=== PATIENT | female | born 1945 | race Caucasian/White ===

== ENCOUNTER → 2017-09-11 12:23 | Outpatient (CLI) | payer MEDICARE, SELFPAY ==
[2017-09-11 14:49] LABS: Cholesterol 165 mg/dL (200); Hemoglobin A1c 5.7 % (4.2-6.3); High Density Lipoprotein 44 mg/dL; Triglycerides 120 mg/dL; Very Low Density Lipoprotein 24 mg/dL (5-40)
== END ==
PROVIDERS: Family Provider Internal Medicine; PCP Internal Medicine; Visit Provider Internal Medicine
DX: E03.9 Hypothyroidism, unspecified (principal); E11.9 Type 2 diabetes mellitus without complications
CPT/HCPCS: 36415; 80061; 83036

== ENCOUNTER → 2017-09-29 16:41 | Outpatient (CLI) | payer MEDICARE, SELFPAY ==
--- NOTE | 2017-09-29 16:48 | RAD_ITS ---
STUDY: X-RAY CHEST REASON FOR EXAM: Female, 72 years old. Cough TECHNIQUE: Frontal and lateral views of the chest were obtained. COMPARISON: March 11, 2015 FINDINGS: The lungs are hyperinflated. There are no focal airspace opacities. There is no demonstrated pleural abnormality. The cardiac silhouette is normal in size. The mediastinum and hilar regions are unremarkable. Normal visualized pulmonary arteries. There is atherosclerotic calcification of the thoracic aorta. There are diffuse degenerative changes of the visualized spine. There are degenerative changes in both shoulders. There is no demonstrated abnormality of the visualized upper abdomen. RAD/Chest PA and Lateral IMPRESSION: There is no evidence of focal consolidation or pleural effusion. Stable COPD. Electronically Signed: Charline Turcios MD at 7:52 EST Tel Direct: [phone], Service support ,
== END ==
PROVIDERS: Family Provider Internal Medicine; PCP Internal Medicine; Visit Provider Nurse Practitioner Family
DX: R05 Cough (principal)
CPT/HCPCS: 71046

== ENCOUNTER 2017-10-06 15:21 | Emergency (ER) | payer MEDICARE, SELFPAY ==
[2017-10-06 15:22] VITALS: BP 148/81; PULSE 65; RESP 28; TEMP 37.1; O2SAT 98; BMI 35.5
--- NOTE | 2017-10-06 16:15 | CT_ITS ---
STUDY: CT BRAIN WITHOUT CONTRAST REASON FOR EXAM: Female, 72 years old. Anxiety and speech difficulties. RADIATION DOSAGE (If Supplied By Facility): CTDIvol = ( 44.99 ) mGy, DLP = ( 762.36 ) mGycm TECHNIQUE: Transaxial CT imaging of the brain was performed without administration of intravenous contrast material. Individualized dose optimization techniques were used for this CT. COMPARISON: Prior head CT examination of August 13, 2017 FINDINGS: Normal soft tissue structures. Normal calvarium. Normal size ventricles and extra-axial spaces for the patient's age. There are areas of decreased attenuation within the white matter tracts of the supratentorial brain, consistent with microvascular disease changes. Normal basal ganglia and thalami. Normal brainstem. Normal cerebellum. There is no intracranial hemorrhage. There are no findings of an acute ischemic infarction. Minimal dependent mucus or mucosal thickening of the left maxillary sinus. Otherwise clear paranasal sinuses. CT/Brain/Head without Contrast IMPRESSION: No acute intracranial findings. Negative for hemorrhage, hematoma or mass density. Negative for demarcation of a new nonhemorrhagic infarct. Moderate chronic small vessel ischemic changes without substantial changes from prior examination. Minimal mucous accumulation or mucosal thickening of the left maxillary sinus. Electronically Signed: Maribel Paul MD at 17:40 EST , Service support ,
--- NOTE | 2017-10-06 16:15 | RAD_ITS ---
STUDY: X-RAY CHEST REASON FOR EXAM: Female, 72 years old. Shortness of breath. Generalized illness. TECHNIQUE: Single frontal view of the chest. COMPARISON: September 29, 2017 FINDINGS: There is stable mild hyperexpansion compatible with COPD. There is no demonstrated pleural abnormality. There is stable borderline cardiomegaly. Normal mediastinum and doron. Normal visualized pulmonary arteries. Normal visualized aortic arch and descending thoracic aorta. Normal visualized thoracic spine. Normal visualized ribs, clavicles, and shoulders. There is no demonstrated abnormality of the visualized soft tissue structures of the upper abdomen. RAD/Chest 1 View (Portable) IMPRESSION: Stable borderline cardiomegaly with hyperexpansion compatible with COPD. No new or acute pathology. Electronically Signed: Satish Sorensen MD at 16:46 EST , Service support ,
--- NOTE | 2017-10-06 16:18 | EKG12_ITS ---
Test Reason : GENERAL ILLNESS Blood Pressure : / mmHG Vent. Rate : 057 BPM Atrial Rate : 057 BPM P-R Int : 256 ms QRS Dur : 110 ms QT Int : 482 ms P-R-T Axes : 096 -43 108 degrees QTc Int : 469 ms Sinus bradycardia with 1st degree A-V block with Premature atrial complexes Left axis deviation Left bundle branch block Septal infarct , age undetermined Inferior infarct , age undetermined ST & T wave abnormality, consider lateral ischemia Abnormal ECG Confirmed by LYNSEY ARANA ([id number]), scientific publications editor JM POST ([id number]) on 10/10/2017 1:06:09 PM Referred By: MELLISSA Confirmed By:LYNSEY ARANA
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
[2017-10-06 17:07] LABS: Absolute Lymphocyte Count 0.79 X10^3/ul (0.83-4.51); Absolute Neutrophil Count 7.3 X10^3/uL (2.0-7.7); Eosinophil# 0.01 X10^3/uL; Eosinophils% 0.1 % (0-5); Hematocrit 41.1 % (37-47); Hemoglobin 13.5 g/dl (12.0-15.0); Lymphocyte # 0.79 X10^3/ul (4.0); Lymphocyte % 9.4 % (19-41); Mean Corp Hgb Conc 32.8 g/gl (32-36); Mean Corpuscular Hgb 30.6 pg (27.0-32.0); Mean Corpuscular Volume 93.2 fL (81-99); Mean Platelet Vol. 10.6 fl (6.2-12.0); Monocyte# 0.31 X10^3/uL; Monocyte% 3.7 % (0-10); Neutrophil # 7.25 X10^3/uL (2.7-7.7); Neutrophil % 86.4 % (47-70); Platelet Count 144 K/mm3 (150-450); RBC Distribution Width CV 14.3 % (11.6-14.6); RBC Distribution Width SD 47.7 fl (35.1-43.9); Red Blood Count 4.41 M/mm3 (4.2-5.4); White Blood Count 8.4 K/mm3 (4.4-11.0)
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
[2017-10-06 17:16] LABS: POSITIVE COUNT NO; POSITIVE DIFFERENTIAL NO; POSITIVE MORPHOLOGY NO
[2017-10-06 17:18] LABS: International Normalized Ratio 1.1; Prothrombin Time (Protime)PT. 13.7 SECONDS (11.7-14.9)
[2017-10-06 17:19] LABS: Partial Thromboplast Time 23.5 Seconds (24.1-36.2)
[2017-10-06] MEDS: 0.9% Normal Saline 1,000 ML 150 ML IV (17:27)
[2017-10-06 17:28] LABS: Anion Gap 8 (5-15); BUN 14 mg/dL (7-18); BUN/Creat Ratio 16.4 RATIO (10-20); Calcium,Total 8.1 mg/dL (8.5-10.1); Chloride 106 mmol/L (98-107); Creatinine, Serum 0.86 mg/dL (0.55-1.02); EST Glomerular Filtration Rate 69 mL/min (>60); Est Glom Filt Rate - Afr Amer 84 mL/min (>60); Estimated Creatinine Clearance 73.39 ml/min; Glucose 122 mg/dL (74-106); Potassium 3.8 mmol/L (3.5-5.1); Sodium Level 141 mmol/L (136-145)
[2017-10-06] MEDS: DiphenhydrAMINE 50 MG/ML Syringe 25 MG IV (17:28)
[2017-10-06] MEDS: Ketorolac 30 MG/ML Syringe IV (17:28)
[2017-10-06] MEDS: proCHLORPERazine 10 MG/2 ML Vial IV (17:28)
[2017-10-06 17:40] VITALS: PULSE 61; RESP 14; O2SAT 95
[2017-10-06 17:56] LABS: Color, Urine Yellow (Yellow); Glucose, Dipstick Normal (Normal); Ketone-Dipstick Negative (Negative); Leukocyte Esterase-Dipstick 25 /ul (Negative); Nitrite-Dipstick Negative (Negative); Occult Blood-Urine Negative /ul (Negative); Protein-Dipstick 15 mg/dl (Negative); Urine Bilirubin Dipstick Negative (Negative); Urine Clarity Clear (Clear); Urine Urobilinogen 1 mg/dl (Normal)
[2017-10-06 18:05] LABS: Bacteria 1+ /hpf (None Seen); Mucous, Urine 2+ /hpf (<or=2+); Red Blood Cells-Urine 0-5 SEEN /hpf (0-5); Squamous Epithelial Cells - UA 0-5 SEEN /hpf (5-10); White Blood Cells 0-5 SEEN /hpf (0-5)
[2017-10-06 19:08] VITALS: PULSE 60; RESP 17; O2SAT 95
--- NOTE | 2017-10-06 19:24 | DCINST.ED_ITS ---
ED Disposition - Plan for ED Patient: Disposition: Home or Assisted Living Chief Complaint: General Illness Instructions: ED Headache Migraine Referrals: Behavioral,Health [facility] [GROUP OF PHYSICIANS] - As soon as possible Romaine Turner MD [Primary Care Provider] - 1-2 Weeks
--- NOTE | 2017-10-07 10:00 | CASEMGMT ---
Social Work - Emergency Department Referral sent to Tio Richardson and Emily Lara of the [facility] BH Department. In referral indicated that patient may need assist with transportation. -ONESIMO Tariq, BUSINESS SCHOOL DEAN
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
== END 2017-10-06 19:32 | disposition home or self-care (01) ==
PROVIDERS: Emergency Provider Emergency Medicine; Family Provider Internal Medicine; PCP Internal Medicine
DX: G43.909 Migraine, unspecified, not intractable, without status migrainosus (principal); R44.1 Visual hallucinations; I25.10 Atherosclerotic heart disease of native coronary artery without angina pectoris; J45.909 Unspecified asthma, uncomplicated; J44.9 Chronic obstructive pulmonary disease, unspecified; E78.00 Pure hypercholesterolemia, unspecified; I10 Essential (primary) hypertension; R56.9 Unspecified convulsions; K21.9 Gastro-esophageal reflux disease without esophagitis; F41.9 Anxiety disorder, unspecified; I71.4 Abdominal aortic aneurysm, without rupture; Z87.891 Personal history of nicotine dependence; Z79.51 Long term (current) use of inhaled steroids; Z79.02 Long term (current) use of antithrombotics/antiplatelets; Z79.899 Other long term (current) drug therapy
CPT/HCPCS: 70450; 71045; 80048; 81001; 84484; 85025; 85610; 85730; 93005; 96361; 96374; 96375; 99285; J7030; A4216

== ENCOUNTER → 2017-10-18 16:20 | Outpatient (CLI) | payer MEDICARE, SELFPAY ==
[2017-10-18 18:32] LABS: ALB/GLOB Ratio 0.9 RATIO (0.9-2.4); AST(SGOT) 20 U/L (15-37); Alanine Aminotransfer ALT/SGPT 30 U/L (13-56); Albumin, Serum 3.2 g/dL (3.2-5.0); Alkaline Phosphatase 89 U/L (45-117); Anion Gap 9 (5-15); BUN 10 mg/dL (7-18); BUN/Creat Ratio 11.9 RATIO (10-20); Calcium,Total 8.6 mg/dL (8.5-10.1); Chloride 107 mmol/L (98-107); Creatinine, Serum 0.84 mg/dL (0.55-1.02); EST Glomerular Filtration Rate 71 mL/min (>60); Est Glom Filt Rate - Afr Amer 86 mL/min (>60); Globulin 3.7 g/dL (2.2-4.2); Glucose 82 mg/dL (74-106); Potassium 4.1 mmol/L (3.5-5.1); Protein, Total 6.9 g/dL (6.4-8.2); Sodium Level 142 mmol/L (136-145); T4 Free Direct 1.28 ng/dL (0.76-1.46); Thyroid Stim Hormone (TSH) 0.79 uIU/mL (0.358-3.74)
== END ==
PROVIDERS: Family Provider Internal Medicine; PCP Internal Medicine; Visit Provider Internal Medicine
DX: E03.9 Hypothyroidism, unspecified (principal)
CPT/HCPCS: 36415; 80053; 84439; 84443

== ENCOUNTER 2017-10-31 12:57 | Emergency (ER) | payer MEDICARE, SELFPAY ==
[2017-10-31 13:01] VITALS: BP 148/108; PULSE 62; RESP 16; TEMP 36.8; O2SAT 97
--- NOTE | 2017-10-31 13:52 | ED.VISSUMM ---
- ER Visit Summary Date of Service: 10/31/17 Chief Complaint: Headache History of Present Illness: The patient is a 72 F who presents with a headache that became worse today. Patient states she has a history of migraine headaches. Patient states her headache is over the left side of her head. Patient describes the headache as a pressure. Patient admits to some tingling. Patient also admits to some right upper quadrant abdominal pain. Patient denies any nausea or vomiting. Patient denies any visual changes. Patient states her pain is constant but waxes and wanes. Patient states the pain is similar to prior migraine headaches. Physical Examination: Vital signs are stable. Patient is afebrile. Patient is in no acute distress. Cranial nerves II through XII are intact. Strength is 5/5 bilaterally upper and lower extremities. There are no sensory deficits noted. Oral mucosa is pink and moist. Neck is supple. Heart was regular rate and rhythm. Lungs are clear and equal bilaterally. Abdomen is soft. There is right upper quadrant tenderness. There is no rebound or guarding noted. The remaining physical exam is within normal limits. Test Results: CBC and comprehensive metabolic profile were obtained and were within normal limits. Emergency Department Course and Treatment: Patient was given IV fluids, Compazine, and Benadryl. Patient states her headache improved somewhat after this. Patient was given an injection of morphine. Patient was instructed to rest in a dark quiet room. Patient was instructed to follow-up with her primary care physician in 7-10 days. Patient understood and was agreeable with the plan. All questions were answered. Disposition: Discharged home Impression: Migraine headache, abdominal pain This note was generated with DoApp dictation software. It may contain incorrect words, spelling, and punctuation that were not noted in review of the chart prior to signing ED Disposition - Plan for ED Patient: Disposition: Home or Assisted Living Chief Complaint: Headache Diagnosis: Migraine headache, Right upper quadrant abdominal pain of unknown etiology Instructions: ED Headache Migraine, ED Abdominal Pain Unkn Cause Referrals: Romaine Turner MD [Primary Care Provider] -
--- NOTE | 2017-10-31 13:55 | ED.DCSUM_ITS ---
- ER Visit Summary Date of Service: 10/31/17 Chief Complaint: Headache History of Present Illness: The patient is a 72 F who presents with a headache that became worse today. Patient states she has a history of migraine headaches. Patient states her headache is over the left side of her head. Patient describes the headache as a pressure. Patient admits to some tingling. Patient also admits to some right upper quadrant abdominal pain. Patient denies any nausea or vomiting. Patient denies any visual changes. Patient states her pain is constant but waxes and wanes. Patient states the pain is similar to prior migraine headaches. Physical Examination: Vital signs are stable. Patient is afebrile. Patient is in no acute distress. Cranial nerves II through XII are intact. Strength is 5/ 5 bilaterally upper and lower extremities. There are no sensory deficits noted. Oral mucosa is pink and moist. Neck is supple. Heart was regular rate and rhythm. Lungs are clear and equal bilaterally. Abdomen is soft. There is right upper quadrant tenderness. There is no rebound or guarding noted. The remaining physical exam is within normal limits. Test Results: CBC and comprehensive metabolic profile were obtained and were within normal limits. Emergency Department Course and Treatment: Patient was given IV fluids, Compazine, and Benadryl. Patient states her headache improved somewhat after this. Patient was given an injection of morphine. Patient was instructed to rest in a dark quiet room. Patient was instructed to follow-up with her primary care physician in 7-10 days. Patient understood and was agreeable with the plan. All questions were answered. Disposition: Discharged home Impression: Migraine headache, abdominal pain This note was generated with Brainpark dictation software. It may contain incorrect words, spelling, and punctuation that were not noted in review of the chart prior to signing ED Disposition - Plan for ED Patient: Disposition: Home or Assisted Living Chief Complaint: Headache Diagnosis: Migraine headache, Right upper quadrant abdominal pain of unknown etiology Instructions: ED Headache Migraine, ED Abdominal Pain Unkn Cause Referrals: Romaine Turner MD [Primary Care Provider] -
[2017-10-31] MEDS: DiphenhydrAMINE 50 MG/ML Syringe 25 MG IV (14:28)
[2017-10-31] MEDS: 0.9% Normal Saline 1,000 ML 1000 ML IV (14:28)
[2017-10-31 14:31] LABS: Absolute Lymphocyte Count 1.28 X10^3/ul (0.83-4.51); Absolute Neutrophil Count 3.6 X10^3/uL (2.0-7.7); Basophil# 0.01 X10^3/uL; Basophil% 0.2 % (0-1); Eosinophil# 0.06 X10^3/uL; Eosinophils% 1.1 % (0-5); Hematocrit 43.9 % (37-47); Hemoglobin 14.3 g/dl (12.0-15.0); Lymphocyte # 1.28 X10^3/ul (4.0); Lymphocyte % 24.1 % (19-41); Mean Corp Hgb Conc 32.6 g/gl (32-36); Mean Corpuscular Hgb 30.6 pg (27.0-32.0); Mean Corpuscular Volume 93.8 fL (81-99); Mean Platelet Vol. 11.2 fl (6.2-12.0); Monocyte# 0.37 X10^3/uL; Neutrophil # 3.59 X10^3/uL (2.7-7.7); Neutrophil % 67.4 % (47-70); Platelet Count 182 K/mm3 (150-450); RBC Distribution Width CV 14.3 % (11.6-14.6); RBC Distribution Width SD 48.3 fl (35.1-43.9); Red Blood Count 4.68 M/mm3 (4.2-5.4); White Blood Count 5.3 K/mm3 (4.4-11.0)
[2017-10-31 14:35] LABS: POSITIVE COUNT NO; POSITIVE DIFFERENTIAL NO; POSITIVE MORPHOLOGY NO
[2017-10-31 14:45] LABS: ALB/GLOB Ratio 0.9 RATIO (0.9-2.4); AST(SGOT) 22 U/L (15-37); Alanine Aminotransfer ALT/SGPT 26 U/L (13-56); Albumin, Serum 3.6 g/dL (3.2-5.0); Alkaline Phosphatase 103 U/L (45-117); Anion Gap 8 (5-15); BUN 12 mg/dL (7-18); BUN/Creat Ratio 16.3 RATIO (10-20); Calcium,Total 8.8 mg/dL (8.5-10.1); Chloride 105 mmol/L (98-107); Creatinine, Serum 0.74 mg/dL (0.55-1.02); EST Glomerular Filtration Rate 82 mL/min (>60); Est Glom Filt Rate - Afr Amer 100 mL/min (>60); Estimated Creatinine Clearance 60.99 ml/min; Globulin 3.9 g/dL (2.2-4.2); Glucose 110 mg/dL (74-106); Lipase 168 U/L (73-393); Potassium 3.7 mmol/L (3.5-5.1); Protein, Total 7.5 g/dL (6.4-8.2); Sodium Level 140 mmol/L (136-145)
[2017-10-31] MEDS: proCHLORPERazine 10 MG/2 ML Vial IV (14:52)
[2017-10-31 15:04] VITALS: BP 137/74; PULSE 63; RESP 15; O2SAT 97
--- NOTE | 2017-10-31 15:53 | ED.RN ---
PT BRINGS MEDICATION BOTTLES FROM HOME, STATES I TAKE THOSE PILLS IF I FEEL LIKE IT. SPOUSE'S MEDS FOUND IN CONTAINER WELL, PT STATES OH I TAKE SOME OF HIS TOO, IT'S OK. COUNSELED ON DANGERS OF TAKING PILLS NOT PRESCRIBED BY HER MD, PT STATES I KNOW, I KNOW, YOU DON'T HAVE TO TELL ME AGAIN.
--- NOTE | 2017-10-31 15:55 | ED.RN ---
PT STILL RATES HEADACHE AT 5/10, HOWEVER ALSO STATES I'M MUCH BETTER, I'M REALLY JUST HERE FOR YOU TO CUT MY HEAD OPEN AND FIX ME.
[2017-10-31] MEDS: Morphine 4 MG/ML Syringe IV (16:27)
[2017-10-31 16:29] VITALS: BP 128/71; PULSE 79; RESP 16; O2SAT 98
== END 2017-10-31 16:40 | disposition home or self-care (01) ==
PROVIDERS: Emergency Provider Emergency Medicine; Family Provider Internal Medicine; PCP Internal Medicine
DX: G43.909 Migraine, unspecified, not intractable, without status migrainosus (principal); R10.11 Right upper quadrant pain; J44.9 Chronic obstructive pulmonary disease, unspecified; Z87.891 Personal history of nicotine dependence; Z79.51 Long term (current) use of inhaled steroids; Z79.02 Long term (current) use of antithrombotics/antiplatelets; Z79.899 Other long term (current) drug therapy
CPT/HCPCS: 80053; 83690; 85025; 96361; 96374; 96375; 99283; J7030

== ENCOUNTER → 2018-01-04 12:44 | Outpatient (CLI) | payer MEDICARE, SELFPAY ==
--- NOTE | 2018-01-05 11:32 | PFT ---
INTRODUCTION: The patient is a 72-year-old female currently under the care of Nabor Biggs NP that presents for pulmonary function testing secondary to a diagnosis of COPD. Respiratory therapy reports good patient effort. Bronchodilators were used during testing. INTERPRETATION: Forced expiration spirometry demonstrates the presence of a moderately severe large airways obstructive ventilatory defect. There was a significant bronchodilator response noted in both FEV1 and FVC. Spirograms are of good quality and do not plateau indicating slow emptying of the lungs. The respiratory flow volume loop reveals decreased expiratory flow rates at all lung volumes consistent with airways obstruction. Body plethysmography was performed and reveals an elevated RV to 171% of predicted, indicative of underlying air trapping. Diffusing capacity by single breath CO is moderately reduced at 53% of predicted. IMPRESSION: These pulmonary function studies demonstrate the presence of a partially reversible moderately severe large airways obstructive ventilatory defect with associated air trapping and reduction in diffusing capacity. There are no previous pulmonary function studies available for comparison.
== END ==
PROVIDERS: Family Provider Internal Medicine; PCP Internal Medicine; Visit Provider Nurse Practitioner Family
DX: J44.9 Chronic obstructive pulmonary disease, unspecified (principal); R06.00 Dyspnea, unspecified
CPT/HCPCS: 94060; 94726; 94729

== ENCOUNTER → 2018-02-12 10:52 | Outpatient (CLI) | payer MEDICARE, SELFPAY ==
[2018-02-12 11:00] VITALS: PULSE 103; PULSE 80; PULSE 83; PULSE 84; PULSE 88; PULSE 94; PULSE 95; O2SAT 90; O2SAT 91; O2SAT 94; O2SAT 95; O2SAT 96
--- NOTE | 2018-02-12 12:28 | WT_ITS ---
PSN 6 Minute Walk Test - 6 Minute Walk Test 6 Minute Walk Test: 6 Minute Walk Test PSN:6-Minute Walk Test Start: 02/12/18 11: 28 Freq: Status: Active Protocol: RESP.6MINW Document 02/12/18 11:00 MARIAH (Rec: 02/12/18 11:34 JLA [id number]) 6 Minute Walk Test Date Performed 02/12/18 Time Performed 11:00 Height 4 ft 11 in Weight: 162 lb Weight in Pounds 162.[address]: Pato Ansari Assistive device used: None Pre-test Oxygen Delivery Method Room Air Pulse Ox (%) 94 Pulse Rate (60-100 beats/min) 80 Dyspnea Landon Scale (0-10) 5 Exertion Landon Scale (6-20) 6 1st minute Oxygen Delivery Method Room Air Pulse Ox (%) 95 Pulse Rate (60-100 beats/min) 84 2nd minute Oxygen Delivery Method Room Air Pulse Ox (%) 91 Pulse Rate (60-100 beats/min) 94 3rd minute Oxygen Delivery Method Room Air Pulse Ox (%) 90 Pulse Rate (60-100 beats/min) 103 H 4th minute Oxygen Delivery Method Room Air Pulse Ox (%) 94 Pulse Rate (60-100 beats/min) 95 5th minute Oxygen Delivery Method Room Air Pulse Ox (%) 95 Pulse Rate (60-100 beats/min) 88 Number of Rests Taken 1 6th minute Oxygen Delivery Method Room Air Pulse Ox (%) 95 Pulse Rate (60-100 beats/min) 88 Dyspnea Landon Scale (0-10) 8 Exertion Landon Scale (6-20) 14 Post-test Oxygen Delivery Method Room Air Pulse Ox (%) 96 Pulse Rate (60-100 beats/min) 83 Full Laps Walked 9 Partial Lap, Number of Tiles Walked 0 Total Distance Walked (ft) 531 - Interpretation Interpretation: The patient ambulated 531 feet over the course of 6 minutes beginning on room air without assistive devices. Pretesting oxygen saturation was noted be 94% on room air. With ambulation, the susy oxygen saturation was 90%. This represents a significant exertional oxygen desaturation, along with impaired walk distance. - Recommendations Recommendations: There is no indication for the use of supplemental oxygen at this time. However , close interval follow-up is recommended given the degree of oxygen desaturation noted during this study.
== END ==
PROVIDERS: Family Provider Internal Medicine; PCP Internal Medicine; Visit Provider Internal Medicine Critical Care Medicine
DX: J44.9 Chronic obstructive pulmonary disease, unspecified (principal); F17.201 Nicotine dependence, unspecified, in remission
CPT/HCPCS: 94060; 94618; 94726; 94729

== ENCOUNTER → 2018-02-15 16:39 | Outpatient (CLI) | payer MEDICARE, SELFPAY ==
[2018-02-15 17:47] LABS: T4 Free Direct 1.34 ng/dL (0.76-1.46); Thyroid Stim Hormone (TSH) 0.09 uIU/mL (0.358-3.74)
== END ==
PROVIDERS: Family Provider Internal Medicine; PCP Internal Medicine; Visit Provider Nurse Practitioner Family
DX: E03.9 Hypothyroidism, unspecified (principal); R25.1 Tremor, unspecified
CPT/HCPCS: 36415; 84439; 84443

== ENCOUNTER → 2018-03-12 10:55 | Outpatient (CLI) | payer MEDICARE, SELFPAY ==
[2018-03-12 12:23] LABS: T4 Free Direct 1.14 ng/dL (0.76-1.46); Thyroid Stim Hormone (TSH) 0.94 uIU/mL (0.358-3.74)
== END ==
PROVIDERS: Family Provider Internal Medicine; PCP Internal Medicine; Visit Provider Nurse Practitioner Family
DX: E03.9 Hypothyroidism, unspecified (principal)
CPT/HCPCS: 36415; 84439; 84443

== ENCOUNTER → 2018-04-19 07:31 | Outpatient (CLI) | payer MEDICARE, SELFPAY | PROVIDERS: Family Provider Internal Medicine; PCP Internal Medicine; Visit Provider Internal Medicine Cardiovascular Disease | DX: I25.10 Atherosclerotic heart disease of native coronary artery without angina pectoris (principal) | CPT/HCPCS: 93306 ==

== ENCOUNTER → 2018-05-14 09:25 | Outpatient (CLI) | payer MEDICARE, SELFPAY ==
--- NOTE | 2018-05-14 09:37 | STEWCON_ITS ---
Reason For Study: CAD, SOB Stress Results Protocol: Dobutamine Stress Echo Maximum Predicted HR: 146 bpm Target HR: 124 bpm% Maximum Pre dicted HR: 106 % DurationHeart Rate Stage (mm:ss) (bpm) BPComm ent Baseline 69 135/85 Diluted Definity 0.4 ML Given; No Chest Pain DSE 10 MCG 3:12 66 146/87No Chest Pain DSE 20 MCG 3:00 78 122/79No Chest Pain DSE 30 MCG 3:00 10 7 161/73No Chest Pain DSE 40 MCG 1:58 15 5 171/100Atropine 0.25 MG IVP; No Chest Pain Recovery 93 134/65 No Chest Pain Stress Duration: 11:10 mm:ss Maximum Stress HR: 155 bpmME TS: 1 Baseline Echocardiogram Findings The estimated ejection fraction is 65 %. Stress Echo Wall motion Data Resting WMIntermediate WMStress WM Resting Wall Motion Wall Motion Stress No regional wall motion No regional wall motion abnormalities noted. abnormalities noted. EKG Data Normal intervals are noted. The patient was titrated from 10 mcg to a maximum of 40 mcg of dobutamine during the stress. The maximum heart rate attained was 157 beats per minute. This was 107% of maximum predicted heart rate. During dobutamine infusion, there were no ST or T wave changes noted to suggest ischemia. No clinical angina was noted. Interpretation Summary The study was technically difficult. Contrast injection was performed. The estimated ejection fraction is 65 %. Normal, adequate, dobutamine echocardiogram. Negative for ischemia by EKG and echocardiographic criteria. No anginal symptoms noted. Rare PVCs noted. Appropriate blood pressure response to dobutamine. Final LVEF of 75%. Test terminated due to the attainment of target heart rate. Decreased sensitivity due to poor echo windows requiring Definity enhancing agent. No complications. Ordering Physician: Orion Nayak Referring Physician: Orion Nayak Performed By: Kristal Rivero, RDCS, RVT
== END ==
PROVIDERS: Family Provider Internal Medicine; PCP Internal Medicine; Referring Provider Internal Medicine Cardiovascular Disease; Visit Provider Internal Medicine Cardiovascular Disease
DX: I25.10 Atherosclerotic heart disease of native coronary artery without angina pectoris (principal); E78.5 Hyperlipidemia, unspecified
CPT/HCPCS: 93017; 93350; J7030; Q9957; A4216; C8928

== ENCOUNTER → 2018-05-17 08:37 | Outpatient (CLI) | payer MEDICARE, SELFPAY ==
--- NOTE | 2018-05-17 08:39 | AAVD_ITS ---
Reason For Study: AAA Aorta Measurements Aorta Doppler Measurements Proximal aorta measures1.51 x 1.43cm. in cross- Peak systolic flow velocities within the proximal sectional axis. aorta measure 48.3 cm/sec. Proximal aorta measures1.52cm. in longitudinal Peak systolic flow velocities within the mid axis. aorta measure 73.9 cm/sec. Mid aorta measures1.41 x 1.46cm. in cross- Peak systolic flow velocities within the distal sectional axis. aorta measure 65.4 cm/sec. Mid aorta measures1.25cm. in longitudinal axis. Distal aorta measures1.41 x 1.37cm. in cross- sectional axis. Distal aorta measures1.413cm. in longitudinal axis. Left Iliac Artery Left iliac artery measures 0.59 x 0.61 cm. in the cross-sectional axis. Left iliac artery measures 0.61 cm. in the longitudinal axis. Peak systolic velocity in the left iliac artery measures 56.8 cm/sec. Right Iliac Artery Right iliac artery measures 0.83 x 0.83 cm. in the cross-sectional axis. Right iliac artery measures 0.72 cm. in the longitudinal axis. Peak systolic velocity in the right iliac artery measures 80.7 cm/sec. Procedure Aorta IVC Iliac vasculature or bypass grafts [id number]. Exam performed in department. Interpretation Summary Proximal aorta 1.51 x 1.43xm diameter maximum Normal velocity of flow, Diffuse plague noted. Right iliac 0.83 x 0.83 cm Left iliac 0.59 x 0.61 cm Ordering Physician: Orion Nayak Referring Physician: Romaine Turner Performed By: Seble Espinosa RVT and Student
[2018-05-17 09:50] LABS: AST(SGOT) 30 U/L (15-37); Alanine Aminotransfer ALT/SGPT 39 U/L (13-56); Albumin, Serum 3.6 g/dL (3.2-5.0); Alkaline Phosphatase 105 U/L (45-117); Bilirubin, Direct 0.15 mg/dL (0.00-0.30); Cholesterol 148 mg/dL (200); Globulin 4.1 g/dL (2.2-4.2); High Density Lipoprotein 51 mg/dL; Protein, Total 7.7 g/dL (6.4-8.2); T4 Total, Thyroxin 9.7 ug/dL (4.8-13.9); Thyroid Stim Hormone (TSH) 0.77 uIU/mL (0.358-3.74); Triglycerides 120 mg/dL; Very Low Density Lipoprotein 24 mg/dL (5-40)
== END ==
PROVIDERS: Family Provider Internal Medicine; PCP Internal Medicine; Referring Provider Internal Medicine Cardiovascular Disease; Visit Provider Internal Medicine Cardiovascular Disease
DX: I71.4 Abdominal aortic aneurysm, without rupture (principal); I25.10 Atherosclerotic heart disease of native coronary artery without angina pectoris; R25.1 Tremor, unspecified; Z86.79 Personal history of other diseases of the circulatory system; Z98.890 Other specified postprocedural states
CPT/HCPCS: 36415; 80061; 80076; 84436; 84443; 93978

== ENCOUNTER 2018-08-18 16:37 | Emergency (ER) | payer MEDICARE, SELFPAY ==
[2018-07-31 14:14] VITALS: BMI 34.7
[2018-08-18 16:38] VITALS: BP 92/64; PULSE 66; RESP 24; TEMP 36.7; O2SAT 93; BMI 34.3
--- NOTE | 2018-08-18 17:06 | CT_ITS ---
STUDY: CT BRAIN WITHOUT CONTRAST REASON FOR EXAM: Female, 73 years old. Dizziness for 30 minutes prior to arrival to the emergency room RADIATION DOSAGE (If Supplied By Facility): CTDIvol = ( 44.99 ) mGy, DLP = ( 762.36 ) mGycm TECHNIQUE: Transaxial CT imaging of the brain was performed without administration of intravenous contrast material. Individualized dose optimization techniques were used for this CT. COMPARISON: 10/06/2017 FINDINGS: Normal soft tissue structures. Normal calvarium. There is mild cerebral atrophy with widening of the extra-axial spaces and ventricular dilatation. There are areas of decreased attenuation within the white matter tracts of the supratentorial brain, consistent with microvascular disease changes. Normal basal ganglia and thalami. Normal brainstem. Normal cerebellum. There is no intracranial hemorrhage. There are no findings of an acute ischemic infarction. Bilateral corazon bullosae, normal variant. Visualized paranasal sinuses are unremarkable. CT/Brain/Head without Contrast IMPRESSION: 1. No acute intracranial hemorrhage or mass effect. 2. Central parenchymal volume loss. White matter changes that are nonspecific but most commonly associated with chronic small vessel ischemic disease. Electronically Signed: Leroy Cullen MD at 18:25 EST , Service support ,
--- NOTE | 2018-08-18 17:06 | CT_ITS ---
STUDY: CT ABDOMEN AND PELVIS WITHOUT CONTRAST REASON FOR EXAM: Female, 73 years old. Sharp stabbing pain in the bilateral flank that started prior to arrival to the emergency room Department RADIATION DOSAGE (If Supplied By Facility): CTDIvol = ( 12.04 ) mGy, DLP = ( 568.32 ) mGycm TECHNIQUE: Transaxial images were obtained from the dome of the diaphragm to the symphysis pubis without oral contrast, and without intravenous contrast. Sagittal and coronal images were reconstructed. Individualized dose optimization techniques were used for this CT. COMPARISON: None. FINDINGS: There are chronic interstitial fibrotic changes of the lung bases. There are mitral valve calcifications. Normal liver. There are surgical clips in the gallbladder fossa consistent with a prior cholecystectomy. Normal spleen. Normal pancreas. Normal bilateral adrenal glands. There are small punctate calcifications of both kidneys. No ureteral calcifications or hydronephrosis. 2.7 cm cystic lesion of the right kidney is indeterminate with mild degree of intermediate density along the posterior margin. There is a small hiatal hernia. Normal small intestine. Normal colon. There is non-visualization of the appendix. Aortic bypass graft noted with expected arterial and iliac calcifications. Normal inferior vena cava. Normal retroperitoneum. Normal urinary bladder. There are operative changes of the anterior abdominal wall. There are surgical clips of the left and right groins. Normal osseous structures. CT/Abdomen/Pelvis without Cont IMPRESSION: 1. Bilateral nephrolithiasis without evidence of hydronephrosis or ureteral obstruction. 2. Aortobifemoral bypass graft. 3. Cholecystectomy. Electronically Signed: Leroy Cullen MD at 18:47 EST , Service support ,
[2018-08-18] MEDS: Meclizine HCl 25 MG Tablet PO (17:20)
--- NOTE | 2018-08-18 17:32 | ED.DCSUM_ITS ---
- ER Visit Summary Date of Service: 08/18/18 Chief Complaint: Dizziness History of Present Illness: The patient is a 73 F who presents with dizziness that began today. Patient describes the dizziness as a spinning sensation. Patient states her dizziness is worse with movements of her head. Patient states it improves with rest. Patient admits to some blurred vision. Patient denies any ear pain or hearing changes. Patient admits to some mild chronic neck pain. Patient admits to a mild left-sided headache. Patient denies any nausea or vomiting. She denies any dysuria or hematuria. Patient admits to some intermittent sharp left flank pain however. Physical Examination: Vital signs are stable. Patient is afebrile. Patient is in no acute distress. Cranial nerves II through XII are intact. 5/5 bilaterally in the upper and lower extremities. There are no sensory deficits noted. Pupils are equal, round, and reactive to light bilaterally. Extraocular muscles are intact. There is no nystagmus noted. Neck is supple. Trachea is midline. There is no JVD noted. Heart was regular rate and rhythm. Lungs are clear and equal bilaterally. Abdomen is soft. Bowel sounds are normal. There is some mild left CVA tenderness. There is no guarding noted. The remaining physical exam is within normal limits. Test Results: CT scan of the brain was obtained and did not show any acute cardiopulmonary process. CBC was normal. Basic metabolic profile shows slightly elevated glucose of 154 and a slightly elevated creatinine 1.14. Urinalysis does not show any evidence of urinary tract infection. CT scan of the abdomen and pelvis was obtained. There is no ureteral calculus. There are bilateral renal calculi but there is no obstruction. There is no acute intra- abdominal process. Emergency Department Course and Treatment: Patient was given a dose of meclizine here. She had some relief with this initially but states the dizziness started to return. Patient was given a dose of morphine for her headache. Patient was given a dose of Benadryl. Patient felt better after this. Patient was also given Afrin nasal spray for her sinus congestion. Patient was given prescription for meclizine. Patient was instructed to follow-up with her primary care physician in 5-7 days. Patient was instructed to drink plenty of fluids. Patient understood and was agreeable with the plan. All questions were answered. Disposition: Discharged home Impression: Peripheral vertigo This note was generated with Dragon dictation software. It may contain incorrect words, spelling, and punctuation that were not noted in review of the chart prior to signing ED Disposition - Plan for ED Patient: Disposition: Home or Assisted Living Chief Complaint: Dizziness Diagnosis: Vertigo Instructions: ED Vertigo Unspecified Prescriptions: Meclizine HCl [Antivert] 25 mg PO TID PRN PRN #20 tab PRN Reason: Dizziness Referrals: Romaine Turner MD [Primary Care Provider] - Additional Instructions: Drink plenty of fluids. Follow-up with your primary care physician in 5-7 days.
[2018-08-18 17:34] LABS: Absolute Lymphocyte Count 1.36 X10^3/ul (0.83-4.51); Absolute Neutrophil Count 4.1 X10^3/uL (2.0-7.7); Basophil# 0.01 X10^3/uL; Basophil% 0.2 % (0-1); Eosinophil# 0.13 X10^3/uL; Eosinophils% 2.2 % (0-5); Hematocrit 42.7 % (37-47); Hemoglobin 13.9 g/dl (12.0-15.0); Lymphocyte # 1.36 X10^3/ul (4.0); Lymphocyte % 22.7 % (19-41); Mean Corp Hgb Conc 32.6 g/gl (32-36); Mean Corpuscular Hgb 29.4 pg (27.0-32.0); Mean Corpuscular Volume 90.5 fL (81-99); Mean Platelet Vol. 10.6 fl (6.2-12.0); Monocyte# 0.39 X10^3/uL; Monocyte% 6.5 % (0-10); Neutrophil # 4.09 X10^3/uL (2.7-7.7); Neutrophil % 68.4 % (47-70); Platelet Count 154 K/mm3 (150-450); RBC Distribution Width CV 13.1 % (11.6-14.6); RBC Distribution Width SD 43.3 fl (35.1-43.9); Red Blood Count 4.72 M/mm3 (4.2-5.4)
[2018-08-18 17:35] LABS: POSITIVE COUNT NO; POSITIVE DIFFERENTIAL NO; POSITIVE MORPHOLOGY NO
[2018-08-18 17:41] LABS: Anion Gap 12 (5-15); BUN 11 mg/dL (7-18); BUN/Creat Ratio 9.6 RATIO (10-20); Calcium,Total 8.9 mg/dL (8.5-10.1); Chloride 102 mmol/L (98-107); Creatinine, Serum 1.14 mg/dL (0.55-1.02); EST Glomerular Filtration Rate 50 mL/min (>60); Est Glom Filt Rate - Afr Amer 60 mL/min (>60); Glucose 154 mg/dL (74-106); Potassium 4.3 mmol/L (3.5-5.1); Sodium Level 138 mmol/L (136-145)
[2018-08-18 18:50] VITALS: BP 108/74; PULSE 76; RESP 20; O2SAT 95
[2018-08-18] MEDS: DiphenhydrAMINE 50 MG/ML Syringe 25 MG IV (19:46)
[2018-08-18] MEDS: Morphine 2 MG/ML Syringe IV (19:47)
[2018-08-18] MEDS: Oxymetazoline 0.05% 1 SPRAY SPRAY.BTL NASAL (19:47)
[2018-08-18 19:50] LABS: Bacteria 0 SEEN /hpf (None Seen); Mucous, Urine 0 SEEN /hpf (<or=2+)
[2018-08-18 19:55] LABS: Color, Urine Yellow (Yellow); Glucose, Dipstick Normal (Normal); Ketone-Dipstick Negative (Negative); Leukocyte Esterase-Dipstick 25 /ul (Negative); Nitrite-Dipstick Negative (Negative); Occult Blood-Urine 10 /ul (Negative); Protein-Dipstick Negative (Negative); Specific Gravity, Urine 1.015 (1.002-1.030); Urine Bilirubin Dipstick Negative (Negative); Urine Clarity Clear (Clear); Urine Urobilinogen Normal (Normal)
[2018-08-18 20:09] LABS: Hyaline Cast 10-25 SEEN /lpf (0-5); Squamous Epithelial Cells - UA 0-5 SEEN /hpf (5-10); Transitional Epithelial - Ur 0-5 SEEN /hpf (0-5); White Blood Cells 0-5 SEEN /hpf (0-5)
[2018-08-18 20:10] LABS: Red Blood Cells-Urine 0-5 SEEN /hpf (0-5)
[2018-08-18 20:31] VITALS: BP 101/67; PULSE 69; RESP 18; O2SAT 98
[2018-08-18 21:19] VITALS: BP 124/79; PULSE 80; RESP 16; O2SAT 98
== END 2018-08-18 21:20 | disposition home or self-care (01) ==
PROVIDERS: Emergency Provider Emergency Medicine; Family Provider Internal Medicine; PCP Internal Medicine
DX: H81.399 Other peripheral vertigo, unspecified ear (principal); I25.10 Atherosclerotic heart disease of native coronary artery without angina pectoris; J44.9 Chronic obstructive pulmonary disease, unspecified; K21.9 Gastro-esophageal reflux disease without esophagitis; E78.00 Pure hypercholesterolemia, unspecified; I73.9 Peripheral vascular disease, unspecified; F41.9 Anxiety disorder, unspecified; E21.3 Hyperparathyroidism, unspecified; F32.9 Major depressive disorder, single episode, unspecified; Z85.828 Personal history of other malignant neoplasm of skin; Z79.51 Long term (current) use of inhaled steroids; Z79.02 Long term (current) use of antithrombotics/antiplatelets; Z79.899 Other long term (current) drug therapy
CPT/HCPCS: 70450; 74176; 80048; 81001; 85025; 96374; 96375; 99285; A4216

== ENCOUNTER 2018-10-31 18:35 | Emergency (ER) | payer MEDICARE, SELFPAY ==
[2018-08-21 15:11] VITALS: BMI 34.3
[2018-10-31 18:36] VITALS: BP 94/64; PULSE 74; RESP 15; TEMP 36.8; O2SAT 98; BMI 41.2
--- NOTE | 2018-10-31 19:21 | EKG12_ITS ---
Test Reason : HEADACHE Blood Pressure : / mmHG Vent. Rate : 067 BPM Atrial Rate : 067 BPM P-R Int : 130 ms QRS Dur : 110 ms QT Int : 454 ms P-R-T Axes : 022 -18 094 degrees QTc Int : 479 ms Normal sinus rhythm Low voltage QRS Septal infarct (cited on or before 11-MAR-2015), age undetermined Abnormal ECG Confirmed by DONOVAN REYES MD ([id number]), film editor GINA LORD ([id number]) on 11/05/2018 11:28:04 AM Also confirmed by DONOVAN REYES MD ([id number]), film editor JM POST ([id number]) on 11/05/2018 11:38:45 AM Referred By: MELLISSA Confirmed By:DONOVAN REYES MD
[2018-10-31] MEDS: DiphenhydrAMINE 50 MG/ML Syringe 12.5 MG IV (19:31)
[2018-10-31] MEDS: Ketorolac 30 MG/ML Syringe IV (19:33)
[2018-10-31 19:58] LABS: Anion Gap 5 (5-15); BUN 14 mg/dL (7-18); BUN/Creat Ratio 12.4 RATIO (10-20); Calcium,Total 8.7 mg/dL (8.5-10.1); Chloride 106 mmol/L (98-107); Creatinine, Serum 1.13 mg/dL (0.55-1.02); EST Glomerular Filtration Rate 50 mL/min (>60); Est Glom Filt Rate - Afr Amer 60 mL/min (>60); Glucose 88 mg/dL (74-106); Potassium 4.2 mmol/L (3.5-5.1); Sodium Level 141 mmol/L (136-145)
--- NOTE | 2018-10-31 20:00 | CT_ITS ---
HISTORY: headache and vertigo EXAM/TECHNIQUE: CT Head or Brain W/O Contrast: Multiplanar reformats provided. COMPARISON: 10/06/17 and 08/18/18 CT brain. FINDINGS: # of images incl. paperwork: 242 No evidence of intracranial hemorrhage, hydrocephalus mass, or acute infarct. No acute osseous abnormality. Scattered chronic appearing hypodensities in the cerebral white matter. Calcific atherosclerosis of the intracranial arteries. CT/Brain/Head without Contrast IMPRESSION: No acute findings. Individualized dose optimization techniques were used for this CT. at 2023 Reported and signed by: Polo Rincon MD Electronically Signed: Polo Rincon, at 20:21 EDT Tel , Service support ,
[2018-10-31 20:09] LABS: Absolute Neutrophil Count 3.5 X10^3/uL (2.0-7.7); Basophil# 0.03 X10^3/uL; Basophil% 0.5 % (0-1); Eosinophil# 0.13 X10^3/uL; Eosinophils% 2.4 % (0-5); Hematocrit 41.7 % (37-47); Hemoglobin 13.3 g/dl (12.0-15.0); Lymphocyte % 23.6 % (19-41); Mean Corp Hgb Conc 31.9 g/gl (32-36); Mean Corpuscular Volume 93.9 fL (81-99); Monocyte# 0.54 X10^3/uL; Monocyte% 9.8 % (0-10); Neutrophil % 63.5 % (47-70); Platelet Count 176 K/mm3 (150-450); RBC Distribution Width CV 14.1 % (11.6-14.6); RBC Distribution Width SD 46.7 fl (35.1-43.9); Red Blood Count 4.44 M/mm3 (4.2-5.4); White Blood Count 5.5 K/mm3 (4.4-11.0)
[2018-10-31 20:11] LABS: POSITIVE COUNT NO; POSITIVE DIFFERENTIAL NO; POSITIVE MORPHOLOGY NO
[2018-10-31] MEDS: 0.9% Normal Saline 1,000 ML 150 ML IV (20:47)
[2018-10-31 21:18] VITALS: PULSE 80; RESP 15; O2SAT 98
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
--- NOTE | 2018-10-31 21:59 | ED.DEP ---
ED Disposition - Plan for ED Patient: Disposition: Home or Assisted Living Instructions: ED Cephalgia Unspecified Referrals: Romaine Turner MD [Primary Care Provider] - 1 Week
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
[2018-10-31 22:12] VITALS: PULSE 105; RESP 14; O2SAT 99
[2018-10-31] MEDS: Metoclopramide 10 MG Tablet PO (23:03)
[2018-10-31] MEDS: DiphenhydrAMINE 25 MG Capsule PO (23:03)
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
--- NOTE | 2018-10-31 23:07 | ED.RN ---
PT RE-EVALUATED BY CASE MANAGEMENT AND ER WAS ABLE TO SPEAK HIS CONCERNS WITH CASE MANAGEMENT. ADDITIONAL MEDICATIONS ORDERED FOR HEADACHE. MEDS GIVEN PRIOR TO D/C. Precious HANKINS RN [id number]
--- NOTE | 2018-11-01 12:19 | CM.ED ---
SOCIAL WORK NOTE CALL TO ADULT PROTECTIVE SERVICES. REPORT MADE TO MARLON REGARDING PATIENT'S VISIT LAST EVENING AND CONCERNS VOICED FROM , PATIENT AND STAFF. MAYRA MITCHELL, BUILDING CONSTRUCTION PROFESSOR, PSYCHOLOGY DEPARTMENT CHAIR.
== END 2018-10-31 22:13 | disposition home or self-care (01) ==
PROVIDERS: Emergency Provider Emergency Medicine; Family Provider Internal Medicine; PCP Internal Medicine
DX: R51 Headache (principal); I25.10 Atherosclerotic heart disease of native coronary artery without angina pectoris; J44.9 Chronic obstructive pulmonary disease, unspecified; I10 Essential (primary) hypertension; I27.20 Pulmonary hypertension, unspecified; I71.4 Abdominal aortic aneurysm, without rupture; M19.90 Unspecified osteoarthritis, unspecified site; Z87.891 Personal history of nicotine dependence; Z79.51 Long term (current) use of inhaled steroids; Z79.899 Other long term (current) drug therapy
CPT/HCPCS: 70450; 80048; 85025; 93005; 96361; 96374; 96375; 99284; J7030; J7040; A4216

== ENCOUNTER → 2019-03-08 | Outpatient (CLI) | payer MEDICARE, SELFPAY ==
[2019-03-07 15:19] VITALS: BMI 35.9
[2019-03-08 15:08] LABS: Absolute Lymphocyte Count 1.83 X10^3/uL (0.83-4.51); Absolute Neutrophil Count 3.4 X10^3/uL (2.0-7.7); Basophil# 0.04 X10^3/uL; Basophil% 0.7 % (0-1); Eosinophil# 0.26 X10^3/uL; Eosinophils% 4.2 % (0-5); Hemoglobin 14.5 g/dL (12.0-15.0); Lymphocyte # 1.83 X10^3/ul (4.0); Lymphocyte % 29.9 % (19-41); Mean Corp Hgb Conc 33.7 g/dL (32-36); Mean Corpuscular Volume 91.9 fL (81-99); Mean Platelet Vol. 10.7 fl (6.2-12.0); Monocyte# 0.59 X10^3/uL; Monocyte% 9.6 % (0-10); NRBC Flagged by Analyzer 0 % (0-5); Neutrophil % 55.4 % (47-70); Platelet Count 170 K/mm3 (150-450); RBC Distribution Width CV 13.6 % (11.6-14.6); RBC Distribution Width SD 45.4 fl (35.1-43.9); Red Blood Count 4.68 M/mm3 (4.2-5.4); White Blood Count 6.1 K/mm3 (4.4-11.0)
[2019-03-08 15:48] LABS: AST(SGOT) 39 U/L (15-37); Alanine Aminotransfer ALT/SGPT 44 U/L (13-56); Albumin, Serum 3.8 g/dL (3.2-5.0); Alkaline Phosphatase 109 U/L (45-117); Anion Gap 3 (5-15); BUN 13 mg/dL (7-18); BUN/Creat Ratio 14.4 RATIO (10-20); Chloride 105 mmol/L (98-107); EST Glomerular Filtration Rate 65 mL/min (>60); Est Glom Filt Rate - Afr Amer 78 mL/min (>60); Globulin 3.9 g/dL (2.2-4.2); Glucose 108 mg/dL (74-106); Potassium 4.5 mmol/L (3.5-5.1); Protein, Total 7.7 g/dL (6.4-8.2); Sodium Level 135 mmol/L (136-145)
== END | disposition home or self-care (01) ==
LOC: LAB 14:43
PROVIDERS: Family Provider Internal Medicine; PCP Internal Medicine; Referring Provider Internal Medicine; Visit Provider Internal Medicine
DX: I10 Essential (primary) hypertension (principal); J32.9 Chronic sinusitis, unspecified
CPT/HCPCS: 36415; 80053; 85025

== ENCOUNTER → 2019-10-02 14:35 | Outpatient (CLI) | payer MEDICARE, SELFPAY ==
[2019-10-02 13:37] VITALS: BMI 35.9
--- NOTE | 2019-10-02 15:08 | RAD_ITS ---
STUDY: X-RAY RIGHT FOOT, BIG TOE REASON FOR EXAM: Female, 74 years old. Injury a few days ago, pain and bruising big toe TECHNIQUE: 3 view(s) of the toe were obtained. COMPARISON: None. FINDINGS: Normal visualized metatarsus. There is arthrosis and hallux valgus deformity of the metatarsophalangeal (M.T.P.) joint. Normal interphalangeal joints. Normal phalanges and interphalangeal joints. The soft tissue structures are unremarkable. RAD/Toe(s) Min 2 Views IMPRESSION: Hallux valgus deformity and degenerative changes. Electronically Signed: Jaime Vargas, at 15:24 EST , Service support ,
== END ==
LOC: LAB 14:37 → RAD 15:02
PROVIDERS: PCP Internal Medicine; Referring Provider Nurse Practitioner Family; Visit Provider Nurse Practitioner Family
DX: M79.674 Pain in right toe(s) (principal)
CPT/HCPCS: 73660

== ENCOUNTER → 2020-01-03 12:50 | Outpatient (CLI) | payer MEDICARE, SELFPAY ==
[2019-10-02 16:41] VITALS: BMI 34.7
--- NOTE | 2020-01-03 13:00 | ADU_ITS ---
Reason For Study: Atherosclerosis Right Velocities Left Velocities Ext. Iliac Artery, dist = 123.5 cm./sec. Ext Iliac Artery, dist = 112.5 cm./sec. Common Femoral Artery, mid = 156.3 cm./sec. Common Femoral Artery, mid = 201 cm./sec. Supf Femoral Artery, prox = 127.1 cm./sec. Supf. Femoral Artery, prox = 62.2 cm./sec. Supf Femoral Artery, mid = 118.1 cm./sec. Supf. Femoral Artery, mid = 76.9 cm./sec. Supf Femoral Artery, dist. = 81.5 cm./sec. Supf. Femoral Artery, dist = 59.6 cm./sec. Profunda Femoral Artery = 110.6 cm./sec. Profunda Femoral Artery = 111.1 cm./sec. Popliteal Artery, prox. = 61.1 cm./sec. Popliteal Artery, proximal, = 45 cm./sec. Popliteal Artery, mid = 49 cm./sec. Popliteal Artery, mid = 48.7 cm./sec. Popliteal Artery, dist = 46.8 cm./sec. Popliteal Artery, distal = 46.9 cm./sec. Post. Tibial Artery, prox = 89.6 cm./sec. Post. Tibial Artery, prox = 65.8 cm./sec. Post. Tibial Artery, mid = 58.9 cm./sec. Post Tibial Artery, mid = 69.5 cm./sec. Post. Tibial Artery, dist = 73.2 cm./sec. Post Tibial Artery, dist. = 69.5 cm./sec. Peroneal Artery, mid = 31.9 cm./sec. Peroneal Artery, prox = 58.5 cm./sec. Unable to demonstrate flow noted in the peroneal Peroneal Artery, mid = 42.5 cm./sec. artery prox and distal. Peroneal Artery,dist. = 21.4 cm./sec. Ant. Tibial Artery, prox = 43.3 cm./sec. Ant.Tibial Artery, prox = 56.3 cm./sec. Ant. Tibial Artery, mid = 51.1 cm./sec. Ant Tibial Artery, mid = 53.5 cm./sec. Ant. Tibial Artery, dist = 52.8 cm./sec. Ant. Tibial Artery, distal = 65.7 cm./sec. Procedure Exam performed in department. Interpretation Summary Bilateral triphasic flow throughout and no stenosis. Ordering Physician: Michel Ramsey Referring Physician: Romaine Turner Performed By: Sally Davila RVT
--- NOTE | 2020-01-03 13:00 | CDU_ITS ---
Reason For Study: Caroted bruit Rt. Velocities/BP Lt. Velocities/BP Prox CCA 82.5/14.7 cm/sec. Prox CCA 82.8/14.6 cm/sec. Mid CCA 57.8/9.5 cm/sec. Mid CCA 57.5/13.5 cm/sec. Dist CCA 52/11.3 cm/sec. Dist CCA 56.4/11.3 cm/sec. Prox ICA 126.6/18.8 cm/sec. Prox ICA 90/20 cm/sec. Mid ICA 115.6/18.8 cm/sec. Mid ICA 92.5/18.8 cm/sec. Dist ICA 84.6/17 cm/sec. Dist ICA 107.2/28.6 cm/sec. Rt. ICA/CCA = 2.2. Lt. ICA/CCA = 1.9. Prox ECA 80.6/10.2 cm/sec. Prox ECA 87.2/15.7 cm/sec. Rt. Vert. 45.4/11.3 cm/sec. Right Extracranial There is heterogeneous, irregular atherosclerotic plaque noted in the right common carotid artery. There is heterogeneous, irregular atherosclerotic plaque noted in the right internal carotid artery. There is heterogeneous, irregular atherosclerotic plaque noted in the right external carotid artery. Antegrade flow is noted in the right vertebral artery. Left Extracranial There is heterogeneous, irregular atherosclerotic plaque noted in the left common carotid artery. There is heterogeneous, irregular atherosclerotic plaque noted in the left internal carotid artery. The atherosclerotic plaque causes acoustic shadowing. There is heterogeneous, irregular atherosclerotic plaque noted in the left external carotid artery. Flow could not be demonstrated in the left vertebral artery. Procedure Carotid Duplex [id number]. Exam performed in department. Interpretation Summary Moderate (50-69%) stenosis right extracranial internal carotid. Mild (<50%) stenosis left extracranial internal carotid. Flow within the right verterbral artery is antegrade. Flow could not be demonstrated in the left vertebral artery. Flow could not be demonstrated in the left vertebral artery. Ordering Physician: Michel Ramsey Referring Physician: Romaine Turner Performed By: Sally Davila RVT
--- NOTE | 2020-01-03 13:01 | ART_ITS ---
Reason For Study: Atherosclerosis Procedure A bilateral lower extremity continuous wave Doppler with analog waveform analysis and ankle brachial indexes. Left Segmental Pressures Left ulnar= 115mmHg. Left posterior tibial artery = 109mmHg. Left dorsalis pedis artery = 127mmHg. The left dorsalis pedis waveforms are triphasic. The left posterior tibial artery waveforms are triphasic. Right Segmental Pressures Right brachial= 100mmHg. Right posterior tibial artery = 116mmHg. Right dorsalis pedis artery = 125mmHg. The right dorsalis pedis waveforms are triphasic. The right posterior tibial artery waveforms are triphasic. Indices The right ankle brachial index by the dorsalis pedis is 1.09. The right ankle brachial index by the posterior tibial artery is 1.01. The left ankle brachial index by the dorsalis pedis is 1.10. The left ankle brachial index by the posterior tibial artery is 0.96. Interpretation Summary Bilateral triphasic flow and KERRY 1.09 and 1.1. Ordering Physician: Michel Ramsey Referring Physician: Romaine Turner Performed By: Sally Davila RVT
== END ==
PROVIDERS: PCP Internal Medicine; Referring Provider Surgery Vascular Surgery; Visit Provider Surgery Vascular Surgery
DX: I65.23 Occlusion and stenosis of bilateral carotid arteries (principal); I70.213 Atherosclerosis of native arteries of extremities with intermittent claudication, bilateral legs; Z95.828 Presence of other vascular implants and grafts
CPT/HCPCS: 93880; 93923; 93925

== ENCOUNTER 2020-03-29 21:10 | Emergency (ER) | payer MEDICARE, SELFPAY ==
[2020-02-25 16:13] VITALS: BMI 35.4
[2020-03-29 21:11] VITALS: BP 161/87; PULSE 68; RESP 18; TEMP 36.6; O2SAT 94; BMI 34.7
--- NOTE | 2020-03-29 22:08 | RAD_ITS ---
STUDY: X-RAY - CERVICAL SPINE REASON FOR EXAM: Female, 75 years old. NECK PAIN X 1 MONTH TECHNIQUE: 4 view(s) of the cervical spine were obtained. COMPARISON: Previous study of 04/06/2015 FINDINGS: There is generalized osteopenia. There are degenerative changes of the anterior atlantoaxial articulation. Normal odontoid process. There is straightening of the normal cervical lordosis. Normal vertebral bodies and endplates. There is multilevel disc space narrowing. The soft tissue structures are unremarkable. RAD/Cerv Spine 2 or 3 Views IMPRESSION: Degenerative changes and multilevel disc space narrowing as detailed above, appearing similar to the previous study. Generalized osteopenia. Electronically Signed: Polo Michele MD at 22:30 EDT , Service support ,
--- NOTE | 2020-03-29 23:05 | ED.DCSUM_ITS ---
- ER Visit Summary Date of Service: 03/29/20 Chief Complaint: Pain History of Present Illness: The patient is a 75 F with pain in her left neck. This has been going on for a month. Nothing seemed to bring it on, but moving makes it worse. Nothing seems to make it better. She has tried hsor-oqi-qwdrkde remedies. No history of this. No midline pain. No weakness or numbness. No chest pain, shortness of breath, or other associated symptoms. Physical Examination: Afebrile and vital signs unremarkable. Patient has reproducible localized tenderness over the left trapezius. There is no spinal tenderness. Skin is unremarkable. Good strength and sensation. Lungs clear. Heart regular. Exam otherwise unremarkable. Test Results: Cervical spine x-rays show degenerative changes only. Emergency Department Course and Treatment: Patient likely has myofascial pain. Given the duration of her symptoms and her age, x-rays were obtained. These were unremarkable. Nothing to suggest neurologic process, referred pain, vascular process. Patient will be treated for myofascial pain. Continue vzqf-tvj-mhppxbr remedies. She received a dose of Kenalog and morphine here. Follow-up with primary care. Treatment Plan: As above Disposition: Discharge Impression: Cervical strain This note was generated with [employer] dictation software. It may contain incorrect words, spelling, and punctuation that were not noted in review of the chart prior to signing ED Disposition - Plan for ED Patient: Referrals: Nabor Biggs, CALL BOX WIRER-C [Primary Care Provider] -
--- NOTE | 2020-03-29 23:07 | ED.DEP ---
ED Disposition - Plan for ED Patient: Instructions: ED Back Pain Acute or Chronic Referrals: Nabor Biggs NP-C [Primary Care Provider] -
[2020-03-29] MEDS: morphine 10 MG/ML Syringe 2 MG SC (23:26)
[2020-03-29] MEDS: Triamcinolone Acetonide 40 MG/ML Vial IM (23:29)
[2020-03-29 23:42] VITALS: RESP 18
== END 2020-03-29 23:46 | disposition home or self-care (01) ==
LOC: ED 21:46
PROVIDERS: Emergency Provider Emergency Medicine; PCP Nurse Practitioner Family
DX: S16.1XXA Strain of muscle, fascia and tendon at neck level, initial encounter (principal); I25.10 Atherosclerotic heart disease of native coronary artery without angina pectoris; J44.9 Chronic obstructive pulmonary disease, unspecified; K21.9 Gastro-esophageal reflux disease without esophagitis; E11.9 Type 2 diabetes mellitus without complications; I10 Essential (primary) hypertension; I27.20 Pulmonary hypertension, unspecified; Z87.891 Personal history of nicotine dependence; E03.9 Hypothyroidism, unspecified; Z79.51 Long term (current) use of inhaled steroids; Z79.899 Other long term (current) drug therapy; X58.XXXA Exposure to other specified factors, initial encounter; Y93.89 Activity, other specified; Y92.89 Other specified places as the place of occurrence of the external cause; Y99.8 Other external cause status
CPT/HCPCS: 72040; 96372; 99282

== ENCOUNTER → 2020-04-03 | Outpatient (CLI) | payer MEDICARE, SELFPAY ==
[2020-04-03 14:41] VITALS: BMI 34.7
--- NOTE | 2020-04-03 15:42 | RAD_ITS ---
STUDY: X-RAY - RIGHT HAND REASON FOR EXAM: Female, 75 years old. Injury. Pain across metacarpal region. TECHNIQUE: 3 view(s) of the hand. COMPARISON: None. FINDINGS: Normal radiocarpal articulation. Normal distal radioulnar joint. Normal visualized carpal bones. Normal carpal articulations Normal carpometacarpal articulation of the thumb. Normal second through fifth carpometacarpal joints. Normal metacarpi. There is degenerative arthrosis of the first metacarpophalangeal (MCP) joint. There is degenerative arthrosis of the interphalangeal joint of the thumb with articular joint space narrowing. Normal proximal and distal phalanges of the thumb. Normal metacarpophalangeal joints of the second through fifth fingers. There is diffuse articular joint space narrowing of the proximal and distal interphalangeal joints of the second through fifth fingers, but without erosive changes or periarticular soft tissue swelling. Normal phalanges of the second through fifth fingers. The soft tissue structures are unremarkable. RAD/Hand Min 3 Views IMPRESSION: Degenerative joint disease of the hand, as described above. Electronically Signed: Kurt Valencia DO at 21:56 EDT Tel [phone], Service support ,
[2020-04-03 16:59] LABS: Absolute Neutrophil Count 6.1 X10^3/uL (2.0-7.7); Basophil# 0.04 X10^3/uL; Basophil% 0.5 % (0-1); Eosinophil# 0.12 X10^3/uL; Eosinophils% 1.4 % (0-5); Hemoglobin 15.2 g/dL (12.0-15.0); Lymphocyte % 19.7 % (19-41); Mean Corp Hgb Conc 33.8 g/dL (32-36); Mean Corpuscular Hgb 31.3 pg (27.0-32.0); Mean Corpuscular Volume 92.6 fL (81-99); Mean Platelet Vol. 10.9 fl (6.2-12.0); Monocyte# 0.61 X10^3/uL; Monocyte% 7.1 % (0-10); NRBC Flagged by Analyzer 0 % (0-5); Neutrophil % 70.8 % (47-70); Platelet Count 236 K/mm3 (150-450); RBC Distribution Width CV 13.1 % (11.6-14.6); RBC Distribution Width SD 43.1 fl (35.1-43.9); Red Blood Count 4.86 M/mm3 (4.2-5.4); White Blood Count 8.6 K/mm3 (4.4-11.0)
[2020-04-03 17:31] LABS: ALB/GLOB Ratio 0.9 RATIO (0.9-2.4); AST(SGOT) 22 U/L (15-37); Alanine Aminotransfer ALT/SGPT 25 U/L (13-56); Albumin, Serum 3.9 g/dL (3.2-5.0); Alkaline Phosphatase 93 U/L (45-117); Anion Gap 7 (5-15); BUN 27 mg/dL (7-18); BUN/Creat Ratio 19.3 RATIO (10-20); Calcium,Total 8.9 mg/dL (8.5-10.1); Chloride 105 mmol/L (98-107); Cholesterol 268 mg/dL (200); EST Glomerular Filtration Rate 39 mL/min (>60); Est Glom Filt Rate - Afr Amer 47 mL/min (>60); Globulin 4.2 g/dL (2.2-4.2); Glucose 148 mg/dL (74-106); High Density Lipoprotein 49 mg/dL; Potassium 4.3 mmol/L (3.5-5.1); Protein, Total 8.1 g/dL (6.4-8.2); Sodium Level 137 mmol/L (136-145); Thyroid Stim Hormone (TSH) 0.39 uIU/mL (0.358-3.74); Triglycerides 164 mg/dL; Very Low Density Lipoprotein 33 mg/dL (5-40)
[2020-04-03 17:39] LABS: Vitamin D,25 Hydroxy 25.2 ng/mL
== END | disposition home or self-care (01) ==
PROVIDERS: PCP Internal Medicine; Referring Provider Nurse Practitioner Family; Visit Provider Nurse Practitioner Family
DX: E03.9 Hypothyroidism, unspecified (principal); E78.5 Hyperlipidemia, unspecified; F41.1 Generalized anxiety disorder; R06.00 Dyspnea, unspecified; R61 Generalized hyperhidrosis; I25.10 Atherosclerotic heart disease of native coronary artery without angina pectoris; E55.9 Vitamin D deficiency, unspecified; S69.91XA Unspecified injury of right wrist, hand and finger(s), initial encounter
CPT/HCPCS: 36415; 73130; 80053; 80061; 82306; 84443; 85025

== ENCOUNTER → 2020-05-15 | Outpatient (CLI) | payer MEDICARE, SELFPAY ==
[2020-05-15 14:27] VITALS: BMI 34.7
[2020-05-15 17:11] LABS: Anion Gap 5 (5-15); BUN 21 mg/dL (7-18); Calcium,Total 9.4 mg/dL (8.5-10.1); Chloride 100 mmol/L (98-107); Creatinine, Serum 1.31 mg/dL (0.55-1.02); EST Glomerular Filtration Rate 42 mL/min (>60); Est Glom Filt Rate - Afr Amer 51 mL/min (>60); Glucose 105 mg/dL (74-106); Potassium 4.9 mmol/L (3.5-5.1); Sodium Level 133 mmol/L (136-145)
== END | disposition home or self-care (01) ==
LOC: BIMLAB 15:23
PROVIDERS: PCP Internal Medicine; Referring Provider Nurse Practitioner Family; Visit Provider Nurse Practitioner Family
DX: N18.9 Chronic kidney disease, unspecified (principal)
CPT/HCPCS: 36415; 80048

== ENCOUNTER → 2020-09-18 | Outpatient (CLI) | payer MEDICARE, SELFPAY ==
[2020-05-15 14:27] VITALS: BMI 34.7
== END | disposition home or self-care (01) ==
LOC: LABSPEC 14:58
PROVIDERS: PCP Internal Medicine; Referring Provider Nurse Practitioner Family; Visit Provider Nurse Practitioner Family
DX: R06.00 Dyspnea, unspecified (principal)
CPT/HCPCS: 87635; U0005; U0003

== ENCOUNTER → 2020-10-30 13:45 | Outpatient (CLI) | payer MEDICARE, SELFPAY ==
[2020-10-13 15:49] VITALS: BMI 35.4
--- NOTE | 2020-10-30 13:47 | ART_ITS ---
Reason For Study: Claudication Procedure A bilateral lower extremity continuous wave Doppler with analog waveform analysis,segmental pressures,and ankle brachial indexes with exercise. Left Segmental Pressures Left brachial= 115mmHg. Left calf = 106mmHg. Left posterior tibial artery = 94mmHg. Left dorsalis pedis artery = 104mmHg. Left digit = 91 mmHg. The left dorsalis pedis waveforms are triphasic. The left posterior tibial artery waveforms are triphasic. Right Segmental Pressures Right brachial= 119mmHg. Right calf = 109mmHg. Right posterior tibial artery = 93mmHg. Right dorsalis pedis artery = 93mmHg. Right digit = 74 mmHg. The right dorsalis pedis waveforms are triphasic. The right posterior tibial artery waveforms are triphasic. Indices The right ankle brachial index by the dorsalis pedis is 0.78. The right ankle brachial index by the posterior tibial artery is 0.78. The right post exercise ankle brachial index is 0.65. The right digital-brachial index is 0.62. The left ankle brachial index by the dorsalis pedis is 0.87. The left ankle brachial index by the posterior tibial artery is 0.79. The left post exercise ankle brachial index is 0.69. The left digital-brachial index is 0.76. Interpretation Summary Right with mild occlussive disease with triphasic flow and minimal drop with exercise and KERRY 0.78. Left with minimal occlussive disease with also triphasic flow and minimal drop with execise and KERRY 0.87. Ordering Physician: Nabor Biggs Referring Physician: Romaine Turner Performed By: Sally Davila RVT
== END ==
PROVIDERS: PCP Internal Medicine; Referring Provider Nurse Practitioner Family; Visit Provider Nurse Practitioner Family
DX: I73.9 Peripheral vascular disease, unspecified (principal)
CPT/HCPCS: 93924

== ENCOUNTER → 2020-11-03 14:02 | Outpatient (CLI) | payer MEDICARE, SELFPAY ==
[2020-10-13 15:49] VITALS: BMI 35.4
--- NOTE | 2020-11-03 14:07 | BD_ITS ---
STUDY: DUAL ENERGY X-RAY ABSORPTIOMETRY / DXA REASON FOR EXAM: Female, 75 years old. Osteopenia TECHNIQUE: Bone Mineral Density (BMD) measurements of lumbar spine and bilateral hips were obtained. COMPARISON: None. FINDINGS: Lumbar Spine (L1-L4): g/cm2 (0.860) / T-score (-2.6) / Z-score (-0.8) Findings are suggestive of osteoporosis with a high fracture risk. Left Femur Total: g/cm2 (0.791) / T-score (-1.7) / Z-score (0.1) Left Femoral Neck: g/cm2 (0.714) / T-score (-2.3) / Z-score (-0.3) Right Femur Total: g/cm2 (0.764) / T-score (-1.9) / Z-score (-0.1) Right Femoral Neck: g/cm2 (0.692) / T-score (-2.5) / Z-score (-0.5) BD/Dexa Bone Density Study IMPRESSION: The patient is considered osteoporotic as outlined below according to World [employer] Organization (WHO) criteria with a high fracture risk. Reference Information: The T-score is the number of standard deviations above or below the standard which is normal for young adults at their peak bone mineral density. The World Health Organization (WHO) interprets the T-scores as follows: Above -1 Normal bone density Between -1 and -2.5 Osteopenia Equal to / or below -2.5 Osteoporosis As a practical clinical guideline, osteopenia may be graded as follows: Mild -1 through -1.5 Moderate -1.6 through -2.0 Severe -2.1 through -2.4 The Z-score is the number of standard deviations above or below age-matched controls. A Z-score of less than -1.5 would be considered abnormal. References: 1. NIH Osteoporosis and Related Bone Diseases www osteo.org 2. International Society for Clinical Densitometry www iscd.org 3. National Osteoporosis Foundation www nof.org Electronically Signed: Jaime Vargas MD at 14:52 EDT , Service support ,
== END ==
PROVIDERS: PCP Internal Medicine; Referring Provider Nurse Practitioner Family; Visit Provider Nurse Practitioner Family
DX: Z78.0 Asymptomatic menopausal state (principal)
CPT/HCPCS: 77080

== ENCOUNTER → 2020-11-17 15:52 | Outpatient (CLI) | payer MEDICARE, SELFPAY ==
[2020-11-17 15:25] VITALS: BMI 34.9
[2020-11-17 18:28] LABS: AST(SGOT) 37 U/L (15-37); Alanine Aminotransfer ALT/SGPT 43 U/L (13-56); Alkaline Phosphatase 95 U/L (45-117); Anion Gap 8 (5-15); BUN 18 mg/dL (7-18); Calcium,Total 9.2 mg/dL (8.5-10.1); Chloride 101 mmol/L (98-107); Creatinine, Serum 1.06 mg/dL (0.55-1.02); EST Glomerular Filtration Rate 54 mL/min (>60); Est Glom Filt Rate - Afr Amer 65 mL/min (>60); Globulin 4.2 g/dL (2.2-4.2); Glucose 103 mg/dL (74-106); Potassium 4.3 mmol/L (3.5-5.1); Protein, Total 8.2 g/dL (6.4-8.2); Sodium Level 136 mmol/L (136-145)
[2020-11-17 18:29] LABS: Vitamin D,25 Hydroxy 50.8 ng/mL
== END ==
PROVIDERS: PCP Internal Medicine; Referring Provider Internal Medicine; Visit Provider Internal Medicine
DX: M81.0 Age-related osteoporosis without current pathological fracture (principal)
CPT/HCPCS: 36415; 80053; 82306

== ENCOUNTER → 2021-01-19 14:38 | Outpatient (CLI) | payer MEDICARE, SELFPAY ==
[2021-01-19 14:01] VITALS: BMI 34.3
[2021-01-19 16:45] LABS: Absolute Lymphocyte Count 1.69 X10^3/uL (0.83-4.51); Absolute Neutrophil Count 4.3 X10^3/uL (2.0-7.7); Basophil# 0.04 X10^3/uL; Basophil% 0.6 % (0-1); Eosinophil# 0.23 X10^3/uL; Eosinophils% 3.4 % (0-5); Hematocrit 42.8 % (37-47); Hemoglobin 14.4 g/dL (12.0-15.0); Lymphocyte # 1.69 X10^3/ul (0.83-4.51); Lymphocyte % 25.1 % (19-41); Mean Corp Hgb Conc 33.6 g/dL (32-36); Mean Corpuscular Hgb 31.3 pg (27.0-32.0); Mean Platelet Vol. 11.3 fl (6.2-12.0); Monocyte# 0.47 X10^3/uL; NRBC Flagged by Analyzer 0 % (0-5); Neutrophil # 4.27 X10^3/uL (2.7-7.7); Neutrophil % 63.6 % (47-70); Platelet Count 195 K/mm3 (150-450); RBC Distribution Width CV 13.2 % (11.6-14.6); RBC Distribution Width SD 44.9 fl (35.1-43.9); White Blood Count 6.7 K/mm3 (4.4-11.0)
[2021-01-19 16:54] LABS: Vitamin B12 332 pg/mL (211-911)
[2021-01-19 16:57] LABS: ALB/GLOB Ratio 0.9 RATIO (0.9-2.4); AST(SGOT) 21 U/L (15-37); Alanine Aminotransfer ALT/SGPT 21 U/L (13-56); Albumin, Serum 3.6 g/dL (3.2-5.0); Alkaline Phosphatase 83 U/L (45-117); Anion Gap 7 (5-15); BUN 15 mg/dL (7-18); BUN/Creat Ratio 17.3 RATIO (10-20); Calcium,Total 9.2 mg/dL (8.5-10.1); Chloride 102 mmol/L (98-107); Cholesterol 247 mg/dL (200); Creatinine, Serum 0.87 mg/dL (0.55-1.02); EST Glomerular Filtration Rate 68 mL/min (>60); Est Glom Filt Rate - Afr Amer 82 mL/min (>60); Glucose 123 mg/dL (74-106); High Density Lipoprotein 50 mg/dL; Potassium 4.4 mmol/L (3.5-5.1); Protein, Total 7.6 g/dL (6.4-8.2); Sodium Level 135 mmol/L (136-145); T4 Free Direct 1.16 ng/dL (0.76-1.46); Thyroid Stim Hormone (TSH) 1.67 uIU/mL (0.358-3.74); Triglycerides 122 mg/dL; Very Low Density Lipoprotein 24 mg/dL (5-40)
== END ==
PROVIDERS: PCP Internal Medicine; Referring Provider Nurse Practitioner Family; Visit Provider Nurse Practitioner Family
DX: E03.9 Hypothyroidism, unspecified (principal); E56.9 Vitamin deficiency, unspecified; F41.1 Generalized anxiety disorder; I73.9 Peripheral vascular disease, unspecified; K21.9 Gastro-esophageal reflux disease without esophagitis; L98.9 Disorder of the skin and subcutaneous tissue, unspecified; I71.4 Abdominal aortic aneurysm, without rupture; I10 Essential (primary) hypertension; M79.10 Myalgia, unspecified site
CPT/HCPCS: 36415; 80053; 80061; 82607; 84439; 84443; 85025

== ENCOUNTER → 2021-02-03 | Outpatient (CLI) | payer MEDICARE, SELFPAY ==
[2021-02-03 09:07] VITALS: BMI 34.3
[2021-02-03 13:07] LABS: Mucous, Urine 0 SEEN /hpf (<or=2+); Squamous Epithelial Cells - UA 0 SEEN /hpf (5-10)
[2021-02-03 15:07] LABS: Color, Urine Yellow (Yellow); Glucose, Dipstick Normal (Normal); Ketone-Dipstick 5 mg/dl (Negative); Leukocyte Esterase-Dipstick 500 /ul (Negative); Nitrite-Dipstick Positive (Negative); Occult Blood-Urine 50 /ul (Negative); Protein-Dipstick 30 mg/dl (Negative); Specific Gravity, Urine 1.015 (1.002-1.030); Urine Clarity Sl. Cloudy (Clear); Urine Urobilinogen 4 mg/dl (Normal)
[2021-02-03 15:29] LABS: Urine Bilirubin Dipstick 3 mg/dL (Negative)
[2021-02-03 15:37] LABS: Bacteria 4+ /hpf (None Seen); Red Blood Cells-Urine 0-5 SEEN /hpf (0-5); White Blood Cells 50-100 SEEN /hpf (0-5)
== END | disposition home or self-care (01) ==
LOC: LABSPEC 13:06
PROVIDERS: PCP Internal Medicine; Referring Provider Physician Assistant; Visit Provider Physician Assistant
DX: R35.0 Frequency of micturition (principal)
CPT/HCPCS: 81001; 87077; 87086; 87088; 87186

== ENCOUNTER → 2021-02-25 14:09 | Outpatient (CLI) | payer MEDICARE, SELFPAY ==
[2021-02-23 13:59] VITALS: BMI 34.3
[2021-02-25 14:51] LABS: Absolute Lymphocyte Count 1.19 X10^3/uL (0.83-4.51); Absolute Neutrophil Count 3.5 X10^3/uL (2.0-7.7); Basophil# 0.04 X10^3/uL; Basophil% 0.7 % (0-1); Eosinophil# 0.24 X10^3/uL; Eosinophils% 4.3 % (0-5); Hematocrit 38.3 % (37-47); Hemoglobin 12.9 g/dL (12.0-15.0); Lymphocyte # 1.19 X10^3/ul (0.83-4.51); Lymphocyte % 21.5 % (19-41); Mean Corp Hgb Conc 33.7 g/dL (32-36); Mean Corpuscular Hgb 30.9 pg (27.0-32.0); Mean Corpuscular Volume 91.6 fL (81-99); Mean Platelet Vol. 10.6 fl (6.2-12.0); Monocyte# 0.52 X10^3/uL; Monocyte% 9.4 % (0-10); NRBC Flagged by Analyzer 0 % (0-5); Neutrophil # 3.54 X10^3/uL (2.7-7.7); Neutrophil % 63.9 % (47-70); Platelet Count 171 K/mm3 (150-450); RBC Distribution Width CV 13.1 % (11.6-14.6); RBC Distribution Width SD 43.1 fl (35.1-43.9); Red Blood Count 4.18 M/mm3 (4.2-5.4); White Blood Count 5.5 K/mm3 (4.4-11.0)
[2021-02-25 15:40] LABS: ALB/GLOB Ratio 0.8 RATIO (0.9-2.4); AST(SGOT) 17 U/L (15-37); Alanine Aminotransfer ALT/SGPT 17 U/L (13-56); Albumin, Serum 3.3 g/dL (3.2-5.0); Alkaline Phosphatase 84 U/L (45-117); Amylase 58 U/L (25-115); Anion Gap 7 (5-15); BUN 15 mg/dL (7-18); Calcium,Total 8.6 mg/dL (8.5-10.1); Chloride 105 mmol/L (98-107); Creatinine, Serum 0.94 mg/dL (0.55-1.02); EST Glomerular Filtration Rate 62 mL/min (>60); Est Glom Filt Rate - Afr Amer 75 mL/min (>60); Globulin 3.9 g/dL (2.2-4.2); Glucose 104 mg/dL (74-106); Lipase 109 U/L (73-393); Potassium 4.4 mmol/L (3.5-5.1); Protein, Total 7.2 g/dL (6.4-8.2); Sodium Level 140 mmol/L (136-145)
== END ==
PROVIDERS: PCP Nurse Practitioner Family; Visit Provider Surgery
DX: R10.9 Unspecified abdominal pain (principal)
CPT/HCPCS: 36415; 80053; 82150; 83690; 85025

== ENCOUNTER → 2021-03-02 16:45 | Outpatient (CLI) | payer MEDICARE, SELFPAY ==
[2021-02-23 13:59] VITALS: BMI 34.3
--- NOTE | 2021-03-02 16:51 | CT_ITS ---
STUDY: CT ABDOMEN AND PELVIS WITH CONTRAST REASON FOR EXAM: Female, 75 years old. Right upper quadrant and left upper quadrant pain for one year. RADIATION DOSAGE (If Supplied By Facility): CTDIvol = ( 14.06 ) mGy, DLP = ( 681.29 ) mGycm TECHNIQUE: Transaxial images were obtained from the dome of the diaphragm to the symphysis pubis with oral contrast. Oral and amp;amp; IV REDICAT and amp;amp; 100ML ISOVUE 370 was administered. Sagittal and coronal images were reconstructed. Individualized dose optimization techniques were used for this CT. COMPARISON: Comparison is made with prior study dated 08/18/2018. FINDINGS: Stable mild scarring at the lung bases. Coronary artery calcification. Calcification of the mitral valve annulus. Normal liver. There are surgical clips in the gallbladder fossa consistent with a prior cholecystectomy. Normal spleen. Normal pancreas. Normal bilateral adrenal glands. There is a 1.4 cm cyst in the lateral midportion of the right kidney. There is also evidence of a 3.2 cm x 3.7 cm cyst in the anterior lower pole of the right kidney. 2 mm nonobstructive calculus in the lower pole calyx of the left kidney. Normal visualized stomach. Normal small intestine. Normal colon. There is non-visualization of the appendix. There is diffuse atherosclerotic calcification of the abdominal aorta and its major visceral branches, without a demonstrated aneurysm. There is evidence of prior aorto by iliac graft. Normal inferior vena cava. Normal retroperitoneum. The urinary bladder is empty at the time of the examination. Evidence of prior umbilical hernia repair. Surgical clips are seen in both left and right groins most likely secondary to vascular surgery. There are mild degenerative changes of the visualized lumbar spine. CT/Abdomen/Pelvis WITH Contrast IMPRESSION: Status post aorto biiliac bypass graft. Status post cholecystectomy. Stable right renal cysts. Electronically Signed: Jaime Vargas MD at 20:42 EDT , Service support ,
== END ==
PROVIDERS: PCP Nurse Practitioner Family; Referring Provider Surgery; Visit Provider Surgery
DX: R10.9 Unspecified abdominal pain (principal)
CPT/HCPCS: 74177; Q9967

== ENCOUNTER 2021-03-12 08:11 | Day surgery (SDC) | payer MEDICARE, SELFPAY ==
[2021-02-23 13:59] VITALS: BMI 34.3
[2021-03-12] VITALS (8 sets, daily range): BP systolic 88–107; BP diastolic 51–57; PULSE 61–68; RESP 16–18; TEMP 35.8–36.6; O2SAT 95–98; BMI 34.4
--- NOTE | 2021-03-12 08:53 | HP.PCM_ITS ---
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 Is patient in pain?: No Allergies acetaminophen [From Cephadyn] Allergy (Verified 02/23/21 13:53) Unknown albuterol Allergy (Verified 02/23/21 13:53) Unknown albuterol sulfate [From Combivent] Allergy (Verified 02/23/21 13:53) Unknown amitriptyline Allergy (Verified 02/23/21 13:53) Other aspirin Allergy (Verified 02/23/21 13:53) Unknown azithromycin [From Zithromax] Allergy (Verified 02/23/21 13:53) Unknown butalbital [From Cephadyn] Allergy (Verified 02/23/21 13:53) Unknown cefdinir [From Omnicef] Allergy (Verified 02/23/21 13:53) Other cefprozil Allergy (Verified 02/23/21 13:53) Unknown cephalexin Allergy (Verified 02/23/21 13:53) Unknown cyclobenzaprine HCl [From Flexeril] Allergy (Verified 02/23/21 13:53) Unknown desloratadine [From Clarinex-D 12 HOUR] Allergy (Verified 02/23/21 13:53) Unknown dicyclomine Allergy (Verified 02/23/21 13:53) Unknown duloxetine HCl [From Cymbalta] Allergy (Verified 02/23/21 13:53) Unknown ezetimibe [From Vytorin] Allergy (Verified 02/23/21 13:53) Unknown ipratropium bromide [From Combivent] Allergy (Verified 02/23/21 13:53) Unknown loratadine Allergy (Verified 02/23/21 13:53) Unknown lovastatin [From Mevacor] Allergy (Verified 02/23/21 13:53) Unknown Penicillins Allergy (Verified 02/23/21 13:53) Rash pneumococcal vaccine Allergy (Verified 02/23/21 13:53) Unknown pseudoephedrine sulfate [From Clarinex-D 12 HOUR] Allergy (Verified 02/23/21 13:53) Unknown rofecoxib [From Vioxx] Allergy (Verified 02/23/21 13:53) Unknown simvastatin Allergy (Verified 02/23/21 13:53) Unknown sulfamethoxazole [From Bactrim] Allergy (Verified 02/23/21 13:53) Unknown tizanidine HCl [From Zanaflex] Allergy (Verified 02/23/21 13:53) Unknown topiramate Allergy (Verified 02/23/21 13:53) Unknown tramadol Allergy (Verified 02/23/21 13:53) Unknown trimethoprim [From Bactrim] Allergy (Verified 02/23/21 13:53) Unknown verapamil Allergy (Verified 02/23/21 13:53) Unknown IMAPRAMINE Allergy (Uncoded 02/03/21 09:06) Unknown Medications nitroglycerin 0.4 mg sublingual tablet 0.4 mg SUBLINGUAL Q5-15M PRN #20 tab 02/27/18 [Rx Confirmed 02/23/21] albuterol sulfate 90 mcg/actuation aerosol inhaler 2 puff INHALATION Q6H PRN #1 device 04/23/18 [Rx Confirmed 02/23/21] tiotropium 2.5 mcg-olodaterol 2.5 mcg/actuation mist for inhalation 2 puff INHALATION DAILY #4 g 02/04/20 [Rx Confirmed 02/23/21] clopidogrel 75 mg tablet 75 mg PO DAILY #90 tab 08/26/20 [Rx Confirmed 02/23/21] levothyroxine 88 mcg tablet 88 mcg PO QDAY #90 tab 09/14/20 [Rx Confirmed 02/23/21] ergocalciferol (vitamin D2) 1,250 mcg (50,000 unit) capsule 50,000 unit PO QWEEK #8 cap 11/16/20 [Rx Confirmed 02/23/21] alendronate 70 mg tablet 70 mg PO QWEEK #10 tablet 11/17/20 [Rx Confirmed 02/23/21] pantoprazole 40 mg tablet,delayed release 40 mg PO DAILY #90 tab 11/17/20 [Rx Confirmed 02/23/21] paroxetine HCl 40 mg tablet 40 mg PO QDAY #90 tab 11/19/20 [Rx Confirmed 02/23/21] buspirone 15 mg tablet 15 mg PO BID #180 tab 11/26/20 [Rx Confirmed 02/23/21] carvedilol 6.25 mg tablet 6.25 mg PO BID #180 tab 11/28/20 [Rx Confirmed 02/23/21] lisinopril 5 mg tablet 5 mg PO DAILY #90 tab 11/30/20 [Rx Confirmed 02/23/21] polyethylene glycol 3350 17 gram/dose oral powder 17 g PO DAILY PRN #850 g 01/19/21 [Rx Confirmed 02/23/21] rosuvastatin 5 mg tablet 5 mg PO DAILY #90 tab 01/19/21 [Rx Confirmed 02/23/21] quetiapine 50 mg tablet 50 mg PO BID #180 tab 02/05/21 [Rx Confirmed 02/23/21] Is last menstrual period known: No Post menopausal: Yes Patient : No PFSH Medical History Arthritis 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 COPD (chronic obstructive pulmonary disease) First degree AV block GERD (gastroesophageal reflux disease) History of abdominal aortic aneurysm History of basal cell carcinoma History of seizure disorder HLD (hyperlipidemia) Hypothyroidism Left bundle branch block Mitral valve disease Myalgia Nonrheumatic mitral (valve) insufficiency Nonrheumatic tricuspid (valve) insufficiency PVD (peripheral vascular disease) Secondary pulmonary hypertension Skin lesion of face Type II diabetes mellitus Surgical History History of 3 sections History of cholecystectomy History of colonoscopy (~2010) History of esophagogastroduodenoscopy (EGD) (~2016) S/P abdominal aortic aneurysm repair (08/10/07) Stented coronary artery (04/04/07) Family History Mother Heart disease Cancer Uterine cancer Myocardial infarction Father CAD (coronary artery disease) Alcoholism Brother CAD (coronary artery disease) Alcoholism Cancer Cancer of stomach Social History how long ago did patient quit smokin second hand exposure: No alcohol intake: never substance use type: does not use what type of physical activity do you participate in: none HPI HPI HPI: NAVID JOEL, is a 75 F who presents to the office today for surgical consultation regarding a variety concerns. 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 The patient has a variety concerns. When she drinks water slightly favored with 7-Up she gets severe epigastric pain. She is not on any routine gastric medications. She she had a previous upper endoscopy done November 28, 2016 demonstrating some gastritis. H. pylori was negative. Her most recent colonoscopy was performed on October 06, 2010. That was performed by screening by Dr. Cole Mullen. A tortuous colon was encountered but was otherwise normal. The patient does not have a family history of colon polyps or colon cancer but she does have a brother who of stomach cancer the patient also is very much concerned that she has had an acute change of bowel habit. She claims that she has become very constipated with small diameter stool. She has had a previous history of a cholecystectomy. She has had a previous history of an aortic aneurysm repaired through a long midline incision. She states that she has stents in her right lower extremity. She has cardiac disease and is on clopidogrel therapy. She denies bright red blood per rectum or melena. In addition she complains of upper right groin pain. She thinks that possibly bowel is caught within that area. She has not had any imaging as yet to identify that. ROS General General: Yes fatigue; No weight change, appetite, colon cancer, breast cancer or weakness HEENT HEENT: No difficulty swallowing, eye injury, eye surgery, swollen glands or hoarseness Endo Endocrine: Yes thyroid disease; No diabetes mellitus, thyroid cancer, Hair loss, heat intolerance or cold intolerance Cardio Cardiovascular: Yes heart disease and heart stent; No murmur, pacemaker, atrial fibrillation, high blood pressure, heart attack, palpitations, shortness of breat with exertion or chest pain Psych Psychiatric: Yes depression and anxiety; No hearing voices Resp Respiratory: Yes shortness of breath, Yes sleep apnea, Yes cough, Yes COPD, No asthma, No emphysema and No wheezing Gastro Gastrointestinal: Yes abdominal pain, No nausea or vomiting, No diarrhea, Yes constipation, No blood in stool, No acid reflux, Yes hemorrhoids, No ulcers, No gallbladder problem and No black,tarry stools [place] Hematologic: Yes blood thinners, No blood disorders, No bleeding, No anemia and No blood clots Neuro Neurologic: No weakness Exam Const General: cooperative, comfortable and no acute distress Nutritional Appearance: overweight Orientation: alert and awake [facility] Head: normal to inspection Eyes General: appearance normal, both eyes and all related structures Neck Other: Kyphosis of the neck and chest noted Chest Other: Notably increased anterior posterior diameter Resp Other: Poor respiratory excursion bilaterally, clear Cardio Rate: regular rate Rhythm: regular rhythm GI Palpation: soft and no hepatosplenomegaly Other: Well-healed long midline incision, no focal mass, nontender, normal bowel sounds, Other: With nursing present the patient was examined supine and upright. Although she was very superficially tender to palpation in the right groin I could not detect any distinct inguinal defect. The patient does have an overlying pannus making this examination somewhat difficult Skin General: no rashes or lesions noted Neuro Speech: speech normal Extrem General: no calf tenderness Psych Appearance: grossly normal Assessment and Plan Assessment and Plan (1) Abdominal pain: Status: Acute Qualifiers: Abdominal location: generalized Qualified Code(s): R10.84 - Generalized abdominal pain (2) Groin pain, chronic, right: Status: Chronic (3) Epigastric abdominal pain: Status: Acute (4) Constipation: Status: Acute Qualifiers: Constipation type: unspecified constipation type Qualified Code(s): K59.00 - Constipation, unspecified Plan Details Other Orders: Orders: Amylase Today R10.9 Comprehensive Metabolic Profil Today R10.9 Lipase Today R10.9 Abdomen/Pelvis WITH Contrast Today R10.9 CBC W/Diff, Automated Today R10.9 Additional Comments: 75-year-old female presents with a variety of issues. She does note that she has COPD. She states that Rosy Miramontes assists her with most of that. Apparently in the past she was seen by Dr. Pato Ansari but she has not been to see him in a period of time. Her presentation is complex. She is complaining of epigastric pain with drinking liquids. She is noting an acute severe change in bowel habits with severe constipation small caliber stools. In addition she is noting a focal discomfort in the right groin and questioning bowel involvement. On my clinical exam I am not able to detect a clear etiology to her presentation. I recommend that we obtain a CBC with differential, pleat complete metabolic profile, amylase lipase. I recommend that we obtain a CT scan of the abdomen pelvis fully contrasted looking for possible incisional hernia from her long midline incision or possible right groin incision for potential etiology to the severe change of bowel habits and epigastric pain. I recommend to her a esophagogastroduodenoscopy with possible biopsy and a colonoscopy capsule biopsy or polypectomy as indicated. She is aware of technique, benefit, risk, alternatives. She does have COPD. We will need to use monitored anesthesia care. She has had an opportunity to ask and have questions answered. At this point it is not clear to me that she has a surgical etiology to her pain. I am not detecting clinically a focal issue at this time. Copy: Nabor Biggs, VIDAL-C Germán Estrada M.D., F.A.C.S. Coding Level of Care Code 94638 Diagnoses Abdominal pain R10.84 Abdominal location: generalized Groin pain, chronic, right R10.31; G89.29 Epigastric abdominal pain R10.13 Constipation K59.00 Constipation type: unspecified constipation type I have re-examined the patient. There are no clinical changes since date of exam. Laboratory did not demonstrate acute problem. CT scan demonstrated evidence of acute previous aortobiiliac bypass. No acute problems. Germán Estrada M.D., F.A.C.S.
[2021-03-12] MEDS: Lactated Ringers 1,000 ML 100 ML IV (09:08)
--- NOTE | 2021-03-12 09:22 | SUR.PREOP ---
DR LOPEZ MADE AWARE OF PATIENT NOTING INCREASED MUCOUS FROM HER SINUSES THE LAST COUPLE DAYS. I ALSO THOUGHT I HEARD SOME COURSE CRACKLES IN THE POSTERIOR BASES ON THE LEFT. HE SAID TO ORDER A BREATHING TREATMENT ON HER. PATIENT HAS NUMEROUS ALLERGIES INCLUDING DUONEB AND ALBUTERAL ON HER ALLERGY LIST. I WENT IN TO TALK TO THE PATIENT AND SHE HAS A RESCUE INHALER AT THE BEDSIDE AND DENIES REACTION TO IT. THIS NURSE ORDERED THE ALBUTERAL TREATMENT X1 WAS ORDERED AUTHORIZED BY DR. LOPEZ. RESPIRATORY THERAPY CALLED FOR THE TREATMENT.
--- NOTE | 2021-03-12 09:30 | COLBX_PTH ---
PATIENT: NAVID JOEL LOC: EN U#:[id number] AGE/SX: 76/F ROOM: RE03/12/[address]: Dr. Germán Estrada MD : [id number] BED: DIS: 03/12/2021 SPEC #: [id number] RECD: 03/12/21 10:43 STATUS: RAGINI SWATI #: [id number] BILLY: 03/12/21 09:[address]: Germán Estrada DEPT: SURGICAL PATHOLOGY RECD BY: Betsey Steve ENTERED: 03/12/21 13:46 SP TYPE: COLON BX OTHR DR: Nabor Biggs, GOLF CLUB ASSEMBLER-C Tissues: A - Duodenum, NOS B - Gastric mucous membrane C - Esophagus, NOS D - Esophagus, NOS Procedures: Surgery Specimen Level IV HEADER OPERATION: [place] [place] DIAGNOSIS: Abdominal pain, groin pain, epigastric abdominal pain, constipation TISSUE SUBMITTED: A ? Duodenum biopsy, B ? Antrum biopsy for histo and H. pylori, C ? Distal esophagus biopsy, D ? Mid esophagus biopsy MICROSCOPIC DIAGNOSIS A. Duodenum, biopsy: A fragment of duodenal mucosa, no pathologic diagnosis. B. Antrum, biopsy: Mild gastritis. See microscopic description and comment. C. Distal esophagus, biopsy: Fragments of squamous epithelium with minimal chronic inflammation. D. Mid esophagus, biopsy: A fragment of squamous epithelium, no pathologic diagnosis. SJ:reynaldo 03/15/2021 COMMENT B. The results of immunohistochemistry for Helicobacter pylori will be reported separately ([id number]). MICROSCOPIC DESCRIPTION Slides are reviewed. B. The specimen shows fragments of gastric mucosa with chronic inflammatory cell infiltrates in the lamina propria consisting of lymphocytes and plasma cells, consistent with mild chronic gastritis. GROSS DESCRIPTION A - Received in fixative is one container labeled with the patient's name and designated duodenum biopsy. The specimen consists of one irregular fragment of light narvaez soft tissue that measures 0.3 x 0.2 x 0.1 cm. The specimen is totally submitted in one cassette. B - Received in fixative is one container labeled with the patient's name and designated antrum biopsy. The specimen consists of one irregular fragment of light narvaez soft tissue that measures 0.4 x 0.3 x 0.1 cm. The specimen is totally submitted in one cassette. C - Received in fixative is one container labeled with the patient's name and designated distal esophagus biopsy. The specimen consists of multiple irregular fragments of light narvaez soft tissue that in aggregate measure 0.4 x 0.3 x 0.1 cm. The specimen is totally submitted in one cassette. D - Received in fixative is one container labeled with the patient's name and designated mid esophagus biopsy. The specimen consists of one irregular fragment of light narvaez soft tissue that measures 0.5 x 0.2 x 0.1 cm. The specimen is totally submitted in one cassette. / SJ:rg 03/12/21 TC:3 CPT: 88131 x4
--- NOTE | 2021-03-12 09:30 | IMM_PTH ---
PATIENT: NAVID JOEL LOC: EN U#:[id number] AGE/SX: 76/F ROOM: RE03/12/[address]: Dr. Germán Estrada MD : 1945 BED: DIS: 03/12/2021 SPEC #: [id number] RECD: 03/12/21 13:00 STATUS: RAGINI SWATI #: [id number] BILLY: 03/12/21 09:[address]: Germán Estrada DEPT: IMMUNOHISTOCHEMISTRY RECD BY: Quyen Randall ENTERED: 03/12/21 13:00 SP TYPE: IMMUNO OTHR DR: Nabor Biggs, VIDAL-Audrey Tissues: B - Stomach, NOS Procedures: H Pylori (initial) PHYSICIAN & INSTITUTION [place] [id number] SPECIMEN INFORMATION: Tissue Source: B ? Antrum biopsy Clinical Info: Abdominal pain; groin pain; epigastric abdominal pain; constipation Specimen Number: [id number] CPT code: 09243 METHODOLOGY: Deparaffinized sections of prefer/formalin-fixed tissue or PAP/DQ stained slides are incubated with monoclonal/polyclonal antibodies/oligonucleotide probes. Localization is made via biotin free immunoperoxidase method. Appropriate controls are performed and reacted as expected. Results on target cell population are indicated in the following table: RESULTS: ANTIBODY / CLONE RESULT Block B H Pylori (polyclonal) negative These tests were developed and their performance characteristics determined by [facility]. They may not have been cleared or approved by the U.S. Food and Drug Administration. The FDA has determined that such clearance or approval is not necessary. INTERPRETATION: B. Antrum biopsy: Negative for Helicobacter pylori organisms. GOVIND:reynaldo 03/16/2021
[2021-03-12] MEDS: Albuterol 2.5 MG/3 ML VIAL.NEB. INHALATION (09:34)
--- NOTE | 2021-03-12 10:16 | OP.EGD_ITS ---
Patient Name: Cris Jin Procedure Date: 03/12/2021 9:39 AM Date of : 1945 Age: 76 Procedure: Upper GI endoscopy Indications: Epigastric abdominal pain Providers: Germán Estrada MD Referring MD: Nabor Biggs NP Medicines: See the Anesthesia note for documentation of the administered medications Complications: No immediate complications. Procedure: Pre-Anesthesia Assessment: - Prior to the procedure, a History and Physical was performed, and patient medications and allergies were reviewed. The patient's tolerance of previous anesthesia was also reviewed. The risks and benefits of the procedure and the sedation options and risks were discussed with the patient. All questions were answered, and informed consent was obtained. Prior Anticoagulants: The patient has taken Plavix (clopidogrel), last dose was day of procedure. ASA Grade Assessment: III - A patient with severe systemic disease. After reviewing the risks and benefits, the patient was deemed in satisfactory condition to undergo the procedure. After obtaining informed consent, the endoscope was passed under direct vision. Throughout the procedure, the patient's blood pressure, pulse, and oxygen saturations were monitored continuously. The gastroscope was introduced through the mouth, and advanced to the second part of duodenum. The upper GI endoscopy was accomplished without difficulty. The patient tolerated the procedure well. Scope In: 9:50:01 AM Scope Out: 9:54:49 AM Total Procedure Duration Time 0 hours 4 minutes 48 seconds Findings: The Z-line was regular and was found 35 cm from the incisors. Biopsies were taken with a cold forceps for histology. The mid esophagus was normal. Biopsies were taken with a cold forceps for histology. A small hiatal hernia was present. Diffuse mildly erythematous mucosa without bleeding was found in the gastric antrum. Biopsies were taken with a cold forceps for histology. The examined duodenum was normal. Biopsies were taken with a cold forceps for histology. Impression: - Z-line regular, 35 cm from the incisors. Biopsied. - Normal mid esophagus. Biopsied. - Small hiatal hernia. - Erythematous mucosa in the antrum. Biopsied. - Normal examined duodenum. Biopsied. Recommendation: - Discharge patient to home. - Resume previous diet. - Continue present medications. - Await pathology results. - Telephone my office for pathology results in 1 week. No findings that would correlate with significant epigastric or generalized abdominal pain. No surgical treatment will be required. Procedure Code(s): --- Professional --- 78702, Esophagogastroduodenoscopy, flexible, transoral; with biopsy, single or multiple Diagnosis Code(s): --- Professional --- K44.9, Diaphragmatic hernia without obstruction or gangrene K31.89, Other diseases of stomach and duodenum R10.13, Epigastric pain CPT copyright 2017 [employer]. All rights reserved. The codes documented in this report are preliminary and upon marine electronics repairer review may be revised to meet current compliance requirements. Germán Estrada MD 03/12/2021 10:16:25 AM This report has been signed electronically. Number of Addenda: 0 Note Initiated On: 03/12/2021 9:39 AM
--- NOTE | 2021-03-12 10:17 | OP.CCLET_ITS ---
03/12/2021 Nabor Biggs NP [address] [place] [address] [place] [address] Re : Upper GI endoscopy procedure for Cris Jin Dear Mr. Biggs This procedure was performed on Friday, March 12, 2021. My impressions and recommendations are as follows: Impressions : - Z-line regular, 35 cm from the incisors. Biopsied. - Normal mid esophagus. Biopsied. - Small hiatal hernia. - Erythematous mucosa in the antrum. Biopsied. - Normal examined duodenum. Biopsied. Recommendations : - Discharge patient to home. - Resume previous diet. - Continue present medications. - Await pathology results. - Telephone my office for pathology results in 1 week. No findings that would correlate with significant epigastric or generalized abdominal pain. No surgical treatment will be required. My findings are described in the full procedure note, which is enclosed. If I can be of further assistance, please feel free to contact me at Doctor phone number(s): Work: . Sincerely, Germán Estrada MD 03/12/2021 10:16:25 AM This report has been signed electronically.
--- NOTE | 2021-03-12 10:21 | OP.COLON_ITS ---
Patient Name: Cris Jin Procedure Date: 03/12/2021 9:55 AM Date of : 1945 Age: 76 Procedure: Colonoscopy Indications: Screening for colorectal malignant neoplasm Providers: Germán Estrada MD Referring MD: Nabor Biggs NP Medicines: See the Anesthesia note for documentation of the administered medications Patient Profile: Last Colonoscopy: September 2010. Complications: No immediate complications. Procedure: Pre-Anesthesia Assessment: - Prior to the procedure, a History and Physical was performed, and patient medications and allergies were reviewed. The patient's tolerance of previous anesthesia was also reviewed. The risks and benefits of the procedure and the sedation options and risks were discussed with the patient. All questions were answered, and informed consent was obtained. Prior Anticoagulants: The patient has taken Plavix (clopidogrel), last dose was day of procedure. ASA Grade Assessment: III - A patient with severe systemic disease. After reviewing the risks and benefits, the patient was deemed in satisfactory condition to undergo the procedure. After I obtained informed consent, the scope was passed under direct vision. Throughout the procedure, the patient's blood pressure, pulse, and oxygen saturations were monitored continuously. The pediatric colonoscope was introduced through the anus and advanced to the cecum, identified by appendiceal orifice and ileocecal valve. The colonoscopy was performed without difficulty. The patient tolerated the procedure well. The quality of the bowel preparation was good. The ileocecal valve and the appendiceal orifice were photographed. Scope In: 9:58:23 AM Scope Withdrawal Time 0 hours 6 minutes 56 seconds Scope Out: 10:10:41 AM Total Procedure Duration Time 0 hours 12 minutes 18 seconds Findings: lax tone A few diverticula were found in the sigmoid colon. Submucosal lipoma ascending colon The left colon was moderately tortuous. Advancing the scope required using manual pressure. The exam was otherwise without abnormality. Impression: - Diverticulosis in the sigmoid colon. Submucosal lipoma ascending colon - Tortuous colon. - The examination was otherwise normal. - No specimens collected. Recommendation: - Discharge patient to home. - Resume previous diet. - Continue present medications. - Repeat colonoscopy in 10 years for screening purposes. No findings that would correlate with abdominal pain. No surgical treatment indicated at this time. Procedure Code(s): --- Professional --- 89780, Colonoscopy, flexible; diagnostic, including collection of specimen(s) by brushing or washing, when performed (separate procedure) Diagnosis Code(s): --- Professional --- Z12.11, Encounter for screening for malignant neoplasm of colon K57.30, Diverticulosis of large intestine without perforation or abscess without bleeding Q43.8, Other specified congenital malformations of intestine CPT copyright 2017 [employer]. All rights reserved. The codes documented in this report are preliminary and upon safety spec review may be revised to meet current compliance requirements. Germán Estrada MD 03/12/2021 10:21:15 AM This report has been signed electronically. Number of Addenda: 0 Note Initiated On: 03/12/2021 9:55 AM
--- NOTE | 2021-03-12 10:22 | OP.CCLET_ITS ---
03/12/2021 Nabor Biggs NP [address] [place] [address] [place] [address] Re : Colonoscopy procedure for Cris Jin Dear Mr. Biggs This procedure was performed on Friday, March 12, 2021. My impressions and recommendations are as follows: Impressions : - Diverticulosis in the sigmoid colon. Submucosal lipoma ascending colon - Tortuous colon. - The examination was otherwise normal. - No specimens collected. Recommendations : - Discharge patient to home. - Resume previous diet. - Continue present medications. - Repeat colonoscopy in 10 years for screening purposes. No findings that would correlate with abdominal pain. No surgical treatment indicated at this time. My findings are described in the full procedure note, which is enclosed. If I can be of further assistance, please feel free to contact me at Doctor phone number(s): Work: . Sincerely, Germán Estrada MD 03/12/2021 10:21:15 AM This report has been signed electronically.
== END 2021-03-12 11:31 ==
LOC: EN 08:20 → AC 08:21
PROVIDERS: PCP Nurse Practitioner Family; Referring Provider Nurse Practitioner Family; Visit Provider Surgery
PROC: 0DJD8ZZ Inspection of Lower Intestinal Tract, Via Natural or Artificial Opening Endoscopic (ICD-10-PCS; CPT 45378; principal; 2021-03-12 09:25)
DX: Z12.11 Encounter for screening for malignant neoplasm of colon (principal); K57.30 Diverticulosis of large intestine without perforation or abscess without bleeding; D17.5 Benign lipomatous neoplasm of intra-abdominal organs; K44.9 Diaphragmatic hernia without obstruction or gangrene; K29.70 Gastritis, unspecified, without bleeding; K21.00 Gastro-esophageal reflux disease with esophagitis, without bleeding; M19.90 Unspecified osteoarthritis, unspecified site; I25.10 Atherosclerotic heart disease of native coronary artery without angina pectoris; J44.9 Chronic obstructive pulmonary disease, unspecified; E78.5 Hyperlipidemia, unspecified; E03.9 Hypothyroidism, unspecified; E11.51 Type 2 diabetes mellitus with diabetic peripheral angiopathy without gangrene; Z87.891 Personal history of nicotine dependence; Z79.02 Long term (current) use of antithrombotics/antiplatelets; Z79.51 Long term (current) use of inhaled steroids; Z79.899 Other long term (current) drug therapy
CPT/HCPCS: 43239; 45378; 87426; 88305; 88342; 94640; C9803; J7120; J2405

== ENCOUNTER → 2021-04-30 15:54 | Outpatient (CLI) | payer MEDICARE, SELFPAY | PROVIDERS: PCP Nurse Practitioner Family; Referring Provider Physician Assistant; Visit Provider Physician Assistant | DX: M79.10 Myalgia, unspecified site (principal); R09.81 Nasal congestion; R53.83 Other fatigue; Z11.52 Encounter for screening for COVID-19 | CPT/HCPCS: 87635; U0003 ==

== ENCOUNTER → 2021-07-06 13:21 | Outpatient (CLI) | payer MEDICARE, SELFPAY ==
[2021-07-06 13:55] VITALS: PULSE 74; PULSE 76; PULSE 84; PULSE 86; PULSE 89; PULSE 91; PULSE 92; O2SAT 89; O2SAT 90; O2SAT 91; O2SAT 92; O2SAT 94
--- NOTE | 2021-07-06 13:57 | CPS ---
During testing patient took brief breaks about every minute from 1.5 minutes on. Patient stated that she needed to take breaks due to severe hip pain, at times she was moderately short of breath when she took breaks as well.
--- NOTE | 2021-07-06 14:47 | PCM.PSN.6M ---
PSN 6 Minute Walk Test 6 Minute Walk Test 6 Minute Walk Test: 6 Minute Walk Test PSN:6-Minute Walk Test Start: 07/06/21 13:54 Freq: Status: Active Protocol: RESP.6MINW Document 07/06/21 13:55 LALITA (Rec: 07/06/21 14:00 LALITA [id number]) 6 Minute Walk Test Date Performed 07/06/21 Time Performed 13:35 Height 4 ft 11 in Weight: 77.111 kg Weight in Pounds 170.[address]: Pato Ansari Assistive device used: None Pre-test Oxygen Delivery Method Room Air Pulse Ox (%) 94 Pulse Rate (60-100 beats/min) 76 Dyspnea Landon Scale (0-10) 0.5 Exertion Landon Scale (6-20) 6 1st minute Oxygen Delivery Method Room Air Pulse Ox (%) 92 Pulse Rate (60-100 beats/min) 91 2nd minute Oxygen Delivery Method Room Air Pulse Ox (%) 89 Pulse Rate (60-100 beats/min) 92 Number of Rests Taken 1 3rd minute Oxygen Delivery Method Room Air Pulse Ox (%) 90 Pulse Rate (60-100 beats/min) 86 Number of Rests Taken 1 4th minute Oxygen Delivery Method Room Air Pulse Ox (%) 91 Pulse Rate (60-100 beats/min) 84 Number of Rests Taken 1 5th minute Oxygen Delivery Method Room Air Pulse Ox (%) 91 Pulse Rate (60-100 beats/min) 89 Number of Rests Taken 1 6th minute Oxygen Delivery Method Room Air Pulse Ox (%) 90 Pulse Rate (60-100 beats/min) 92 Dyspnea Landon Scale (0-10) 4 Exertion Landon Scale (6-20) 15 Post-test Oxygen Delivery Method Room Air Pulse Ox (%) 94 Pulse Rate (60-100 beats/min) 74 Full Laps Walked 7 Partial Lap, Number of Tiles Walked 20 Total Distance Walked (ft) 433 07/06/21 13:57 Cardiopulmonary Services by Sandra Vuong During testing patient took brief breaks about every minute from 1.5 minutes on. Patient stated that she needed to take breaks due to severe hip pain, at times she was moderately short of breath when she took breaks as well. Initialized on 07/06/21 13:57 - END OF NOTE Interpretation Interpretation: The patient was able to ambulate only 433 feet over the course of 6 minutes on room air with no assistive devices, but did require 5 breaks. Patient did have a significant desaturation from a baseline of 94% to as low as 89%. No significant tachycardia was noted. These findings are consistent with a respiratory limitation exercise tolerance. Recommendations Recommendations: No supplemental oxygen is indicated at this time. However, patient will need to be followed closely given level of desaturation
== END ==
PROVIDERS: PCP Nurse Practitioner Family; Referring Provider Internal Medicine Critical Care Medicine; Visit Provider Internal Medicine Critical Care Medicine
DX: F17.211 Nicotine dependence, cigarettes, in remission (principal)
CPT/HCPCS: 94618

== ENCOUNTER → 2021-07-16 13:03 | Outpatient (CLI) | payer MEDICARE, SELFPAY ==
[2021-03-30 06:22] VITALS: BMI 34.7
--- NOTE | 2021-07-16 13:10 | CT_ITS ---
HISTORY: History of tobacco dependency. TECHNIQUE: Helically acquired images were obtained of the chest without contrast. A radiation dose optimization technique was used for this scan. # of images incl. paperwork: [id number]. COMPARISON: XR 10/06/2017, CT 03/11/2015. FINDINGS: LARGE AIRWAYS: Minimal dependent material. LUNGS: Advanced emphysema with mild apical scarring. Very mild bibasilar atelectasis. 3 mm left upper lobe nodule or scar laterally. PLEURA: No pleural effusion. HEART AND PERICARDIUM: Heart within normal limits in size. No pericardial effusion. Mitral valvular and coronary artery disease. VESSELS: Thoracic aorta nondilated. MEDIASTINUM AND CLAYTON: Scattered small lymph nodes. BONES: Degenerative change. Chronic T10 compression fracture. CT/Low Dose CT Lung Screening IMPRESSION: Advanced emphysema with a 3 mm left upper lobe pulmonary nodule or scar. Lung-RADS category 2: Benign appearance. Continue annual screening with LDCT. Individualized dose optimization techniques were used for this CT. at 1608 Reported and signed by: Lupis Fernandes MD Electronically Signed: Lupis Fernandes MD at 16:07 EST Tel , Service support ,
== END ==
PROVIDERS: PCP Nurse Practitioner Family; Referring Provider Internal Medicine Critical Care Medicine; Visit Provider Internal Medicine Critical Care Medicine
DX: F17.211 Nicotine dependence, cigarettes, in remission (principal); Z12.2 Encounter for screening for malignant neoplasm of respiratory organs
CPT/HCPCS: 71271

== ENCOUNTER 2021-09-13 07:13 | Outpatient (CLI) | payer MEDICARE, SELFPAY ==
--- NOTE | 2021-09-13 10:31 | STRESSREP ---
Stress Test Report Pharmacologic myocardial perfusion stress test. 76-year-old lady with a history of chest pain. Stress protocol: Resting KG demonstrates normal sinus rhythm with a rate of 73 bpm and a left bundle branch block pattern noted.0.4 mg of regadenoson was infused per usual protocol followed by rapid intravenous saline flush injection. Continuous EKG monitoring was performed. The maximum heart rate attained was 104 bpm which was 72% of max impact at heart rate the maximum workload was 1 metabolic equivalent. At rest there were no ST or T wave changes noted to suggest abnormal flow reserve and at peak infusion nonspecific ST changes were noted. Patient maintained sinus rhythm throughout the recording. The peak blood pressure was 148/82 mmHg. Myocardial perfusion protocol. 11.5 mCi of technetium 99m sestamibi was injected at rest. 0.4 mg of regadenoson was infused per usual protocol. At peak infusion 34.9 mCi of technetium 99m sestamibi was injected stress images were obtained stress and rest images were reconstructed and compared in the short axis vertical long and horizontal long axis. Gated images were also obtained for Perfusion SPECT analysis: Review of the stress images demonstrate normal uptake of tracer noted in all areas of the myocardium. The resting images similarly demonstrate normal uptake of tracer noted in all areas of the myocardium. No areas of reversibility are noted to suggest ischemia. Gated SPECT analysis: The gated ejection fraction is 73%. Conclusion: Normal pharmacologic myocardial perfusion stress test. Preserved ejection fraction.
== END 2021-09-13 23:59 | disposition short-term general hospital (02) ==
LOC: CVS 07:14
PROVIDERS: PCP Nurse Practitioner Family; Referring Provider Nurse Practitioner Family; Visit Provider Nurse Practitioner Family
DX: R07.9 Chest pain, unspecified (principal)
CPT/HCPCS: 78452; 93017; A9500; A4216; J2785

== ENCOUNTER 2021-11-19 15:38 | Outpatient (CLI) | payer MEDICARE, SELFPAY ==
[2021-11-19 16:36] LABS: Basophil# 0.05 X10^3/uL; Basophil% 0.7 % (0-1); Eosinophil# 0.22 X10^3/uL; Eosinophils% 3.2 % (0-5); Hematocrit 41.9 % (37-47); Hemoglobin 13.8 g/dL (12.0-15.0); Lymphocyte % 27.4 % (19-41); Mean Corp Hgb Conc 32.9 g/dL (32-36); Mean Corpuscular Hgb 31.1 pg (27.0-32.0); Mean Corpuscular Volume 94.4 fL (81-99); Mean Platelet Vol. 10.8 fl (6.2-12.0); Monocyte# 0.71 X10^3/uL; Monocyte% 10.2 % (0-10); NRBC Flagged by Analyzer 0 % (0-5); Neutrophil # 4.02 X10^3/uL (2.7-7.7); Neutrophil % 58.1 % (47-70); Platelet Count 193 K/mm3 (150-450); RBC Distribution Width CV 13.3 % (11.6-14.6); RBC Distribution Width SD 45.4 fl (35.1-43.9); Red Blood Count 4.44 M/mm3 (4.2-5.4); White Blood Count 6.9 K/mm3 (4.4-11.0)
[2021-11-19 16:55] LABS: AST(SGOT) 22 U/L (15-37); Alanine Aminotransfer ALT/SGPT 26 U/L (13-56); Albumin, Serum 3.7 g/dL (3.2-5.0); Alkaline Phosphatase 74 U/L (45-117); Anion Gap 4 (5-15); BUN 9 mg/dL (7-18); BUN/Creat Ratio 9.4 RATIO (10-20); Calcium,Total 8.8 mg/dL (8.5-10.1); Chloride 106 mmol/L (98-107); Creatinine, Serum 0.96 mg/dL (0.55-1.02); EST Glomerular Filtration Rate 60 mL/min (>60); Est Glom Filt Rate - Afr Amer 72 mL/min (>60); Globulin 3.8 g/dL (2.2-4.2); Glucose 92 mg/dL (74-106); Potassium 4.4 mmol/L (3.5-5.1); Protein, Total 7.5 g/dL (6.4-8.2); Sodium Level 137 mmol/L (136-145); Thyroid Stim Hormone (TSH) 1.18 uIU/mL (0.358-3.74)
== END 2021-11-19 23:59 | disposition home or self-care (01) ==
LOC: BIMLAB 15:39
PROVIDERS: PCP Nurse Practitioner Family; Referring Provider Nurse Practitioner Family; Visit Provider Nurse Practitioner Family
DX: I71.4 Abdominal aortic aneurysm, without rupture (principal); I10 Essential (primary) hypertension; E03.9 Hypothyroidism, unspecified; F41.1 Generalized anxiety disorder
CPT/HCPCS: 36415; 80053; 84443; 85025

== ENCOUNTER 2022-04-01 09:42 | Emergency (ER) | payer MEDICARE, SELFPAY ==
[2022-04-01 09:46] VITALS: BP 94/77; PULSE 74; RESP 18; TEMP 36.7; O2SAT 96; BMI 33.2
[2022-04-01 09:57] VITALS: BP 86/62; PULSE 71; RESP 15; O2SAT 98
--- NOTE | 2022-04-01 10:00 | EX.ED.DYSGE1 ---
HPI History of Present Illness Chief Complaint: Hypotension Narrative Narrative: Patient presents with low blood pressure. She was having a vascular study performed this morning and prior to them releasing her, she states that she had a low blood pressure. She has past medical history of hypertension for which she takes lisinopril. She states she takes 9 pills and took them this morning but has not eaten since last evening because she was not allowed to have anything to eat because of her vascular study that was performed this morning. She denies any chest pain. No shortness of breath that is new for her. She does have history of COPD and is a former smoker. No other symptoms. No headache. She denies any recent nausea or vomiting. No diarrhea. No dysuria or hematuria. [facility] Medical History Anxiety Arthritis Atherosclerotic heart disease of [place] coronary artery without angina pectoris Back pain Cancer Cardiology follow-up encounter Chest pain Chronic cough COPD (chronic obstructive pulmonary disease) Depression First degree AV block Former smoker Gastric reflux GERD (gastroesophageal reflux disease) High cholesterol History of abdominal aortic aneurysm History of basal cell carcinoma History of IBS History of irregular heartbeat History of seizure disorder History of stress test HLD (hyperlipidemia) Hx of gastritis Hypothyroidism Left bundle branch block Loss of hearing Low iron Mitral valve disease Myalgia Nonrheumatic mitral (valve) insufficiency Nonrheumatic tricuspid (valve) insufficiency PAD (peripheral artery disease) PVD (peripheral vascular disease) Restless legs Secondary pulmonary hypertension Shortness of breath on exertion Skin lesion of face Syncope Thyroid disease TIA (transient ischemic attack) Type II diabetes mellitus Wears dentures Wears glasses Home Medications nitroglycerin 0.4 mg sublingual tablet 0.4 mg sublingual Q5-15M PRN chest pain #20 tabs 02/27/18 [Rx Last Taken Unknown] alendronate 70 mg tablet 70 mg PO QWEEK #10 tabs 11/17/20 [Rx Last Taken Unknown] albuterol sulfate 90 mcg/actuation aerosol inhaler (ProAir HFA) 2 puff inhalation Q4H PRN PRN Sob &/Or Wheezing 04/05/21 [History Last Taken Unknown] fluticasone propionate 50 mcg/actuation nasal spray,suspension 1 spray intranasal BID PRN allergies, congestion #16 grams 04/30/21 [Rx Last Taken Unknown] lidocaine 5 % topical patch 2 patch topical DAILY #30 ea 06/10/21 [Rx Last Taken Unknown] paroxetine HCl 40 mg tablet 40 mg PO QDAY #90 tabs 08/12/21 [Rx Last Taken Unknown] polyethylene glycol 3350 17 gram/dose oral powder (Miralax) 17 g PO DAILY #850 grams 08/24/21 [Rx Last Taken Unknown] Crestor 5 mg DAILY 10/29/21 [History Last Taken Unknown] buspirone 15 mg tablet 15 mg PO BID #180 tabs 11/23/21 [Rx Last Taken Unknown] budesonide 160 mcg-glycopyr 9 mcg-formot 4.8 mcg/actuation HFA inhaler (Breztri Aerosphere) 2 inh inhalation BID #10.7 grams 11/25/21 [Rx Last Taken Unknown] carvedilol 6.25 mg tablet 6.25 mg PO BID #180 tabs 12/01/21 [Rx Last Taken Unknown] ergocalciferol (vitamin D2) 1,250 mcg (50,000 unit) capsule 50,000 unit PO QWEEK #8 caps 12/01/21 [Rx Last Taken Unknown] lisinopril 5 mg tablet 5 mg PO DAILY #90 tabs 12/01/21 [Rx Last Taken Unknown] pantoprazole 40 mg tablet,delayed release 40 mg PO DAILY #90 tabs 12/01/21 [Rx Last Taken Unknown] quetiapine 50 mg tablet 50 mg PO BID #180 tabs 12/01/21 [Rx Last Taken Unknown] rosuvastatin 5 mg tablet (Crestor) 5 mg PO DAILY #90 tabs 01/21/22 [Rx Last Taken Unknown] aripiprazole 2 mg tablet (Abilify) 2 mg PO QHS #90 tabs 02/16/22 [Rx Last Taken Unknown] levothyroxine 88 mcg tablet 88 mcg PO QDAY #90 tabs 03/08/22 [Rx Last Taken Unknown] clopidogrel 75 mg tablet 75 mg PO DAILY #90 tabs 03/22/22 [Rx Last Taken Unknown] clopidogrel 75 mg tablet 75 mg PO DAILY #90 tabs 03/22/22 [Rx Last Taken Unknown] prednisone 10 mg tablet 10 mg PO QDAY 12 days #30 tabs 03/24/22 [Rx Last Taken Unknown] Allergy/AdvReac Type Severity Reaction Status Date / Time acetaminophen [From [facility]] Allergy Unknown Verified 04/01/22 10:06 albuterol Allergy Unknown Verified 04/01/22 10:06 albuterol sulfate Allergy Unknown Verified 04/01/22 10:06 [From Combivent] amitriptyline Allergy Other Verified 04/01/22 10:06 aspirin Allergy Unknown Verified 04/01/22 10:06 azithromycin [From Zithromax] Allergy Unknown Verified 04/01/22 10:06 butalbital [From Cephadyn] Allergy Unknown Verified 04/01/22 10:06 cefdinir [From Omnicef] Allergy Other Verified 04/01/22 10:06 cefprozil Allergy Unknown Verified 04/01/22 10:06 cephalexin Allergy Unknown Verified 04/01/22 10:06 cyclobenzaprine HCl Allergy Unknown Verified 04/01/22 10:06 [From Flexeril] desloratadine Allergy Unknown Verified 04/01/22 10:06 [From Clarinex-D 12 HOUR] dicyclomine Allergy Unknown Verified 04/01/22 10:06 duloxetine HCl Allergy Unknown Verified 04/01/22 10:06 [From Cymbalta] ezetimibe [From Vytorin] Allergy Unknown Verified 04/01/22 10:06 ipratropium bromide Allergy Unknown Verified 04/01/22 10:06 [From Combivent] loratadine Allergy Unknown Verified 04/01/22 10:06 lovastatin [From Mevacor] Allergy Unknown Verified 04/01/22 10:06 Penicillins Allergy Rash Verified 04/01/22 10:06 pneumococcal vaccine Allergy Unknown Verified 04/01/22 10:06 pseudoephedrine sulfate Allergy Unknown Verified 04/01/22 10:06 [From Clarinex-D 12 HOUR] rofecoxib [From Vioxx] Allergy Unknown Verified 04/01/22 10:06 simvastatin Allergy Unknown Verified 04/01/22 10:06 sulfamethoxazole Allergy Unknown Verified 04/01/22 10:06 [From Bactrim] tizanidine HCl Allergy Unknown Verified 04/01/22 10:06 [From Zanaflex] topiramate Allergy Unknown Verified 04/01/22 10:06 tramadol Allergy Unknown Verified 04/01/22 10:06 trimethoprim [From Bactrim] Allergy Unknown Verified 04/01/22 10:06 verapamil Allergy Unknown Verified 04/01/22 10:06 IMAPRAMINE Allergy Unknown Uncoded 04/01/22 09:45 Family History Mother Heart disease Cancer Uterine cancer Myocardial infarction Father CAD (coronary artery disease) Alcoholism Brother CAD (coronary artery disease) Alcoholism Cancer Cancer of stomach Surgical History History of 3 sections History of cardiac catheterization History of cholecystectomy History of colonoscopy (~2010) History of esophagogastroduodenoscopy (EGD) (~2016) S/P abdominal aortic aneurysm repair (08/10/07) Stented coronary artery (04/04/07) Social History Smoking Status: Former smoker quit date: 01/31/07 pack-years: 40 how long ago did patient quit smokin second hand exposure: No alcohol intake: never substance use type: does not use what type of physical activity do you participate in: none ROS ROS ED ROS Narrative Constitutional: No fever, no chills. Low blood pressure at vascular study. HEENT: No sore throat. No neck pain. No loss of vision. No rhinorrhea. Cardiovascular: No chest pain. No palpitations. No pedal edema. Respiratory: No cough, no shortness of breath over baseline with history of COPD. Abdominal: No abdominal pain. No nausea. No vomiting. Genitourinary: No dysuria. No hematuria. Musculoskeletal: No myalgias. No arthralgias. Neurologic: No headaches. No dizziness. No lightheadedness. Skin: No rash. No change in color. Psychiatric: No depression. No anxiety. EXAM Physical Exam Narrative Exam Narrative: Patient has systolic blood pressure of 86 on the monitor but she is mentating well and has a bounding radial pulse bilaterally. She will be bolused IV fluids. I will check a CBC and CMP along with lactic acid and urinalysis. Const Vital Signs: 04/01/22 09:46 04/01/22 09:57 04/01/22 10:07 Temperature 98.0 F Temperature Source Temporal Pulse Rate 74 71 Respiratory Rate 18 15 Respiratory Effort Normal Non-Labored Respiratory Pattern Normal Blood Pressure 94/77 86/62 L Blood Pressure Mean 82 70 Pulse Ox 96 98 Oxygen Delivery Method Room Air Room Air 04/01/22 11:09 04/01/22 11:51 Temperature Temperature Source Pulse Rate 74 Respiratory Rate 18 16 Respiratory Effort Respiratory Pattern Blood Pressure 100/77 Blood Pressure Mean 84 Pulse Ox 98 Oxygen Delivery Method Room Air MDM MDM MDM Narrative Medical decision making narrative: Patient was placed on a environmental monitoring technician. She is asymptomatic with her hypotension. She did take her antihypertensive medications this morning. Her CBC is grossly normal with a normal white count, hemoglobin normal at 14 with normal platelet count of 153. Electrolyte panel shows creatinine slightly elevated at 1.1 with a normal BUN of 18. Lactic acid is normal at 1.4. She was bolused normal saline 1 L intravenously and remains asymptomatic. Her systolic blood pressure is now 110. I feel she be discharged safely home with follow-up. Urinalysis is negative for ketones or infection. She was told to keep a log of her blood pressures for her primary care provider and to especially take her blood pressure prior to taking her antihypertensive medication. Return instructions to the emergency department were reviewed. Disposition is discharged home in stable condition. Lab Data Attestation: I reviewed the patient's lab results. Labs: Laboratory Results - last 24 hr 04/01/22 04/01/22 04/01/22 10:13 10:13 10:13 WBC 9.8 RBC 4.57 Hgb 14.0 Hct 42.8 MCV 93.7 MCH 30.6 MCHC 32.7 RDW Std Deviation 45.4 H RDW Coeff of Ada 13.4 Plt Count 153 MPV 10.4 Immature Gran % (Auto) 0.600 Neut % (Auto) 70.5 H Lymph % (Auto) 20.0 [place] % (Auto) 6.1 Eos % (Auto) 2.5 Baso % (Auto) 0.3 Absolute Neuts (auto) 6.9 Absolute Lymphs (auto) 1.95 Nucleated RBC % 0 Sodium 139 Potassium 4.1 Chloride 105 Carbon Dioxide 27.0 Anion Gap 7 BUN 18 Creatinine 1.10 H Estim Creat Clear Calc 30.28 Est GFR (MDRD) Af Amer 62 Est GFR (MDRD) Non-Af 51 L BUN/Creatinine Ratio 16.4 Glucose 123 H Lactic Acid 1.4 Calcium 9.0 Total Bilirubin 0.50 AST 21 ALT 35 Alkaline Phosphatase 58 Total Protein 6.3 L Albumin 3.1 L Globulin 3.2 Albumin/Globulin Ratio 1.0 Urine Color Urine Clarity Urine pH Ur Specific [place] Urine Protein Urine Glucose (UA) Urine Ketones Urine Occult Blood Urine Nitrite Urine Bilirubin Urine Urobilinogen Ur Leukocyte Esterase Urine RBC Urine WBC Ur Squamous Epith Cells Urine Bacteria Hyaline Casts Urine Mucus 04/01/22 10:52 WBC RBC Hgb Hct MCV MCH MCHC RDW Std Deviation RDW Coeff of [place] Plt Count MPV Immature Gran % (Auto) Neut % (Auto) Lymph % (Auto) [place] % (Auto) Eos % (Auto) Baso % (Auto) Absolute Neuts (auto) Absolute Lymphs (auto) Nucleated RBC % Sodium Potassium Chloride Carbon Dioxide Anion Gap BUN Creatinine Estim Creat Clear Calc Est GFR (MDRD) Af Amer Est GFR (MDRD) Non-Af BUN/Creatinine Ratio Glucose Lactic Acid Calcium Total Bilirubin AST ALT Alkaline Phosphatase Total Protein Albumin Globulin Albumin/Globulin Ratio Urine Color Yellow Urine Clarity Clear Urine pH 6.0 Ur Specific [place] 1.020 Urine Protein 15 H Urine Glucose (UA) Normal Urine Ketones Negative Urine Occult Blood Negative Urine Nitrite Negative Urine Bilirubin 1 H Urine Urobilinogen Normal Ur Leukocyte Esterase 25 H Urine RBC 0 SEEN Urine WBC 0-5 SEEN Ur Squamous Epith Cells 0-5 SEEN Urine Bacteria 1+ Hyaline Casts 5-10 SEEN Urine Mucus 0 SEEN Discharge Plan Triage Chief Complaint: Hypotension ED Provider: Arthur Adamson Dx/Rx/DC Orders Clinical Impression: Transient hypotension, History of hypertension Instructions: Taking Your Blood Pressure, ED Low Blood Pressure, All Causes Prescriptions: No Action alendronate 70 mg tablet 70 mg PO QWEEK Qty: 10 0RF fluticasone propionate 50 mcg/actuation spray,suspension 1 spray intranasal BID PRN (Reason: allergies, congestion) Qty: 16 3RF Rx Instructions: administer into each nostril lidocaine 5 % adhesive patch,medicated 2 patch topical DAILY Qty: 30 1RF Rx Instructions: leave on most painful area for up to 12 hrs polyethylene glycol 3350 [Miralax] 17 gram/dose powder 17 g PO DAILY Qty: 850 1RF clopidogrel 75 mg tablet 75 mg PO DAILY Qty: 90 2RF prednisone 10 mg tablet 10 mg PO QDAY 12 Days Qty: 30 0RF Rx Instructions: Take 4 tabs once daily days 1-3 3 tabs once daily days 4-6 2 tabs once daily days 7-9 and 1 tab once daily days 10-12. albuterol sulfate [ProAir HFA] 90 mcg/actuation HFA aerosol inhaler 2 puff INHALATION Q4H PRN PRN (Reason: Sob &/Or Wheezing) Crestor 5 mg 5 mg DAILY nitroglycerin 0.4 mg tablet, sublingual 0.4 mg SUBLINGUAL Q5-15M PRN (Reason: chest pain) Qty: 20 1RF Rx Instructions: until response; do not exceed 3 doses per episode paroxetine HCl 40 mg tablet 40 mg PO QDAY Qty: 90 3RF buspirone 15 mg tablet 15 mg PO BID Qty: 180 3RF Breztri Aerosphere 160-9-4.8 mcg/actuation HFA aerosol inhaler 2 inh inhalation BID Qty: 10.7 3RF carvedilol 6.25 mg tablet 6.25 mg PO BID Qty: 180 3RF ergocalciferol (vitamin D2) 1,250 mcg (50,000 unit) capsule 50,000 unit PO QWEEK Qty: 8 2RF lisinopril 5 mg tablet 5 mg PO DAILY Qty: 90 3RF pantoprazole 40 mg tablet,delayed release (DR/EC) 40 mg PO DAILY Qty: 90 1RF quetiapine 50 mg tablet 50 mg PO BID Qty: 180 1RF Rx Instructions: Take 75 mg (1.5 tab) at night and 50 mg (1 tab)in the morning. rosuvastatin [Crestor] 5 mg tablet 5 mg PO DAILY Qty: 90 3RF aripiprazole [Abilify] 2 mg tablet 2 mg PO QHS Qty: 90 0RF levothyroxine 88 mcg tablet 88 mcg PO QDAY Qty: 90 1RF clopidogrel 75 mg tablet 75 mg PO DAILY Qty: 90 3RF Primary Care Provider: Nabor Biggs NP Referrals: Nabor Biggs NP, MANAGER [employer] [Primary Care Provider] - 3-5 Days if not improving Disposition Disposition: Home, Self Care
[2022-04-01] MEDS: 0.9% Normal Saline 1,000 ML 999 ML IV (10:21)
[2022-04-01 10:22] LABS: Absolute Lymphocyte Count 1.95 X10^3/uL (0.83-4.51); Absolute Neutrophil Count 6.9 X10^3/uL (2.0-7.7); Basophil# 0.03 X10^3/uL; Basophil% 0.3 % (0-1); Eosinophil# 0.24 X10^3/uL; Eosinophils% 2.5 % (0-5); Hematocrit 42.8 % (37-47); Lymphocyte # 1.95 X10^3/ul (0.83-4.51); Mean Corp Hgb Conc 32.7 g/dL (32-36); Mean Corpuscular Hgb 30.6 pg (27.0-32.0); Mean Corpuscular Volume 93.7 fL (81-99); Mean Platelet Vol. 10.4 fl (6.2-12.0); Monocyte% 6.1 % (0-10); NRBC Flagged by Analyzer 0 % (0-5); Neutrophil # 6.88 X10^3/uL (2.7-7.7); Neutrophil % 70.5 % (47-70); Platelet Count 153 K/mm3 (150-450); RBC Distribution Width CV 13.4 % (11.6-14.6); RBC Distribution Width SD 45.4 fl (35.1-43.9); Red Blood Count 4.57 M/mm3 (4.2-5.4); White Blood Count 9.8 K/mm3 (4.4-11.0)
[2022-04-01 10:38] LABS: AST(SGOT) 21 U/L (15-37); Alanine Aminotransfer ALT/SGPT 35 U/L (13-56); Albumin, Serum 3.1 g/dL (3.2-5.0); Alkaline Phosphatase 58 U/L (45-117); Anion Gap 7 (5-15); BUN 18 mg/dL (7-18); BUN/Creat Ratio 16.4 RATIO (10-20); Chloride 105 mmol/L (98-107); EST Glomerular Filtration Rate 51 mL/min (>60); Est Glom Filt Rate - Afr Amer 62 mL/min (>60); Estimated Creatinine Clearance 30.28 ml/min; Globulin 3.2 g/dL (2.2-4.2); Glucose 123 mg/dL (74-106); Potassium 4.1 mmol/L (3.5-5.1); Protein, Total 6.3 g/dL (6.4-8.2); Sodium Level 139 mmol/L (136-145)
[2022-04-01 10:56] LABS: Lactic Acid 1.4 mmol/L (0.4-1.9)
[2022-04-01 11:00] LABS: Mucous, Urine 0 SEEN /hpf (<or=2+); Red Blood Cells-Urine 0 SEEN /hpf (0-5)
[2022-04-01 11:03] LABS: Color, Urine Yellow (Yellow); Glucose, Dipstick Normal (Normal); Ketone-Dipstick Negative (Negative); Leukocyte Esterase-Dipstick 25 /ul (Negative); Nitrite-Dipstick Negative (Negative); Occult Blood-Urine Negative /ul (Negative); Protein-Dipstick 15 mg/dl (Negative); Urine Clarity Clear (Clear); Urine Urobilinogen Normal (Normal)
[2022-04-01 11:06] LABS: Urine Bilirubin Dipstick 1 mg/dL (Negative)
[2022-04-01 11:09] VITALS: BP 100/77; PULSE 74; RESP 18; O2SAT 98
[2022-04-01 11:15] LABS: Bacteria 1+ /hpf (None Seen); Hyaline Cast 5-10 SEEN /lpf (0-5); Squamous Epithelial Cells - UA 0-5 SEEN /hpf (5-10); White Blood Cells 0-5 SEEN /hpf (0-5)
[2022-04-01 11:51] VITALS: RESP 16
== END 2022-04-01 11:59 | disposition home or self-care (01) ==
PROVIDERS: Emergency Provider Emergency Medicine; PCP Nurse Practitioner Family; Visit Provider Emergency Medicine
DX: I95.89 Other hypotension (principal); E11.51 Type 2 diabetes mellitus with diabetic peripheral angiopathy without gangrene; J44.9 Chronic obstructive pulmonary disease, unspecified; I70.213 Atherosclerosis of native arteries of extremities with intermittent claudication, bilateral legs; I10 Essential (primary) hypertension; I25.10 Atherosclerotic heart disease of native coronary artery without angina pectoris; E78.5 Hyperlipidemia, unspecified; I65.23 Occlusion and stenosis of bilateral carotid arteries; R09.89 Other specified symptoms and signs involving the circulatory and respiratory systems; M19.90 Unspecified osteoarthritis, unspecified site; F41.9 Anxiety disorder, unspecified; F32.A Depression, unspecified; Z95.828 Presence of other vascular implants and grafts; Z79.899 Other long term (current) drug therapy; Z87.891 Personal history of nicotine dependence; Z79.52 Long term (current) use of systemic steroids
CPT/HCPCS: 80053; 81001; 83605; 85025; 93880; 93922; 93925; 93978; 96360; 99283; J7030; A4216

== ENCOUNTER → 2022-05-03 | Outpatient (CLI) | payer MEDICARE, SELFPAY ==
--- NOTE | 2022-05-05 06:48 | PFT ---
INTRODUCTION: The patient is a 77-year-old female that presents for pulmonary function studies secondary to a diagnosis of COPD. Respiratory therapy reported good patient effort. Bronchodilators were used during testing. INTERPRETATION: Forced expiration spirometry demonstrates the presence of a moderate large airways obstructive ventilatory defect. There was a significant response to aerosolized bronchodilators. Spirograms are of good quality but do not plateau indicating slow emptying of the lungs. Body plethysmography was performed and demonstrated an elevated RV to 169% of predicted, indicative of underlying air trapping. Diffusing capacity by single breath CO is reduced at 47% of predicted. IMPRESSION: Partially reversible moderate large airways obstructive ventilatory defect with associated air trapping and symmetric reduction in diffusing capacity.
== END | disposition home or self-care (01) ==
LOC: PSN 11:05
PROVIDERS: PCP Nurse Practitioner Family; Referring Provider Nurse Practitioner Acute Care; Visit Provider Nurse Practitioner Acute Care
DX: J44.9 Chronic obstructive pulmonary disease, unspecified (principal)
CPT/HCPCS: 94060; 94726; 94729

== ENCOUNTER → 2022-05-05 | Outpatient (CLI) | payer MEDICARE, SELFPAY ==
[2022-05-05 14:20] VITALS: PULSE 100; PULSE 70; PULSE 73; PULSE 88; PULSE 92; PULSE 94; PULSE 95; PULSE 98; O2SAT 87; O2SAT 89; O2SAT 91; O2SAT 92; O2SAT 94; O2SAT 95; O2SAT 96
--- NOTE | 2022-05-05 14:23 | CPS ---
PATIENT DOES NOT CURRENTLY HAVE OXYGEN AT HOME. 3 REST BREAKS TAKEN FOR INCREASED WORK OF BREATHING AND LEG FATIGUE, WELL TO PLACE SUPPLEMENTAL OXYGEN ON PT AT 2LPM FOR SPO2 87% RA. PT FINISHED WALK TESTING ON 2LPM.
--- NOTE | 2022-05-06 07:27 | WT_ITS ---
PSN 6 Minute Walk Test 6 Minute Walk Test 6 Minute Walk Test: 6 Minute Walk Test PSN:6-Minute Walk Test Start: 05/05/22 14:20 Freq: Status: Active Protocol: RESP.6MINW Document 05/05/22 14:20 [facility] (Rec: 05/05/22 14:26 [facility] [id number]) 6 Minute Walk Test Date Performed 05/05/22 Time Performed 13:45 Height 4 ft 11 in Weight: 170 lb Weight in Pounds 170.[address]: Christine Franco [employer] MANAGER Assistive device used: None Pre-test Oxygen Delivery Method Room Air Pulse Ox (%) 95 Pulse Rate (60-100 beats/min) 70 Dyspnea [place] Scale (0-10) 3 Reported Symptoms Increased Work of Breathing 1st minute Oxygen Delivery Method Room Air Pulse Ox (%) 91 Pulse Rate (60-100 beats/min) 88 Dyspnea [place] Scale (0-10) 4 Number of Rests Taken 0 Reported Symptoms Increased Work of Breathing 2nd minute Oxygen Delivery Method Room Air Pulse Ox (%) 89 Pulse Rate (60-100 beats/min) 95 Dyspnea [place] Scale (0-10) 5 Number of Rests Taken 1 Reported Symptoms Increased Work of Breathing 3rd minute Oxygen Delivery Method Room Air Pulse Ox (%) 89 Pulse Rate (60-100 beats/min) 92 Dyspnea [place] Scale (0-10) 5 Number of Rests Taken 1 Reported Symptoms Increased Work of Breathing 4th minute Oxygen Delivery Method Room Air Pulse Ox (%) 87 Pulse Rate (60-100 beats/min) 100 Dyspnea [place] Scale (0-10) 5 Number of Rests Taken 1 Reported Symptoms Increased Work of Breathing 5th minute Oxygen Flow Rate (L/min) (L/min) 2 Oxygen Delivery Method Nasal Cannula Pulse Ox (%) 92 Pulse Rate (60-100 beats/min) 98 Dyspnea [place] Scale (0-10) 5 Number of Rests Taken 0 Reported Symptoms Increased Work of Breathing 6th minute Oxygen Flow Rate (L/min) (L/min) 2 Oxygen Delivery Method Nasal Cannula Pulse Ox (%) 96 Pulse Rate (60-100 beats/min) 94 Dyspnea [place] Scale (0-10) 5 Number of Rests Taken 0 Post-test Oxygen Delivery Method Room Air Pulse Ox (%) 94 Pulse Rate (60-100 beats/min) 73 Dyspnea [place] Scale (0-10) 3 Reported Symptoms Increased Work of Breathing Full Laps Walked 8 Partial Lap, Number of Tiles Walked 7 Total Distance Walked (ft) 479 05/05/22 14:23 Cardiopulmonary Services by Cristina Cervantes PATIENT DOES NOT CURRENTLY HAVE OXYGEN AT HOME. 3 REST BREAKS TAKEN FOR INCREASED WORK OF BREATHING AND LEG FATIGUE, WELL TO PLACE SUPPLEMENTAL OXYGEN ON PT AT 2LPM FOR SPO2 87% RA. PT FINISHED WALK TESTING ON 2LPM. Initialized on 05/05/22 14:23 - END OF NOTE Interpretation Interpretation: The patient ambulated 479 feet over the course of 6 minutes beginning on room air without assistive devices. Pretesting oxygen saturation was noted to be 95% on room air. With ambulation, the susy oxygen saturation was 87%. 2 L/min of supplemental oxygen was applied and the patient was able to complete the remainder of the test while maintaining appropriate saturations. Recommendations Recommendations: 2 L/min of supplemental oxygen should be utilized with exertion.
== END | disposition home or self-care (01) ==
LOC: PSN 13:42
PROVIDERS: PCP Nurse Practitioner Family; Referring Provider Nurse Practitioner Acute Care; Visit Provider Nurse Practitioner Acute Care
DX: J44.9 Chronic obstructive pulmonary disease, unspecified (principal)
CPT/HCPCS: 94618

== ENCOUNTER 2022-08-11 11:31 | Outpatient (CLI) | payer MEDICARE, SELFPAY ==
[2022-08-11 15:34] LABS: Absolute Neutrophil Count 4.5 X10^3/uL (2.0-7.7); Basophil# 0.04 X10^3/uL; Basophil% 0.6 % (0-1); Eosinophils% 5.7 % (0-5); Hematocrit 43.1 % (37-47); Hemoglobin 14.3 g/dL (12.0-15.0); Lymphocyte % 21.4 % (19-41); Mean Corp Hgb Conc 33.2 g/dL (32-36); Mean Corpuscular Hgb 30.2 pg (27.0-32.0); Mean Corpuscular Volume 91.1 fL (81-99); Monocyte# 0.57 X10^3/uL; Monocyte% 8.1 % (0-10); NRBC Flagged by Analyzer 0 % (0-5); Neutrophil # 4.49 X10^3/uL (2.7-7.7); Neutrophil % 63.9 % (47-70); Platelet Count 165 K/mm3 (150-450); RBC Distribution Width CV 13.5 % (11.6-14.6); RBC Distribution Width SD 44.6 fl (35.1-43.9); Red Blood Count 4.73 M/mm3 (4.2-5.4)
[2022-08-11 16:23] LABS: ALB/GLOB Ratio 1.2 RATIO (0.9-2.4); AST(SGOT) 25 U/L (15-37); Alanine Aminotransfer ALT/SGPT 25 U/L (13-56); Albumin, Serum 3.6 g/dL (3.2-5.0); Alkaline Phosphatase 64 U/L (45-117); Anion Gap 7 (5-15); BUN 13 mg/dL (7-18); BUN/Creat Ratio 12.7 RATIO (10-20); Chloride 104 mmol/L (98-107); Creatinine, Serum 1.02 mg/dL (0.55-1.02); EST Glomerular Filtration Rate 56 mL/min (>60); Est Glom Filt Rate - Afr Amer 67 mL/min (>60); Globulin 3.1 g/dL (2.2-4.2); Glucose 97 mg/dL (74-106); Potassium 4.3 mmol/L (3.5-5.1); Protein, Total 6.7 g/dL (6.4-8.2); Sodium Level 139 mmol/L (136-145)
[2022-08-15 00:06] LABS: Red Blood Cell Count Test/G6PD 4.88 x10E6/uL (3.77-5.28)
[2022-08-15 16:18] LABS: G6PD Quant Test 282 (127-427)
== END 2022-08-11 23:59 | disposition home or self-care (01) ==
LOC: MTLAB 11:32
PROVIDERS: PCP Nurse Practitioner Family; Referring Provider Physician Assistant Medical; Visit Provider Physician Assistant Medical
DX: L30.9 Dermatitis, unspecified (principal); L13.0 Dermatitis herpetiformis
CPT/HCPCS: 36415; 80053; 82955; 85025

== ENCOUNTER 2022-08-21 17:21 | Observation (INO) | payer MEDICARE, SELFPAY ==
[2022-08-21] VITALS (8 sets, daily range): BP systolic 95–162; BP diastolic 47–127; PULSE 15–80; RESP 16–19; TEMP 36–36.9; O2SAT 92–95; BMI 34.1; BMI 34.3
--- NOTE | 2022-08-21 18:02 | EKG12_ITS ---
Test Reason : NEURO Blood Pressure : / mmHG Vent. Rate : 065 BPM Atrial Rate : 065 BPM P-R Int : 132 ms QRS Dur : 118 ms QT Int : 472 ms P-R-T Axes : 062 -51 123 degrees QTc Int : 490 ms Normal sinus rhythm Left axis deviation Minimal voltage criteria for LVH, may be normal variant ( Richie product ) Septal infarct (cited on or before 11-MAR-2015) Inferior infarct , age undetermined ST & T wave abnormality, consider lateral ischemia Abnormal ECG When compared with ECG of 31-OCT-2018 19:36, QRS axis Shifted left Inferior infarct is now Present ST now depressed in Lateral leads Confirmed by AMY KHAN, DONOVAN ([id number]), newspaper or periodical editor GINA LORD ([id number]) on 08/23/2022 8:45:29 AM Referred By: Confirmed By:DONOVAN REYES MD
--- NOTE | 2022-08-21 18:02 | TELEMED_ITS ---
[facility] has confirmed receipt of a request for visit. This document confirms receipt of the order initiating the consult. To find the results of the consultation, please view the patient's reports for the scanned Telemed Consult.
--- NOTE | 2022-08-21 18:03 | CT_ITS ---
We are attempting to reach an attending provider to discuss findings. An addendum with communication details will be sent when the communication is complete. EXAM: CT ANGIOGRAPHY HEAD AND NECK WITH INTRAVENOUS CONTRAST CLINICAL INDICATION: Neuro deficit, acute, stroke suspected TECHNIQUE: [place] of Don/head and neck CT angiography protocol performed with intravenous contrast. This CT exam was performed using one or more of the following dose reduction techniques: automated exposure control, adjustment of the mA and/or kV according to patient size, and/or use of iterative reconstruction technique. This report was created using [employer] report generation technology. MIP reconstructed images were created and reviewed. CONTRAST: IV 100mL Isovue-370 RADIATION DOSE: CTDIvol = 29.99 mGy, DLP = 1500.08 mGy-cm COMPARISON: None. FINDINGS: HEAD: RIGHT ANTERIOR CEREBRAL ARTERY: Unremarkable. No significant stenosis at the visualized segments. Anterior communicating artery is present. No aneurysm. RIGHT MIDDLE CEREBRAL ARTERY: Unremarkable. No significant stenosis at the visualized segments. No aneurysm. RIGHT POSTERIOR CEREBRAL ARTERY: Unremarkable. No occlusion or significant stenosis. No aneurysm. RIGHT INTRACRANIAL INTERNAL CAROTID ARTERY: See below. RIGHT INTRACRANIAL VERTEBRAL ARTERY: Unremarkable. No significant stenosis. No dissection or occlusion. LEFT ANTERIOR CEREBRAL ARTERY: Unremarkable. No significant stenosis at the visualized segments. No aneurysm. LEFT MIDDLE CEREBRAL ARTERY: Unremarkable. No significant stenosis at the visualized segments. No aneurysm. LEFT POSTERIOR CEREBRAL ARTERY: Unremarkable. No occlusion or significant stenosis. No aneurysm. LEFT INTRACRANIAL INTERNAL CAROTID ARTERY: See below. LEFT INTRACRANIAL VERTEBRAL ARTERY: Unremarkable. No significant stenosis. No dissection or occlusion. BASILAR ARTERY: Unremarkable. No significant stenosis. No aneurysm. OTHER VASCULATURE: There is mild atherosclerotic plaque formation of the origin of the right internal carotid artery with less than 50% cross sectional diameter stenosis. ALL ABOVE CRITERIA BY NASCET. There is mild atherosclerotic plaque formation of the origin of the left internal carotid artery with less than 50% cross sectional diameter stenosis. ALL ABOVE CRITERIA BY NASCET. There is calcified plaque formation of the right cavernous carotid artery, with a mild stenosis (less than 50%). ALL ABOVE CRITERIA BY NASCET. NECK: RIGHT COMMON CAROTID ARTERY: Unremarkable. No significant stenosis. No dissection or occlusion. RIGHT EXTRACRANIAL INTERNAL CAROTID ARTERY: See above. RIGHT EXTERNAL CAROTID ARTERY: Unremarkable. No occlusion. RIGHT EXTRACRANIAL VERTEBRAL ARTERY: Unremarkable. No significant stenosis. No dissection or occlusion. LEFT COMMON CAROTID ARTERY: Unremarkable. No significant stenosis. No dissection or occlusion. LEFT EXTRACRANIAL INTERNAL CAROTID ARTERY: See above. LEFT EXTERNAL CAROTID ARTERY: Unremarkable. No occlusion. LEFT EXTRACRANIAL VERTEBRAL ARTERY: Unremarkable. No significant stenosis. No dissection or occlusion. GREAT VESSELS OF AORTIC ARCH: There is calcified plaque formation of the left cavernous carotid artery, with a mild stenosis (less than 50%). ALL ABOVE CRITERIA BY NASCET. LUNG APICES: Unremarkable as visualized. HEAD and NECK: BONES/JOINTS: There are degenerative findings of the cervical spine. No discrete lytic or blastic abnormalities. SOFT TISSUES: Unremarkable. CAROTID STENOSIS REFERENCE USING NASCET CRITERIA: % ICA stenosis = (1 - narrowest ICA diameter/diameter of distal cervical ICA) x 100. Mild - <50% stenosis. Moderate - 50-69% stenosis. Severe - 70-94% stenosis. Near occlusion - 95-99% stenosis. Occluded - 100% stenosis. CT/STROKE CTA Head AND Neck W/Con IMPRESSION: 1. There is mild atherosclerotic plaque formation of the origin of the right internal carotid artery with less than 50% cross sectional diameter stenosis. ALL ABOVE CRITERIA BY NASCET. 2. There is mild atherosclerotic plaque formation of the origin of the left internal carotid artery with less than 50% cross sectional diameter stenosis. ALL ABOVE CRITERIA BY NASCET. 3. There is calcified plaque formation of the right cavernous carotid artery, with a mild stenosis (less than 50%). ALL ABOVE CRITERIA BY NASCET. 4. There is calcified plaque formation of the left cavernous carotid artery, with a mild stenosis (less than 50%). ALL ABOVE CRITERIA BY NASCET. There are scattered blebs and bullae. This can be seen in pulmonary emphysema. Electronically Signed: Olvin Freitas MD at 19:14 EST ,
[2022-08-21 18:05] LABS: Bedside Glucose 106 mg/dL (74-106)
--- NOTE | 2022-08-21 18:09 | EX.ED.DYSGE1 ---
HPI History of Present Illness Chief Complaint: Neuro S/Sx Informant: patient and spouse/S.O. Narrative Narrative: Patient presents status post an episode of difficulty speaking last evening somewhere between 8 and 10:00. It lasted about 5 or 10 minutes. She states she had trouble finishing words. It sounds like this was more of an expressive aphasia rather than dysarthria. She also stated she had a little tingling on the right side of her face. The symptoms resolved. Somewhere around this time she developed a headache. She is not exactly sure when it started. It was not thunderclap. It is waxing and waning. Right now it is quite mild. When it is bad it is very bad. He does have history of migraines. She states they are kind of like that but migraines are more focal pain in the head and this is more generalized in the front of the head. She has had migraines that are worse than this. She is on Plavix but does not think she takes aspirin because it upsets her stomach. Patient did have an episode of dry heaves this morning. But she has been eating since without problems. She has no numbness tingling or weakness. She has no chest pain neck pain back pain. She has no syncope or presyncope. She has resolving contact dermatitis. She denies being ill such as fevers chills coughing congestion or myalgias. No diarrhea or abdominal pain. No urinary symptoms. No incontinence. Patient denies any prior work-up for stroke or stroke symptoms in the past. She states that 2 years ago she had an episode where she seemed to be confused and hallucinating for 2 weeks but she did not have numbness tingling weakness or speech problems as far she remembers. [facility] Medical History Anxiety Arthritis Atherosclerotic heart disease of [place] coronary artery without angina pectoris Back pain Cancer Cardiology follow-up encounter Chest pain Chronic cough COPD (chronic obstructive pulmonary disease) Depression First degree AV block Former smoker Gastric reflux GERD (gastroesophageal reflux disease) High cholesterol History of abdominal aortic aneurysm History of basal cell carcinoma History of IBS History of irregular heartbeat History of seizure disorder History of stress test HLD (hyperlipidemia) Hx of gastritis Hypothyroidism Left bundle branch block Loss of hearing Low iron Mitral valve disease Myalgia Nonrheumatic mitral (valve) insufficiency Nonrheumatic tricuspid (valve) insufficiency PAD (peripheral artery disease) PVD (peripheral vascular disease) Restless legs Secondary pulmonary hypertension Shortness of breath on exertion Skin lesion of face Syncope Thyroid disease TIA (transient ischemic attack) Type II diabetes mellitus Wears dentures Wears glasses Home Medications buspirone 15 mg tablet 15 mg PO BID #180 tabs 11/23/21 [Rx Last Taken 08/20/22] clopidogrel 75 mg tablet 75 mg PO DAILY #90 tabs 03/22/22 [Rx Last Taken Unknown] albuterol sulfate 90 mcg/actuation aerosol inhaler (ProAir HFA) 2 puff inhalation Q4H PRN PRN Sob &/Or Wheezing #8.5 grams 04/08/22 [Rx Last Taken Unknown] budesonide 160 mcg-glycopyr 9 mcg-formot 4.8 mcg/actuation HFA inhaler (Breztri Aerosphere) 2 inh inhalation BID #10.7 grams 04/08/22 [Rx Last Taken Unknown] aripiprazole 2 mg tablet (Abilify) 2 mg PO QHS #90 tabs 05/19/22 [Rx Last Taken 08/20/22] rosuvastatin 5 mg tablet 5 mg PO DAILY #90 tabs 05/19/22 [Rx Last Taken Unknown] paroxetine HCl 40 mg tablet 40 mg PO QDAY #90 tabs 05/20/22 [Rx Last Taken Unknown] quetiapine 25 mg tablet (Seroquel) 50 mg PO DAILY 05/30/22 [History Last Taken Unknown] levothyroxine 88 mcg tablet 88 mcg PO QDAY #90 tabs 08/16/22 [Rx Last Taken 08/21/22] quetiapine 50 mg tablet See Rx Instructions .Route .COMPLEX #225 TABLETS 08/16/22 [Rx Last Taken Unknown] alendronate 70 mg tablet 70 mg PO MO 08/21/22 [History Last Taken Unknown] carvedilol 3.125 mg tablet 6.25 mg PO BID 08/21/22 [History Last Taken Unknown] ergocalciferol (vitamin D2) 1,250 mcg (50,000 unit) capsule 50,000 mcg PO MO 08/21/22 [History Last Taken Unknown] fluticasone propionate 50 mcg/actuation nasal spray,suspension 2 spray intranasal BID 08/21/22 [History Last Taken Unknown] lisinopril 5 mg tablet 5 mg PO DAILY 08/21/22 [History Last Taken Unknown] polyethylene glycol 3350 17 gram/dose oral powder (Gavilax) 17 g PO DAILY 08/21/22 [History Last Taken Unknown] quetiapine 50 mg tablet 50 mg PO DAILY 08/21/22 [History Last Taken 08/21/22] quetiapine 50 mg tablet 75 mg PO QHS 08/21/22 [History Last Taken 08/20/22] Allergy/AdvReac Type Severity Reaction Status Date / Time acetaminophen [From Cephadyn] Allergy Unknown Verified 08/21/22 17:26 albuterol Allergy Unknown Verified 08/21/22 17:26 albuterol sulfate Allergy Unknown Verified 08/21/22 17:26 [From Combivent] amitriptyline Allergy Other Verified 08/21/22 17:26 aspirin Allergy Unknown Verified 08/21/22 17:26 azithromycin [From Zithromax] Allergy Unknown Verified 08/21/22 17:26 butalbital [From Cephadyn] Allergy Unknown Verified 08/21/22 17:26 cefdinir [From Omnicef] Allergy Other Verified 08/21/22 17:26 cefprozil Allergy Unknown Verified 08/21/22 17:26 cephalexin Allergy Unknown Verified 08/21/22 17:26 cyclobenzaprine HCl Allergy Unknown Verified 08/21/22 17:26 [From Flexeril] desloratadine Allergy Unknown Verified 08/21/22 17:26 [From Clarinex-D 12 HOUR] dicyclomine Allergy Unknown Verified 08/21/22 17:26 duloxetine HCl Allergy Unknown Verified 08/21/22 17:26 [From Cymbalta] ezetimibe [From Vytorin] Allergy Unknown Verified 08/21/22 17:26 imipramine Allergy NEEDS Verified 08/21/22 17:26 FOLLOW-UP ipratropium bromide Allergy Unknown Verified 08/21/22 17:26 [From Combivent] loratadine Allergy Unknown Verified 08/21/22 17:26 lovastatin [From Mevacor] Allergy Unknown Verified 08/21/22 17:26 Penicillins Allergy Rash Verified 08/21/22 17:26 pneumococcal vaccine Allergy Unknown Verified 08/21/22 17:26 pseudoephedrine sulfate Allergy Unknown Verified 08/21/22 17:26 [From Clarinex-D 12 HOUR] rofecoxib [From Vioxx] Allergy Unknown Verified 08/21/22 17:26 simvastatin Allergy Unknown Verified 08/21/22 17:26 sulfamethoxazole Allergy Unknown Verified 08/21/22 17:26 [From Bactrim] tizanidine HCl Allergy Unknown Verified 08/21/22 17:26 [From Zanaflex] topiramate Allergy Unknown Verified 08/21/22 17:26 tramadol Allergy Unknown Verified 08/21/22 17:26 trimethoprim [From Bactrim] Allergy Unknown Verified 08/21/22 17:26 verapamil Allergy Unknown Verified 08/21/22 17:26 Family History Mother Heart disease Cancer Uterine cancer Myocardial infarction Father CAD (coronary artery disease) Alcoholism Brother CAD (coronary artery disease) Alcoholism Cancer Cancer of stomach Surgical History History of 3 sections History of cardiac catheterization History of cholecystectomy History of colonoscopy (~2010) History of esophagogastroduodenoscopy (EGD) (~2016) S/P abdominal aortic aneurysm repair (08/10/07) Stented coronary artery (04/04/07) Social History Smoking Status: Former smoker quit date: 01/31/07 pack-years: 40 how long ago did patient quit smokin second hand exposure: No alcohol intake: never substance use type: does not use what type of physical activity do you participate in: none EXAM Physical Exam Narrative Exam Narrative: Patient is awake and alert. She is oriented x3. I see no facial trauma. Pupils are normal and reactive. Range of motion of eyes is normal. Her visual pires are normal by confrontation. Tongue is midline. I do not hear carotid bruit. Her heart is regular without murmur heard. Peripheral pulses are equal. Lungs are clear and there is no pain with a deep breath. Abdomen is obese but overall benign. No CVA tenderness. Patient's NIH at this time is 0. She is calm relaxed with normal thought process. Const Vital Signs: 08/21/22 17:22 08/21/22 17:40 08/21/22 18:09 Temperature 96.8 F L Temperature Source Temporal Pulse Rate 70 68 Respiratory Rate 16 16 Blood Pressure 112/95 H 140/127 H Blood Pressure Mean 100 131 Pulse Ox 95 95 Oxygen Delivery Method Room Air Room Air 08/21/22 18:05 Temperature Temperature Source Pulse Rate 15 L Respiratory Rate Blood Pressure 95/66 Blood Pressure Mean 75 Pulse Ox 92 Oxygen Delivery Method Room Air MDM MDM MDM Narrative Medical decision making narrative: And interpretation of her CT of the head shows no mass or bleed. There is some atrophy. No acute process by radiology and CTA is read as no large vessel cutoff. White count hemoglobin hematocrit are normal on the CBC. Coags are normal. Electrolytes are overall unremarkable. Glucose is minimally up at 114. [facility] neurology evaluated her. They feel that she did have symptoms consistent with expressive aphasia. They recommend admission for TIA work-up. Case discussed with hospitalist. This patient does have higher risk due to complex medical history that includes high blood pressure and heart disease. She is already on Plavix but not aspirin. She is already on a statin. Lab Data Attestation: I reviewed the patient's lab results. Labs: Laboratory Results - last 24 hr 08/21/22 08/21/22 08/21/22 17:40 17:40 17:40 WBC 6.9 RBC 4.70 Hgb 14.1 Hct 42.4 MCV 90.2 MCH 30.0 MCHC 33.3 RDW Std Deviation 45.1 H RDW Coeff of Ada 13.8 Plt Count 166 MPV 11.0 Immature Gran % (Auto) 0.300 Neut % (Auto) 63.5 Lymph % (Auto) 21.4 [place] % (Auto) 10.2 H Eos % (Auto) 4.2 Baso % (Auto) 0.4 Absolute Neuts (auto) 4.4 Absolute Lymphs (auto) 1.47 Nucleated RBC % 0 PT 13.7 INR 1.1 APTT 28.4 Sodium 138 Potassium 3.9 Chloride 104 Carbon Dioxide 27.0 Anion Gap 7 BUN 16 Creatinine 0.97 Estim Creat Clear Calc 57.84 Est GFR (MDRD) Af Amer 72 Est GFR (MDRD) Non-Af 59 L BUN/Creatinine Ratio 16.6 Glucose 114 H Calcium 9.1 Troponin I High Sens 29 POC Glucose 08/21/22 17:45 WBC RBC Hgb Hct MCV MCH MCHC RDW Std Deviation RDW Coeff of Ada Plt Count MPV Immature Gran % (Auto) Neut % (Auto) Lymph % (Auto) [place] % (Auto) Eos % (Auto) Baso % (Auto) Absolute Neuts (auto) Absolute Lymphs (auto) Nucleated RBC % PT INR APTT Sodium Potassium Chloride Carbon Dioxide Anion Gap BUN Creatinine Estim Creat Clear Calc Est GFR (MDRD) Af Amer Est GFR (MDRD) Non-Af BUN/Creatinine Ratio Glucose Calcium Troponin I High Sens POC Glucose 106 Radiography Diagnostic Testing: Clinical Impression(s) from Imaging Studies Head/Neck CTA 08/21/22 18:03 IMPRESSION: 1. There is mild atherosclerotic plaque formation of the origin of the right internal carotid artery with less than 50% cross sectional diameter stenosis. ALL ABOVE CRITERIA BY NASCET. 2. There is mild atherosclerotic plaque formation of the origin of the left internal carotid artery with less than 50% cross sectional diameter stenosis. ALL ABOVE CRITERIA BY NASCET. 3. There is calcified plaque formation of the right cavernous carotid artery, with a mild stenosis (less than 50%). ALL ABOVE CRITERIA BY NASCET. 4. There is calcified plaque formation of the left cavernous carotid artery, with a mild stenosis (less than 50%). ALL ABOVE CRITERIA BY NASCET. There are scattered blebs and bullae. This can be seen in pulmonary emphysema. Electronically Signed: Olvin Freitas MD at 19:14 EST Reading Location ID and State: [facility] / [place] , Service support , ADDENDUM: 08/21/221921 IMPRESSION: 1. There is mild atherosclerotic plaque formation of the origin of the right internal carotid artery with less than 50% cross sectional diameter stenosis. ALL ABOVE CRITERIA BY NASCET. 2. There is mild atherosclerotic plaque formation of the origin of the left internal carotid artery with less than 50% cross sectional diameter stenosis. ALL ABOVE CRITERIA BY NASCET. 3. There is calcified plaque formation of the right cavernous carotid artery, with a mild stenosis (less than 50%). ALL ABOVE CRITERIA BY NASCET. 4. There is calcified plaque formation of the left cavernous carotid artery, with a mild stenosis (less than 50%). ALL ABOVE CRITERIA BY NASCET. There are scattered blebs and bullae. This can be seen in pulmonary emphysema. N.B. : The above Results were Read Back by Olvin Freitas MD to Hernando Hunt MD, and understanding confirmed on 08/21/2022 19:15:16 (ET). Electronically Signed: Olvin Freitas MD at 19:14 EST , Chest X-Ray 08/21/22 18:50 IMPRESSION: There are no acute findings. Electronically Signed: Olvin Freitas MD at 19:17 EST , EKG Initial EKG: Comments: My independent interpretation of her EKG done as part of stroke work-up shows a normal sinus rhythm with overall rate of 65. She does have borderline LVH. I see no ectopy. No acute ST elevation or depression consistent with infarct or ischemia but she does have some diffuse nonspecific changes similar to prior. GA interval was normal. QRS duration and QTC are toward longer and. The EKG is similar to a prior of 31 October 2018. Discharge Plan Dx/Rx/DC Orders Clinical Impression: Brain TIA, Expressive aphasia Disposition Disposition: Acute Care Hospital [facility]
[2022-08-21 18:10] LABS: Absolute Lymphocyte Count 1.47 X10^3/uL (0.83-4.51); Absolute Neutrophil Count 4.4 X10^3/uL (2.0-7.7); Basophil# 0.03 X10^3/uL; Basophil% 0.4 % (0-1); Eosinophil# 0.29 X10^3/uL; Eosinophils% 4.2 % (0-5); Hematocrit 42.4 % (37-47); Hemoglobin 14.1 g/dL (12.0-15.0); Lymphocyte # 1.47 X10^3/ul (0.83-4.51); Lymphocyte % 21.4 % (19-41); Mean Corp Hgb Conc 33.3 g/dL (32-36); Mean Corpuscular Volume 90.2 fL (81-99); Monocyte% 10.2 % (0-10); NRBC Flagged by Analyzer 0 % (0-5); Neutrophil # 4.36 X10^3/uL (2.7-7.7); Neutrophil % 63.5 % (47-70); Platelet Count 166 K/mm3 (150-450); RBC Distribution Width CV 13.8 % (11.6-14.6); RBC Distribution Width SD 45.1 fl (35.1-43.9); White Blood Count 6.9 K/mm3 (4.4-11.0)
[2022-08-21 18:23] LABS: Anion Gap 7 (5-15); BUN 16 mg/dL (7-18); BUN/Creat Ratio 16.6 RATIO (10-20); Calcium,Total 9.1 mg/dL (8.5-10.1); Chloride 104 mmol/L (98-107); Creatinine, Serum 0.97 mg/dL (0.55-1.02); EST Glomerular Filtration Rate 59 mL/min (>60); Est Glom Filt Rate - Afr Amer 72 mL/min (>60); Estimated Creatinine Clearance 57.84 ml/min; Glucose 114 mg/dL (74-106); Potassium 3.9 mmol/L (3.5-5.1); Sodium Level 138 mmol/L (136-145); Troponin-I HS 29 pg/mL (3.0-54.0)
[2022-08-21 18:35] LABS: International Normalized Ratio 1.1; Prothrombin Time (Protime)PT. 13.7 SECONDS (11.7-14.9)
[2022-08-21 18:36] LABS: Partial Thromboplast Time 28.4 Seconds (24.1-36.2)
--- NOTE | 2022-08-21 18:50 | RAD_ITS ---
STUDY: X-RAY CHEST REASON FOR EXAM: Female, 77 years old. Neuro deficit, acute, stroke suspected TECHNIQUE: XR Chest 1 View COMPARISON: 10/06/2017 FINDINGS: There is atherosclerotic calcification of the aortic arch with tortuosity. There are diffuse degenerative changes of the visualized thoracic spine. There is degenerative osteoarthritis of the bilateral shoulders. There is no demonstrated pleural abnormality. Normal size heart. Normal mediastinum and doron. Normal visualized pulmonary arteries. There is no demonstrated abnormality of the visualized soft tissue structures of the upper abdomen. RAD/Chest 1 View IMPRESSION: There are no acute findings. Electronically Signed: Olvin Freitas MD at 19:17 EST ,
--- NOTE | 2022-08-21 20:02 | PCM.HP.STD ---
HPI - General General Date of Admission: 08/21/22 Date of Service: 08/21/22 Chief Complaint: Expressive aphasia HPI Narrative NAVID JOEL, is a 77 F with a significant history of previous questionable TIA; hypertension; hyperlipidemia and as needed home oxygen use who presents emergency department with expressive aphasia that started about 24 hours before presentation. Associated with symptoms is right-sided facial tingling. Reportedly the expressive aphasia lasted for more than 10 minutes. At the time of presentation all her symptoms had resolved. She reports a chronic headache. Emergency plan doctor discussed the case with telemetry neurologist who upon evaluating patient recommended the patient stays at the hospital for further work-up and made other recommendations. [facility] Medical History Anxiety Arthritis Atherosclerotic heart disease of [place] coronary artery without angina pectoris Back pain Cancer Cardiology follow-up encounter Chest pain Chronic cough COPD (chronic obstructive pulmonary disease) Depression First degree AV block Former smoker Gastric reflux GERD (gastroesophageal reflux disease) High cholesterol History of abdominal aortic aneurysm History of basal cell carcinoma History of IBS History of irregular heartbeat History of seizure disorder History of stress test HLD (hyperlipidemia) Hx of gastritis Hypothyroidism Left bundle branch block Loss of hearing Low iron Mitral valve disease Myalgia Nonrheumatic mitral (valve) insufficiency Nonrheumatic tricuspid (valve) insufficiency PAD (peripheral artery disease) PVD (peripheral vascular disease) Restless legs Secondary pulmonary hypertension Shortness of breath on exertion Skin lesion of face Syncope Thyroid disease TIA (transient ischemic attack) Type II diabetes mellitus Wears dentures Wears glasses Home Medications buspirone 15 mg tablet 15 mg PO BID #180 tabs 11/23/21 [Rx Last Taken Unknown] clopidogrel 75 mg tablet 75 mg PO DAILY #90 tabs 03/22/22 [Rx Last Taken Unknown] albuterol sulfate 90 mcg/actuation aerosol inhaler (ProAir HFA) 2 puff inhalation Q4H PRN PRN Sob &/Or Wheezing #8.5 grams 04/08/22 [Rx Last Taken Unknown] budesonide 160 mcg-glycopyr 9 mcg-formot 4.8 mcg/actuation HFA inhaler (Breztri Aerosphere) 2 inh inhalation BID #10.7 grams 04/08/22 [Rx Last Taken Unknown] aripiprazole 2 mg tablet (Abilify) 2 mg PO QHS #90 tabs 05/19/22 [Rx Last Taken Unknown] rosuvastatin 5 mg tablet 5 mg PO DAILY #90 tabs 05/19/22 [Rx Last Taken Unknown] alendronate 70 mg tablet 70 mg PO QWEEK #10 tabs 05/20/22 [Rx Last Taken Unknown] pantoprazole 40 mg tablet,delayed release 40 mg PO DAILY #90 tabs 05/20/22 [Rx Last Taken Unknown] paroxetine HCl 40 mg tablet 40 mg PO QDAY #90 tabs 05/20/22 [Rx Last Taken Unknown] quetiapine 25 mg tablet (Seroquel) 25 mg PO DAILY 05/30/22 [History Last Taken Unknown] ergocalciferol (vitamin D2) 1,250 mcg (50,000 unit) capsule See Rx Instructions .Route .COMPLEX #8 caps 08/16/22 [Rx Last Taken Unknown] fluticasone propionate 50 mcg/actuation nasal spray,suspension See Rx Instructions .Route .COMPLEX #16 grams 08/16/22 [Rx Last Taken Unknown] levothyroxine 88 mcg tablet 88 mcg PO QDAY #90 tabs 08/16/22 [Rx Last Taken Unknown] quetiapine 50 mg tablet See Rx Instructions .Route .COMPLEX #225 TABLETS 08/16/22 [Rx Last Taken Unknown] carvedilol 3.125 mg tablet 6.25 mg PO BID 08/21/22 [History Last Taken Unknown] lisinopril 5 mg tablet 5 mg PO DAILY 08/21/22 [History Last Taken Unknown] polyethylene glycol 3350 17 gram/dose oral powder (Gavilax) 17 g PO DAILY 08/21/22 [History Last Taken Unknown] Allergy/AdvReac Type Severity Reaction Status Date / Time acetaminophen [From Cephadyn] Allergy Unknown Verified 08/21/22 17:26 albuterol Allergy Unknown Verified 08/21/22 17:26 albuterol sulfate Allergy Unknown Verified 08/21/22 17:26 [From Combivent] amitriptyline Allergy Other Verified 08/21/22 17:26 aspirin Allergy Unknown Verified 08/21/22 17:26 azithromycin [From Zithromax] Allergy Unknown Verified 08/21/22 17:26 butalbital [From Cephadyn] Allergy Unknown Verified 08/21/22 17:26 cefdinir [From Omnicef] Allergy Other Verified 08/21/22 17:26 cefprozil Allergy Unknown Verified 08/21/22 17:26 cephalexin Allergy Unknown Verified 08/21/22 17:26 cyclobenzaprine HCl Allergy Unknown Verified 08/21/22 17:26 [From Flexeril] desloratadine Allergy Unknown Verified 08/21/22 17:26 [From Clarinex-D 12 HOUR] dicyclomine Allergy Unknown Verified 08/21/22 17:26 duloxetine HCl Allergy Unknown Verified 08/21/22 17:26 [From Cymbalta] ezetimibe [From Vytorin] Allergy Unknown Verified 08/21/22 17:26 imipramine Allergy NEEDS Verified 08/21/22 17:26 FOLLOW-UP ipratropium bromide Allergy Unknown Verified 08/21/22 17:26 [From Combivent] loratadine Allergy Unknown Verified 08/21/22 17:26 lovastatin [From Mevacor] Allergy Unknown Verified 08/21/22 17:26 Penicillins Allergy Rash Verified 08/21/22 17:26 pneumococcal vaccine Allergy Unknown Verified 08/21/22 17:26 pseudoephedrine sulfate Allergy Unknown Verified 08/21/22 17:26 [From Clarinex-D 12 HOUR] rofecoxib [From Vioxx] Allergy Unknown Verified 08/21/22 17:26 simvastatin Allergy Unknown Verified 08/21/22 17:26 sulfamethoxazole Allergy Unknown Verified 08/21/22 17:26 [From Bactrim] tizanidine HCl Allergy Unknown Verified 08/21/22 17:26 [From Zanaflex] topiramate Allergy Unknown Verified 08/21/22 17:26 tramadol Allergy Unknown Verified 08/21/22 17:26 trimethoprim [From Bactrim] Allergy Unknown Verified 08/21/22 17:26 verapamil Allergy Unknown Verified 08/21/22 17:26 Family History Mother Heart disease Cancer Uterine cancer Myocardial infarction Father CAD (coronary artery disease) Alcoholism Brother CAD (coronary artery disease) Alcoholism Cancer Cancer of stomach Surgical History History of 3 sections History of cardiac catheterization History of cholecystectomy History of colonoscopy (~2010) History of esophagogastroduodenoscopy (EGD) (~2017) S/P abdominal aortic aneurysm repair (08/10/07) Stented coronary artery (04/04/07) Social History Smoking Status: Former smoker quit date: 01/31/07 pack-years: 40 how long ago did patient quit smokin second hand exposure: No alcohol intake: never substance use type: does not use what type of physical activity do you participate in: none ROS ROS Narrative Pertinent positives and pertinent negatives as noted in HPI. All other systems were reviewed and are negative Vital Signs Vital Signs Vital Signs: 08/21/22 17:22 08/21/22 17:40 08/21/22 18:09 Temperature 96.8 F L Temperature Source Temporal Pulse Rate 70 68 Respiratory Rate 16 16 Blood Pressure 112/95 H 140/127 H Blood Pressure Mean 100 131 Pulse Ox 95 95 Oxygen Delivery Method Room Air Room Air 08/21/22 18:05 Temperature Temperature Source Pulse Rate 15 L Respiratory Rate Blood Pressure 95/66 Blood Pressure Mean 75 Pulse Ox 92 Oxygen Delivery Method Room Air Weight Weight: 76.657 kg Body Mass Index (BMI) 34.1 Physical Exam Narrative Physical exam: General: Well-nourished, well-developed. Head: Normocephalic, atraumatic, no tenderness Eyes: Vision is grossly intact. EOMI ENT, no trauma, moist mucous membranes, no rhinorrhea Neck: Nontender, No thyromegaly. CVS: Regular rate and rhythm. S1-S2 present. No murmur, gallop or rub. Respiratory : clear to auscultation bilaterally, chest wall nontender, no wheezing Abdomen: Soft, nontender, nondistended, normal bowel sounds, no masses : Deferred Back: Nontender, no CVA tenderness. Extremities: Nontender full range of motion, no trauma Skin: Normal color, no trauma, abrasions Neuro: Alert, oriented, cranial nerves II through XII grossly intact. Strength 5 out of 5 throughout. Deep tendon reflexes not hyperreflexia at knee or elbow. Psychiatry: Normal mood. Normal affect. Not depressed. Not anxious. Results Lab / Micro Data Result Diagrams: 08/21/22 17:40 08/21/22 17:40 Labs: Laboratory Results - last 24 hr 08/21/22 17:40: WBC 6.9, RBC 4.70, Hgb 14.1, Hct 42.4, MCV 90.2, MCH 30.0, MCHC 33.3, RDW Std Deviation 45.1 H, RDW Coeff of Ada 13.8, Plt Count 166, MPV 11.0, Immature Gran % (Auto) 0.300, Neut % (Auto) 63.5, Lymph % (Auto) 21.4, [place] % (Auto) 10.2 H, Eos % (Auto) 4.2, Baso % (Auto) 0.4, Absolute Neuts (auto) 4.4, Absolute Lymphs (auto) 1.47, Nucleated RBC % 0 08/21/22 17:40: PT 13.7, INR 1.1, APTT 28.4 08/21/22 17:40: Sodium 138, Potassium 3.9, Chloride 104, Carbon Dioxide 27.0, Anion Gap 7, BUN 16, Creatinine 0.97, Estim Creat Clear Calc 57.84, Est GFR (MDRD) Af Amer 72, Est GFR (MDRD) Non-Af 59 L, BUN/Creatinine Ratio 16.6, Glucose 114 H, Calcium 9.1, Troponin I High Sens 29 08/21/22 17:45: POC Glucose 106 Radiology Impression Head/Neck CTA 08/21/22 18:03 IMPRESSION: 1. There is mild atherosclerotic plaque formation of the origin of the right internal carotid artery with less than 50% cross sectional diameter stenosis. ALL ABOVE CRITERIA BY NASCET. 2. There is mild atherosclerotic plaque formation of the origin of the left internal carotid artery with less than 50% cross sectional diameter stenosis. ALL ABOVE CRITERIA BY NASCET. 3. There is calcified plaque formation of the right cavernous carotid artery, with a mild stenosis (less than 50%). ALL ABOVE CRITERIA BY NASCET. 4. There is calcified plaque formation of the left cavernous carotid artery, with a mild stenosis (less than 50%). ALL ABOVE CRITERIA BY NASCET. There are scattered blebs and bullae. This can be seen in pulmonary emphysema. Electronically Signed: Olvin Freitas MD at 19:14 EST , ADDENDUM: 08/21/22 1922 IMPRESSION: 1. There is mild atherosclerotic plaque formation of the origin of the right internal carotid artery with less than 50% cross sectional diameter stenosis. ALL ABOVE CRITERIA BY NASCET. 2. There is mild atherosclerotic plaque formation of the origin of the left internal carotid artery with less than 50% cross sectional diameter stenosis. ALL ABOVE CRITERIA BY NASCET. 3. There is calcified plaque formation of the right cavernous carotid artery, with a mild stenosis (less than 50%). ALL ABOVE CRITERIA BY NASCET. 4. There is calcified plaque formation of the left cavernous carotid artery, with a mild stenosis (less than 50%). ALL ABOVE CRITERIA BY NASCET. There are scattered blebs and bullae. This can be seen in pulmonary emphysema. N.B. : The above Results were Read Back by Olvin Freitas MD to Hernando Hunt MD, and understanding confirmed on 08/21/2022 19:15:16 (ET). Electronically Signed: Olvin Freitas MD at 19:14 EST , Chest X-Ray 08/21/22 18:50 IMPRESSION: There are no acute findings. Electronically Signed: Olvin Freitas MD at 19:17 EST , Assessment & Plan Assessment/Plan (1) TIA (transient ischemic attack): (2) HTN (hypertension): PLAN: Plan TIA Serial NINDS NIH Scale ordered CT/CTA head and neck with no bleed all hemodynamic significant stenosis. Head and neck CT/CTA was visualized and independently interpreted and I agree radiologist interpretation. Lipid profile and A1c ordered. Physical therapy, occupational therapy and speech therapy to work with patient. N.p.o. until bedside swallow eval. Reportedly she has abdominal upset to aspirin. Aspirin not ordered. Home Plavix continued. On home Crestor 5 mg daily. Allergic to other statins. Escalate to pravastatin 80 mg daily. Permissive hypertension. Control blood pressure with labetalol for systolic blood pressure of more than 220 or diastolic blood pressure of more than 120. MRI Echocardiogram ordered. CBC unremarkable. Hypertension Stable Home blood pressure medication held secondary to permissive hypertension Trend BMP. CKD stage IIIa Stable DVT prophylaxis: SCD ordered. Charges/Coding Visit Charges Inpatient E&M: 35664 Init Hosp L2
--- NOTE | 2022-08-21 21:37 | ECHOD_ITS ---
Version 2 Reason For Study: TIA/CVA Procedure This was a 2D Doppler, Color Flow transthoracic echocardiogram. The study was technically difficult. Exam performed portable in patient room. Left Ventricle Normal LV size. Left ventricular systolic function is normal. The estimated ejection fraction is 60 %. No regional wall motion abnormalities noted. Right Ventricle Normal RV size. Normal systolic function. Atria Normal left atrium. Normal right atrium. Bubble contrast study is negative for PFO/ASD. Mitral Valve There is moderate mitral annular calcification. Mild-Moderate (1-2+) eccentric mitral valve insufficiency. Tricuspid Valve Normal tricuspid valve. Mild tricuspid valve insufficiency. Pulmonary artery systolic pressure is 34 mmHg. Aortic Valve Trisinus/trileaflet aortic valve. Pulmonic Valve Normal pulmonic valve. Great Vessels Normal aortic root. The pulmonary artery is normal size. Normal inferior vena cava. Pericardium/Pleural No pericardial effusion. Medication Performed a rapid injection of agitated mix of 9 cc saline and 1cc air to assess for atrial septal defect. MMode/2D Measurements & Calculations LVIDd: 4.5 cm IVSd: 1.3 cm Ao root diam: 3.3 cm LVIDs: 3.4 cm LVPWd: 1.1 cm LA dimension: 3.9 cm RVDd: 3.3 cm FS: 24.2 % LAV(MOD-bp): 50.3 ml LA A4 area: 17.3 cm2 RA A4 area: 12.2 cm2 LAV(MOD-bp) Indexed: 29.2 ml/m2 LAV(MOD-sp2): 52.5 ml LAV(MOD-sp4): 48.4 ml Time Measurements MV dec time: 0.28 sec Doppler Measurements & Calculations MV E max carlos: 63.5 cm/sec Lat Peak E' Carlos: 6.4 cm/sec Med Peak E' Carlos: 4.3 cm/sec MV A max carlos: 88.0 cm/sec E/E' lat: 9.9 E/E' med: 14.9 MV E/A: 0.72 MV V2 max: 93.4 cm/sec MV P1/2t max carlos: 69.4 cm/sec Ao V2 max: 124.0 cm/sec MV max P.5 mmHg MV P1/2t: 88.1 msec Ao max P.1 mmHg MV V2 mean: 46.6 cm/sec MV dec slope: 230.7 cm/sec2 MV mean P.0 mmHg MV V2 VTI: 28.0 cm MVA(P1/2t): 2.5 cm2 AI max carlos: 359.6 cm/sec LV V1 max: 87.9 cm/sec MR max carlos: 546.3 cm/sec AI max P.7 mmHg LV V1 max P.1 mmHg MR max P.4 mmHg AI dec slope: 120.9 cm/sec2 MR mean carlos: 402.0 cm/sec AI P1/2t: 871.2 msec MR mean P.8 mmHg MR VTI: 174.2 cm PA V2 max: 85.1 cm/sec TR max carlos: 279.2 cm/sec TR max P.2 mmHg ECHO/Echo Complete Interpretation Summary Normal LV size. Left ventricular systolic function is normal. The estimated ejection fraction is 60 %. There is moderate mitral annular calcification. Mild-Moderate (1-2+) eccentric mitral valve insufficiency. Bubble contrast study is negative for PFO/ASD. Ordering Physician: Bebeto Hernandez Referring Physician: Nabor Biggs Performed By: Saad Montejo RCS
[2022-08-21] MEDS: busPIRone 15 MG TABLET PO (22:45)
[2022-08-21] MEDS: ARIPiprazole 2 MG Tablet PO (22:46)
[2022-08-21] MEDS: Pravastatin 80 MG Tablet PO (22:46)
[2022-08-21] MEDS: QUEtiapine 25 MG Tablet 75 MG PO (22:46)
[2022-08-21] MEDS: Albuterol 2.5 MG/3 ML VIAL.NEB. INHALATION (23:25)
[2022-08-22 00:06] VITALS: BMI 34.3
[2022-08-22 01:15] VITALS: BP 119/63; PULSE 74; RESP 16; TEMP 36.5; O2SAT 96
[2022-08-22] MEDS: Levothyroxine 88 MCG Tablet PO (04:59)
[2022-08-22 05:15] VITALS: BP 130/69; PULSE 69; RESP 18; TEMP 36.7; O2SAT 92
[2022-08-22 06:05] LABS: Absolute Lymphocyte Count 1.36 X10^3/uL (0.83-4.51); Absolute Neutrophil Count 3.1 X10^3/uL (2.0-7.7); Basophil# 0.03 X10^3/uL; Basophil% 0.5 % (0-1); Eosinophil# 0.32 X10^3/uL; Eosinophils% 5.9 % (0-5); Hematocrit 40.7 % (37-47); Hemoglobin 13.5 g/dL (12.0-15.0); Lymphocyte # 1.36 X10^3/ul (0.83-4.51); Lymphocyte % 24.9 % (19-41); Mean Corp Hgb Conc 33.2 g/dL (32-36); Mean Corpuscular Hgb 29.5 pg (27.0-32.0); Mean Corpuscular Volume 88.9 fL (81-99); Mean Platelet Vol. 11.3 fl (6.2-12.0); Monocyte# 0.61 X10^3/uL; Monocyte% 11.2 % (0-10); NRBC Flagged by Analyzer 0 % (0-5); Neutrophil # 3.14 X10^3/uL (2.7-7.7); Neutrophil % 57.3 % (47-70); Platelet Count 130 K/mm3 (150-450); RBC Distribution Width CV 14.1 % (11.6-14.6); RBC Distribution Width SD 45.5 fl (35.1-43.9); Red Blood Count 4.58 M/mm3 (4.2-5.4); White Blood Count 5.5 K/mm3 (4.4-11.0)
[2022-08-22 06:47] LABS: Anion Gap 9 (5-15); BUN 12 mg/dL (7-18); BUN/Creat Ratio 16.7 RATIO (10-20); Calcium,Total 8.7 mg/dL (8.5-10.1); Chloride 104 mmol/L (98-107); Cholesterol 117 mg/dL (200); Creatinine, Serum 0.72 mg/dL (0.55-1.02); EST Glomerular Filtration Rate 83 mL/min (>60); Est Glom Filt Rate - Afr Amer 101 mL/min (>60); Estimated Creatinine Clearance 56.44 ml/min; Glucose 112 mg/dL (74-106); High Density Lipoprotein 45 mg/dL; Potassium 3.4 mmol/L (3.5-5.1); Sodium Level 139 mmol/L (136-145); Triglycerides 99 mg/dL; Very Low Density Lipoprotein 20 mg/dL (5-40)
[2022-08-22 07:00] VITALS: PULSE 71
[2022-08-22 07:15] VITALS: PULSE 73; RESP 16; O2SAT 92
[2022-08-22] MEDS: Ipratropium/Albuterol Sulfate 3 ML AMPUL.NEB INHALATION (07:15)
[2022-08-22] MEDS: Budesonide Respules 0.5 MG/2 ML AMPUL.NEB. INHALATION (07:15)
--- NOTE | 2022-08-22 07:32 | PCM.PN.HOSP ---
Objective Data Objective Data Vital Signs: Vital Signs Temp Pulse Resp BP Pulse Ox O2 Del Method O2 Flow Rate 98.1 F 69 18 130/69 H 92 Room Air 2 08/22/22 05:15 08/22/22 05:15 08/22/22 05:15 08/22/22 05:15 08/22/22 05:15 08/22/22 05:15 08/22/22 01:15 Oxygen Flow Rate (L/min) 2 Oxygen Delivery Method Room Air Weight: 77.111 kg Body Mass Index (BMI) 34.3 Intake & Output: Intake and Output for Last 24 Hours 08/20/22 08/21/22 08/22/22 23:59 23:59 23:59 Intake Total 360 / 360 Balance 360 / 360 Lab / Micro Data Result Diagrams: 08/22/22 05:26 08/22/22 05:26 Labs: Laboratory Results - last 24 hr 08/21/22 17:40: WBC 6.9, RBC 4.70, Hgb 14.1, Hct 42.4, MCV 90.2, MCH 30.0, MCHC 33.3, RDW Std Deviation 45.1 H, RDW Coeff of Ada 13.8, Plt Count 166, MPV 11.0, Immature Gran % (Auto) 0.300, Neut % (Auto) 63.5, Lymph % (Auto) 21.4, [place] % (Auto) 10.2 H, Eos % (Auto) 4.2, Baso % (Auto) 0.4, Absolute Neuts (auto) 4.4, Absolute Lymphs (auto) 1.47, Nucleated RBC % 0 08/21/22 17:40: PT 13.7, INR 1.1, APTT 28.4 08/21/22 17:40: Sodium 138, Potassium 3.9, Chloride 104, Carbon Dioxide 27.0, Anion Gap 7, BUN 16, Creatinine 0.97, Estim Creat Clear Calc 57.84, Est GFR (MDRD) Af Amer 72, Est GFR (MDRD) Non-Af 59 L, BUN/Creatinine Ratio 16.6, Glucose 114 H, Calcium 9.1, Troponin I High Sens 29 08/21/22 17:45: POC Glucose 106 08/22/22 05:26: WBC 5.5, RBC 4.58, Hgb 13.5, Hct 40.7, MCV 88.9, MCH 29.5, MCHC 33.2, RDW Std Deviation 45.5 H, RDW Coeff of Ada 14.1, Plt Count 130 L, MPV 11.3, Immature Gran % (Auto) 0.200, Neut % (Auto) 57.3, Lymph % (Auto) 24.9, [place] % (Auto) 11.2 H, Eos % (Auto) 5.9 H, Baso % (Auto) 0.5, Absolute Neuts (auto) 3.1, Absolute Lymphs (auto) 1.36, Nucleated RBC % 0 08/22/22 05:26: Sodium 139, Potassium 3.4 L, Chloride 104, Carbon Dioxide 26.0, Anion Gap 9, BUN 12, Creatinine 0.72, Estim Creat Clear Calc 56.44, Est GFR (MDRD) Af Amer 101, Est GFR (MDRD) Non-Af 83, BUN/Creatinine Ratio 16.7, Glucose 112 H, Calcium 8.7, Triglycerides 99, Cholesterol 117, LDL Cholesterol 52, VLDL Cholesterol 20, HDL Cholesterol 45 Radiography Diagnostic Testing: Radiology Impression Head/Neck CTA 08/21/22 18:03 IMPRESSION: 1. There is mild atherosclerotic plaque formation of the origin of the right internal carotid artery with less than 50% cross sectional diameter stenosis. ALL ABOVE CRITERIA BY NASCET. 2. There is mild atherosclerotic plaque formation of the origin of the left internal carotid artery with less than 50% cross sectional diameter stenosis. ALL ABOVE CRITERIA BY NASCET. 3. There is calcified plaque formation of the right cavernous carotid artery, with a mild stenosis (less than 50%). ALL ABOVE CRITERIA BY NASCET. 4. There is calcified plaque formation of the left cavernous carotid artery, with a mild stenosis (less than 50%). ALL ABOVE CRITERIA BY NASCET. There are scattered blebs and bullae. This can be seen in pulmonary emphysema. Electronically Signed: Olvin Freitas MD at 19:14 EST , ADDENDUM: 08/21/221921 IMPRESSION: 1. There is mild atherosclerotic plaque formation of the origin of the right internal carotid artery with less than 50% cross sectional diameter stenosis. ALL ABOVE CRITERIA BY NASCET. 2. There is mild atherosclerotic plaque formation of the origin of the left internal carotid artery with less than 50% cross sectional diameter stenosis. ALL ABOVE CRITERIA BY NASCET. 3. There is calcified plaque formation of the right cavernous carotid artery, with a mild stenosis (less than 50%). ALL ABOVE CRITERIA BY NASCET. 4. There is calcified plaque formation of the left cavernous carotid artery, with a mild stenosis (less than 50%). ALL ABOVE CRITERIA BY NASCET. There are scattered blebs and bullae. This can be seen in pulmonary emphysema. N.B. : The above Results were Read Back by Olvin Freitas MD to Hernando Hunt MD, and understanding confirmed on 08/21/2022 19:15:16 (ET). Electronically Signed: Olvin Freitas MD at 19:14 EST , Chest X-Ray 08/21/22 18:50 IMPRESSION: There are no acute findings. Electronically Signed: Olvin Freitas MD at 19:17 EST , Physical Exam Narrative Physical exam: General: Well-nourished, well-developed. Head: Normocephalic, atraumatic, no tenderness Eyes: Vision is grossly intact. EOMI ENT, no trauma, moist mucous membranes, no rhinorrhea Neck: Nontender, No thyromegaly. CVS: Regular rate and rhythm. S1-S2 present. No murmur, gallop or rub. Respiratory : clear to auscultation bilaterally, chest wall nontender, no wheezing Abdomen: Soft, nontender, nondistended, normal bowel sounds, no masses : Deferred Back: Nontender, no CVA tenderness. Extremities: Nontender full range of motion, no trauma Skin: Normal color, no trauma, abrasions Neuro: Alert, oriented, cranial nerves II through XII grossly intact. Strength 5 out of 5 throughout. Deep tendon reflexes not hyperreflexia at knee or elbow. Psychiatry: Normal mood. Normal affect. Not depressed. Not anxious. Assessment & Plan Assessment/Plan (1) TIA (transient ischemic attack): (2) HTN (hypertension): PLAN: Plan TIA Serial NINDS NIH Scale ordered CT/CTA head and neck with no bleed all hemodynamic significant stenosis. Head and neck CT/CTA was visualized and independently interpreted and I agree radiologist interpretation. Lipid profile and A1c ordered. Physical therapy, occupational therapy and speech therapy to work with patient. N.p.o. until bedside swallow eval. Reportedly she has abdominal upset to aspirin. Aspirin not ordered. Home Plavix continued. On home Crestor 5 mg daily. Allergic to other statins. Escalate to pravastatin 80 mg daily. Permissive hypertension. Control blood pressure with labetalol for systolic blood pressure of more than 220 or diastolic blood pressure of more than 120. MRI Echocardiogram ordered. CBC unremarkable. Hypertension Stable Home blood pressure medication held secondary to permissive hypertension Trend BMP. CKD stage IIIa Stable DVT prophylaxis: SCD ordered.
[2022-08-22 08:20] LABS: Hemoglobin A1c 5.7 % (3.8-5.6)
[2022-08-22 09:15] VITALS: BP 123/69; PULSE 75; RESP 16; TEMP 36.1; TEMP 36.5; O2SAT 93
[2022-08-22] MEDS: Pantoprazole Sodium 40 MG Tablet PO (10:01)
[2022-08-22] MEDS: Clopidogrel Bisulfate 75 MG Tablet PO (10:01)
[2022-08-22] MEDS: busPIRone 15 MG TABLET PO (10:02)
[2022-08-22] MEDS: Polyethylene Glycol 3350 17 GM PACKET PO (10:02)
[2022-08-22] MEDS: Paroxetine 20 MG Tablet 40 MG PO (10:02)
[2022-08-22] MEDS: Ergocalciferol 1.25 MG (50, 000 UNIT) Capsule PO (10:09)
--- NOTE | 2022-08-22 10:55 | MRI_ITS ---
EXAM: MR HEAD WITHOUT INTRAVENOUS CONTRAST CLINICAL INDICATION: Stroke. TECHNIQUE: Multiplanar and multisequence MR images of the brain were obtained without intravenous contrast. This report was created using [employer] report generation technology. COMPARISON: CT head and CTA head with contrast 08/21/2022. FINDINGS: BRAIN AND EXTRA-AXIAL SPACES: No diffusion restriction to suspect acute or subacute ischemic infarct. Multiple T2 FLAIR hyperintensity foci in the white matter of both cerebral hemispheres are chronic white matter ischemic changes. No midline shift and no mass effects. No intra- or extra-axial hemorrhage. Posterior fossa structures are unremarkable. Ventricles are appropriate for age. No hydrocephalus. Basal cisterns are patent. SELLA: Unremarkable. Normal sella turcica, pituitary gland, infundibular stalk, optic chiasm and hypothalamus. AUDITORY SYSTEM: Unremarkable. The internal auditory canals are patent. BONES/JOINTS: Unremarkable. No discrete lytic or blastic abnormalities. SINUSES: Unremarkable as visualized. Clear. MASTOID AIR CELLS: Unremarkable as visualized. Clear. ORBITS: Unremarkable as visualized. Both globes, extraocular muscles, optic nerves and retrobulbar fat appear unremarkable. VASCULATURE: Unremarkable as visualized. Normal flow voids in the major intracranial circulation. MRI/Brain without Contrast IMPRESSION: 1. No MRI evidence of acute or subacute ischemic infarct or acute intracranial abnormality. 2. Multiple chronic white matter ischemic changes in both cerebral hemispheres. Electronically Signed: Arthur Gray MD at 11:45 EST ,
--- NOTE | 2022-08-22 13:36 | PCM.DC.SUM ---
Providers Date of Admission: 08/21/22 Date of Discharge: 08/22/22 Primary Care Physician: ELVI Miramontes Reason For Visit: TIA Diagnosis Discharge Diagnosis (1) TIA (transient ischemic attack): Status: Acute Code(s): G45.9 - Transient cerebral ischemic attack, unspecified (2) HTN (hypertension): Status: Chronic Code(s): I10 - Essential (primary) hypertension Plan Patient is a 77-year-old lady admitted with expressive aphasia. Patient was placed on a monitored bed for further evaluation Transient ischemic attack ? Presented with expressive aphasia placed on a monitored bed symptoms resolved underwent subsequent evaluation with an MRI of the brain which was negative for acute CVA. CTA of the head and neck was also nonacute patient discharged on antiplatelet therapy and instructed to follow-up with primary care physician for subsequent care Hypertension - Blood pressure controlled, home medications continued with dose adjustment as needed Chronic kidney disease stage III - stable DVT prophylaxis -SCD ordered. Medications at Discharge Home Medications buspirone 15 mg tablet 15 mg PO BID #180 tabs 11/23/21 clopidogrel 75 mg tablet 75 mg PO DAILY #90 tabs 03/22/22 albuterol sulfate 90 mcg/actuation aerosol inhaler (ProAir HFA) 2 puff inhalation Q4H PRN PRN Sob &/Or Wheezing #8.5 grams 04/08/22 budesonide 160 mcg-glycopyr 9 mcg-formot 4.8 mcg/actuation HFA inhaler (Breztri Aerosphere) 2 inh inhalation BID #10.7 grams 04/08/22 aripiprazole 2 mg tablet (Abilify) 2 mg PO QHS #90 tabs 05/19/22 rosuvastatin 5 mg tablet 5 mg PO DAILY #90 tabs 05/19/22 paroxetine HCl 40 mg tablet 40 mg PO QDAY #90 tabs 05/20/22 quetiapine 25 mg tablet (Seroquel) 50 mg PO DAILY 05/30/22 levothyroxine 88 mcg tablet 88 mcg PO QDAY #90 tabs 08/16/22 quetiapine 50 mg tablet See Rx Instructions .Route .COMPLEX #225 TABLETS 08/16/22 alendronate 70 mg tablet 70 mg PO MO 08/21/22 carvedilol 3.125 mg tablet 6.25 mg PO BID 08/21/22 ergocalciferol (vitamin D2) 1,250 mcg (50,000 unit) capsule 50,000 mcg PO MO 08/21/22 fluticasone propionate 50 mcg/actuation nasal spray,suspension 2 spray intranasal BID 08/21/22 lisinopril 5 mg tablet 5 mg PO DAILY 08/21/22 polyethylene glycol 3350 17 gram/dose oral powder (Gavilax) 17 g PO DAILY 08/21/22 quetiapine 50 mg tablet 50 mg PO DAILY 08/21/22 quetiapine 50 mg tablet 75 mg PO QHS 08/21/22 Hospital Course Summary of Care Provided Minutes Spent on Discharge: 32 Physical Exam Narrative GENERAL: cooperative HEENT: Atraumatic; normocephalic EYES; Anicteric, Normal Conjunctiva NECK; supple, normal thyroid, RESPIRATORY: Diminished to auscultation CARDIOVASCULAR: Regular S1 S2, GI: soft, normoactive bowel sounds, : No Renal angle tenderness; EXTREMITIES: No edema, no clubbing, MUSCULOSKELETAL: no muscle wasting NEURO: Awake; no lateralizing signs. SKIN: No Rash PSYCH; Flat affect Weight / BMI Weight Weight: 77.111 kg Body Mass Index (BMI) 34.3 ABG / Lab / Microbiology Data Result Diagrams: 08/22/22 05:26 08/22/22 05:26 Laboratory: Laboratory Results - last 24 hr 08/21/22 17:40: WBC 6.9, RBC 4.70, Hgb 14.1, Hct 42.4, MCV 90.2, MCH 30.0, MCHC 33.3, RDW Std Deviation 45.1 H, RDW Coeff of Ada 13.8, Plt Count 166, MPV 11.0, Immature Gran % (Auto) 0.300, Neut % (Auto) 63.5, Lymph % (Auto) 21.4, [place] % (Auto) 10.2 H, Eos % (Auto) 4.2, Baso % (Auto) 0.4, Absolute Neuts (auto) 4.4, Absolute Lymphs (auto) 1.47, Nucleated RBC % 0 08/21/22 17:40: PT 13.7, INR 1.1, APTT 28.4 08/21/22 17:40: Sodium 138, Potassium 3.9, Chloride 104, Carbon Dioxide 27.0, Anion Gap 7, BUN 16, Creatinine 0.97, Estim Creat Clear Calc 57.84, Est GFR (MDRD) Af Amer 72, Est GFR (MDRD) Non-Af 59 L, BUN/Creatinine Ratio 16.6, Glucose 114 H, Calcium 9.1, Troponin I High Sens 29 08/21/22 17:45: POC Glucose 106 08/22/22 05:26: WBC 5.5, RBC 4.58, Hgb 13.5, Hct 40.7, MCV 88.9, MCH 29.5, MCHC 33.2, RDW Std Deviation 45.5 H, RDW Coeff of Ada 14.1, Plt Count 130 L, MPV 11.3, Immature Gran % (Auto) 0.200, Neut % (Auto) 57.3, Lymph % (Auto) 24.9, [place] % (Auto) 11.2 H, Eos % (Auto) 5.9 H, Baso % (Auto) 0.5, Absolute Neuts (auto) 3.1, Absolute Lymphs (auto) 1.36, Nucleated RBC % 0 08/22/22 05:26: Sodium 139, Potassium 3.4 L, Chloride 104, Carbon Dioxide 26.0, Anion Gap 9, BUN 12, Creatinine 0.72, Estim Creat Clear Calc 56.44, Est GFR (MDRD) Af Amer 101, Est GFR (MDRD) Non-Af 83, BUN/Creatinine Ratio 16.7, Glucose 112 H, Calcium 8.7, Triglycerides 99, Cholesterol 117, LDL Cholesterol 52, VLDL Cholesterol 20, HDL Cholesterol 45 08/22/22 05:26: Hemoglobin A1c 5.7 H Radiography Diagnostic Testing: Radiology Impression Head/Neck CTA 08/21/22 18:03 IMPRESSION: 1. There is mild atherosclerotic plaque formation of the origin of the right internal carotid artery with less than 50% cross sectional diameter stenosis. ALL ABOVE CRITERIA BY NASCET. 2. There is mild atherosclerotic plaque formation of the origin of the left internal carotid artery with less than 50% cross sectional diameter stenosis. ALL ABOVE CRITERIA BY NASCET. 3. There is calcified plaque formation of the right cavernous carotid artery, with a mild stenosis (less than 50%). ALL ABOVE CRITERIA BY NASCET. 4. There is calcified plaque formation of the left cavernous carotid artery, with a mild stenosis (less than 50%). ALL ABOVE CRITERIA BY NASCET. There are scattered blebs and bullae. This can be seen in pulmonary emphysema. Electronically Signed: Olvin Freitas MD at 19:14 EST , ADDENDUM: 08/21/22 192 IMPRESSION: 1. There is mild atherosclerotic plaque formation of the origin of the right internal carotid artery with less than 50% cross sectional diameter stenosis. ALL ABOVE CRITERIA BY NASCET. 2. There is mild atherosclerotic plaque formation of the origin of the left internal carotid artery with less than 50% cross sectional diameter stenosis. ALL ABOVE CRITERIA BY NASCET. 3. There is calcified plaque formation of the right cavernous carotid artery, with a mild stenosis (less than 50%). ALL ABOVE CRITERIA BY NASCET. 4. There is calcified plaque formation of the left cavernous carotid artery, with a mild stenosis (less than 50%). ALL ABOVE CRITERIA BY NASCET. There are scattered blebs and bullae. This can be seen in pulmonary emphysema. N.B. : The above Results were Read Back by Olvin Freitas MD to Hernando Hunt MD, and understanding confirmed on 08/21/2022 19:15:16 (ET). Electronically Signed: Olvin Freitas MD at 19:14 EST , Chest X-Ray 08/21/22 18:50 IMPRESSION: There are no acute findings. Electronically Signed: Olvin Freitas MD at 19:17 EST , Brain MRI 08/22/22 10:55 IMPRESSION: 1. No MRI evidence of acute or subacute ischemic infarct or acute intracranial abnormality. 2. Multiple chronic white matter ischemic changes in both cerebral hemispheres. Electronically Signed: Arthur Gray MD at 11:45 EST , D/C Instructions Discharge Diet: No restrictions Discharge Activity: Return to Normal Activity Call your doctor if you observe: Fever of 101 or Higher, Shortness of breath, Fainting spells and Chest pain Meaningful Use Info Meaningful Use Diagnoses (Choose all that apply): None applicable Discharge Plan Admission Admit Date/Time: 08/21/22 19:50 Attending Provider: Joseph Mari Primary Care Provider: Nabor Biggs NP Consulting Providers: Bebeto Hernandez Discharge Orders/Prescriptions Prescriptions: Continued clopidogrel 75 mg tablet 75 mg PO DAILY Qty: 90 2RF quetiapine [Seroquel] 25 mg tablet 50 mg PO DAILY lisinopril 5 mg tablet 5 mg PO DAILY Label Comments: TAKE 1 TABLET EVERY DAY polyethylene glycol 3350 [Gavilax] 17 gram/dose powder 17 g PO DAILY Label Comments: use 1 (ONE) capful (17 GIVE) BY MOUTH DAILY DIRECTED carvedilol 3.125 mg tablet 6.25 mg PO BID Rx Instructions: must administer with a meal/food quetiapine 50 mg tablet 75 mg PO QHS Label Comments: take 1 (ONE) tablet by mouth every morning and 1 (ONE) and ONE-HALF (1 and 1/2) tablets by mouth at night quetiapine 50 mg tablet 50 mg PO DAILY Label Comments: take 1 (ONE) tablet by mouth every morning and 1 (ONE) and ONE-HALF (1 and 1/2) tablets by mouth at night alendronate 70 mg tablet 70 mg PO MO Rx Instructions: take on monday ergocalciferol (vitamin D2) 1,250 mcg (50,000 unit) capsule 50,000 mcg PO MO Rx Instructions: TAKE 1 CAPSULE BY MOUTH EVERY WEEK monday fluticasone propionate 50 mcg/actuation spray,suspension 2 spray intranasal BID Rx Instructions: INHALE 2 PUFFS into each nostril once daily buspirone 15 mg tablet 15 mg PO BID Qty: 180 3RF Breztri Aerosphere 160-9-4.8 mcg/actuation HFA aerosol inhaler 2 inh inhalation BID Qty: 10.7 6RF albuterol sulfate [ProAir HFA] 90 mcg/actuation HFA aerosol inhaler 2 puff INHALATION Q4H PRN PRN (Reason: Sob &/Or Wheezing) Qty: 8.5 6RF aripiprazole [Abilify] 2 mg tablet 2 mg PO QHS Qty: 90 0RF rosuvastatin 5 mg tablet 5 mg PO DAILY Qty: 90 0RF paroxetine HCl 40 mg tablet 40 mg PO QDAY Qty: 90 3RF levothyroxine 88 mcg tablet 88 mcg PO QDAY Qty: 90 1RF quetiapine 50 mg tablet See Rx Instructions .ROUTE .COMPLEX Qty: 225 1RF Dose Instruction: take 1 (ONE) tablet by mouth every morning and 1 (ONE) and ONE-HALF (1 and 1/2) tablets by mouth at night Rx Instructions: take 1 (ONE) tablet by mouth every morning and 1 (ONE) and ONE-HALF (1 and 1/2) tablets by mouth at night Referrals / Follow Up: Nabor Biggs C[employer] LASER OPERATOR, C[employer] LASER OPERATOR-C [Primary Care Provider] - Disposition Discharge Orders: Discharge Patient (Routine); Ordered 08/22/22 Ordered By: Dr. Joseph Mari Charges/Coding Visit Charges Inpatient E&M: 51719 Disch Hosp >30min
[2022-08-22 16:12] VITALS: BP 123/69; PULSE 75; RESP 16; TEMP 36.5; O2SAT 93
== END 2022-08-22 16:12 | disposition home or self-care (01) ==
LOC: ED 20:25 → MS2 20:40
PROVIDERS: Admitting Provider Hospitalist; Emergency Provider Emergency Medicine; PCP Nurse Practitioner Family; Visit Provider Internal Medicine
DX: G45.9 Transient cerebral ischemic attack, unspecified (principal); J43.9 Emphysema, unspecified; E11.22 Type 2 diabetes mellitus with diabetic chronic kidney disease; N18.31 Chronic kidney disease, stage 3a; R47.89 Other speech disturbances; I12.9 Hypertensive chronic kidney disease with stage 1 through stage 4 chronic kidney disease, or unspecified chronic kidney disease; Z87.891 Personal history of nicotine dependence; R41.0 Disorientation, unspecified; R47.01 Aphasia; E78.00 Pure hypercholesterolemia, unspecified; L25.9 Unspecified contact dermatitis, unspecified cause; I25.10 Atherosclerotic heart disease of native coronary artery without angina pectoris; Z79.899 Other long term (current) drug therapy; Z79.02 Long term (current) use of antithrombotics/antiplatelets; Z79.890 Hormone replacement therapy; E03.9 Hypothyroidism, unspecified; K21.9 Gastro-esophageal reflux disease without esophagitis
CPT/HCPCS: 36415; 70496; 70498; 70551; 71045; 80048; 80061; 82962; 83036; 84484; 85025; 85610; 85730; 93005; 93306; 94640; 97161; 97166; 99221; 99282; Q9957; Q9967; A4216; G0378

== ENCOUNTER 2022-10-31 00:25 | Inpatient (IN) | payer MEDICARE, SELFPAY ==
[2022-10-31] VITALS (19 sets, daily range): BP systolic 92–140; BP diastolic 54–81; PULSE 75–102; RESP 15–25; TEMP 36.4–37; O2SAT 88–97; BMI 36.6; BMI 35.8
[2022-10-31] MEDS: Ipratropium/Albuterol Sulfate 3 ML AMPUL.NEB INHALATION ×5 (00:45→20:00)
--- NOTE | 2022-10-31 00:49 | RAD_ITS ---
INDICATION: SHORTNESS OF BREATH EXAMINATION/TECHNIQUE: X-RAY - AP view of chest COMPARISON: Chest x-ray from 08/21/2022 FINDINGS: LINES/DEVICES: None. LUNGS: Hyperexpanded lungs and scattered scarring again noted. Mild hazy pulmonary interstitial prominence now demonstrated. No sizable pleural effusion. No detectable pneumothorax. MEDIASTINUM AND CARDIOVASCULAR STRUCTURES: Heart size within normal limits for imaging technique. Atherosclerotic calcifications along aorta. BONES AND SOFT TISSUES: Skeletal degenerative changes. RAD/Chest 1 View (Portable) IMPRESSION: COPD and atherosclerotic disease with mild pulmonary interstitial prominence suggesting superimposed mild edema. Electronically Signed: Nabor Alonzo MD at 1:18 EDT ,
--- NOTE | 2022-10-31 00:51 | EKG12_ITS ---
Test Reason : DYSRHYTHMIA Blood Pressure : / mmHG Vent. Rate : 095 BPM Atrial Rate : 095 BPM P-R Int : 144 ms QRS Dur : 120 ms QT Int : 398 ms P-R-T Axes : 076 -27 136 degrees QTc Int : 500 ms Normal sinus rhythm Low voltage QRS Septal infarct , age undetermined ST & T wave abnormality, consider lateral ischemia Abnormal ECG Confirmed by AMY KHAN, DONOVAN ([id number]), online editor GINA LORD ([id number]) on 10/31/2022 12:44:26 PM Referred By: JAGJIT Confirmed By:DONOVAN REYES MD
[2022-10-31 00:58] LABS: Absolute Lymphocyte Count 7.31 X10^3/uL (0.83-4.51); Basophil# 0.08 X10^3/uL; Basophil% 0.6 % (0-1); Eosinophil# 0.43 X10^3/uL; Eosinophils% 3.1 % (0-5); Hematocrit 48.3 % (37-47); Hemoglobin 14.8 g/dL (12.0-15.0); Lymphocyte # 7.31 X10^3/ul (0.83-4.51); Lymphocyte % 52.4 % (19-41); Mean Corp Hgb Conc 30.6 g/dL (32-36); Mean Platelet Vol. 11.1 fl (6.2-12.0); Monocyte% 7.9 % (0-10); NRBC Flagged by Analyzer 0 % (0-5); Neutrophil # 4.95 X10^3/uL (2.7-7.7); Neutrophil % 35.4 % (47-70); POSITIVE DIFFERENTIAL YES; POSITIVE MORPHOLOGY YES; Platelet Count 199 K/mm3 (150-450); RBC Distribution Width SD 51.8 fl (35.1-43.9); Red Blood Count 4.78 M/mm3 (4.2-5.4)
[2022-10-31 01:18] LABS: Anion Gap 14 (5-15); BUN 13 mg/dL (7-18); BUN/Creat Ratio 9.6 RATIO (10-20); Calcium,Total 9.3 mg/dL (8.5-10.1); Chloride 103 mmol/L (98-107); Creatinine, Serum 1.35 mg/dL (0.55-1.02); EST Glomerular Filtration Rate 40 mL/min (>60); Est Glom Filt Rate - Afr Amer 49 mL/min (>60); Estimated Creatinine Clearance 44.62 ml/min; Glucose 203 mg/dL (74-106); Potassium 5.1 mmol/L (3.5-5.1); Sodium Level 140 mmol/L (136-145); Troponin-I HS 45 pg/mL (3.0-54.0)
[2022-10-31 01:33] LABS: Atypical Lymphocyte 2+ %; Differential Indicated SCAN CRITERIA MET
--- NOTE | 2022-10-31 01:52 | CT_ITS ---
INDICATION: upper abd pain ?? hernia vs other EXAMINATION: CT Abdomen And Pelvis W/ Contrast Injection TECHNIQUE: Helically acquired images were obtained of the abdomen and pelvis following IV contrast. 2-D reconstructions reviewed. A radiation dose optimization technique was used for this scan. IV Contrast dosage and agent: 100 cc [id number] Oral contrast: None. COMPARISON: Contrast-enhanced CT abdomen and pelvis from 03/02/2021 FINDINGS: LOWER CHEST: Bilateral pulmonary interstitial septal thickening compatible with mild edema. Mild bibasilar atelectatic changes also noted. Heart size within normal limits, with coronary arterial and mitral annular calcifications. LIVER: Homogeneous. No concerning lesion. GALLBLADDER AND BILIARY TREE: Previous cholecystectomy. No significant biliary ductal dilation. PANCREAS: No discrete mass or peripancreatic edema. SPLEEN: Normal size with small benign superficial calcification. No concerning lesion. ADRENAL GLANDS: Unremarkable. KIDNEYS AND URETERS: Normal renal size and position. No hydronephrosis or concerning renal lesion. Renal vascular calcifications and/or small nonobstructing stones again noted. There are few simple appearing right renal cysts requiring no additional follow-up at this time, largest arising from right lower pole measuring 4.2 cm diameter. PERITONEUM: No peritoneal free air detected. No significant free fluid. RETROPERITONEUM: No retroperitoneal mass or pathologic fluid collection. BOWEL: Moderately distended gastric lumen with suggestion of mild prepyloric distal gastric wall thickening. No bowel obstruction or significant bowel thickening. Appendix not visualized but no evidence of appendicitis. LYMPH NODES: No enlarged mesenteric or retroperitoneal lymph nodes. 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 URINARY BLADDER: Unremarkable as visualized. REPRODUCTIVE ORGANS: No pelvic masses. ABDOMINAL WALL: Stable ventral abdominal wall scarring. BONES: Intact with no suspicious osseous lesion. CT/Abdomen/Pelvis W IV Cont ONLY IMPRESSION: 1. Suggestion of prepyloric gastric wall thickening. Considering upper abdominal symptoms, recommend further evaluation with upper GI series or EGD for possible gastritis and/or ulcer disease. 2. No evidence of gastric or bowel perforation. 3. Mild pulmonary interstitial edema. 4. Other nonurgent findings within body of report. Electronically Signed: Nabor Alonzo MD at 2:45 EDT ,
--- NOTE | 2022-10-31 01:53 | EDS_ITS ---
HPI History of Present Illness Chief Complaint: Shortness of Breath Informant: patient and spouse/S.O. Onset/Context/Timing Onset: Days Context: gradual Timing: Continuous Quality: Positive for Dyspnea on exertion and Wheezing Current Severity: Moderate Maximum Severity: Moderate Worsened by: Exertion, Lying flat and Coughing Relieved by: Rest and Oxygen Associated Symptoms cough, chills and yellow sputum; Negative for fever or sore throat Chest Pain: Positive for None Narrative Narrative: 77-year-old female history of COPD on 2 L of oxygen at home. CAD with stents. Prior AAA repair. States has been more short of breath the last several days with chills. Denies any nausea vomiting or diarrhea. No melena. Said after coughing a lot she has developed epigastric abdominal pain. States her cough is productive of yellow sputum normally her sputum is white or clear. She denies any hemoptysis. No chest pain. No leg pain or swelling. Patient typically is on 2 L of oxygen at home. On her 2 L her pulse ox is in the mid 80s. PE Risk Factors: Negative for Cancer, OCP + Smoking + > 35, Prior DVT or PE, Recent immobilization, Recent surgery or Recent travel Prior similar symptoms: Yes Recent Illness/Hospitalization: No PFSH PFSH Medical History Anxiety Arthritis Atherosclerotic heart disease of [place] coronary artery without angina pectoris Back pain Cancer Cardiology follow-up encounter Chest pain Chronic cough COPD (chronic obstructive pulmonary disease) Depression First degree AV block Former smoker Gastric reflux GERD (gastroesophageal reflux disease) High cholesterol History of abdominal aortic aneurysm History of basal cell carcinoma History of IBS History of irregular heartbeat History of seizure disorder History of stress test HLD (hyperlipidemia) Hx of gastritis Hypothyroidism Left bundle branch block Loss of hearing Low iron Mitral valve disease Myalgia Nonrheumatic mitral (valve) insufficiency Nonrheumatic tricuspid (valve) insufficiency PAD (peripheral artery disease) PVD (peripheral vascular disease) Restless legs Secondary pulmonary hypertension Shortness of breath on exertion Skin lesion of face Syncope Thyroid disease TIA (transient ischemic attack) Type II diabetes mellitus Wears dentures Wears glasses Home Medications buspirone 15 mg tablet 15 mg PO BID #180 tabs 11/23/21 [Rx Last Taken 08/20/22] clopidogrel 75 mg tablet 75 mg PO DAILY #90 tabs 03/22/22 [Rx Last Taken Unknown] albuterol sulfate 90 mcg/actuation aerosol inhaler (ProAir HFA) 2 puff inhalation Q4H PRN PRN Sob &/Or Wheezing #8.5 grams 04/08/22 [Rx Last Taken Unknown] budesonide 160 mcg-glycopyr 9 mcg-formot 4.8 mcg/actuation HFA inhaler (Breztri Aerosphere) 2 inh inhalation BID #10.7 grams 04/08/22 [Rx Last Taken Unknown] aripiprazole 2 mg tablet (Abilify) 2 mg PO QHS #90 tabs 05/19/22 [Rx Last Taken 08/20/22] levothyroxine 88 mcg tablet 88 mcg PO QDAY #90 tabs 08/16/22 [Rx Last Taken 08/21/22] ergocalciferol (vitamin D2) 1,250 mcg (50,000 unit) capsule 50,000 mcg PO MO 08/21/22 [History Last Taken Unknown] fluticasone propionate 50 mcg/actuation nasal spray,suspension 2 spray intranasal BID 08/21/22 [History Last Taken Unknown] polyethylene glycol 3350 17 gram/dose oral powder (Gavilax) 17 g PO DAILY 08/21/22 [History Last Taken Unknown] quetiapine 50 mg tablet 50 mg PO DAILY 08/21/22 [History Last Taken 08/21/22] quetiapine 50 mg tablet 75 mg PO QHS 08/21/22 [History Last Taken 08/20/22] pantoprazole 40 mg tablet,delayed release 40 mg PO DAILY 08/25/22 [History Last Taken Unknown] carvedilol 3.125 mg tablet 3.125 mg PO BID #180 tabs 08/26/22 [Rx Last Taken Unknown] cephalexin 500 mg capsule 500 mg PO BID #28 caps 08/26/22 [Rx Last Taken Unknown] lisinopril 5 mg tablet 5 mg PO DAILY #90 tabs 08/26/22 [Rx Last Taken Unknown] rosuvastatin 5 mg tablet 5 mg PO DAILY #90 tabs 09/07/22 [Rx Last Taken Unknown] alendronate 70 mg tablet 70 mg PO MO #12 tabs 09/20/22 [Rx Last Taken Unknown] paroxetine HCl 40 mg tablet 40 mg PO BID 09/30/22 [History Last Taken Unknown] Allergy/AdvReac Type Severity Reaction Status Date / Time acetaminophen [From Cephadyn] Allergy Unknown Verified 10/31/22 00:31 albuterol Allergy Unknown Verified 10/31/22 00:31 albuterol sulfate Allergy Unknown Verified 10/31/22 00:31 [From Combivent] amitriptyline Allergy Other Verified 10/31/22 00:31 aspirin Allergy Unknown Verified 10/31/22 00:31 azithromycin [From Zithromax] Allergy Unknown Verified 10/31/22 00:31 butalbital [From Cephadyn] Allergy Unknown Verified 10/31/22 00:31 cefdinir [From Omnicef] Allergy Other Verified 10/31/22 00:31 cefprozil Allergy Unknown Verified 10/31/22 00:31 cephalexin Allergy Unknown Verified 10/31/22 00:31 cyclobenzaprine HCl Allergy Unknown Verified 10/31/22 00:31 [From Flexeril] desloratadine Allergy Unknown Verified 10/31/22 00:31 [From Clarinex-D 12 HOUR] dicyclomine Allergy Unknown Verified 10/31/22 00:31 duloxetine HCl Allergy Unknown Verified 10/31/22 00:31 [From Cymbalta] ezetimibe [From Vytorin] Allergy Unknown Verified 10/31/22 00:31 imipramine Allergy NEEDS Verified 10/31/22 00:31 FOLLOW-UP ipratropium bromide Allergy Unknown Verified 10/31/22 00:31 [From Combivent] loratadine Allergy Unknown Verified 10/31/22 00:31 lovastatin [From Mevacor] Allergy Unknown Verified 10/31/22 00:31 Penicillins Allergy Rash Verified 10/31/22 00:31 pneumococcal vaccine Allergy Unknown Verified 10/31/22 00:31 pseudoephedrine sulfate Allergy Unknown Verified 10/31/22 00:31 [From Clarinex-D 12 HOUR] rofecoxib [From Vioxx] Allergy Unknown Verified 10/31/22 00:31 simvastatin Allergy Unknown Verified 10/31/22 00:31 sulfamethoxazole Allergy Unknown Verified 10/31/22 00:31 [From Bactrim] tizanidine HCl Allergy Unknown Verified 10/31/22 00:31 [From Zanaflex] topiramate Allergy Unknown Verified 10/31/22 00:31 tramadol Allergy Unknown Verified 10/31/22 00:31 trimethoprim [From Bactrim] Allergy Unknown Verified 10/31/22 00:31 verapamil Allergy Unknown Verified 10/31/22 00:31 Family History Mother Heart disease Cancer Uterine cancer Myocardial infarction Father CAD (coronary artery disease) Alcoholism Brother CAD (coronary artery disease) Alcoholism Cancer Cancer of stomach Surgical History History of 3 sections History of cardiac catheterization History of cholecystectomy History of colonoscopy (~2010) History of esophagogastroduodenoscopy (EGD) (~2016) S/P abdominal aortic aneurysm repair (08/10/07) Stented coronary artery (04/04/07) Social History Smoking Status: Former smoker quit date: 01/31/07 pack-years: 40 how long ago did patient quit smokin second hand exposure: No alcohol intake: never substance use type: does not use what type of physical activity do you participate in: none ROS ROS ED ROS Narrative Cough, chills, shortness of breath and upper abdominal pain. Review of Systems ROS Unobtainable: Denies due to encephalopathy Constitutional Constitutional ED: Reports chills; Denies fever(s) Eyes Eyes: Denies blurry vision ENT ENT ED: Denies ear pain Cardiovascular Cardiovascular: Denies chest pain Respiratory/Chest Respiratory/Chest: Reports cough, dyspnea, dyspnea on exertion and sputum Gastrointestinal Gastrointestinal: Reports abdominal pain; Denies constipation, diarrhea, melena, nausea or vomiting Genitourinary Genitourinary ED: Denies dysuria or hematuria Musculoskeletal Musculoskeletal: Denies arthralgias Integumentary Denies abscess Neurologic Neurologic: Denies headache(s) Psychiatric Psychiatric: Denies anxiety Endocrine Endocrinology: Denies cold intolerance Hematologic/Lymphatic Hematologic/Lymphatic: Denies easy bleeding Allergic/Immunologic Allergic/Immunologic ED: Denies mouth swelling or tongue swelling EXAM Physical Exam Narrative Exam Narrative: 77-year-old female vital signs are stable. Her pulse ox on 4 L is only 84 to 88% and she is obviously hypoxic. Normally she is only on 2 L. She does not look septic or toxic. She also has low blood pressure 95/54. HEENT exam unremarkable. Neck nontender. No JVD. Lungs initially patient was wheezing on presentation. After the DuoNeb aerosol wheezing improved. She is diminished in both bases. Heart regular rhythm rate about 100 no murmur. Chest wall nontender. Abdomen soft. She has a well-healed prior midline incision. She has tenderness in the epigastric region which may be secondary to her hernia. No peritoneal signs. Right upper right lower quadrant unremarkable. Moving all 4 extremities. Calves are nontender without edema. Back nontender. Neurol ogically she is awake and alert with no focal motor deficits. Const Vital Signs: 10/31/22 00:27 10/31/22 00:30 10/31/22 00:30 Temperature 97.8 F 98.1 F Temperature Source Oral Oral Pulse Rate 102 H 96 Respiratory Rate 25 H 23 H Respiratory Effort Respiratory Depth Respiratory Pattern Blood Pressure 137/81 H 137/81 H Blood Pressure Mean 99 99 Pulse Ox 88 88 88 Oxygen Delivery Method Nasal Cannula Nasal Cannula Nasal Cannula Oxygen Flow Rate (L/min) 4 4 4 10/31/22 00:32 10/31/22 00:53 10/31/22 00:53 Temperature Temperature Source Pulse Rate Respiratory Rate 21 H Respiratory Effort Short of Breath Respiratory Depth Shallow Respiratory Pattern Tachypnea Blood Pressure Blood Pressure Mean Pulse Ox 93 93 Oxygen Delivery Method Nasal Cannula Nasal Cannula Nasal Cannula Oxygen Flow Rate (L/min) 4 4 4 10/31/22 01:48 10/31/22 00:45 10/31/22 00:45 Temperature Temperature Source Pulse Rate 75 100 Respiratory Rate 18 20 H 24 H Respiratory Effort Normal Non-Labored Short of Breath Respiratory Depth Shallow Respiratory Pattern Normal Normal Blood Pressure 95/54 L Blood Pressure Mean 67 Pulse Ox 90 Oxygen Delivery Method Nasal Cannula Oxygen Flow Rate (L/min) 4 10/31/22 02:20 10/31/22 03:08 Temperature Temperature Source Pulse Rate 93 79 Respiratory Rate 21 H 21 H Respiratory Effort Respiratory Depth Respiratory Pattern Blood Pressure 92/56 L 95/61 Blood Pressure Mean 68 72 Pulse Ox 93 93 Oxygen Delivery Method Room Air Nasal Cannula Oxygen Flow Rate (L/min) 2 Positive well nourished, well developed and obese; Negative for cachectic, contractures or unkempt General Appearance ED: well developed; Negative for unkempt, cachectic, contract ures, NAD or pallor Nutritional Appearance: obese; Negative for cachectic HEENT Reports moist mucous membranes; Denies dry mucous membranes atraumatic; Negative for trauma or tenderness Mouth ED: No dry mucous membranes Mouth: No dry mucous membranes Eyes PERRL and EOMs intact bilaterally General Eye ED: Negative for pale conjunctiva or scleral icterus Neck no lymphadenopathy, supple, no meningeal signs and no JVD General: Negative for tenderness Lymph Lymphatic: Negative for other Chest Wall Chest: Negative for other Resp normal respiratory effort and clear to auscultation bilaterally Effort and Inspection: Negative for pain with movement Auscultation: Negative for rales, rhonchi or wheezes Cardio regular rate, regular rhythm, S1 normal heart sound, S2 normal heart sound and no murmurs Rate: Negative for bradycardia or tachycardic Rhythm: Negative for abnormal rhythm GI non-distended and no masses; Negative for non-tender GI Narrative: Epigastric tenderness may have an incisional hernia. Inspection: Negative for other Auscultation: normoactive bowel sounds Palpation: soft and tender Back/Spine no CVA tenderness and normal to inspection General Back: Negative for CVA tenderness Extremity normal to inspection General Extremety ED: Negative for edema or tenderness General Extremity: Negative for edema Neuro oriented x3 and CN's II-XII intact bilaterally Sensorium / Orientation: alert, oriented to person, oriented to place and oriented to time; Negative for orientation impaired, confused, lethargic or stuporous Speech: speech normal Motor Exam: strength 5/5 throughout Psych mental status grossly normal Appearance: Negative for unkempt Attitude: No agitated Mood & Affect: Negative for depressed or anxious Thought Process: normal thought process Skin no wounds General Skin Exam: Negative for jaundice or pallor Lesions: no lesions Rashes: no rashes Trauma: Negative for abrasion or laceration MDM MDM MDM Narrative Medical decision making narrative: 69-year-old female history of COPD seems to have a COPD flare with hypoxia. She will be treated with DuoNeb and albuterol aerosols. IV Solu-Medrol. Exam patient is improved after aerosols. She was also given Solu-Medrol. She will be started on Levaquin for the pneumonia. I will speak to the hospitalist about admission. She still remains significantly hypoxic she is normally on 2 L of oxygen on 4 she remains between 84 and 88%. On 6 L she is above 90%. History & Record Review Discussion w/independent historian: Patient and Family Lab Data Attestation: I reviewed the patient's lab results. Lab results narrative: CBC shows an elevated white count of 14. H&H 14.8 and 48. Platelets 199. Electrolytes unremarkable gap of 14. BUN of 13 creatinine 1.35. Glucose 203. Troponin is normal at 45. Chest x-ray there looks like a right lower lobe consolidation consider a right lower lobe pneumonia. Liver enzymes are unremarkable. Lipase is normal at 281. CT abdomen pelvis shows gastric thickening. No hernia noted. Labs: Laboratory Results - last 24 hr 10/31/22 10/31/22 10/31/22 00:10 00:10 00:10 WBC 14.0 H RBC 4.78 Hgb 14.8 Hct 48.3 H MCV 101.0 H MCH 31.0 MCHC 30.6 L RDW Std Deviation 51.8 H RDW Coeff of Ada 14.0 Plt Count 199 MPV 11.1 Immature Gran % (Auto) 0.600 Neut % (Auto) 35.4 L Lymph % (Auto) 52.4 H [place] % (Auto) 7.9 Eos % (Auto) 3.1 Baso % (Auto) 0.6 Absolute Neuts (auto) 5.0 Absolute Lymphs (auto) 7.31 H Nucleated RBC % 0 Differential Comment COMMENT Atypical Lymphocytes 2+ Sodium 140 Potassium 5.1 Chloride 103 Carbon Dioxide 23.0 Anion Gap 14 BUN 13 Creatinine 1.35 H Estim Creat Clear Calc 44.62 Est GFR (MDRD) Af Amer 49 L Est GFR (MDRD) Non-Af 40 L BUN/Creatinine Ratio 9.6 L Glucose 203 H Calcium 9.3 Total Bilirubin 0.20 Direct Bilirubin 0.11 AST 42 H ALT 32 Alkaline Phosphatase 80 Troponin I High Sens 45 Total Protein 7.2 Albumin 3.5 Globulin 3.7 Lipase 10/31/22 00:10 WBC RBC Hgb Hct MCV MCH MCHC RDW Std Deviation RDW Coeff of Ada Plt Count MPV Immature Gran % (Auto) Neut % (Auto) Lymph % (Auto) [place] % (Auto) Eos % (Auto) Baso % (Auto) Absolute Neuts (auto) Absolute Lymphs (auto) Nucleated RBC % Differential Comment Atypical Lymphocytes Sodium Potassium Chloride Carbon Dioxide Anion Gap BUN Creatinine Estim Creat Clear Calc Est GFR (MDRD) Af Amer Est GFR (MDRD) Non-Af BUN/Creatinine Ratio Glucose Calcium Total Bilirubin Direct Bilirubin AST ALT Alkaline Phosphatase Troponin I High Sens Total Protein Albumin Globulin Lipase 281 Radiography Chest X-Ray - ED: 1 View, Read by ED Physician, Read by Radiologist, Heart, Mediastinum, Bony Structures, Chronic Changes, Right Infiltrate and - (Right lower lobe density consistent with pneumonia.) Diagnostic Testing: Clinical Impression(s) from Imaging Studies Chest X-Ray 10/31/22 00:49 IMPRESSION: COPD and atherosclerotic disease with mild pulmonary interstitial prominence suggesting superimposed mild edema. Electronically Signed: Nabor Alonzo MD at 1:18 EDT , Abdomen/Pelvis CT 10/31/22 01:52 IMPRESSION: 1. Suggestion of prepyloric gastric wall thickening. Considering upper abdominal symptoms, recommend further evaluation with upper GI series or EGD for possible gastritis and/or ulcer disease. 2. No evidence of gastric or bowel perforation. 3. Mild pulmonary interstitial edema. 4. Other nonurgent findings within body of report. Electronically Signed: Nabor Alonzo MD at 2:45 EDT , Rhythm Strip Rhythm Strip: Sinus Rhythm Rate: 95 Ectopy: None EKG Initial EKG: Attestation: I personally reviewed and interpreted this EKG as follows: Interpretation: Sinus Rhythm and No Acute Injury Pattern Comments: Sinus rhythm rate of 95. No acute signs of NH or ischemia. Old septal infarct. Management Discussion w/another healthcare provider: Hospitalist Discharge Plan Dx/Rx/DC Orders Clinical Impression: Acute exacerbation of chronic obstructive pulmonary disease, Abdominal pain, Hypoxia, Right lower lobe pneumonia, History of CAD (coronary artery disease) Disposition Disposition: Acute Care [facility]
[2022-10-31] MEDS: 0.9% Normal Saline 1,000 ML 999 ML IV (02:04)
[2022-10-31] MEDS: levoFLOXacin IV 750 MG/150 ML BAG 100 MG IV (02:04)
[2022-10-31 02:36] LABS: Lipase 281 U/L (73-393)
[2022-10-31 02:37] LABS: AST(SGOT) 42 U/L (15-37); Alanine Aminotransfer ALT/SGPT 32 U/L (13-56); Albumin, Serum 3.5 g/dL (3.2-5.0); Alkaline Phosphatase 80 U/L (45-117); Bilirubin, Direct 0.11 mg/dL (0.00-0.30); Globulin 3.7 g/dL (2.2-4.2); Protein, Total 7.2 g/dL (6.4-8.2)
--- NOTE | 2022-10-31 03:18 | PCM.HP.STD ---
HPI - General General Date of Admission: 10/31/22 Date of Service: 10/31/22 Chief Complaint: Shortness of breath HPI Narrative NAVID JOEL, is a 77 F with a significant history of CAD s/p stent; COPD on as needed 2 L nasal cannula oxygen; AAA repair who presents to the emergency department with progressive worsening shortness of breath that started few hours before presentation. Associated with her symptom is chills and thick productive cough of yellow sputum. Further, patient reports that 2 days before presentation she had a fever. Patient's who was at bedside reported that for some time now he and patient has had a change in taste. Patient does have some mild wheezes. She complains of abdominal pain. She complains of constipation with straining. Last time her bowels moved was a day before presentation. Although patient typically requires 2 L of nasal cannula oxygen as needed she required 4 L of oxygen on presentation. [facility] Medical History Anxiety Arthritis Atherosclerotic heart disease of [place] coronary artery without angina pectoris Back pain Cancer Cardiology follow-up encounter Chest pain Chronic cough COPD (chronic obstructive pulmonary disease) Depression First degree AV block Former smoker Gastric reflux GERD (gastroesophageal reflux disease) High cholesterol History of abdominal aortic aneurysm History of basal cell carcinoma History of IBS History of irregular heartbeat History of seizure disorder History of stress test HLD (hyperlipidemia) Hx of gastritis Hypothyroidism Left bundle branch block Loss of hearing Low iron Mitral valve disease Myalgia Nonrheumatic mitral (valve) insufficiency Nonrheumatic tricuspid (valve) insufficiency PAD (peripheral artery disease) PVD (peripheral vascular disease) Restless legs Secondary pulmonary hypertension Shortness of breath on exertion Skin lesion of face Syncope Thyroid disease TIA (transient ischemic attack) Type II diabetes mellitus Wears dentures Wears glasses Home Medications albuterol sulfate 90 mcg/actuation aerosol inhaler (ProAir HFA) 2 puff inhalation Q4H PRN PRN Sob &/Or Wheezing #8.5 grams 04/08/22 [Rx Last Taken Unknown] ergocalciferol (vitamin D2) 1,250 mcg (50,000 unit) capsule 50,000 mcg PO MO 08/21/22 [History Last Taken Unknown] fluticasone propionate 50 mcg/actuation nasal spray,suspension 2 spray intranasal BID 08/21/22 [History Last Taken Unknown] polyethylene glycol 3350 17 gram/dose oral powder (Gavilax) 17 g PO DAILY 08/21/22 [History Last Taken Unknown] pantoprazole 40 mg tablet,delayed release 40 mg PO DAILY 08/25/22 [History Last Taken Unknown] paroxetine HCl 40 mg tablet 40 mg PO BID 09/30/22 [History Last Taken Unknown] alendronate 70 mg tablet 70 mg PO MO Check with primary doctor 10/31/22 [History Last Taken Unknown] aripiprazole 2 mg tablet (Abilify) 2 mg PO QHS Check with primary doctor 10/31/22 [History Last Taken Unknown] budesonide 160 mcg-glycopyr 9 mcg-formot 4.8 mcg/actuation HFA inhaler (Breztri Aerosphere) 2 inh inhalation BID Check with primary doctor 10/31/22 [History Last Taken Unknown] buspirone 15 mg tablet 15 mg PO BID Check with primary doctor 10/31/22 [History Last Taken Unknown] carvedilol 6.25 mg tablet 6.25 mg PO DAILY Check with primary doctor 10/31/22 [History Last Taken Unknown] clopidogrel 75 mg tablet 75 mg PO DAILY Check with primary doctor 10/31/22 [History Last Taken Unknown] levothyroxine 88 mcg tablet 88 mcg PO QDAY Check with primary doctor 10/31/22 [History Last Taken Unknown] lisinopril 5 mg tablet 5 mg PO DAILY Check with primary doctor 10/31/22 [History Last Taken Unknown] rosuvastatin 5 mg tablet 5 mg PO DAILY Check with primary doctor 10/31/22 [History Last Taken Unknown] Allergy/AdvReac Type Severity Reaction Status Date / Time acetaminophen [From Cephadyn] Allergy Unknown Verified 10/31/22 00:31 albuterol Allergy Unknown Verified 10/31/22 00:31 albuterol sulfate Allergy Unknown Verified 10/31/22 00:31 [From Combivent] amitriptyline Allergy Other Verified 10/31/22 00:31 aspirin Allergy Unknown Verified 10/31/22 00:31 azithromycin [From Zithromax] Allergy Unknown Verified 10/31/22 00:31 butalbital [From Cephadyn] Allergy Unknown Verified 10/31/22 00:31 cefdinir [From Omnicef] Allergy Other Verified 10/31/22 00:31 cefprozil Allergy Unknown Verified 10/31/22 00:31 cephalexin Allergy Unknown Verified 10/31/22 00:31 cyclobenzaprine HCl Allergy Unknown Verified 10/31/22 00:31 [From Flexeril] desloratadine Allergy Unknown Verified 10/31/22 00:31 [From Clarinex-D 12 HOUR] dicyclomine Allergy Unknown Verified 10/31/22 00:31 duloxetine HCl Allergy Unknown Verified 10/31/22 00:31 [From Cymbalta] ezetimibe [From Vytorin] Allergy Unknown Verified 10/31/22 00:31 imipramine Allergy NEEDS Verified 10/31/22 00:31 FOLLOW-UP ipratropium bromide Allergy Unknown Verified 10/31/22 00:31 [From Combivent] loratadine Allergy Unknown Verified 10/31/22 00:31 lovastatin [From Mevacor] Allergy Unknown Verified 10/31/22 00:31 Penicillins Allergy Rash Verified 10/31/22 00:31 pneumococcal vaccine Allergy Unknown Verified 10/31/22 00:31 pseudoephedrine sulfate Allergy Unknown Verified 10/31/22 00:31 [From Clarinex-D 12 HOUR] rofecoxib [From Vioxx] Allergy Unknown Verified 10/31/22 00:31 simvastatin Allergy Unknown Verified 10/31/22 00:31 sulfamethoxazole Allergy Unknown Verified 10/31/22 00:31 [From Bactrim] tizanidine HCl Allergy Unknown Verified 10/31/22 00:31 [From Zanaflex] topiramate Allergy Unknown Verified 10/31/22 00:31 tramadol Allergy Unknown Verified 10/31/22 00:31 trimethoprim [From Bactrim] Allergy Unknown Verified 10/31/22 00:31 verapamil Allergy Unknown Verified 10/31/22 00:31 Family History Mother Heart disease Cancer Uterine cancer Myocardial infarction Father CAD (coronary artery disease) Alcoholism Brother CAD (coronary artery disease) Alcoholism Cancer Cancer of stomach Surgical History History of 3 sections History of cardiac catheterization History of cholecystectomy History of colonoscopy (~2010) History of esophagogastroduodenoscopy (EGD) (~2016) S/P abdominal aortic aneurysm repair (08/10/07) Stented coronary artery (04/04/07) Social History Smoking Status: Former smoker quit date: 01/31/07 pack-years: 40 how long ago did patient quit smokin second hand exposure: No alcohol intake: never substance use type: does not use what type of physical activity do you participate in: none ROS ROS Narrative Pertinent positives and pertinent negatives as noted in HPI. All other systems were reviewed and are negative Vital Signs Vital Signs Vital Signs: 10/31/22 00:27 10/31/22 00:30 10/31/22 00:30 Temperature 97.8 F 98.1 F Temperature Source Oral Oral Pulse Rate 102 H 96 Respiratory Rate 25 H 23 H Respiratory Effort Respiratory Depth Respiratory Pattern Blood Pressure 137/81 H 137/81 H Blood Pressure Mean 99 99 Pulse Ox 88 88 88 Oxygen Delivery Method Nasal Cannula Nasal Cannula Nasal Cannula Oxygen Flow Rate (L/min) 4 4 4 10/31/22 00:32 10/31/22 00:53 10/31/22 00:53 Temperature Temperature Source Pulse Rate Respiratory Rate 21 H Respiratory Effort Short of Breath Respiratory Depth Shallow Respiratory Pattern Tachypnea Blood Pressure Blood Pressure Mean Pulse Ox 93 93 Oxygen Delivery Method Nasal Cannula Nasal Cannula Nasal Cannula Oxygen Flow Rate (L/min) 4 4 4 10/31/22 01:48 10/31/22 00:45 10/31/22 00:45 Temperature Temperature Source Pulse Rate 75 100 Respiratory Rate 18 20 H 24 H Respiratory Effort Normal Non-Labored Short of Breath Respiratory Depth Shallow Respiratory Pattern Normal Normal Blood Pressure 95/54 L Blood Pressure Mean 67 Pulse Ox 90 Oxygen Delivery Method Nasal Cannula Oxygen Flow Rate (L/min) 4 10/31/22 02:20 10/31/22 03:08 Temperature Temperature Source Pulse Rate 93 79 Respiratory Rate 21 H 21 H Respiratory Effort Respiratory Depth Respiratory Pattern Blood Pressure 92/56 L 95/61 Blood Pressure Mean 68 72 Pulse Ox 93 93 Oxygen Delivery Method Room Air Nasal Cannula Oxygen Flow Rate (L/min) 2 Weight Weight: 82.3 kg Body Mass Index (BMI) 36.6 Physical Exam Narrative Physical exam: General: Well-nourished, well-developed. Head: Normocephalic, atraumatic, no tenderness Eyes: Vision is grossly intact. EOMI ENT, no trauma, moist mucous membranes, no rhinorrhea Neck: Nontender, No thyromegaly. CVS: Regular rate and rhythm. S1-S2 present. No murmur, gallop or rub. Respiratory : clear to auscultation bilaterally, chest wall nontender, diminished Abdomen: Soft, nontender, nondistended, normal bowel sounds, no masses : Deferred Back: Nontender, no CVA tenderness, no midline spinal tenderness, deformities, step-offs Extremities: Nontender full range of motion, no trauma Skin: Normal color, no trauma, abrasions Neuro: Alert, oriented, cranial nerves II through XII grossly intact. Psychiatry: Normal mood. Normal affect. Not depressed. Not anxious. Results Lab / Micro Data Result Diagrams: 10/31/22 00:10 10/31/22 00:10 Labs: Laboratory Results - last 24 hr 10/31/22 00:10: WBC 14.0 H, RBC 4.78, Hgb 14.8, Hct 48.3 H, MCV 101.0 H, MCH 31.0, MCHC 30.6 L, RDW Std Deviation 51.8 H, RDW Coeff of Ada 14.0, Plt Count 199, MPV 11.1, Immature Gran % (Auto) 0.600, Neut % (Auto) 35.4 L, Lymph % (Auto) 52.4 H, Taylor % (Auto) 7.9, Eos % (Auto) 3.1, Baso % (Auto) 0.6, Absolute Neuts (auto) 5.0, Absolute Lymphs (auto) 7.31 H, Nucleated RBC % 0, Differential Comment COMMENT, Atypical Lymphocytes 2+ 10/31/22 00:10: Sodium 140, Potassium 5.1, Chloride 103, Carbon Dioxide 23.0, Anion Gap 14, BUN 13, Creatinine 1.35 H, Estim Creat Clear Calc 44.62, Est GFR (MDRD) Af Amer 49 L, Est GFR (MDRD) Non-Af 40 L, BUN/Creatinine Ratio 9.6 L, Glucose 203 H, Calcium 9.3, Troponin I High Sens 45 10/31/22 00:10: Total Bilirubin 0.20, Direct Bilirubin 0.11, AST 42 H, ALT 32, Alkaline Phosphatase 80, Total Protein 7.2, Albumin 3.5, Globulin 3.7 10/31/22 00:10: Lipase 281 Radiology Impression Chest X-Ray 10/31/22 00:49 IMPRESSION: COPD and atherosclerotic disease with mild pulmonary interstitial prominence suggesting superimposed mild edema. Electronically Signed: Nabor Alonzo MD at 1:18 EDT , Abdomen/Pelvis CT 10/31/22 01:52 IMPRESSION: 1. Suggestion of prepyloric gastric wall thickening. Considering upper abdominal symptoms, recommend further evaluation with upper GI series or EGD for possible gastritis and/or ulcer disease. 2. No evidence of gastric or bowel perforation. 3. Mild pulmonary interstitial edema. 4. Other nonurgent findings within body of report. Electronically Signed: Nabor Alonzo MD at 2:45 EDT , Assessment & Plan Assessment/Plan (1) Hypoxia: (2) Acute exacerbation of chronic obstructive pulmonary disease: (3) Right lower lobe pneumonia: PLAN: Plan Right lower lobe pneumonia/acute exacerbation of COPD/worsening hypoxia Patient meets SIRS criteria with white count of 14,000; and tachypnea with respiratory rate of more than 20. However there is no organ dysfunction. Lactic acid is 1.6. Patient does not meet criteria of sepsis. Blood culture ?2 is pending Impression of chest x-ray by radiologist:COPD and atherosclerotic disease with mild pulmonary interstitial prominence suggesting superimposed mild edema. Chest x-ray was visualized and independently interpreted and I agree with direct interpretation. Pneumonia Gram-positive or gram-negative. Patient is allergic to cephalosporins so patient was started on Levaquin the emergency department. Aztreonam and Levaquin ordered Solu-Medrol [id number] ordered DuoNeb scheduled. Albuterol as needed Legionella antigen screen and Strep antigen ordered ELIDA on chronic kidney disease stage III Baseline creatinine of around 1. Creatinine on admission was 1.35. Gentle IV hydration. Hold home lisinopril. Avoid nephrotoxic's. Trend BMP Possible gastritis/ulcer CT abdomen pelvis concerning for possible gastritis and ulcer disease. Escalate home Protonix. Constipation MiraLAX continued. Patient requested Metamucil. Metamucil ordered. DVT prophylaxis Subcutaneous Lovenox ordered. Charges/Coding Visit Charges Inpatient E&M: 43423 Init Hosp L3
[2022-10-31 04:30] LABS: Lactic Acid 1.6 mmol/L (0.4-1.9)
[2022-10-31 05:57] LABS: Absolute Lymphocyte Count 0.52 X10^3/uL (0.83-4.51); Absolute Neutrophil Count 5.4 X10^3/uL (2.0-7.7); Basophil# 0.01 X10^3/uL; Basophil% 0.2 % (0-1); Eosinophil# 0.01 X10^3/uL; Eosinophils% 0.2 % (0-5); Hematocrit 41.2 % (37-47); Hemoglobin 12.8 g/dL (12.0-15.0); Lymphocyte # 0.52 X10^3/ul (0.83-4.51); Lymphocyte % 8.5 % (19-41); Mean Corp Hgb Conc 31.1 g/dL (32-36); Mean Corpuscular Hgb 29.7 pg (27.0-32.0); Mean Corpuscular Volume 95.6 fL (81-99); Mean Platelet Vol. 10.7 fl (6.2-12.0); Monocyte# 0.15 X10^3/uL; Monocyte% 2.4 % (0-10); NRBC Flagged by Analyzer 0 % (0-5); Neutrophil # 5.42 X10^3/uL (2.7-7.7); Neutrophil % 88.2 % (47-70); POSITIVE DIFFERENTIAL YES; Platelet Count 130 K/mm3 (150-450); RBC Distribution Width CV 13.9 % (11.6-14.6); RBC Distribution Width SD 49.3 fl (35.1-43.9); Red Blood Count 4.31 M/mm3 (4.2-5.4); White Blood Count 6.1 K/mm3 (4.4-11.0)
[2022-10-31] MEDS: 0.9% Normal Saline 1,000 ML 75 ML IV (06:00)
[2022-10-31 06:04] LABS: Differential Indicated SCAN CRITERIA MET
[2022-10-31] MEDS: Levothyroxine 88 MCG Tablet PO (06:15)
[2022-10-31] MEDS: BENZOCAINE/MENTHOL 1 LOZENGE MUCOUS MEM (06:15)
[2022-10-31 06:33] LABS: Anion Gap 6 (5-15); BUN 17 mg/dL (7-18); BUN/Creat Ratio 15.9 RATIO (10-20); Calcium,Total 8.8 mg/dL (8.5-10.1); Chloride 103 mmol/L (98-107); Creatinine, Serum 1.07 mg/dL (0.55-1.02); EST Glomerular Filtration Rate 53 mL/min (>60); Est Glom Filt Rate - Afr Amer 64 mL/min (>60); Estimated Creatinine Clearance 55.04 ml/min; Glucose 164 mg/dL (74-106); Potassium 4.8 mmol/L (3.5-5.1); Sodium Level 139 mmol/L (136-145)
--- NOTE | 2022-10-31 06:55 | PN.HOSP_ITS ---
Reason for Visit Reason for Visit: Shortness of breath Subjective Subjective Mrs. Jin is a 77-year-old female with a history of COPD chronically on 2 L of supplemental oxygen who presented to the emergency department at [facility] on the morning of 10/31/2022 complaining of shortness of breath and chills that had been ongoing for several days. She had had no associated nausea, vomiting, or diarrhea. She had a consider amount of coughing reports a change in her sputum production which is typically white or clear is now yellow. Her pulse ox in the emergency department was found to be in the mid 80s on her baseline 2 L supplemental nasal cannula. She had no fever or sore throat. She denied any chest pain. Vital signs on presentation were temperature 98.4, heart rate 74, blood pressure 102/54, respiratory rate has been anywhere from 18-25 and oxygen saturation was in the mid 80s on her baseline 2 L. She was increased to 4 L and oxygen saturations improved to 88% and eventually into the mid 90s after some treatment was delivered. She had a leukocytosis with a lymphocytic predominance on presentation. She had an ELIDA with a serum creatinine of 1.35 (baseline 0.7-1.0), and a blood glucose of 203. She had a recent hemoglobin A1c done in August 2022 which was 5.7. Her lactic acid was normal at 1.6. Chest x-ray showed COPD and atherosclerotic disease with mild pulmonary interstitial prominence. A CT of the abdomen pelvis was performed with her upper abdominal complaints with cough that were suggestive of prepyloric gastric wall thickening and mild pulmonary interstitial edema but was otherwise unremarkable for any significant acute findings. Respiratory viral panel was pending.'s COVID and flu rapid was positive for influenza B. Patient indicated that she was feeling better since admission and is asking if she can go home. I did discuss with her that she is still requiring 4 L oxygen and has influenza B which is likely the etiology for her respiratory illness however we are still ruling out bacterial pneumonia as well. We discussed the difference between viral and bacterial pneumonia and treatment course. She voiced understanding and was agreeable to stay till tomorrow. I told her tomorrow we will reevaluate things and see if we can get her home if she was feeling significantly better. She will need a home ambulatory pulse ox prior to discharge. Objective Data Objective Data Vital Signs: Vital Signs Temp Pulse Resp BP Pulse Ox O2 Del Method O2 Flow Rate 97.9 F 77 20 H 95/62 95 Nasal Cannula 4 10/31/22 05:33 10/31/22 05:33 10/31/22 05:33 10/31/22 05:33 10/31/22 05:33 10/31/22 06:32 10/31/22 06:32 Oxygen Flow Rate (L/min) 4 Oxygen Delivery Method Nasal Cannula Weight: 80.467 kg Body Mass Index (BMI) 35.8 Intake & Output: Intake and Output for Last 24 Hours 10/29/22 10/30/22 10/31/22 23:59 23:59 23:59 Intake Total 1171.25 / 1171.25 Output Total 600 / 600 Balance 571.25 / 571.25 Lab / Micro Data Result Diagrams: 10/31/22 05:48 10/31/22 05:48 Labs: Laboratory Results - last 24 hr 10/31/22 00:10: WBC 14.0 H, RBC 4.78, Hgb 14.8, Hct 48.3 H, MCV 101.0 H, MCH 31.0, MCHC 30.6 L, RDW Std Deviation 51.8 H, RDW Coeff of Ada 14.0, Plt Count 199, MPV 11.1, Immature Gran % (Auto) 0.600, Neut % (Auto) 35.4 L, Lymph % (Auto) 52.4 H, Stanton % (Auto) 7.9, Eos % (Auto) 3.1, Baso % (Auto) 0.6, Absolute Neuts (auto) 5.0, Absolute Lymphs (auto) 7.31 H, Nucleated RBC % 0, Differential Comment COMMENT, Atypical Lymphocytes 2+ 10/31/22 00:10: Sodium 140, Potassium 5.1, Chloride 103, Carbon Dioxide 23.0, Anion Gap 14, BUN 13, Creatinine 1.35 H, Estim Creat Clear Calc 44.62, Est GFR (MDRD) Af Amer 49 L, Est GFR (MDRD) Non-Af 40 L, BUN/Creatinine Ratio 9.6 L, Glucose 203 H, Calcium 9.3, Troponin I High Sens 45 10/31/22 00:10: Total Bilirubin 0.20, Direct Bilirubin 0.11, AST 42 H, ALT 32, Alkaline Phosphatase 80, Total Protein 7.2, Albumin 3.5, Globulin 3.7 10/31/22 00:10: Lipase 281 10/31/22 03:45: Lactic Acid 1.6 10/31/22 05:48: WBC 6.1, RBC 4.31, Hgb 12.8, Hct 41.2, MCV 95.6 D, MCH 29.7, MCHC 31.1 L, RDW Std Deviation 49.3 H, RDW Coeff of Ada 13.9, Plt Count 130 L, MPV 10.7, Immature Gran % (Auto) 0.500, Neut % (Auto) 88.2 H, Lymph % (Auto) 8.5 L, Stanton % (Auto) 2.4, Eos % (Auto) 0.2, Baso % (Auto) 0.2, Absolute Neuts (auto) 5.4, Absolute Lymphs (auto) 0.52 L, Nucleated RBC % 0, Differential Comment COMMENT 10/31/22 05:48: Sodium 139, Potassium 4.8, Chloride 103, Carbon Dioxide 30.0, Anion Gap 6, BUN 17, Creatinine 1.07 H, Estim Creat Clear Calc 55.04, Est GFR (MDRD) Af Amer 64, Est GFR (MDRD) Non-Af 53 L, BUN/Creatinine Ratio 15.9, Glucose 164 H, Calcium 8.8 Micro: Microbiology 10/31/22 05:15 Nasal Secretion SARS-CoV-2 & FLU Antigen (Rapid) - Final Influenzae B Radiography Diagnostic Testing: Radiology Impression Chest X-Ray 10/31/22 00:49 IMPRESSION: COPD and atherosclerotic disease with mild pulmonary interstitial prominence suggesting superimposed mild edema. Electronically Signed: Nabor Alonzo MD at 1:18 EDT , Abdomen/Pelvis CT 10/31/22 01:52 IMPRESSION: 1. Suggestion of prepyloric gastric wall thickening. Considering upper abdominal symptoms, recommend further evaluation with upper GI series or EGD for possible gastritis and/or ulcer disease. 2. No evidence of gastric or bowel perforation. 3. Mild pulmonary interstitial edema. 4. Other nonurgent findings within body of report. Electronically Signed: Nabor Alonzo MD at 2:45 EDT , Rhythm Strip Rhythm Strip: Sinus Rhythm Rate: 95 Ectopy: None Physical Exam Const alert, oriented x3, no apparent distress and well nourished Constitutional Narrative: Obese, elderly white female, sitting up in bed, watching television, appears comfortable and nontoxic HEENT head/scalp atraumatic and moist oral mucous membranes HEENT Narrative: Mallampati 3, dentures in place, no thrush, moderate hearing loss Head and Scalp: normocephalic Resp normal respiratory effort, no retractions, no use of accessory muscles and clear to auscultation bilaterally Resp Narrative: Diffusely diminished but no wheeze noted on exam at this time, no signs of respiratory extremis or increased effort Auscultation: Negative for rales, rhonchi or wheezes Cardio regular rate, regular rhythm, S1 normal heart sound, S2 normal heart sound, no murmurs, no rub, no gallops and no clicks GI normal to inspection, nondistended, normoactive bowel sounds and soft to palpation GI Narrative: Tenderness noted in the epigastrium-patient indicates this is chronic Extremity no clubbing, cyanosis or edema Extremity Narrative: Pedal pulses are 2+ Neuro oriented x3, moves all extremities and no focal motor deficits Speech: speech normal Psych affect normal Psych Narrative: Pleasant and appropriately interactive Assessment & Plan Assessment/Plan (1) Acute exacerbation of chronic obstructive pulmonary disease: (2) Influenza B: (3) Abnormal computed tomography of abdomen and pelvis: (4) Abdominal pain: (5) Hypoxia: (6) ELIDA (acute kidney injury): (7) Leukocytosis: PLAN: Plan Acute hypoxia chronic hypoxic respiratory failure secondary to influenza B infection -Patient chronically on 2 L supplemental oxygen -Currently requiring 4 however did not qualify for acute hypoxic respiratory failure she had no signs of extremis just mild shortness of breath and new hypoxia -Wean oxygen back to 2 L baseline as able -Start Tamiflu day 1 of 5 -COVID-negative but influenza B positive -Respiratory viral panel is pending -Strep pneumo and Legionella antigens are pending -Scheduled DuoNebs with as needed albuterol treatments -Continue Levaquin for now -Sputum culture if able to produce -I-S and Acapella as ordered -Continue Solu-Medrol 40 mg every 8 -As needed antitussives -We will need ambulatory pulse ox prior to discharge Leukocytosis -Lymphocytic predominance -Suspect all viral pneumonia however will rule out bacterial infection and maintain on IV antibiotics for now -Cultures pending ELIDA -Baseline serum creatinine is between 0.7 and 1.0 -Serum creatinine on admission was 1.3 greater than baseline at 1.35 -IV fluids ordered at normal saline 75 cc/h -We will continue for 1 L I would like to avoid volume overload with her influenza infection -Avoid nephrotoxins as able Epigastric pain with abnormal CT of the abdomen pelvis -Patient with prepyloric gastric wall thickening -Continue PPI for GERD daily -Recommend GI follow-up after discharge we will make referral -Patient's last EGD was documented to be done on 03/12/[address] Germán Estrada--> no significant abnormalities found at that time -Would recommend reevaluation with an EGD as an outpatient will refer to Dr. Cullen versus Dr. Estrada CAD/HTN/HPL/PVD -PCI 04/04/2007 -Hold home carvedilol and lisinopril for now as blood pressures on the low side of normal -We will utilize as needed hydralazine until blood pressures trend upwards and we can reinitiate her home medications -Continue home rosuvastatin -Continue home Plavix -Is not on aspirin as she has an allergy -Patient follows up as an outpatient with cardiology and vascular surgery History of AAA status post repair -2006 at [facility] in [place], [place]-->Utilizing aortobifemoral bypass,per Dr. Duncan and Dr. Brown -No current issues History of valvular heart disease -Continued outpatient follow-up with cardiology History of TIA -Continue Plavix -Continue to management secondary risk factors Hypothyroidism -Continue home levothyroxine -Check TSH GERD -Continue pantoprazole at increased dose of twice daily COPD -Treatment as above for exacerbation -Hold home inhalers Vitamin D deficiency -Continue ergocalciferol 50,000 units every Monday IBS -Continue home MiraLAX and DM-2 -Last A1c done in August of this year demonstrated good control-5.7 at that time -Monitor need for SSI with steroid use -Carb controlled diet Osteoporosis -Continue home alendronate Depression/anxiety -New home BuSpar -Continue home Abilify -Continue home paroxetine History of tobacco abuse -Recommend ongoing cessation Obesity -BMI 35.8 -Recommend weight loss -Complicates treatment, prognosis, outcomes DVT prophylaxis -Continue enoxaparin 40 mg daily CODE STATUS -Full code Charges/Coding Visit Charges Inpatient E&M: 59316 Subs Hosp L2
[2022-10-31] MEDS: Ergocalciferol 1.25 MG (50, 000 UNIT) Capsule PO (09:18)
[2022-10-31] MEDS: Clopidogrel Bisulfate 75 MG Tablet PO (09:18)
[2022-10-31] MEDS: Pantoprazole Sodium 40 MG Tablet PO ×2 (09:18→21:33)
[2022-10-31] MEDS: busPIRone 15 MG TABLET PO ×2 (09:18→21:32)
[2022-10-31] MEDS: Enoxaparin 40 MG/0.4 ML Syringe SC (09:18)
[2022-10-31] MEDS: Oseltamivir Phosphate 75 MG Capsule PO ×2 (09:18→21:33)
[2022-10-31] MEDS: Fluticasone 0.05% 1 SPRAY NASAL.SRY 2 SPRAY NASAL (09:18)
[2022-10-31] MEDS: Paroxetine 20 MG Tablet 40 MG PO (09:19)
[2022-10-31] MEDS: Alendronate Sodium 70 MG Tablet PO (09:19)
[2022-10-31] MEDS: Psyllium 1 PACKET PO (09:21)
[2022-10-31] MEDS: Polyethylene Glycol 3350 17 GM PACKET PO (09:21)
[2022-10-31] MEDS: 0.9% Saline Lock 10 ML Syringe IV (13:05)
--- NOTE | 2022-10-31 15:17 | CHAPLAIN ---
Type of Pastoral Visit _x__ Initial Visit ___ Follow-up Visit ___ On-call Visit ___ General Patient Visit ___ Spiritual Assessment ___ Family Conference ___ Bereavement ___ Rapid Response ___ Code Blue ___ Other (describe below) Pastoral Care Referral From _x__ Patient ___ Family ___ Nurse ___ Physician ___ Inventory Control Coordinator ___ Transportation Engineer ___ Other (describe below) Sacrament/Intervention _x__ Active listening ___ Anointing ___ Pentecostalism ___ Bereavement ___ Communion _x__ Chel[place] exploration ___ _x__ Life review _x__ Prayer ___ Reconciliation ___ Sacrament of Sick _x__ Supportive presence ___ Wedding ___ Other (describe below) Pastoral Comments patient begins by saying that doctors in ED and hospital had different opinions of why she is sick; pt speaks of needs of her and her son; pt asks several questions about mormonism chelo and the Bible; pt expresses that this clip riveter has been such a blessing; pt did have some moments when she lost her train of thought in conversation; pt welcomes presence and prayer
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
[2022-10-31] MEDS: Magnesium Hydroxide 30 ML UDC PO (17:14)
[2022-10-31] MEDS: ARIPiprazole 2 MG Tablet PO (21:32)
[2022-10-31] MEDS: Atorvastatin Calcium 10 MG Tablet PO (21:33)
[2022-11-01] MEDS: Magnesium Hydroxide 30 ML UDC PO (00:17)
[2022-11-01 03:26] VITALS: BP 159/86; PULSE 86; RESP 16; TEMP 36.7; O2SAT 99
[2022-11-01] MEDS: Levothyroxine 88 MCG Tablet PO (05:22)
[2022-11-01] MEDS: 0.9% Saline Lock 10 ML Syringe IV (05:22)
[2022-11-01 05:29] VITALS: O2SAT 98
[2022-11-01 06:39] VITALS: PULSE 90; RESP 16; O2SAT 94
[2022-11-01] MEDS: Ipratropium/Albuterol Sulfate 3 ML AMPUL.NEB INHALATION (06:39)
[2022-11-01 06:57] LABS: Absolute Lymphocyte Count 0.84 X10^3/uL (0.83-4.51); Absolute Neutrophil Count 9.8 X10^3/uL (2.0-7.7); Basophil# 0.01 X10^3/uL; Basophil% 0.1 % (0-1); Hematocrit 38.5 % (37-47); Hemoglobin 12.7 g/dL (12.0-15.0); Lymphocyte # 0.84 X10^3/ul (0.83-4.51); Lymphocyte % 7.4 % (19-41); Mean Corpuscular Hgb 30.7 pg (27.0-32.0); Mean Platelet Vol. 10.9 fl (6.2-12.0); Monocyte# 0.59 X10^3/uL; Monocyte% 5.2 % (0-10); NRBC Flagged by Analyzer 0 % (0-5); Neutrophil # 9.84 X10^3/uL (2.7-7.7); Neutrophil % 86.6 % (47-70); Platelet Count 132 K/mm3 (150-450); RBC Distribution Width CV 13.9 % (11.6-14.6); RBC Distribution Width SD 47.5 fl (35.1-43.9); Red Blood Count 4.14 M/mm3 (4.2-5.4); White Blood Count 11.4 K/mm3 (4.4-11.0)
[2022-11-01 07:37] LABS: Anion Gap 5 (5-15); BUN 16 mg/dL (7-18); BUN/Creat Ratio 18.1 RATIO (10-20); Calcium,Total 9.2 mg/dL (8.5-10.1); Chloride 106 mmol/L (98-107); Creatinine, Serum 0.88 mg/dL (0.55-1.02); EST Glomerular Filtration Rate 66 mL/min (>60); Est Glom Filt Rate - Afr Amer 79 mL/min (>60); Estimated Creatinine Clearance 66.93 ml/min; Glucose 151 mg/dL (74-106); Magnesium 2.3 mg/dL (1.6-2.6); Phosphorus 3.1 mg/dL (2.5-4.9); Potassium 4.8 mmol/L (3.5-5.1); Sodium Level 139 mmol/L (136-145)
[2022-11-01 08:09] VITALS: BP 132/73; PULSE 73; RESP 18; TEMP 36.6; O2SAT 94
[2022-11-01] MEDS: Clopidogrel Bisulfate 75 MG Tablet PO (08:27)
[2022-11-01] MEDS: Oseltamivir Phosphate 75 MG Capsule PO (08:27)
[2022-11-01] MEDS: Fluticasone 0.05% 1 SPRAY NASAL.SRY 2 SPRAY NASAL (08:27)
[2022-11-01] MEDS: Pantoprazole Sodium 40 MG Tablet PO (08:27)
[2022-11-01] MEDS: busPIRone 15 MG TABLET PO (08:27)
[2022-11-01] MEDS: Enoxaparin 40 MG/0.4 ML Syringe SC (08:27)
[2022-11-01] MEDS: Polyethylene Glycol 3350 17 GM PACKET PO (08:28)
[2022-11-01] MEDS: Paroxetine 20 MG Tablet 40 MG PO (08:28)
[2022-11-01] MEDS: Psyllium 1 PACKET PO (08:28)
[2022-11-01 08:38] VITALS: O2SAT 91; O2SAT 96
--- NOTE | 2022-11-01 09:46 | PCM.DC.SUM ---
Providers Date of Admission: 10/31/22 Date of Discharge: 11/01/22 Primary Care Physician: ELVI Miramontes Reason For Visit: COPD EXCERBATION, PNEUMONIA Diagnosis Discharge Diagnosis (1) Acute exacerbation of chronic obstructive pulmonary disease: Status: Chronic Code(s): J44.1 - Chronic obstructive pulmonary disease with (acute) exacerbation (2) Influenza B: Status: Acute Code(s): J10.1 - Influenza due to other identified influenza virus with other respiratory manifestations (3) Abnormal computed tomography of abdomen and pelvis: Status: Acute Code(s): R93.5 - Abnormal findings on diagnostic imaging of other abdominal regions, including retroperitoneum (4) Abdominal pain: Status: Acute Code(s): R10.9 - Unspecified abdominal pain (5) Hypoxia: Status: Acute Code(s): R09.02 - Hypoxemia (6) ELIDA (acute kidney injury): Status: Acute Code(s): N17.9 - Acute kidney failure, unspecified (7) Leukocytosis: Status: Acute Code(s): D72.829 - Elevated white blood cell count, unspecified Medications at Discharge Home Medications albuterol sulfate 90 mcg/actuation aerosol inhaler (ProAir HFA) 2 puff inhalation Q4H PRN PRN Sob &/Or Wheezing #8.5 grams 04/08/22 ergocalciferol (vitamin D2) 1,250 mcg (50,000 unit) capsule 50,000 mcg PO MO supplement 08/21/22 fluticasone propionate 50 mcg/actuation nasal spray,suspension 2 spray intranasal BID COPD 08/21/22 polyethylene glycol 3350 17 gram/dose oral powder (Gavilax) 17 g PO DAILY stool softener 08/21/22 pantoprazole 40 mg tablet,delayed release 40 mg PO DAILY GERD 08/25/22 paroxetine HCl 40 mg tablet 40 mg PO BID Check with primary doctor 09/30/22 alendronate 70 mg tablet 70 mg PO MO bone health 10/31/22 aripiprazole 2 mg tablet (Abilify) 2 mg PO QHS Check with primary doctor 10/31/22 budesonide 160 mcg-glycopyr 9 mcg-formot 4.8 mcg/actuation HFA inhaler (Breztri Aerosphere) 2 inh inhalation BID COPD 10/31/22 buspirone 15 mg tablet 15 mg PO BID Check with primary doctor 10/31/22 carvedilol 6.25 mg tablet 6.25 mg PO DAILY HTN 10/31/22 clopidogrel 75 mg tablet 75 mg PO DAILY blood thinner 10/31/22 levothyroxine 88 mcg tablet 88 mcg PO QDAY thyroid 10/31/22 lisinopril 5 mg tablet 5 mg PO DAILY HTN 10/31/22 rosuvastatin 5 mg tablet 5 mg PO DAILY cholesterol 10/31/22 oseltamivir 75 mg capsule 75 mg PO BID #7 caps 11/01/22 prednisone 10 mg tablet 10 mg PO DAILY #30 tabs 11/01/22 Hospital Course Operations None Procedures EKG and - (Chest x-ray/CT abdomen/pelvis) Summary of Care Provided Minutes Spent on Discharge: 37 Hospital Course: Mrs. Jin is a 77-year-old female with a history of COPD chronically on 2 L of supplemental oxygen who presented to the emergency department at [facility] on the morning of 10/31/2022 complaining of shortness of breath and chills that had been ongoing for several days.? She had had no associated nausea, vomiting, or diarrhea.? She had a consider amount of coughing reports a change in her sputum production which is typically white or clear is now yellow.? Her pulse ox in the emergency department was found to be in the mid 80s on her baseline 2 L supplemental nasal cannula.? She had no fever or sore throat.? She denied any chest pain.? Vital signs on presentation were temperature 98.4, heart rate 74, blood pressure 102/54, respiratory rate has been anywhere from 18-25 and oxygen saturation was in the mid 80s on her baseline 2 L.? She was increased to 4 L and oxygen saturations improved to 88% and eventually into the mid 90s after some treatment was delivered.? She had a leukocytosis with a lymphocytic predominance on presentation.? She had an ELIDA with a serum creatinine of 1.35 (baseline 0.7-1.0), and a blood glucose of 203.? She had a recent hemoglobin A1c done in August 2022 which was 5.7.? Her lactic acid was normal at 1.6.? Chest x-ray showed COPD and atherosclerotic disease with mild pulmonary interstitial prominence.? A CT of the abdomen pelvis was performed with her upper abdominal complaints with cough that were suggestive of prepyloric gastric wall thickening and mild pulmonary interstitial edema but was otherwise unremarkable for any significant acute findings.? Patient's COVID was negative but rapid flu was found to be positive for influenza B. Respiratory viral panel was negative. Sputum culture showed only normal oral mckenna. The patient was placed on Tamiflu and Levaquin at the time of admission as there was some concern of superimposed bacterial pneumonia however with a sputum culture being negative the Levaquin was discontinued. Her ELIDA resolved within 12 to 18 hours of admission. P.o. intake improved. I did discuss with the patient the abnormal findings have the CT of her abdomen. She thought she had a EGD done about a year ago however upon review it appears that Dr. Germán Estrada did an EGD last on 03/12/2021 and found no significant abnormalities at that time. I did make a referral for her to follow-up with Dr. Cullen-gastroenterology to have a repeat evaluation with an EGD given the abnormal findings on her current CAT scan. She was maintained on her Protonix and encouraged to do so as outpatient. She had no profound anemia or any other urgent need for consultation while she was hospitalized but outpatient follow-up was felt to be prudent and this was expressed to the patient. By the a.m. of 11/01/2022 she was found to be back on her baseline oxygen of 2 L. An ambulatory pulse ox was performed and she was 96% at rest on her baseline 2 L and 91% with exertion. She was instructed to be maintained on her baseline of 2 L oxygen at discharge. She was continued with 3-1/2 days of Tamiflu for 7 total doses and prescription was sent to the pharmacy. We also instructed her to continue with a prednisone taper and a prescription for this was sent to the pharmacy as well. She does follow with pulmonary medicine and actually had an appointment today. She is going to call and reschedule that to be seen as soon as she can. I recommended outpatient follow-up with her primary care physician within the next 2 weeks. Again, I have asked her to follow-up with gastroenterology for an EGD given the abnormal CT findings as soon as an appointment is available to do so. She was discharged home in stable condition on 11/01/2022. Discharge diagnoses: Acute hypoxia-resolved Chronic hypoxic respiratory failure Influenza A B viral pneumonia Leukocytosis-resolving ELIDA-resolved Abnormal CT of the abdomen pelvis with prepyloric gastric wall thickening CAD Hypertension Hyperlipidemia PVD History of AAA repair History of valvular heart disease History of TIA Hypothyroidism GERD COPD Vitamin D deficiency IBS DM-2 Osteoporosis Depression and anxiety Physical Exam Narrative Patient states she is feeling much better. Is back on her baseline oxygen of 2 L. Did well with ambulatory pulse ox. Patient anxious to go home. Const alert, oriented x3, no apparent distress and well nourished Constitutional Narrative: Obese, elderly white female, sitting up on edge of bed, nursing at bedside, appears comfortable and nontoxic General Appearance: cooperative, comfortable, well kempt and well developed HEENT normocephalic, head/scalp atraumatic and moist oral mucous membranes; Negative for hearing grossly normal bilaterally HEENT Narrative: Dentures in place, Mallampati is 3, no thrush, moderate hearing loss Eyes PERRL, EOMs intact bilaterally and conjunctivae normal Eyes Narrative: No scleral icterus Neck no lymphadenopathy, supple and no JVD Neck Narrative: Trachea midline, no thyroid enlargement Resp normal respiratory effort, no retractions, no use of accessory muscles and clear to auscultation bilaterally Resp Narrative: Diffusely diminished but clear Auscultation: Negative for rales, rhonchi or wheezes Cardio regular rate, regular rhythm, S1 normal heart sound, S2 normal heart sound, no murmurs, no rub, no gallops and no clicks GI normal to inspection, nondistended, normoactive bowel sounds and soft to palpation GI Narrative: Remains with tenderness noted in the epigastrium-patient indicates this is chronic Extremity no clubbing, cyanosis or edema Extremity Narrative: Pedal pulses are 2+ Skin no rashes or lesions noted, no wounds, skin turgor normal and no jaundice Neuro oriented x3, CN's II-XII intact bilaterally, moves all extremities and no focal motor deficits Speech: speech normal Psych affect normal Psych Narrative: Pleasant and appropriately interactive Weight / BMI Weight Weight: 80.467 kg Body Mass Index (BMI) 35.8 ABG / Lab / Microbiology Data Result Diagrams: 11/01/22 06:43 11/01/22 06:43 Laboratory: Laboratory Results - last 24 hr 11/01/22 06:43: WBC 11.4 H, RBC 4.14 L, Hgb 12.7, Hct 38.5, MCV 93.0, MCH 30.7, MCHC 33.0 D, RDW Std Deviation 47.5 H, RDW Coeff of Ada 13.9, Plt Count 132 L, MPV 10.9, Immature Gran % (Auto) 0.700, Neut % (Auto) 86.6 H, Lymph % (Auto) 7.4 L, [place] % (Auto) 5.2, Eos % (Auto) 0.0, Baso % (Auto) 0.1, Absolute Neuts (auto) 9.8 H, Absolute Lymphs (auto) 0.84, Nucleated RBC % 0 11/01/22 06:43: Sodium 139, Potassium 4.8, Chloride 106, Carbon Dioxide 28.0, Anion Gap 5, BUN 16, Creatinine 0.88, Estim Creat Clear Calc 66.93, Est GFR (MDRD) Af Amer 79, Est GFR (MDRD) Non-Af 66, BUN/Creatinine Ratio 18.1, Glucose 151 H, Calcium 9.2, Phosphorus 3.1, Magnesium 2.3, TSH 14.10 H Microbiology: Microbiology 10/31/22 11:03 Sputum, Expectorated/Coughed Gram Stain - Final 10/31/22 11:03 Sputum, Expectorated/Coughed Respiratory Culture - Preliminary Appears to be normal respiratory mckenna. Further studies to follow. 10/31/22 10:30 Mucosa - Nose Respiratory Panel (PCR) - Final 10/31/22 06:36 Urine, Clean Catch Legionella Antigen - Final 10/31/22 06:36 Urine, Clean Catch Streptococcus pneumoniae Antigen (M - Final 10/31/22 05:15 Nasal Secretion SARS-CoV-2 & FLU Antigen (Rapid) - Final Influenzae B D/C Instructions Discharge Diet: Low fat / Low cholesterol Discharge Activity: Return to Normal Activity Meaningful Use Info Meaningful Use Diagnoses (Choose all that apply): None applicable Discharge Plan Admission Admit Date/Time: 10/31/22 03:26 Primary Reason for Your Visit: Shortness of breath Attending Provider: Alis Lopez Primary Care Provider: Nabor Biggs NP Consulting Providers: Bebeto Hernandez Instructions Additional Instructions / Restrictions: 1. There was thickening noted on the CAT scan done of your abdomen and pelvis when you are hospitalized for influenza. Please follow-up as directed below with the stomach doctor (supervisor money room)-Dr. Cullen. Call and make an appointment to be seen within the next 2 weeks if they are able to get you in in that timeframe. 2. Call your pulmonary doctor and follow-up as soon as an appointment can be made Discharge Orders/Prescriptions Prescriptions: New oseltamivir 75 mg Capsule 75 mg PO BID Qty: 7 0RF prednisone 10 mg tablet 10 mg PO DAILY Qty: 30 0RF Rx Instructions: 4 tablets x 3 days, 3 tablets x 3 days, 2 tablets x 3 days, 1 tablet x 3 days and stop Continued pantoprazole 40 mg Tablet,Delayed Release (Dr/Ec) 40 mg PO DAILY paroxetine HCl 40 mg tablet 40 mg PO BID polyethylene glycol 3350 [Gavilax] 17 gram/dose powder 17 g PO DAILY Label Comments: use 1 (ONE) capful (17 GIVE) BY MOUTH DAILY DIRECTED ergocalciferol (vitamin D2) 1,250 mcg (50,000 unit) capsule 50,000 mcg PO MO Rx Instructions: TAKE 1 CAPSULE BY MOUTH EVERY WEEK monday fluticasone propionate 50 mcg/actuation spray,suspension 2 spray intranasal BID Rx Instructions: INHALE 2 PUFFS into each nostril once daily carvedilol 6.25 mg tablet 6.25 mg PO DAILY Label Comments: TAKE 1 TABLET TWICE DAILY alendronate 70 mg tablet 70 mg PO MO Rx Instructions: take on monday clopidogrel 75 mg tablet 75 mg PO DAILY levothyroxine 88 mcg tablet 88 mcg PO QDAY lisinopril 5 mg tablet 5 mg PO DAILY buspirone 15 mg tablet 15 mg PO BID rosuvastatin 5 mg tablet 5 mg PO DAILY aripiprazole [Abilify] 2 mg tablet 2 mg PO QHS Breztri Aerosphere 160-9-4.8 mcg/actuation HFA aerosol inhaler 2 inh inhalation BID albuterol sulfate [ProAir HFA] 90 mcg/actuation HFA aerosol inhaler 2 puff INHALATION Q4H PRN PRN (Reason: Sob &/Or Wheezing) Qty: 8.5 6RF Referrals / Follow Up: FriendTim DO [Med Staff - Active Staff] - Within 2 Weeks (For an EGD to investigate the wall thickening in your esophagus noted on the CAT scan done during her hospital admission) Nabor Biggs SMALL PARTS SHAPER OPERATOR, SMALL PARTS SHAPER OPERATOR-C [Primary Care Provider] - Within 2 Weeks Disposition Disposition (needs filled in before D/C Order can be placed): Home, Self Care Charges/Coding Visit Charges Inpatient E&M: 28285 Disch Hosp >30min
--- NOTE | 2022-11-01 10:00 | CASEMGMT ---
Pt did not require an increase in oxygen rx. Notified [facility] that pt will be dc'd today.
--- NOTE | 2022-11-01 11:22 | PHA.DC.MR ---
Pharmacy Service has performed discharge medication reconciliation for this patient. The patient's discharge medication list was reviewed for discrepancies and discrepancies were resolved. Medication education papers prepared, patient discharged before I was able to credit counselor. Home Medications albuterol sulfate 90 mcg/actuation aerosol inhaler (ProAir HFA) 2 puff inhalation Q4H PRN PRN Sob &/Or Wheezing #8.5 grams 04/08/22 ergocalciferol (vitamin D2) 1,250 mcg (50,000 unit) capsule 50,000 mcg PO MO supplement 08/21/22 fluticasone propionate 50 mcg/actuation nasal spray,suspension 2 spray intranasal BID COPD 08/21/22 polyethylene glycol 3350 17 gram/dose oral powder (Gavilax) 17 g PO DAILY stool softener 08/21/22 pantoprazole 40 mg tablet,delayed release 40 mg PO DAILY GERD 08/25/22 paroxetine HCl 40 mg tablet 40 mg PO BID Check with primary doctor 09/30/22 alendronate 70 mg tablet 70 mg PO MO bone health 10/31/22 aripiprazole 2 mg tablet (Abilify) 2 mg PO QHS Check with primary doctor 10/31/22 budesonide 160 mcg-glycopyr 9 mcg-formot 4.8 mcg/actuation HFA inhaler (Breztri Aerosphere) 2 inh inhalation BID COPD 10/31/22 buspirone 15 mg tablet 15 mg PO BID Check with primary doctor 10/31/22 carvedilol 6.25 mg tablet 6.25 mg PO DAILY HTN 10/31/22 clopidogrel 75 mg tablet 75 mg PO DAILY blood thinner 10/31/22 levothyroxine 88 mcg tablet 88 mcg PO QDAY thyroid 10/31/22 lisinopril 5 mg tablet 5 mg PO DAILY HTN 10/31/22 rosuvastatin 5 mg tablet 5 mg PO DAILY cholesterol 10/31/22 oseltamivir 75 mg capsule 75 mg PO BID #7 caps 11/01/22 prednisone 10 mg tablet 10 mg PO DAILY #30 tabs 11/01/22
== END 2022-11-01 10:45 | disposition home or self-care (01) | DRG 194 ==
LOC: ED 03:21 → MS3 04:06
PROVIDERS: Admitting Provider Hospitalist; Emergency Provider Emergency Medicine; PCP Nurse Practitioner Family; Visit Provider Internal Medicine
DX: J10.00 Influenza due to other identified influenza virus with unspecified type of pneumonia (principal); N17.9 Acute kidney failure, unspecified; J44.0 Chronic obstructive pulmonary disease with (acute) lower respiratory infection; J96.11 Chronic respiratory failure with hypoxia; J44.1 Chronic obstructive pulmonary disease with (acute) exacerbation; E11.22 Type 2 diabetes mellitus with diabetic chronic kidney disease; E11.51 Type 2 diabetes mellitus with diabetic peripheral angiopathy without gangrene; I95.9 Hypotension, unspecified; N18.30 Chronic kidney disease, stage 3 unspecified; J12.9 Viral pneumonia, unspecified; I25.10 Atherosclerotic heart disease of native coronary artery without angina pectoris; E78.00 Pure hypercholesterolemia, unspecified; K21.9 Gastro-esophageal reflux disease without esophagitis; K58.9 Irritable bowel syndrome, unspecified; E03.9 Hypothyroidism, unspecified; E55.9 Vitamin D deficiency, unspecified; F41.9 Anxiety disorder, unspecified; I12.9 Hypertensive chronic kidney disease with stage 1 through stage 4 chronic kidney disease, or unspecified chronic kidney disease; Z20.822 Contact with and (suspected) exposure to COVID-19; R93.5 Abnormal findings on diagnostic imaging of other abdominal regions, including retroperitoneum; F32.A Depression, unspecified; M81.0 Age-related osteoporosis without current pathological fracture; E66.9 Obesity, unspecified; Z68.35 Body mass index [BMI] 35.0-35.9, adult; Z99.81 Dependence on supplemental oxygen; Z79.02 Long term (current) use of antithrombotics/antiplatelets; Z79.890 Hormone replacement therapy; Z79.899 Other long term (current) drug therapy; Z87.891 Personal history of nicotine dependence; Z95.5 Presence of coronary angioplasty implant and graft
CPT/HCPCS: 36415; 71045; 74177; 80048; 80076; 83605; 83690; 83735; 84100; 84443; 84484; 85025; 87040; 87070; 87077; 87186; 87205; 87428; 87449; 87633; 93005; 94640; 94668; 94760; 99252; 99285; J7030; J7050; Q9967; A4216; G0463

== ENCOUNTER 2023-01-12 06:54 | Day surgery (SDC) | payer MEDICARE, SELFPAY ==
--- NOTE | 2023-01-12 | EGD_PTH ---
PATIENT: NAVID JOEL LOC: EN U#:[id number] AGE/SX: 77/F ROOM: RE01/12/[address]: Dr. Tim Cullen DO : 1945 BED: DIS: 01/12/2023 SPEC #: [id number] RECD: 01/12/23 14:55 STATUS: RAGINI SWATI #: [id number] BILLY: 01/12/23 00:[address]: Tim Cullen DEPT: SURGICAL PATHOLOGY RECD BY: Fabio Hollins ENTERED: 01/13/23 08:55 SP TYPE: EGD BIOPSY OT DR: Nabor Biggs, LOZENGE MAKER HELPER-C Tissues: Pyloric antrum Procedures: Surgery Specimen Level IV HEADER OPERATION: EGD ([facility]), biopsy PRE-OP DIAGNOSIS: Abnormal CT scan TISSUE SUBMITTED: Prepyloric region biopsy MICROSCOPIC DIAGNOSIS Prepyloric region, biopsy: Chronic gastritis. See comment. AM:reynaldo 01/16/2023 COMMENT The results of immunohistochemistry for Helicobacter pylori will be reported separately ([id number]). MICROSCOPIC DESCRIPTION Slides are reviewed. GROSS DESCRIPTION Received in fixative is one container labeled with the patient's name and designated prepyloric biopsy. The specimen consists of two irregular fragments of light narvaez soft tissue that in aggregate measure 0.6 x 0.5 x 0.1 cm. The specimen is totally submitted in one cassette. / SJ:rg 01/13/2023 TC:3 CPT: 97340
[2023-01-12] MEDS: Lactated Ringers 1,000 ML 15 ML IV (07:29)
[2023-01-12 07:30] VITALS: BP 97/46; PULSE 75; RESP 18; TEMP 36.1; O2SAT 96
--- NOTE | 2023-01-12 08:28 | PCM.HP.BLA ---
History and Physical Date of Admission: 01/12/23 [facility] hospitalization 10.31.22-11.01.22 for acute exacerbation of COPD; influenza B; ELIDA. During hospitalization imaging performed noted GI abnormalities and discharged with instruction to follow up outpatient. CT abd/pel 10.31.22?moderately distended gastric lumen with suggestion of mild prepyloric distal gastric wall thickening; severe atherosclerosis with previous aortobifemoral bypass grafting; stable ventral abd wall scarring; pulmonary interstitial edema; renal cysts. *BGI established 11.04.[address] scan. She does have symptoms of bloating and typically constipated. With use of Metamucil she has 3 BM/day, feels complete evacuation but also when she walks will prompt a BM. Reports decreased PO intake throughout the day as she does not get hungry. ROS Const Constitutional: No body ache, chills, excessive sweating, fatigue, fever(s), frequent falls, headache(s), snoring, weakness, sleep problems or change in appetite Eyes Eyes: No blurry vision, change in vision or Light sensitivity ENT ENT: No abnormal hearing, ear or mastoid pain, tinnitus, nasal congestion, nasal discharge, headache(s), neck pain or sore throat Resp Respiratory: No cough, shortness of breath, snoring or wheezing Cardio Cardiology: No chest pain at rest, chest pain with exertion, excessive sweating, shortness of breath, dyspnea on exertion, lightheadedness, orthopnea or palpitations Gastro GI: No abdominal pain, change in bowel habits, constipation, cramping, diarrhea or nausea/dyspepsia Genitourinary-Female: No burning urination, painful urination, urinary incontinence or urinary frequency Musc Musculoskeletal: No abnormal gait, joint pain, back pain, limited range of motion, muscle weakness, neck pain or numbness Skin Skin: No dry skin, redness, lesions, itchy eyes, rash or wounds Neuro Neurology: No abnormal gait, abnormal hearing, weakness, frequent falls, headache(s), memory loss or numbness Psych Psychiatric: No anxiety, No change in appetite, No depression, No memory loss, No panic attacks and No Thoughts of harming yourself/Others Endo Endocrine: No cold intolerance, excessive sweating, fatigue, flushing, heat intolerance, increased thirst/drinking or increased hunger Aller/Imm Allergy/Immunologic: No itchy eyes, seasonal allergy symptoms, hives or wheezing Exam Const General: cooperative, comfortable and no acute distress Nutritional Appearance: average body habitus and well nourished Orientation: alert and oriented x3 Limitations: mental status not altered [facility] Head: normal to inspection Ears: hearing grossly normal bilaterally Eyes General: appearance normal, both eyes and all related structures Neck Neck: normal visual inspection Resp Effort & Inspection: normal respiratory effort, able to speak in complete sentences, symmetric chest movement, normal respiratory pattern, no audible wheezes and no cough Auscultation: Bilateral: Clear to Auscultation Cardio Palpation: normal PMI Rate: regular rate Heart Sounds: S1 normal, S2 normal, normal S1 and S2, no click, no gallops, no murmurs and no rubs GI Auscultation: normal bowel sounds, no hyperactive bowel sounds and no hypoactive bowel sounds Palpation: soft, no hepatosplenomegaly and nontender General: No CVA tenderness Musc Musculoskeletal: No joint tenderness Skin Other: Diffuse papular rash present to bilateral lower extremities and bilateral arms, no signs of secondary skin infection at this time Neuro General: patient alert, patient awake, patient oriented x3 and CN's II-XI intact bilaterally Speech: speech normal Gait: normal gait Motor: muscle tone normal throughout Extrem General: normal to inspection and no clubbing, cyanosis or edema Psych Appearance: grossly normal Mental Status: mental status grossly normal Mood: anxious mood and expansive Judgment: fair Quality Reporting Tobacco Screening ([facility] 138) Smoking Status: Former smoker Assessment and Plan Assessment and Plan (1) Abnormal CT scan: ?Status:?Acute ?Plan: The differential diagnosis for the thickening that is seen in the prepyloric region could be H. pylori associated infection, bile gastritis, peptic ulcer disease, medication induced ulcer.? She should undergo an upper endoscopy to evaluate upper GI tract.? She should also be on proton pump inhibitor with 40 mg of Protonix twice a day until she undergoes upper endoscopy.? Since she does have some increased pressure and pain around the sinus regions of her nose I will give her a short course of moxifloxacin 400 mg a day x 5 days. ? ? ? Medications: New moxifloxacin 400 mg PO DAILY 5 tabs 0RF 5 days ? ? I have examined the patient and the H&P has been reviewed. There are no clinical changes since date of exam.
--- NOTE | 2023-01-12 08:30 | IMM_PTH ---
PATIENT: NAVID JOEL LOC: EN U#:[id number] AGE/SX: 77/F ROOM: RE01/12/[address]: Dr. Tim Cullen DO : 1945 BED: DIS: 01/12/2023 SPEC #: [id number] RECD: 01/13/23 12:58 STATUS: RAGINI REQ #: [id number] BILLY: 01/12/23 08:[address]: Tim Cullen DEPT: IMMUNOHISTOCHEMISTRY RECD BY: Quyen Randall ENTERED: 01/13/23 12:59 SP TYPE: IMMUNO OTHR DR: Nabor Biggs, SANDER MACHINE-C Tissues: Stomach, NOS Procedures: H Pylori (initial) PHYSICIAN & INSTITUTION [place] [id number] SPECIMEN INFORMATION: Tissue Source: Prepyloric region Clinical Info: Abnormal CT scan Specimen Number: [id number] CPT code: 46829 METHODOLOGY: Deparaffinized sections of prefer/formalin-fixed tissue or PAP/DQ stained slides are incubated with monoclonal/polyclonal antibodies/oligonucleotide probes. Localization is made via biotin free immunoperoxidase method. Appropriate controls are performed and reacted as expected. Results on target cell population are indicated in the following table: RESULTS: ANTIBODY / CLONE RESULT H Pylori (polyclonal) negative These tests were developed and their performance characteristics determined by [facility]. They may not have been cleared or approved by the U.S. Food and Drug Administration. The FDA has determined that such clearance or approval is not necessary. The above immunohistochemical/dualISH markers are ordered and reviewed by the Pathologist. INTERPRETATION: Prepyloric region, biopsy: Negative for Helicobacter pylori organisms. AM:reynaldo 01/16/2023
[2023-01-12 08:41] VITALS: BP 107/57; BP 97/46; PULSE 74; RESP 16; TEMP 36.4; O2SAT 95
[2023-01-12 08:45] VITALS: BP 91/43; BP 97/46; PULSE 75; RESP 16; O2SAT 94
--- NOTE | 2023-01-12 08:45 | OP.EGD_ITS ---
Patient Name: Cris Jin Procedure Date: 01/12/2023 8:26 AM Date of : 1945 Age: 77 Procedure: Upper GI endoscopy Indications: Epigastric abdominal pain, Abnormal CT of the GI tract Providers: Tim Cullen DO Referring MD: Tim Cullen DO Medicines: Monitored Anesthesia Care Patient Profile: This is a 77 year old female. Refer to note in patient chart for documentation of history and physical. Patient has symptoms of acute epigastric abdominal pain. Complications: No immediate complications. Procedure: Pre-Anesthesia Assessment: - Prior to the procedure, a History and Physical was performed, and patient medications and allergies were reviewed. The patient is competent. The risks and benefits of the procedure and the sedation options and risks were discussed with the patient. All questions were answered and informed consent was obtained. Patient identification and proposed procedure were verified by the physician. Mental Status Examination: normal. Prophylactic Antibiotics: The patient does not require prophylactic antibiotics. Prior Anticoagulants: The patient has taken no previous anticoagulant or antiplatelet agents. After reviewing the risks and benefits, the patient was deemed in satisfactory condition to undergo the procedure. The anesthesia plan was to use monitored anesthesia care (MAC). Immediately prior to administration of medications, the patient was re-assessed for adequacy to receive sedatives. The heart rate, respiratory rate, oxygen saturations, blood pressure, adequacy of pulmonary ventilation, and response to care were monitored throughout the procedure. The physical status of the patient was re-assessed after the procedure. After obtaining informed consent, the endoscope was passed under direct vision. Throughout the procedure, the patient's blood pressure, pulse, and oxygen saturations were monitored continuously. The gastroscope was introduced through the mouth, and advanced to the second part of duodenum. The upper GI endoscopy was accomplished without difficulty. The patient tolerated the procedure well. Scope In: 8:34:26 AM Scope Out: 8:37:00 AM Total Procedure Duration Time 0 hours 2 minutes 34 seconds Findings: The lower third of the esophagus was moderately tortuous. A moderate Schatzki ring was found in the lower third of the esophagus. A guidewire was placed and the scope was withdrawn. Dilation was performed with a Savary dilator with no resistance at 45 Fr. The dilation site was examined and showed complete resolution of luminal narrowing. Patchy mildly congested mucosa was found in the prepyloric region of the stomach. Biopsies were taken with a cold forceps for histology. Verification of patient identification for the specimen was done. Estimated blood loss was minimal. The first portion of the duodenum was normal. A small hiatal hernia was present. Impression: - Tortuous esophagus. - Moderate Schatzki ring. Dilated. - Congestive gastropathy. Biopsied. - Normal first portion of the duodenum. Recommendation: - Discharge patient to home. - Resume previous diet. - Continue present medications. - Await pathology results. Procedure Code(s): --- Professional --- 15489, Esophagogastroduodenoscopy, flexible, transoral; with insertion of guide wire followed by passage of dilator(s) through esophagus over guide wire 92363, 59, Esophagogastroduodenoscopy, flexible, transoral; with biopsy, single or multiple CPT copyright 2017 [employer]. All rights reserved. The codes documented in this report are preliminary and upon electrical controls engineer review may be revised to meet current compliance requirements. Tim Cullen DO 01/12/2023 8:44:56 AM This report has been signed electronically. Number of Addenda: 0 Note Initiated On: 01/12/2023 8:26 AM
--- NOTE | 2023-01-12 08:46 | OP.CCLET_ITS ---
01/12/2023 Nabor Biggs NP [address] [place] [address] [place] [address] Re : Upper GI endoscopy procedure for Cris Jin Dear Mr. Biggs This procedure was performed on January. My impressions and recommendations are as follows: Impressions : - Tortuous esophagus. - Moderate Schatzki ring. Dilated. - Congestive gastropathy. Biopsied. - Normal first portion of the duodenum. Recommendations : - Discharge patient to home. - Resume previous diet. - Continue present medications. - Await pathology results. My findings are described in the full procedure note, which is enclosed. If I can be of further assistance, please feel free to contact me at . Sincerely, Tim Cullen, 01/12/2023 8:44:56 AM This report has been signed electronically.
[2023-01-12 08:50] VITALS: BP 84/46; BP 97/46; PULSE 63; RESP 16; O2SAT 92
[2023-01-12 08:55] VITALS: BP 91/43; BP 97/46; PULSE 70; RESP 16; TEMP 36.6; O2SAT 94
[2023-01-12 09:25] VITALS: BP 97/46
== END 2023-01-12 09:35 | disposition home or self-care (01) ==
LOC: EN 06:57 → AC 06:57
PROVIDERS: PCP Nurse Practitioner Family; Referring Provider Internal Medicine Gastroenterology; Visit Provider Internal Medicine Gastroenterology
PROC: 0DJ08ZZ Inspection of Upper Intestinal Tract, Via Natural or Artificial Opening Endoscopic (ICD-10-PCS; CPT 43235; principal; 2023-01-12 08:25)
DX: K22.2 Esophageal obstruction (principal); J44.9 Chronic obstructive pulmonary disease, unspecified; Z87.891 Personal history of nicotine dependence; K44.9 Diaphragmatic hernia without obstruction or gangrene; Q43.8 Other specified congenital malformations of intestine; K29.50 Unspecified chronic gastritis without bleeding; E03.9 Hypothyroidism, unspecified; K21.9 Gastro-esophageal reflux disease without esophagitis; I10 Essential (primary) hypertension; E78.5 Hyperlipidemia, unspecified; Z79.890 Hormone replacement therapy; Z79.899 Other long term (current) drug therapy
CPT/HCPCS: 43239; 43248; 88305; 88342; J7120; J2405

== ENCOUNTER → 2023-02-07 | Outpatient (CLI) | payer MEDICARE, SELFPAY ==
--- NOTE | 2023-02-07 13:47 | CT_ITS ---
STUDY: LOW DOSE CT LUNG CANCER SCREENING REASON FOR EXAM: Female, 77 years old. Former smoker. 66 Dear history. Quit 40 years ago. COPD RADIATION DOSAGE (If Supplied By Facility): CTDIvol = ( 2.01 ) mGy, DLP = ( 68.46 ) mGycm TECHNIQUE: No contrast was administered. Low dose technique was utilized (average mAS-38 and kVp 120). 1.25 mm axial source images with a slice interval of 1.25-mm were reconstructed in lung windows. 2.5 mm axial source images with a slice interval of 2.5-mm were reconstructed in lung windows. 5.0 mm axial source images with a slice interval of 5.0-mm were reconstructed in soft tissue windows. COMPARISON: July 16, 2021. NODULES: There is a 1.3 x 0.9 cm groundglass nodule in the right middle lobe which is adjacent to the pleural surface. This is best seen on image 159 of series 2. This is not visualized on the previous study. Total lung nodules (excluding granulomas): 1 Emphysema: Diffuse emphysematous changes. Endobronchial lesion: No Aorta: Stable atherosclerotic changes. CORONARY ARTERIES: Coronary artery calcification are present Heart: Normal Pulmonary artery: Normal Mediastinal nodes: None Other chest and abdominal findings: CT/Low Dose CT Lung Screening IMPRESSION: Lung-RADS category 2 - Continue annual screening with LDCT in 12 months. IMPORTANT NOTES FOR USE: ACR Lung-RADS Version 1.1 Assessment Categories Release Date: 2018 Category: Coded 0-4 bases on nodule(s) with highest degree of suspicion. Negative screen is defined as categories 1 and 2; a positive screen is defined as categories 3 and 4. Category 3 and 4A nodules that are unchanged on interval CT should be coded as category 2, and individuals returned to screening in 12 months. Category 4X: Category 3 or 4 nodules with additional imaging findings that increase the suspicion of lung cancer, such as spiculation, GGN that doubles in size in 1 year, enlarged lymph notes, etc. Category Modifiers: S (significant finding unrelated to lung cancer) Electronically Signed: Kurt Valencia DO at 21:24 EDT Reading Location ID and State: [facility] / [place] Tel [phone], Service support ,
== END | disposition home or self-care (01) ==
PROVIDERS: PCP Nurse Practitioner Family; Referring Provider Internal Medicine Critical Care Medicine; Visit Provider Internal Medicine Critical Care Medicine
DX: F17.211 Nicotine dependence, cigarettes, in remission (principal)
CPT/HCPCS: 71271

== ENCOUNTER 2023-02-24 15:43 | Emergency (ER) | payer MEDICARE, SELFPAY ==
[2023-02-24 15:44] VITALS: BP 97/56; PULSE 69; RESP 16; TEMP 36.6; O2SAT 98; BMI 29.7
--- NOTE | 2023-02-24 16:05 | EX.ED.DYSGE1 ---
HPI <FELIX Pope - Last Filed: 02/24/23 17:36> History of Present Illness Chief Complaint: Hypotension Narrative Narrative: 77-year-old female with PMH of HTN, CAD, COPD was at a preop cataract appointment and at the end started to feel lightheaded like she might pass out. They checked her blood pressure and it was 90s over 50s so they sent her to the ED. She states she did not drink much this morning. She had a half a cup of diet Sprite and did not eat anything because she typically only eats 1 meal in the evening. She denies chest pain, shortness of breath, nausea or vomiting, or diaphoresis. No headache or focal neurological symptoms. PFSH <FELIX Pope - Last Filed: 02/24/23 17:36> [facility] Medical History (Updated 02/24/23 @ 17:28 by FELIX Pope) Anxiety Arthritis Atherosclerotic heart disease of [place] coronary artery without angina pectoris Back pain Cancer Cardiology follow-up encounter Chest pain Chronic cough COPD (chronic obstructive pulmonary disease) Depression First degree AV block Former smoker Gastric reflux GERD (gastroesophageal reflux disease) High cholesterol History of abdominal aortic aneurysm History of basal cell carcinoma History of CAD (coronary artery disease) History of echocardiogram History of edema History of IBS History of irregular heartbeat History of seizure disorder History of stress test HLD (hyperlipidemia) Hx of gastritis Hypersomnia Hypothyroidism Left bundle branch block Leg cramps Loss of hearing Low iron Mitral valve disease Myalgia Nonrheumatic mitral (valve) insufficiency Nonrheumatic tricuspid (valve) insufficiency On home oxygen therapy PAD (peripheral artery disease) PVD (peripheral vascular disease) Restless legs Secondary pulmonary hypertension Shortness of breath on exertion Skin lesion of face Sleep apnea Syncope Thyroid disease TIA (transient ischemic attack) Wears dentures Wears glasses Home Medications albuterol sulfate 90 mcg/actuation aerosol inhaler (ProAir HFA) 2 puff inhalation Q4H PRN PRN Sob &/Or Wheezing #8.5 grams 04/08/22 [Rx Last Taken Unknown] fluticasone propionate 50 mcg/actuation nasal spray,suspension 2 spray intranasal BID COPD 08/21/22 [History Last Taken Unknown] polyethylene glycol 3350 17 gram/dose oral powder (Gavilax) 17 g PO DAILY stool softener 08/21/22 [History Last Taken Unknown] budesonide 160 mcg-glycopyr 9 mcg-formot 4.8 mcg/actuation HFA inhaler (Breztri Aerosphere) 2 inh inhalation BID COPD 10/31/22 [History Last Taken Unknown] levothyroxine 88 mcg tablet 88 mcg PO QDAY thyroid 10/31/22 [History Last Taken 10/30/22] lisinopril 5 mg tablet 5 mg PO DAILY HTN 10/31/22 [History Last Taken 10/30/22] pantoprazole 40 mg tablet,delayed release 40 mg PO DAILY GERD #30 tabs 11/07/22 [Rx Last Taken Unknown] buspirone 15 mg tablet 15 mg PO BID Check with primary doctor #60 tabs 11/22/22 [Rx Last Taken Unknown] carvedilol 6.25 mg tablet 3.25 mg (0.52 x 6.25 mg) PO BID #60 tabs 11/22/22 [Rx Last Taken Unknown] paroxetine HCl 40 mg tablet 40 mg PO BID Check with primary doctor #60 tabs 11/22/22 [Rx Last Taken Unknown] rosuvastatin 5 mg tablet 5 mg PO DAILY cholesterol #90 tabs 11/23/22 [Rx Last Taken Unknown] acetaminophen 160 mg tablet 325 mg PO Q6H PRN Headache 01/06/23 [History Last Taken Unknown] clopidogrel 75 mg tablet See Rx Instructions .Route .COMPLEX #90 TABLETS 02/15/23 [Rx Last Taken Unknown] ergocalciferol (vitamin D2) 1,250 mcg (50,000 unit) capsule See Rx Instructions .Route .COMPLEX #8 CAPSULES 02/15/23 [Rx Last Taken Unknown] quetiapine 50 mg tablet See Rx Instructions .Route .COMPLEX #225 TABLETS 02/15/23 [Rx Last Taken Unknown] Allergy/AdvReac Type Severity Reaction Status Date / Time Penicillins Allergy Rash Verified 02/24/23 15:44 Family History Mother Heart disease Cancer Uterine cancer Myocardial infarction Father CAD (coronary artery disease) Alcoholism Brother CAD (coronary artery disease) Alcoholism Cancer Cancer of stomach Surgical History History of 3 sections History of cardiac catheterization History of cholecystectomy History of colonoscopy (~2010) History of esophagogastroduodenoscopy (EGD) (~2017) S/P abdominal aortic aneurysm repair (08/10/07) Stented coronary artery (04/04/07) Social History Smoking Status: Former smoker quit date: 01/31/07 pack-years: 40 how long ago did patient quit smokin second hand exposure: No alcohol intake: never substance use type: does not use what type of physical activity do you participate in: none ROS <FELIX Pope - Last Filed: 02/24/23 17:36> ROS ED ROS Narrative Constitutional: Negative for fever, chills, malaise. Eyes: Negative for visual change. CVS: Negative for palpitations, chest pain, syncope. Respiratory: Negative for shortness of breath, cough. GI: Negative for abdominal pain, nausea, vomiting, diarrhea, melena, hematochezia. : Negative for dysuria. Neuro: Negative for headache, motor/sensory dysfunction. EXAM <FELIX Pope - Last Filed: 02/24/23 17:36> Physical Exam Narrative Exam Narrative: CONST: Patient sitting in no acute distress. EYES: Normal inspection. ENT: Normal inspection, slightly dry mucous membranes. NECK: Normal inspection. RESP: No respiratory distress, CTAB. CVS: Regular rate and rhythm, no murmur, no gallop. ABD: Soft and nontender, no guarding or rebound, nondistended. SKIN: Color normal, no rash, warm, dry, intact. EXTREMITIES: Normal appearance, no pedal edema. NEURO: Oriented x4. PSYCH: Normal affect. Const Vital Signs: 02/24/23 15:44 02/24/23 16:38 02/24/23 16:38 Temperature 97.8 F Temperature Source Temporal Pulse Rate 69 64 Respiratory Rate 16 16 Respiratory Pattern Normal Blood Pressure 97/56 L 120/65 Blood Pressure Mean 69 83 Pulse Ox 98 94 Oxygen Delivery Method Room Air Room Air <Dr. Hernando Hunt MD - Last Filed: 02/24/23 16:30> Physical Exam Const Vital Signs: 02/24/23 15:44 02/24/23 16:38 02/24/23 16:38 Temperature 97.8 F Temperature Source Temporal Pulse Rate 69 64 Respiratory Rate 16 16 Respiratory Pattern Normal Blood Pressure 97/56 L 120/65 Blood Pressure Mean 69 83 Pulse Ox 98 94 Oxygen Delivery Method Room Air Room Air [facility] <FELIX Pope - Last Filed: 02/24/23 17:36> [facility] Narrative Medical decision making narrative: Patient presents with lightheadedness. She appears well and nontoxic. BP is 97/56, otherwise normal vital signs. She has slightly dry mucous membranes with an otherwise benign exam. Neurologically intact. I ordered IV fluids and will check basic labs. EKG is normal sinus rhythm with chronic LBBB and no acute ischemic changes. CBC and BMP are unremarkable. After IV fluids her pressure has improved to 120/65 and her dizziness resolved. She is able to ambulate and I feel she is safe to be discharged home. Differential: Dehydration, ELIDA, electrolyte abnormality, arrhythmia Lab Data Labs: Laboratory Results - last 24 hr 02/24/23 16:25 WBC 5.1 RBC 4.31 Hgb 13.5 Hct 40.8 MCV 94.7 MCH 31.3 MCHC 33.1 RDW Std Deviation 44.7 H RDW Coeff of Ada 13.1 Plt Count 138 L MPV 11.5 Immature Gran % (Auto) 0.400 Neut % (Auto) 65.6 Lymph % (Auto) 22.3 [place] % (Auto) 7.4 Eos % (Auto) 3.5 Baso % (Auto) 0.8 Absolute Neuts (auto) 3.4 Absolute Lymphs (auto) 1.14 Nucleated RBC % 0 Differential Comment SCANNED Sodium 135 L Potassium 4.2 Chloride 102 Carbon Dioxide 28.0 Anion Gap 5 BUN 13 Creatinine 1.05 H Estim Creat Clear Calc 31.72 Est GFR (MDRD) Af Amer 65 Est GFR (MDRD) Non-Af 54 L BUN/Creatinine Ratio 12.4 Glucose 138 H Calcium 9.4 EKG Initial EKG: Attestation: I personally reviewed and interpreted this EKG as follows: Interpretation: Sinus Rhythm and No Acute Injury Pattern Comments: Normal sinus rhythm at 65 bpm Left axis deviation, left bundle branch block, no STEMI Similar to previous on 10/31/2022 Prior EKG tracings: available for review Prior: Unchanged <Dr. Hernando Hunt MD - Last Filed: 02/24/23 16:30> [facility] Lab Data Labs: Laboratory Results - last 24 hr 02/24/23 16:25 WBC 5.1 RBC 4.31 Hgb 13.5 Hct 40.8 MCV 94.7 MCH 31.3 MCHC 33.1 RDW Std Deviation 44.7 H RDW Coeff of Ada 13.1 Plt Count 138 L MPV 11.5 Immature Gran % (Auto) 0.400 Neut % (Auto) 65.6 Lymph % (Auto) 22.3 [place] % (Auto) 7.4 Eos % (Auto) 3.5 Baso % (Auto) 0.8 Absolute Neuts (auto) 3.4 Absolute Lymphs (auto) 1.14 Nucleated RBC % 0 Differential Comment SCANNED Sodium 135 L Potassium 4.2 Chloride 102 Carbon Dioxide 28.0 Anion Gap 5 BUN 13 Creatinine 1.05 H Estim Creat Clear Calc 31.72 Est GFR (MDRD) Af Amer 65 Est GFR (MDRD) Non-Af 54 L BUN/Creatinine Ratio 12.4 Glucose 138 H Calcium 9.4 Treatment and Re-Evaluation :: I have personally performed a face to face assessment of the patient and have reviewed the KEIRY Note. I performed a substantive portion of the visit including all aspects of the following. My pineda findings include: History: Patient was at a preoperative appointment for and felt lightheaded. Got her blood pressure low in the 90s over 55. She was referred in here. She states no chest pain or shortness of breath. She feels fine now but did feel just a little bit weak at the time. No focal weakness. She thinks she is on blood pressure medicines. The med list shows carvedilol as well as lisinopril. She denies any black or bloody stools. No fevers chills. She admits that she has not ate or drink much of anything today. She was going to eat this evening. She has had some Sprite today. She states she does not drink much fluids at all. Exam: Patient awake alert no acute distress. Mucous membranes are mildly dry. Lungs are clear. Heart is regular. Peripheral pulses are intact. Her abdomen is benign. She does not look pale. Medical Decision Making: Patient will be given IV fluids and some basic labs will be checked. We will recheck her blood pressures and her symptoms. Discharge Plan Triage Chief Complaint: Hypotension ED Midlevel Provider: Cathy Pack ED Provider: Hernando Hunt Dx/Rx/DC Orders Clinical Impression: Acute hypotension, Light-headedness Prescriptions: No Action polyethylene glycol 3350 [Gavilax] 17 gram/dose powder 17 g PO DAILY Patient Comments: use 1 (ONE) capful (17 GIVE) BY MOUTH DAILY DIRECTED fluticasone propionate 50 mcg/actuation spray,suspension 2 spray intranasal BID Rx Instructions: INHALE 2 PUFFS into each nostril once daily levothyroxine 88 mcg tablet 88 mcg PO QDAY lisinopril 5 mg tablet 5 mg PO DAILY Breztri Aerosphere 160-9-4.8 mcg/actuation HFA aerosol inhaler 2 inh inhalation BID acetaminophen 160 mg Tablet 325 mg PO Q6H PRN (Reason: Headache) albuterol sulfate [ProAir HFA] 90 mcg/actuation HFA aerosol inhaler 2 puff INHALATION Q4H PRN PRN (Reason: Sob &/Or Wheezing) Qty: 8.5 6RF pantoprazole 40 mg tablet,delayed release (DR/EC) 40 mg PO DAILY Qty: 30 3RF buspirone 15 mg tablet 15 mg PO BID Qty: 60 1RF carvedilol 6.25 mg tablet 3.25 mg PO BID Qty: 60 1RF Rx Instructions: /2TAKE 1/2 TABLET TWICE DAILY paroxetine HCl 40 mg tablet 40 mg PO BID Qty: 60 1RF rosuvastatin 5 mg tablet 5 mg PO DAILY Qty: 90 1RF quetiapine 50 mg tablet See Rx Instructions .ROUTE .COMPLEX Qty: 225 1RF Dose Instruction: Take 1 tablet by mouth every morning, and 1 & 1/2 tablets every night. Rx Instructions: Take 1 tablet by mouth every morning, and 1 & 1/2 tablets every night. clopidogrel 75 mg tablet See Rx Instructions .ROUTE .COMPLEX Qty: 90 2RF Dose Instruction: TAKE 1 TABLET BY MOUTH DAILY Rx Instructions: TAKE 1 TABLET BY MOUTH DAILY ergocalciferol (vitamin D2) 1,250 mcg (50,000 unit) capsule See Rx Instructions .ROUTE .COMPLEX Qty: 8 2RF Dose Instruction: TAKE 1 CAPSULE BY MOUTH EVERY WEEK Rx Instructions: TAKE 1 CAPSULE BY MOUTH EVERY WEEK Primary Care Provider: Nabor Biggs NP Referrals: Nabor Biggs NP, ANATOMIC PATHOLOGY MANAGER-C [Primary Care Provider] - Activity Restrictions/Additional Instructions: Increase hydration. Return if symptoms worsen. Disposition Disposition: Home, Self Care
[2023-02-24 16:38] VITALS: BP 120/65; PULSE 64; RESP 16; O2SAT 94
[2023-02-24] MEDS: 0.9% Normal Saline 1,000 ML 999 ML IV (16:41)
[2023-02-24 16:45] LABS: Absolute Lymphocyte Count 1.14 X10^3/uL (0.83-4.51); Absolute Neutrophil Count 3.4 X10^3/uL (2.0-7.7); Basophil# 0.04 X10^3/uL; Basophil% 0.8 % (0-1); Eosinophil# 0.18 X10^3/uL; Eosinophils% 3.5 % (0-5); Hematocrit 40.8 % (37-47); Hemoglobin 13.5 g/dL (12.0-15.0); Lymphocyte # 1.14 X10^3/ul (0.83-4.51); Lymphocyte % 22.3 % (19-41); Mean Corp Hgb Conc 33.1 g/dL (32-36); Mean Corpuscular Hgb 31.3 pg (27.0-32.0); Mean Corpuscular Volume 94.7 fL (81-99); Mean Platelet Vol. 11.5 fl (6.2-12.0); Monocyte# 0.38 X10^3/uL; Monocyte% 7.4 % (0-10); NRBC Flagged by Analyzer 0 % (0-5); Neutrophil # 3.35 X10^3/uL (2.7-7.7); Neutrophil % 65.6 % (47-70); POSITIVE COUNT YES; Platelet Count 138 K/mm3 (150-450); RBC Distribution Width CV 13.1 % (11.6-14.6); RBC Distribution Width SD 44.7 fl (35.1-43.9); Red Blood Count 4.31 M/mm3 (4.2-5.4); White Blood Count 5.1 K/mm3 (4.4-11.0)
[2023-02-24 16:53] LABS: Anion Gap 5 (5-15); BUN 13 mg/dL (7-18); BUN/Creat Ratio 12.4 RATIO (10-20); Calcium,Total 9.4 mg/dL (8.5-10.1); Chloride 102 mmol/L (98-107); Creatinine, Serum 1.05 mg/dL (0.55-1.02); EST Glomerular Filtration Rate 54 mL/min (>60); Est Glom Filt Rate - Afr Amer 65 mL/min (>60); Estimated Creatinine Clearance 31.72 ml/min; Glucose 138 mg/dL (74-106); Potassium 4.2 mmol/L (3.5-5.1); Sodium Level 135 mmol/L (136-145)
[2023-02-24 17:11] LABS: Differential Comment SCANNED; Differential Indicated SCAN CRITERIA MET
== END 2023-02-24 18:12 | disposition home or self-care (01) ==
PROVIDERS: Physician Assistant; Emergency Provider Emergency Medicine; PCP Nurse Practitioner Family; Visit Provider Emergency Medicine
DX: I95.9 Hypotension, unspecified (principal); J44.9 Chronic obstructive pulmonary disease, unspecified; I25.10 Atherosclerotic heart disease of native coronary artery without angina pectoris; E78.00 Pure hypercholesterolemia, unspecified; I44.7 Left bundle-branch block, unspecified; I10 Essential (primary) hypertension; Z87.891 Personal history of nicotine dependence; Z79.899 Other long term (current) drug therapy; R42 Dizziness and giddiness
CPT/HCPCS: 80048; 85025; 93005; 96360; 99283; J7030

== ENCOUNTER → 2023-08-25 | Outpatient (CLI) | payer MEDICARE, SELFPAY ==
--- NOTE | 2023-08-25 14:08 | CT_ITS ---
STUDY: CT CHEST WITHOUT CONTRAST REASON FOR EXAM: Female, 78 years old. Ground glass lung nodule RADIATION DOSAGE (If Supplied By Facility): CTDIvol = ( 11.98 ) mGy, DLP = ( 417.19 ) mGycm TECHNIQUE: Transaxial imaging was performed without the administration of intravenous contrast material. Individualized dose optimization techniques were used for this CT. COMPARISON: Comparison is made with prior study dated February 07, 2023. FINDINGS: CHEST Hyperinflation. Emphysematous changes. Since prior study, the previously seen nodular density in the peripheral aspect of the right middle lobe has become more prominent as compared to prior study. Correlation with a PET scan is recommended. There is no demonstrated pleural abnormality. There are calcifications of the coronary arteries. Calcification of the mitral valve annulus. Normal mediastinum. Normal hilar regions. Normal unenhanced pulmonary arteries. There is atherosclerotic calcification of the aortic arch with tortuosity and elongation of the aortic arch and descending thoracic aorta. There are multi-level degenerative changes of the thoracic spine. Nonobstructive bilateral intrarenal calculi. Small right renal cyst. CT/Chest without Contrast IMPRESSION: Progressive enlargement of the previously seen nodular density in the peripheral lateral aspect of the right middle lobe as described. Correlation with a PET scan is recommended. Electronically Signed: Jaime Vargas MD at 15:09 EST ,
--- OUTSIDE RECORDS SUMMARY | 2023-08-25 15:22 | XMS RPT_ITS | CCD ---
Author Name Unknown Address [address] [place] [address] Organization [facility] Clinical Note 11-10-2020 Note Date & Type Note Facility 11-10-2020 Note Patient Outreach (FA MPBD) JOELNAVID Driscoll ([id number]) 1945 F Date Time Provider Department 11/10/20 ANU BARR During your visit today, we recorded the following information about you: Anu Barr Population Health Navigator 11/10/2020 1:54 PM Signed POPULATION HEALTH NAVIGATION OUTREACH Action/FYI physical Contact made with patient or family member? NO Pt identified by name and : NO Outreach Outcome/Action Unable to reach patient: Left message Reason for Outreach HCC or suspected condition Payer: Payor: [employer] MEDICARE / Plan: HU[employer] MEDICARE PPO PCP / Product Type: PPO / Care Gap Reviewed:: Annual Wellness visit Reminder: Reminder note to check Health Maintenance for items below Health Maintenance items due: HEPATITIS C SCREENING Completed SHINGRIX VACCINE(1 of 2) Completed ADVANCE DIRECTIVE DISCUSSION Completed LDL CHOLESTEROL due on 03/15/2017 DEPRESSION SCREENING due on 05/25/2017 ANNUAL PCP TEAM CHRONIC DISEASE VISIT due on 05/29/2018 DIABETES SCREEN due on 04/03/2020 INFLUENZA(1) due on 04/14/2020 COLORECTAL CANCER SCREENING due on 10/06/2020 Advanced Directives Completed: Have you ever planned for future healthcare decisions with a power of paralegal, living will, or advance directives? Referrals: N/A Message Sent to Practice: NO Navigation Signature: Anu Barr, Population Health Navigator November 10, 2020 9:21 AM Allergies As of Date: 11/10/2020 Noted Allergy Reaction VIOXX (ROFECOXIB) 04/20/2007 5 - Intolerance CEFPROZIL 01/22/2014 2 - Rash 9 - Itching ALENDRONATE 03/07/2012 8 - GI Upset Comments: Dyspepsia- currently taking, restarted per VALVE LAPPER AMITRIPTYLINE 11/23/2004 BACTRIM DS (SULFAMETHOXAZOLE-TRIM*09/21/2005 5 - Intolerance Comments: Dizzy CAPACET (BUTALBITAL-ACETAMINOPHEN*08/03/2016 14 - Other: See Comments Comments: Suicidal ideation cephadine [Other] 11/23/2004 CEPHALEXIN 12/22/2006 8 - GI Upset CLARINEX-D 12 HOUR (DESLORATADINE*02/12/2013 12 - Shortness of Breath Comments: Shakiness, nervousness, fluttering sensation in chest. [place] hyper with anxiety. Added per pt request COMBIVENT (IPRATROPIUM-ALBUTEROL) 11/23/2004 CYMBALTA (DULOXETINE) 03/28/2005 14 - Other: See Comments Comments: Makes her very aggressive and nervous inside. Updated. DICYCLOMINE 10/24/2012 14 - Other: See Comments Comments: Changes in vision FLEXERIL (CYCLOBENZAPRINE HCL) 11/23/2004 imapramine [Other] 11/23/2004 IMITREX (SUMATRIPTAN) 08/03/2016 14 - Other: See Comments Comments: Suicidal ideation LEVAQUIN (LEVOFLOXACIN) 08/03/2015 14 - Other: See Comments Comments: LORENZO, shaking. LORATADINE-PSEUDOEPHEDRINE 02/21/2013 14 - Other: See Comments Comments: shaking MEVACOR (LOVASTATIN) 07/31/2006 8 - GI Upset Comments: midepigastric pain PENICILLIN G 11/23/2004 2 - Rash PNEUMOVAX 23 (PNEUMOCOCCAL 23-YUE*11/23/2004 TOPIRAMATE 01/08/2013 14 - Other: See Comments Comments: itchy eyelids TRAMADOL 03/15/2005 14 - Other: See Comments Comments: vertigo VERAPAMIL 11/23/2004 VYTORIN (EZETIMIBE-SIMVASTA*04/17/2007 Comments: Headache, myalgia z-pack [Other] 11/23/2004 ZANAFLEX (TIZANIDINE HCL) 11/19/2014 5 - Intolerance Comments: Slurring words, staggering, incontinence ZITHROMAX (AZITHROMYCIN) 11/23/2004 Date Reviewed: 08/18/2018 Reviewed by: Janna Donovan - Fully Assessed Reason for Visit: PHMA/Care Gap Outreach [3605] Cmt: Medicaid low Prescriptions as of 11/10/2020 Sig: LEVOTHYROXINE 88 MCG TABLET Take 88 mcg by mouth daily be* CARVEDILOL 6.25 MG TABLET Take 6.25 mg by mouth twice d* LISINOPRIL 5 MG TABLET Take 5 mg by mouth once daily. LEVOTHYROXINE 100 MCG TABLET TAKE 1 TABLET EVERY DAY Patient not taking: Reported on 08/18/2018 PRAVASTATIN 80 MG TABLET TAKE 1 TABLET DAILY AT BEDTIM* CLOPIDOGREL 75 MG TABLET TAKE 1 TABLET ONCE DAILY (BLO* CLONAZEPAM 1 MG TABLET Take 0.5 tablets by mouth thr* Patient not taking: Reported on 08/18/2018 PANTOPRAZOLE 40 MG TABLET,DEL* TAKE 1 TABLET EVERY DAY SERTRALINE 100 MG TABLET Take 1 tablet by mouth twice * Patient not taking: Reported on 08/18/2018 SPIRONOLACTONE 25 MG TABLET Take 0.5 tablets by mouth onc* ACEBUTOLOL 200 MG CAPSULE Take 1 capsule by mouth twice* NITROGLYCERIN 0.4 MG SUBLINGU* Dissolve 1 tablet under the t* POLYETHYLENE GLYCOL 3350 17 G* Take 17 g by mouth once daily* FLUTICASONE PROPIONATE 50 MCG* Use 2 Sprays in each nostril * Patient not taking: Reported on 08/18/2018 ALBUTEROL SULFATE HFA 90 MCG/* Inhale 2 Puffs as instructed * BECLOMETHASONE DIPROPIONATE 4* Inhale 1 Puff as instructed t* Patient not taking: Reported on 05/29/2017 CHOLECALCIFEROL (VITAMIN D3) * Take 1 tablet by mouth twice * Patient not taking: Reported on 08/18/2018 Problem List As Of Date 11/10/2020 Noted Resolved Hyperlipidemia [E78.2] 11/23/2004 06/20/2014 Aneurysm-Abdominal Aorta [I71.4] (more content not included)... [facility] Progress note 11-10-2020 Note Date & Type Note Facility 11-10-2020 Note HNO ID: [id number] Author: Anu Barr Service: ? Author Type: Asphalt Worker Type: Progress Notes Filed: 11/10/2020 1:54 PM Note Text: POPULATION HEALTH NAVIGATION OUTREACH Action/FYI physical Contact made with patient or family member? NO Pt identified by name and : NO Outreach Outcome/Action Unable to reach patient: Left message Reason for Outreach HCC or suspected condition Payer: Payor: HU[employer]NA MEDICARE / Plan: Sp[employer] MEDICARE PPO PCP / Product Type: PPO / Care Gap Reviewed:: Annual Wellness visit Reminder: Reminder note to check Health Maintenance for items below Health Maintenance items due: HEPATITIS C SCREENING Completed SHINGRIX VACCINE(1 of 2) Completed ADVANCE DIRECTIVE DISCUSSION Completed LDL CHOLESTEROL due on 03/15/2017 DEPRESSION SCREENING due on 05/25/2017 ANNUAL PCP TEAM CHRONIC DISEASE VISIT due on 05/29/2018 DIABETES SCREEN due on 04/03/2020 INFLUENZA(1) due on 04/14/2020 COLORECTAL CANCER SCREENING due on 10/06/2020 Advanced Directives Completed: Have you ever planned for future healthcare decisions with a power of paralegal, living will, or advance directives? Referrals: N/A Message Sent to Practice: NO Navigation Signature: Anu Barr Population Health Navigator November 10, 2020 9:21 AM [facility] Clinical Note 10-01-2020 Note Date & Type Note Facility 10-01-2020 Note Patient Outreach ([place] VAMN) NAVID JOEL ([id number]) 1945 F Date Time Provider Department 10/01/20 ARTURO TATE During your visit today, we recorded the following information about you: Allergies As of Date: 10/01/2020 Noted Allergy Reaction VIOXX (ROFECOXIB) 04/20/2007 5 - Intolerance CEFPROZIL 01/22/2014 2 - Rash 9 - Itching ALENDRONATE 03/07/2012 8 - GI Upset Comments: Dyspepsia- currently taking, restarted per VALVE LAPPER AMITRIPTYLINE 11/23/2004 BACTRIM DS (SULFAMETHOXAZOLE-TRIM*09/21/2005 5 - Intolerance Comments: Dizzy CAPACET (BUTALBITAL-ACETAMINOPHEN*08/03/2016 14 - Other: See Comments Comments: Suicidal ideation cephadine [Other] 11/23/2004 CEPHALEXIN 12/22/2006 8 - GI Upset CLARINEX-D 12 HOUR (DESLORATADINE*02/12/2013 12 - Shortness of Breath Comments: Shakiness, nervousness, fluttering sensation in chest. [place] hyper with anxiety. Added per pt request COMBIVENT (IPRATROPIUM-ALBUTEROL) 11/23/2004 CYMBALTA (DULOXETINE) 03/28/2005 14 - Other: See Comments Comments: Makes her very aggressive and nervous inside. Updated. DICYCLOMINE 10/24/2012 14 - Other: See Comments Comments: Changes in vision FLEXERIL (CYCLOBENZAPRINE HCL) 11/23/2004 imapramine [Other] 11/23/2004 IMITREX (SUMATRIPTAN) 08/03/2016 14 - Other: See Comments Comments: Suicidal ideation LEVAQUIN (LEVOFLOXACIN) 08/03/2015 14 - Other: See Comments Comments: LORENZO, shaking. LORATADINE-PSEUDOEPHEDRINE 02/21/2013 14 - Other: See Comments Comments: shaking MEVACOR (LOVASTATIN) 07/31/2006 8 - GI Upset Comments: midepigastric pain PENICILLIN G 11/23/2004 2 - Rash PNEUMOVAX 23 (PNEUMOCOCCAL 23-YUE*11/23/2004 TOPIRAMATE 01/08/2013 14 - Other: See Comments Comments: itchy eyelids TRAMADOL 03/15/2005 14 - Other: See Comments Comments: vertigo VERAPAMIL 11/23/2004 VYTORIN (EZETIMIBE-SIMVASTA*04/17/2007 Comments: Headache, myalgia z-pack [Other] 11/23/2004 ZANAFLEX (TIZANIDINE HCL) 11/19/2014 5 - Intolerance Comments: Slurring words, staggering, incontinence ZITHROMAX (AZITHROMYCIN) 11/23/2004 Date Reviewed: 08/18/2018 Reviewed by: Janna Donovan - Fully Assessed Order(s):SARS-COVID VACCINE 1ST DOSE APPT [[id number]] Order #: [id number] FUTURE Prescriptions as of 10/01/2020 Sig: LEVOTHYROXINE 88 MCG TABLET Take 88 mcg by mouth daily be* CARVEDILOL 6.25 MG TABLET Take 6.25 mg by mouth twice d* LISINOPRIL 5 MG TABLET Take 5 mg by mouth once daily. LEVOTHYROXINE 100 MCG TABLET TAKE 1 TABLET EVERY DAY Patient not taking: Reported on 08/18/2018 PRAVASTATIN 80 MG TABLET TAKE 1 TABLET DAILY AT BEDTIM* CLOPIDOGREL 75 MG TABLET TAKE 1 TABLET ONCE DAILY (BLO* CLONAZEPAM 1 MG TABLET Take 0.5 tablets by mouth thr* Patient not taking: Reported on 08/18/2018 PANTOPRAZOLE 40 MG TABLET,DEL* TAKE 1 TABLET EVERY DAY SERTRALINE 100 MG TABLET Take 1 tablet by mouth twice * Patient not taking: Reported on 08/18/2018 SPIRONOLACTONE 25 MG TABLET Take 0.5 tablets by mouth onc* ACEBUTOLOL 200 MG CAPSULE Take 1 capsule by mouth twice* NITROGLYCERIN 0.4 MG SUBLINGU* Dissolve 1 tablet under the t* POLYETHYLENE GLYCOL 3350 17 G* Take 17 g by mouth once daily* FLUTICASONE PROPIONATE 50 MCG* Use 2 Sprays in each nostril * Patient not taking: Reported on 08/18/2018 ALBUTEROL SULFATE HFA 90 MCG/* Inhale 2 Puffs as instructed * BECLOMETHASONE DIPROPIONATE 4* Inhale 1 Puff as instructed t* Patient not taking: Reported on 05/29/2017 CHOLECALCIFEROL (VITAMIN D3) * Take 1 tablet by mouth twice * Patient not taking: Reported on 08/18/2018 Problem List As Of Date 10/01/2020 Noted Resolved Hyperlipidemia [E78.2] 11/23/2004 06/20/2014 Aneurysm-Abdominal Aorta [I71.4] 11/23/2004 08/18/2020 COPD [J44.1] 11/23/2004 08/18/2020 Emphysema [J43.8] 11/23/2004 GENERAL OSTEOARTHROSIS [M15.9] 11/23/2004 Other bursitis disorders [M71.50] 11/23/2004 08/18/2020 Other chronic sinusitis [J32.8] 11/23/2004 06/20/2014 Osteoporosis, unspecified [M81.0] 06/20/2014 TOBACCO USE DISORDER [F17.200] COMMON MIGRAINE W/O MENTN INTRACT [G43.009] 03/08/2006 Peripheral vascular disease, unspecified (HCC) *04/10/2006 08/18/2020 URGE INCONTINENCE [N39.41] 08/21/2006 Unspecified cardiovascular disease [I25.10] 03/14/2007 08/18/2020 Other specified disorder of bladder [596.8] 06/26/2007 08/18/2020 MYALGIA AND MYOSITIS NOS [VDK9192] 11/22/2007 Hypothyroidism [E03.9] 07/08/2008 10/06/2015 Lumbago [M54.5] 11/06/2008 08/18/2020 Cervicalgia [M54.2] 11/06/2008 08/18/2020 GERD (Gastroesophageal Reflux Disease) [K21.9] 07/01/2009 Anxiety [F41.9] 08/04/2010 08/18/2020 ASHD (arteriosclerotic heart disease) [I25.10] 08/04/2010 Hyperlipidemia [E78.5] 08/04/2010 Special screening for malignant neoplasms, colo*10/06/2010 08/18/2020 Hemorrhage of gastrointestinal tract, unspecifi*10/06/2010 08/18/2020 Internal hemorrhoids without mention of complic*10/06/2010 Acut (more content not included)... [facility] Summary Purpose Family History No Family History Records Found Advance Directives No Advanced Directives Records Found Additional Source Comments INFORMATION SOURCE (unrecogn ized section and content) FOR RECORDS PERTAINING TO PATIENTS WHO ARE OR HAVE BEEN ENROLLED IN A CHEMICAL DEPENDENCY/SUBSTANCEABUSE PROGRAM, SOME INFORMATION MAY BE OMITTED. This clinical summary was aggregated from multiple sources. Caution should be exercised in using it in the provision of clinical care. This summary normalizes information from multiple sources, and as a consequence, information in this document may materially change the coding, format and clinical context of patient data. In addition, data may be omitted in some cases. CLINICAL DECISIONS SHOULD BE BASED ON THE PRIMARY CLINICAL RECORDS. [employer] [facility]. provides no warranty or guarantee of the accuracy or completeness of information in this document.
== END | disposition home or self-care (01) ==
LOC: CT 14:06
PROVIDERS: PCP Nurse Practitioner Family; Referring Provider Internal Medicine Critical Care Medicine; Visit Provider Internal Medicine Critical Care Medicine
DX: R91.1 Solitary pulmonary nodule (principal)
CPT/HCPCS: 71250

== ENCOUNTER → 2023-09-19 | Outpatient (CLI) | payer MEDICARE, SELFPAY ==
--- NOTE | 2023-09-19 11:30 | PET_ITS ---
EXAMINATION: FDG PET/CT ? INDICATIONS: 78-year-old female with a history of pulmonary nodularity. ? COMPARISON EXAMINATION: CT of the chest dated 08/25/2023. ? TECHNIQUE: Following the intravenous administration of 13.15 mCi of F-18 deoxyglucose via the right hand, multiplanar image acquisitions of the head, neck, chest, abdomen and pelvis to the level of the midthigh, obtained at one-hour post radiopharmaceutical administration contemporaneously interpreted with the current CT of the chest, abdomen and pelvis dated 09/19/[address] of the chest study report dated 08/25/2023 via coregistration reveal:?? ? SERUM GLUCOSE LEVEL:? 137 mg/dL? HEIGHT:?? 60 inches WEIGHT:?? 152 pounds ? FINDINGS: ? HEAD/NECK:? There is no evidence of abnormal increased glucose metabolism in the pharyngeal mucosal space, parapharyngeal space, oropharynx, bilateral-lateral and anterior neck, hypopharynx and distribution of the larynx. Prominent tracer concentration is defined in the anterior aspect of the oral cavity without definitive anatomic correlate. Facilitated uptake is noted in the anterior neck, laryngeal structures, associated with the true-false vocal chord bilaterally without evidence of soft tissue thickening. ? The visualized portion of the cerebral cortical-subcortical structures demonstrate symmetric and preserved glucose metabolism. ? CHEST:? There is no quantitative scintigraphic evidence of abnormal increased glucose metabolism within the context of the bilateral hemithorax pulmonary parenchyma, right and left hemithorax at the pleural interface, mediastinal structures, and left-right thoracic perihilum. Facilitated FDG concentration is noted in the descending thoracic aorta, commensurate with activated leukocytes associated with atherosclerotic plaque formation. There is visualized radiopharmaceutical concentration noted in the left ventricular myocardium, consistent with the [place]. Prominent tracer uptake is noted in the proximal-mid esophagus, most consistent with physiologic tracer distribution. If epigastric discomfort is present, correlation with direct visualization is recommended. ? CT of the chest demonstrates the following anatomic characteristics: Calcification is apparent in the region of the mitral valve. Emphysematous changes are defined in the bilateral upper-mid lung zones. Right and left axillary soft tissue densities are ametabolic. There are no parenchymal densities-nodules defined in the right and left hemithorax with quantitatively significant increased FDG uptake. Atherosclerotic calcification is defined in the thoracic aorta without evidence of dilatation, aneurysm formation. Coronary arterial calcification is observed. ? ABDOMEN/PELVIS:? Normal physiologic distribution of the radiopharmaceutical is identified in the hepatic and splenic parenchyma, both renal units, urinary bladder, and visualized intestinal tract. Diffuse intestinal tract is identified in all four quadrants of the abdomen and pelvis. ? CT of the abdomen and pelvis is remarkable for the following: Post-procedural changes are defined in the lower midline abdominal retroperitoneum posteriorly. Calcification is manifest in the bilateral lower hemipelvis associated with the uterus. Calcification is manifest in both kidneys. Cyst formation is demonstrated in the right renal unit. Post-procedural change is apparent in the left inguinal region. Bilateral inguinal soft tissue densities are ametabolic. ? SKELETAL:? Degenerative changes defined in the thoracic and lumbar spine demonstrate no evidence of increased glucose metabolism. There are no sclerotic, mixed sclerotic-lytic, or primarily lytic changes defined in the axial skeletal structures with evidence of increased FDG uptake. ? PET/PET/CT Tumor Base -Thigh Init IMPRESSION: 1. NEGATIVE EXAMINATION. There is no definitive quantitatively significant scintigraphic evidence of viable neoplasm. 2. Meticulous attention paid to the right hemithorax pulmonary parenchyma, right middle lobe, reveals no evidence of quantitatively significant increased radiopharmaceutical concentration to correlate with findings on CT of the chest dated 08/25/2023. 3. Anatomic stability may be ensured with repeat CT of the bilateral hemithorax in 6-9 months if clinically indicated to ensure stability, involution. (Dania, Seminars in Thoracic and Cardiovascular surgery, 14:292, 2002). Electronic Signature Kelton Casarez D.O. Accurate Quantification of SUVs for this report are calculated using the exclusive [employer]. (U.S. Patent No. [id number] [id number] [phone] B2 [phone] [place] patent [id number] [id number] [id number]). Standardization and correction of the FDG SUV metric via [employer] technology allow for vendor non-specific objective quantitative examination comparison and optimization of the sensitivity and specificity of the FDG PET-CT examination. . [email or web address] Electronically Signed: Kelton Casarez DO at 6:54 EST ,
== END | disposition home or self-care (01) ==
LOC: ONC 10:55
PROVIDERS: PCP Nurse Practitioner Family; Referring Provider Nurse Practitioner Acute Care; Visit Provider Nurse Practitioner Acute Care
DX: R91.8 Other nonspecific abnormal finding of lung field (principal); R91.1 Solitary pulmonary nodule
CPT/HCPCS: 78815; A9552

== ENCOUNTER → 2024-01-15 | Outpatient (CLI) | payer MEDICARE, SELFPAY ==
--- NOTE | 2024-01-15 18:05 | CT_ITS ---
INDICATION: lung mass EXAMINATION: CT CHEST WITHOUT CONTRAST - CT Chest W/O Contrast Injection TECHNIQUE: Helically acquired images were obtained of the chest. The protocol utilizes one or more of the following dose reduction techniques: automated exposure control, adjustment of mA and/or kV according to patient size,and/or use of iterative reconstruction technique. IV Contrast dosage and agent: None. RADIATION DOSAGE (If Supplied By Facility): CTDIvol = ( 7.23 ) mGy, DLP = ( 271.24 ) mGycm COMPARISON: August 25, 2023 FINDINGS: LUNGS, PLEURA AND LARGE AIRWAYS: Hyperaeration. The previously noted peripheral nodular density of the right middle lobe is no longer identified. Stable probable right apical scarring noted . There is a new nodular 3 mm right middle lobe density since the previous study, image 75 series 4. No pleural effusion or thickening. No pneumothorax. THYROID: No thyroid lesions. HEART AND PERICARDIUM: Heart size is normal. No pericardial effusion. CORONARY ARTERIES: Coronary artery calcifications are present VESSELS: Thoracic aorta is not dilated. MEDIASTINUM AND CLAYTON: No mediastinal or hilar adenopathy. Esophagus is unremarkable. No hiatal hernia. UPPER ABDOMEN: Bilateral renal calculi/vascular calcifications. Right renal cyst. BONES: No suspicious lytic or blastic abnormality. CT/Chest without Contrast IMPRESSION: Hyperaeration. The previously noted peripheral nodular density of the right middle lobe is no longer identified. Stable probable right apical scarring noted . There is a new nodular 3 mm right middle lobe density since the previous study, image 75 series 4. Follow-up in 3-4 months if needed. Electronically Signed: Charles Scott DO at 18:53 EDT ,
== END | disposition home or self-care (01) ==
PROVIDERS: PCP Nurse Practitioner Family; Visit Provider Nurse Practitioner Acute Care
DX: R91.1 Solitary pulmonary nodule (principal)
CPT/HCPCS: 71250

== ENCOUNTER 2024-03-06 19:20 | Emergency (ER) | payer MEDICARE, SELFPAY ==
[2024-03-06 19:21] VITALS: BP 137/100; PULSE 103; RESP 17; TEMP 36.4; O2SAT 94; BMI 27.8
--- NOTE | 2024-03-06 19:57 | CT_ITS ---
INDICATION: umbilical pain ? hernia with discharge COMPARISON: Chest CT 01/15/2024. IV Contrast dosage and agent: 94 cc [id number] IV. A radiation dose optimization technique was used for this scan. RADIATION DOSAGE (If Supplied By Facility): CTDIvol/DLP = ( 18.10 ) / ( 596.15 ) mGy/mGycm FINDINGS: Contrast enhanced serial CT axial images through the abdomen and pelvis with coronal and sagittal reformatted series. PANCREAS: No peripancreatic fat stranding. BOWEL/MESENTERY: No dilated bowel loops. No significant free fluid. No free air. GALLBLADDER: No pericholecystic fat stranding. LIVER/STOMACH: Small hiatal hernia. URINARY COLLECTING SYSTEM/ KIDNEYS: No obstructing ureteral calculus. Hypoattenuating right renal lesions, the largest of which measures simple fluid attenuation likely renal cyst. APPENDIX: Appendix is not definitely identified, however, there are no significant right lower quadrant inflammatory fat changes or focal fluid collection to suggest acute appendicitis. ABDOMINAL WALL: Mild skin thickening of the inferior aspect of the umbilicus without focal organized fluid collection. Associated cicatricial soft tissue thickening extending caudally along the midline fascial plane without significant inflammatory change appreciated. AORTA/GREAT VESSELS: Dense atherosclerotic vascular calcifications with aortoiliac bypass. LUNG BASES: Unremarkable. BONES: Unremarkable for age. CT/Abdomen/Pelvis W IV Cont ONLY IMPRESSION: Mild skin thickening of the inferior aspect of the umbilicus without focal organized fluid collection, likely cellulitis. Associated cicatricial soft tissue thickening extending caudally along the midline fascial plane without significant inflammatory change appreciated. Electronically Signed: Tay Saravia MD at 22:16 EDT ,
--- NOTE | 2024-03-06 19:58 | EDS_ITS ---
HPI HPI - GI History of Present Illness Chief Complaint: Abd Pain Detail of Chief Complaint: Periumbilical abdominal discomfort for 2 days. Mild discharge. Informant: patient Abdominal Pain/Flank Pain Onset: Days Context: Gradual Onset Timing: Continuous Quality: Dull Location: - (Umbilical pain) Current Severity: Mild Maximum Severity: Mild Worsened by: Nothing Relieved by: Nothing Nausea/Vomiting/Emesis GI Symptom: Negative for Nausea or Vomiting Diarrhea/Melena/Hematochezia GI Symptom: Positive for - (Constipation); Negative for Diarrhea, Melena or Hematochezia Onset: Today Associated Symptoms Associated Symptoms: Negative for Dysuria, Frequency, Hematuria or Urgency Narrative Narrative: 79-year-old female significant past medical history including PAD, TIA, CAD, COPD on 2 and half liters of oxygen at home. She has had 3 prior C-sections and cholecystectomy. Complaining of umbilical abdominal pain with some mild discharge. Said the pain is currently chronic but is been worse the last 2 days. She is also noticed some mild discharge. No pus. No fever. No vomiting. She has history of constipation last bowel movement was yesterday. No dysuria or fever. Prior similar symptoms: Yes Recent Illness/Hospitalization: No PFSH PFSH Medical History Preoperative evaluation to rule out surgical contraindication Sleep apnea On home oxygen therapy Leg cramps History of edema History of echocardiogram Hypersomnia History of CAD (coronary artery disease) PAD (peripheral artery disease) Loss of hearing Wears glasses Wears dentures Cancer Depression Anxiety Thyroid disease Low iron High cholesterol Restless legs Back pain TIA (transient ischemic attack) Syncope History of IBS Hx of gastritis Gastric reflux Former smoker Shortness of breath on exertion Chronic cough History of irregular heartbeat History of stress test Cardiology follow-up encounter Chest pain Skin lesion of face Secondary pulmonary hypertension Nonrheumatic tricuspid (valve) insufficiency Nonrheumatic mitral (valve) insufficiency Atherosclerotic heart disease of [place] coronary artery without angina pectoris Left bundle branch block First degree AV block History of abdominal aortic aneurysm Mitral valve disease Myalgia Hypothyroidism GERD (gastroesophageal reflux disease) History of basal cell carcinoma COPD (chronic obstructive pulmonary disease) Arthritis History of seizure disorder PVD (peripheral vascular disease) HLD (hyperlipidemia) Home Medications ?Medication ?Instructions ?Recorded ?Last Taken ?Type albuterol sulfate 90 mcg/actuation 2 puff inhalation Q4H PRN PRN Sob 04/08/22 Unknown Rx aerosol inhaler (ProAir HFA) &/Or Wheezing #8.5 grams fluticasone propionate 50 2 spray intranasal BID COPD 08/21/22 Unknown History mcg/actuation nasal spray,suspension budesonide 160 mcg-glycopyr 9 2 inh inhalation BID COPD 10/31/22 Unknown History mcg-formot 4.8 mcg/actuation HFA inhaler (Breztri Aerosphere) levothyroxine 88 mcg tablet 88 mcg PO QDAY thyroid 10/31/22 10/30/22 History pantoprazole 40 mg tablet,delayed 40 mg PO DAILY GERD #30 tabs 11/07/22 Unknown Rx release buspirone 15 mg tablet 15 mg PO BID Check with primary 11/22/22 Unknown Rx doctor #60 tabs paroxetine HCl 40 mg tablet 40 mg PO BID Check with primary 11/22/22 Unknown Rx doctor #60 tabs clopidogrel 75 mg tablet See Rx Instructions .Route 02/15/23 Unknown Rx .COMPLEX #90 TABLETS ergocalciferol (vitamin D2) 1,250 See Rx Instructions .Route 02/15/23 Unknown Rx mcg (50,000 unit) capsule .COMPLEX #8 CAPSULES quetiapine 50 mg tablet See Rx Instructions .Route 02/15/23 Unknown Rx .COMPLEX #225 TABLETS rosuvastatin 5 mg tablet See Rx Instructions .Route 09/25/23 Unknown Rx .COMPLEX #60 tabs lisinopril 5 mg tablet 5 mg PO DAILY for blood pressure 01/02/24 Unknown Rx #90 TABLETS alendronate 70 mg tablet 70 mg PO QWEEK 03/06/24 Unknown History aripiprazole 2 mg tablet (Abilify) 2 mg PO DAILY 03/06/24 Unknown History carvedilol 3.125 mg tablet 3.125 mg PO BID 03/06/24 Unknown History cephalexin 500 mg capsule 500 mg PO Q6 #21 CAPSULES 03/06/24 Unknown Rx nitroglycerin 0.4 mg sublingual 0.4 mg sublingual Q5M chest pain 03/06/24 Unknown History tablet polyethylene glycol 3350 17 17 g PO DAILY PRN constipation 03/06/24 Unknown History gram/dose oral powder (ClearLax) sucralfate 1 gram tablet 1 g PO BID 03/06/24 Unknown History Allergy/AdvReac Type Severity Reaction Status Date / Time Penicillins Allergy Rash Verified 03/06/24 19:23 Family History Mother Heart disease Cancer Uterine cancer Myocardial infarction Father CAD (coronary artery disease) Alcoholism Brother CAD (coronary artery disease) Alcoholism Cancer Cancer of stomach Surgical History History of cardiac catheterization History of colonoscopy (~2010) History of esophagogastroduodenoscopy (EGD) (~2016) S/P abdominal aortic aneurysm repair (08/10/07) Stented coronary artery (04/04/07) History of cholecystectomy History of 3 sections Social History Smoking Status: Former smoker quit date: 01/31/07 pack-years: 40 how long ago did patient quit smokin second hand exposure: No alcohol intake: never substance use type: does not use what type of physical activity do you participate in: none ROS ROS ED ROS Narrative Paramedical abdominal pain. Constipation. Discharge. Constitutional Constitutional ED: Denies chills or fever(s) ENT ENT ED: Denies ear pain Cardiovascular Cardiovascular: Denies chest pain Respiratory/Chest Respiratory/Chest: Denies cough or dyspnea Gastrointestinal Gastrointestinal: Reports abdominal pain and constipation; Denies diarrhea, melena, nausea or vomiting Genitourinary Genitourinary ED: Denies dysuria or hematuria Musculoskeletal Musculoskeletal: Denies arthralgias Integumentary Denies abscess Neurologic Neurologic: Denies headache(s) Psychiatric Psychiatric: Denies anxiety Endocrine Endocrinology: Denies polydipsia Hematologic/Lymphatic Hematologic/Lymphatic: Denies easy bleeding Allergic/Immunologic Allergic/Immunologic ED: Denies mouth swelling, tongue swelling or urticaria EXAM Physical Exam Narrative Exam Narrative: 79-year-old female no acute distress. Vital signs stable afebrile. H EENT exam unremarkable. Neck nontender. Lungs clear. Heart regular rhythm rate about 100 no murmur. Abdomen soft nondistended normal bowel sounds no peritoneal signs. Possibly a periumbilical hernia. There is a small sore in the area with some mild serosanguineous discharge. No pus. No obvious abscess. Well-healed vertical midline incision from prior C-sections. Abdomen is nondistended. There is tenderness just around the umbilicus. No mass. No peritoneal signs. Moving all 4 extremities. Nontender no edema. Neurologically she is awake and alert. Answering questions following commands. No focal motor deficits. Const Vital Signs: 03/06/24 19:21 03/06/24 21:20 Temperature 97.6 F L Temperature Source Temporal Pulse Rate 103 H 72 Respiratory Rate 17 18 Blood Pressure 137/100 H 147/76 H Blood Pressure Mean 112 99 Pulse Ox 94 98 Oxygen Delivery Method Room Air Room Air Positive well nourished and well developed; Negative for cachectic, contractures or unkempt General Appearance ED: well developed and NAD; Negative for unkempt, cachectic, contractures or pallor Nutritional Appearance: Negative for cachectic HEENT Reports moist mucous membranes normocephalic and atraumatic; Negative for trauma or tenderness Eyes PERRL and EOMs intact bilaterally Neck no lymphadenopathy, supple and no JVD General: Negative for tenderness Carotids: Negative for other Lymph Lymphatic: Negative for other Resp normal respiratory effort and clear to auscultation bilaterally Cardio regular rate, regular rhythm, S1 normal heart sound, S2 normal heart sound and no murmurs GI non-distended and no masses; Negative for non-tender GI Narrative: Periumbilical tenderness. Possible umbilical hernia. Well-healed prior midline vertical surgical incision. Small sore near the umbilicus with serosanguineous discharge no pus. No obvious abscess. No peritoneal signs. Auscultation: normoactive bowel sounds Palpation: soft, tender and hernia; Negative for guarding or rebound tenderness present Back/Spine no CVA tenderness Extremity full ROM General Extremety ED: Negative for edema or tenderness General Extremity: Negative for edema Neuro CN's II-XII intact bilaterally and moves all extremities Motor Exam: strength 5/5 throughout Psych mental status grossly normal and thought process normal Appearance: Negative for unkempt Attitude: No agitated Mood & Affect: Negative for depressed, anxious or tearful Skin no wounds General Skin Exam: Negative for jaundice or pallor Lesions: no lesions Rashes: no rashes MDM MDM MDM Narrative Medical decision making narrative: 79-year-old female periumbilical abdominal pain may or may not have a umbilical hernia. The discharge does not look to be infected likely has a small sore by her umbilicus. CAT scan labs to be obtained. Patient doing well on repeat exam. Abdomen is benign. We went over her lab test. Awaiting her CAT scan results. Son is present in room. Reevaluation of the umbilical area there is a small sore there may be early cellulitis which be consistent with the CAT scan results. She will be started on Keflex. Patient be discharged home. Patient has not urinated and does not have any urinary symptoms and wants to be discharged home. History & Record Review Discussion w/independent historian: Patient Additional record(s) reviewed:: Prior inpatient record, Prior outpatient record, Prior ED visit and Prior labs Lab Data Attestation: I reviewed the patient's lab results. Lab results narrative: CBC shows a white count of 4. H&H 13 and 40. Platelets are slightly low at 135. Electrolytes show a gap of 4. Normal BUN and creatinine. Liver enzymes unremarkable. Lipase normal at 41. Labs: Laboratory Results - last 24 hr 03/06/24 20:10 WBC 4.4 RBC 4.37 Hgb 13.0 Hct 40.0 MCV 91.5 MCH 29.7 MCHC 32.5 RDW Std Deviation 44.9 H RDW Coeff of [place] 13.5 Plt Count 135 L MPV 11.0 Immature Gran % (Auto) 0.200 Neut % (Auto) 48.9 Lymph % (Auto) 33.8 [place] % (Auto) 9.9 Eos % (Auto) 6.3 H Baso % (Auto) 0.9 Absolute Neuts (auto) 2.2 Absolute Lymphs (auto) 1.50 Nucleated RBC % 0 Sodium 141 Potassium 3.9 Chloride 106 Carbon Dioxide 31.0 Anion Gap 4 L BUN 10 Creatinine 0.80 Estim Creat Clear Calc 46.27 Est GFR (MDRD) Af Amer 89 Est GFR (MDRD) Non-Af 74 BUN/Creatinine Ratio 12.5 Glucose 94 Calcium 9.2 Total Bilirubin 0.50 AST 26 ALT 20 Alkaline Phosphatase 77 Total Protein 6.8 Albumin 3.2 Globulin 3.6 Albumin/Globulin Ratio 0.9 Lipase 41 Radiography Diagnostic Testing: Clinical Impression(s) from Imaging Studies Abdomen/Pelvis CT 03/06/24 19:57 IMPRESSION: Mild skin thickening of the inferior aspect of the umbilicus without focal organized fluid collection, likely cellulitis. Associated cicatricial soft tissue thickening extending caudally along the midline fascial plane without significant inflammatory change appreciated. Electronically Signed: Tay Saravia MD at 22:16 EDT , Discharge Plan Triage Chief Complaint: Abd Pain ED Provider: Farhan Villarreal Dx/Rx/DC Orders Clinical Impression: Hernia, umbilical, Cellulitis of umbilicus Instructions: ED Cellulitis Prescriptions: New cephalexin 500 mg capsule 500 mg PO Q6 Qty: 21 0RF No Action fluticasone propionate 50 mcg/actuation spray,suspension 2 spray intranasal BID Rx Instructions: INHALE 2 PUFFS into each nostril once daily levothyroxine 88 mcg tablet 88 mcg PO QDAY Breztri Aerosphere 160-9-4.8 mcg/actuation HFA aerosol inhaler 2 inh inhalation BID nitroglycerin 0.4 mg tablet, sublingual 0.4 mg sublingual Q5M Rx Instructions: do not exceed 3 doses per episode aripiprazole [Abilify] 2 mg tablet 2 mg PO DAILY alendronate 70 mg tablet 70 mg PO QWEEK polyethylene glycol 3350 [ClearLax] 17 gram/dose powder 17 g PO DAILY PRN (Reason: constipation) sucralfate 1 gram tablet 1 g PO BID carvedilol 3.125 mg tablet 3.125 mg PO BID albuterol sulfate [ProAir HFA] 90 mcg/actuation HFA aerosol inhaler 2 puff INHALATION Q4H PRN PRN (Reason: Sob &/Or Wheezing) Qty: 8.5 6RF pantoprazole 40 mg tablet,delayed release (DR/EC) 40 mg PO DAILY Qty: 30 3RF buspirone 15 mg tablet 15 mg PO BID Qty: 60 1RF paroxetine HCl 40 mg tablet 40 mg PO BID Qty: 60 1RF quetiapine 50 mg tablet See Rx Instructions .ROUTE .COMPLEX Qty: 225 1RF Dose Instruction: Take 1 tablet by mouth every morning, and 1 & 1/2 tablets every night. Rx Instructions: Take 1 tablet by mouth every morning, and 1 & 1/2 tablets every night. clopidogrel 75 mg tablet See Rx Instructions .ROUTE .COMPLEX Qty: 90 2RF Dose Instruction: TAKE 1 TABLET BY MOUTH DAILY Rx Instructions: TAKE 1 TABLET BY MOUTH DAILY ergocalciferol (vitamin D2) 1,250 mcg (50,000 unit) capsule See Rx Instructions .ROUTE .COMPLEX Qty: 8 2RF Dose Instruction: TAKE 1 CAPSULE BY MOUTH EVERY WEEK Rx Instructions: TAKE 1 CAPSULE BY MOUTH EVERY WEEK rosuvastatin 5 mg tablet See Rx Instructions .ROUTE .COMPLEX Qty: 60 0RF Dose Instruction: TAKE 1 TABLET BY MOUTH DAILY FOR CHOLESTEROL Rx Instructions: TAKE 1 TABLET BY MOUTH DAILY FOR CHOLESTEROL lisinopril 5 mg tablet 5 mg PO DAILY Qty: 90 3RF Primary Care Provider: Nabor Biggs Referrals: Nabor Biggs, [facility] [Primary Care Provider] - 1 Week if not improving Activity Restrictions/Additional Instructions: Keflex 1 pill 4 times a day for a week. You probably have an early soft tissue infection by the sore by your bellybutton. Tylenol for pain. Follow-up with your doctor if not improving. You can follow-up with the surgeon in the future if you have desire to get the umbilical hernia fixed. Print Language: Nepali Disposition Disposition: Home, Self Care
[2024-03-06 20:41] LABS: Absolute Neutrophil Count 2.2 X10^3/uL (2.0-7.7); Basophil# 0.04 X10^3/uL; Basophil% 0.9 % (0-1); Eosinophil# 0.28 X10^3/uL; Eosinophils% 6.3 % (0-5); Lymphocyte % 33.8 % (19-41); Mean Corp Hgb Conc 32.5 g/dL (32-36); Mean Corpuscular Hgb 29.7 pg (27.0-32.0); Mean Corpuscular Volume 91.5 fL (81-99); Monocyte# 0.44 X10^3/uL; Monocyte% 9.9 % (0-10); NRBC Flagged by Analyzer 0 % (0-5); Neutrophil # 2.17 X10^3/uL (2.7-7.7); Neutrophil % 48.9 % (47-70); Platelet Count 135 K/mm3 (150-450); RBC Distribution Width CV 13.5 % (11.6-14.6); RBC Distribution Width SD 44.9 fl (35.1-43.9); Red Blood Count 4.37 M/mm3 (4.2-5.4); White Blood Count 4.4 K/mm3 (4.4-11.0)
[2024-03-06 20:47] LABS: ALB/GLOB Ratio 0.9 RATIO (0.9-2.4); AST(SGOT) 26 U/L (15-37); Alanine Aminotransfer ALT/SGPT 20 U/L (13-56); Albumin, Serum 3.2 g/dL (3.2-5.0); Alkaline Phosphatase 77 U/L (45-117); Anion Gap 4 (5-15); BUN 10 mg/dL (7-18); BUN/Creat Ratio 12.5 RATIO (10-20); Calcium,Total 9.2 mg/dL (8.5-10.1); Chloride 106 mmol/L (98-107); EST Glomerular Filtration Rate 74 mL/min (>60); Est Glom Filt Rate - Afr Amer 89 mL/min (>60); Estimated Creatinine Clearance 46.27 ml/min; Globulin 3.6 g/dL (2.2-4.2); Glucose 94 mg/dL (74-106); Lipase 41 U/L (13-75); Potassium 3.9 mmol/L (3.5-5.1); Protein, Total 6.8 g/dL (6.4-8.2); Sodium Level 141 mmol/L (136-145)
[2024-03-06 21:20] VITALS: BP 147/76; PULSE 72; RESP 18; O2SAT 98
[2024-03-06] MEDS: Cephalexin 250 MG Capsule 500 MG PO (22:26)
[2024-03-06 22:28] VITALS: BP 117/62; PULSE 70; RESP 19; TEMP 36.6; O2SAT 91
== END 2024-03-06 22:38 | disposition home or self-care (01) ==
PROVIDERS: Emergency Provider Emergency Medicine; PCP Nurse Practitioner Family; Visit Provider Emergency Medicine
DX: L03.316 Cellulitis of umbilicus (principal); J44.9 Chronic obstructive pulmonary disease, unspecified; K42.9 Umbilical hernia without obstruction or gangrene; I25.10 Atherosclerotic heart disease of native coronary artery without angina pectoris; Z87.891 Personal history of nicotine dependence; E78.00 Pure hypercholesterolemia, unspecified; Z99.81 Dependence on supplemental oxygen; Z79.899 Other long term (current) drug therapy
CPT/HCPCS: 74177; 80053; 83690; 85025; 99284; Q9967; A4216

== ENCOUNTER 2024-03-27 09:59 | Emergency (ER) | payer MEDICARE, SELFPAY ==
[2024-03-27] VITALS (7 sets, daily range): BP systolic 91–140; BP diastolic 64–101; PULSE 67–85; RESP 18–22; TEMP 36.4–36.7; O2SAT 94–97; BMI 26.6
--- NOTE | 2024-03-27 10:05 | ED.VIS.DYS ---
HPI History of Present Illness Chief Complaint: Shortness of Breath [facility] Medical History Preoperative evaluation to rule out surgical contraindication Sleep apnea On home oxygen therapy Leg cramps History of edema History of echocardiogram Hypersomnia History of CAD (coronary artery disease) PAD (peripheral artery disease) Loss of hearing Wears glasses Wears dentures Cancer Depression Anxiety Thyroid disease Low iron High cholesterol Restless legs Back pain TIA (transient ischemic attack) Syncope History of IBS Hx of gastritis Gastric reflux Former smoker Shortness of breath on exertion Chronic cough History of irregular heartbeat History of stress test Cardiology follow-up encounter Chest pain Skin lesion of face Secondary pulmonary hypertension Nonrheumatic tricuspid (valve) insufficiency Nonrheumatic mitral (valve) insufficiency Atherosclerotic heart disease of elim ira coronary artery without angina pectoris Left bundle branch block First degree AV block History of abdominal aortic aneurysm Mitral valve disease Myalgia Hypothyroidism GERD (gastroesophageal reflux disease) History of basal cell carcinoma COPD (chronic obstructive pulmonary disease) Arthritis History of seizure disorder PVD (peripheral vascular disease) HLD (hyperlipidemia) Home Medications ?Medication ?Instructions ?Recorded ?Last Taken ?Type albuterol sulfate 90 mcg/actuation 2 puff inhalation Q4H PRN PRN Sob 04/08/22 Unknown Rx aerosol inhaler (ProAir HFA) &/Or Wheezing #8.5 grams fluticasone propionate 50 2 spray intranasal BID COPD 08/21/22 Unknown History mcg/actuation nasal spray,suspension budesonide 160 mcg-glycopyr 9 2 inh inhalation BID COPD 10/31/22 Unknown History mcg-formot 4.8 mcg/actuation HFA inhaler (Breztri Aerosphere) levothyroxine 88 mcg tablet 88 mcg PO QDAY thyroid 10/31/22 10/30/22 History pantoprazole 40 mg tablet,delayed 40 mg PO DAILY GERD #30 tabs 11/07/22 Unknown Rx release buspirone 15 mg tablet 15 mg PO BID Check with primary 11/22/22 Unknown Rx doctor #60 tabs paroxetine HCl 40 mg tablet 40 mg PO BID Check with primary 11/22/22 Unknown Rx doctor #60 tabs clopidogrel 75 mg tablet See Rx Instructions .Route 02/15/23 Unknown Rx .COMPLEX #90 TABLETS ergocalciferol (vitamin D2) 1,250 See Rx Instructions .Route 02/15/23 Unknown Rx mcg (50,000 unit) capsule .COMPLEX #8 CAPSULES quetiapine 50 mg tablet See Rx Instructions .Route 02/15/23 Unknown Rx .COMPLEX #225 TABLETS rosuvastatin 5 mg tablet See Rx Instructions .Route 09/25/23 Unknown Rx .COMPLEX #60 tabs lisinopril 5 mg tablet 5 mg PO DAILY for blood pressure 01/02/24 Unknown Rx #90 TABLETS alendronate 70 mg tablet 70 mg PO QWEEK 03/06/24 Unknown History aripiprazole 2 mg tablet (Abilify) 2 mg PO DAILY 03/06/24 Unknown History carvedilol 3.125 mg tablet 3.125 mg PO BID 03/06/24 Unknown History cephalexin 500 mg capsule 500 mg PO Q6 #21 CAPSULES 03/06/24 Unknown Rx nitroglycerin 0.4 mg sublingual 0.4 mg sublingual Q5M chest pain 03/06/24 Unknown History tablet polyethylene glycol 3350 17 17 g PO DAILY PRN constipation 03/06/24 Unknown History gram/dose oral powder (ClearLax) sucralfate 1 gram tablet 1 g PO BID 03/06/24 Unknown History Allergy/AdvReac Type Severity Reaction Status Date / Time Penicillins Allergy Rash Verified 03/27/24 10:02 Family History Mother Heart disease Cancer Uterine cancer Myocardial infarction Father CAD (coronary artery disease) Alcoholism Brother CAD (coronary artery disease) Alcoholism Cancer Cancer of stomach Surgical History History of cardiac catheterization History of colonoscopy (~2010) History of esophagogastroduodenoscopy (EGD) (~2016) S/P abdominal aortic aneurysm repair (08/10/07) Stented coronary artery (04/04/07) History of cholecystectomy History of 3 sections Social History Smoking Status: Former smoker quit date: 01/31/07 pack-years: 40 how long ago did patient quit smokin second hand exposure: No alcohol intake: never substance use type: does not use what type of physical activity do you participate in: none EXAM Physical Exam Const Vital Signs: 03/27/24 10:00 03/27/24 10:02 03/27/24 10:02 Temperature 97.6 F L 97.6 F L Temperature Source Oral Temporal Pulse Rate 67 67 Respiratory Rate 22 H 22 H Respiratory Effort Short of Breath Labored Respiratory Depth Normal Respiratory Pattern Tachypnea Blood Pressure 140/101 H 140/101 H Blood Pressure Mean 114 114 Pulse Ox 96 96 Oxygen Delivery Method Room Air Room Air Room Air 03/27/24 10:48 03/27/24 11:02 03/27/24 12:00 Temperature 97.5 F L Temperature Source Temporal Pulse Rate 74 71 74 Respiratory Rate 18 22 H 19 H Respiratory Effort Respiratory Depth Respiratory Pattern Normal Blood Pressure 101/64 121/83 H Blood Pressure Mean 76 95 Pulse Ox 94 97 Oxygen Delivery Method Room Air Room Air 03/27/24 13:11 Temperature 98.0 F Temperature Source Temporal Pulse Rate 75 Respiratory Rate 18 Respiratory Effort Respiratory Depth Respiratory Pattern Blood Pressure 124/83 H Blood Pressure Mean 96 Pulse Ox 94 Oxygen Delivery Method Room Air [facility] MDM MDM Narrative Medical decision making narrative: HISTORY OF PRESENT ILLNESS: 79 years old female presents with concern for shortness of breath. Sent in by PCP for admission. Per patient's son patient's been having cough, chills, feeling fatigued. These are similar symptoms to when she had pneumonia approximately month ago. Per the patient's son patient is typically noncompliant with medications and had 7 days of antibiotics approximately 1 month ago for which she not finish entire course and will take antibiotics intermittently over approximate 13 days. He is concerned that she will not take antibiotics if given for home-going. Patient notes no leg swelling. Denies any bleeding diathesis. The patient denies recent surgery in the last 4 weeks or immobilization in the last 3 days, denies previous diagnosis of DVT or PE, hemoptysis, unilateral leg swelling or malignancy with treatment the last 6 months or palliative. No estrogen use noted. REVIEW OF SYSTEMS: Pertinent positives: Shortness of breath, cough, fatigue, chest pain Pertinent negatives: Leg swelling, focal weakness PHYSICAL EXAM: Nursing triage notes reviewed, Vital signs reviewed Constitutional: please see mdm HENT: MMM Eyes: Pupils equal round and reactive to light, Extraocular muscles intact Neck: No stridor, no JVD, full neck ROM Lungs: Coarse breath sounds, prolonged expiratory phase no increased work of breathing, no conversational dyspnea, no accessory muscle use, no nasal flaring. No respiratory distress noted Heart: Regular rate and rhythm, No murmurs, No rubs and No gallops, 2+ distal pulses (radial, femoral, posterior tibial) in all extremities Abdomen: Soft, there is no tenderness, rigidity, rebound or guarding, no obvious peritoneal signs, no palpable pulsatile abdominal masses, no auscultated abdominal bruit : No CVAT Extremities: No edema Neuro: No focal neurological deficits, cranial nerves II through XII intact, 5/5 strength in all extremities. Intact sensation to light touch in all extremities, 2+ reflexes bilateral patella tendons. Normal gait. No ataxia. Skin: No rash or lesions noted MEDICAL DECISION MAKING: Chief Complaint: Shortness of breath External records reviewed: Imaging reviewed: CT scan of the chest reviewed from 2023 shows concerning lesion, nodular density in right middle lobe. PET scan from September 2023 shows no definitive neoplasm. Further imaging reviewed: Reviewed echocardiogram from August 2022 showed ejection fraction of 60% with no regional wall motion abnormalities Factors affecting care: CAD on aspirin Plavix, TRACEE, hyperlipidemia, hypothyroidism, GERD, hypertension, TIA, COPD Social determinants of health: Tobacco use History obtained from others: Patient's son Consults: none MDM Narrative: Patient was initially tachypneic respiratory 22 otherwise afebrile nontoxic-appearing, saturating 96% on room air. Exam without obvious full consolidation. No wheezing. No increased work of breathing respiratory distress noted. I considered the following differential diagnosis: Pneumonia, CHF, PE, anemia, arrhythmia, electrolyte disturbance ALL IMAGES (IF OBTAINED) HAVE BEEN PERSONALLY REVIEWED AND INTERPRETED BY MYSELF. EKG with normal sinus rhythm, left ax deviation, left bundle branch block, no obvious STEMI, similar morphology when compared to EKG from February 2023 CT of the chest shows no evidence of PE or pneumonia COVID flu RSV test is positive for COVID BNP within normal admit suggestive of no significant volume overload or transmural wall pressure High-sensitivity troponin is negative, no evidence of myocardial ischemia CBC without leukocytosis, no anemia or thrombocytopenia BMP without evidence of significant electrolyte abnormalities, no anion gap, no acute kidney injury. The synthesis of the patient's history, physical exam, labs images suggest likely COVID-19 induced cough and shortness of breath. No sign of PE, ACS, arrhythmia, anemia, heart failure, COPD exacerbation. Patient is been having symptoms for 7 days and as such is not a candidate for Paxlovid. She is not hypoxic. She does have home oxygen. There is no indication for admission at this time. Patient is appropriate for discharge home. On reevaluation the patient's respiratory rate improved to 18. Discussed blood pressure management at home. Discussed discontinuing carvedilol given son's report of low blood pressures and lieu of monotherapy with lisinopril. Patient was further instructed to keep a blood pressure diary. Patient was further instructed to follow with her primary care physician in approximately 1 week for reevaluation of home antihypertensive therapy. The patient and/or family, caregivers express understanding. The patient and/or family, caregivers agrees with the plan. Shared decision making: I will have a discussion with the patient and or visitors regarding risk/benefits of further testing or admission. They will be made aware of of the risk/benefits inherent in this decision they will be given the opportunity to voice understanding. Total critical care time today provided was at least 0 minutes. This excludes separately billable procedures. Critical care time (if documented) is secondary to the patient having high probability of clinically significant/life threatening deterioration in the patient's condition which required my urgent intervention. Impression: 1. Chest pain 2. Dyspnea 3. COVID 19 Dispo: Discharge home This note was generated with Ninite dictation software. It may contain incorrect words, spelling, and punctuation that were not noted in review of the chart prior to signing. Lab Data Labs: Laboratory Results - last 24 hr 03/27/24 03/27/24 10:55 13:05 WBC 5.0 RBC 4.76 Hgb 13.9 Hct 43.0 MCV 90.3 MCH 29.2 MCHC 32.3 RDW Std Deviation 43.8 RDW Coeff of Ada 13.2 Plt Count 88 L MPV 12.3 H Differential Comment COMMENT Sodium 138 Potassium 3.7 Chloride 103 Carbon Dioxide 28.0 Anion Gap 7 BUN 16 Creatinine 0.98 Estim Creat Clear Calc 37.03 Est GFR (MDRD) Af Amer 70 Est GFR (MDRD) Non-Af 58 L BUN/Creatinine Ratio 16.4 Glucose 109 H Lactic Acid 3.2 H* Calcium 8.6 Troponin I High Sens 34 34 B-Natriuretic Peptide 92.0 Radiography Diagnostic Testing: Clinical Impression(s) from Imaging Studies Chest CTA 03/27/24 10:39 IMPRESSION: No demonstrated PE, or thoracic aortic aneurysm or dissection. Underlying emphysema with chronic interstitial changes, no superimposed acute infiltrate or effusion. Emphysema is an independent risk factor for lung CA. Patient should be considered for LDCT lung cancer screening No suspicious adenopathy Degenerative bony changes Electronically Signed: Jamel Calle MD at 12:39 EDT Reading Location ID and State: [facility] / [place] , Service support , Discharge Plan Triage Chief Complaint: Shortness of Breath ED Provider: Mp Jordan Dx/Rx/DC Orders Clinical Impression: COVID-19 Instructions: Coronavirus Disease 2019 (COVID-19): Overview Prescriptions: No Action fluticasone propionate 50 mcg/actuation spray,suspension 2 spray intranasal BID Rx Instructions: INHALE 2 PUFFS into each nostril once daily levothyroxine 88 mcg tablet 88 mcg PO QDAY Breztri Aerosphere 160-9-4.8 mcg/actuation HFA aerosol inhaler 2 inh inhalation BID nitroglycerin 0.4 mg tablet, sublingual 0.4 mg sublingual Q5M Rx Instructions: do not exceed 3 doses per episode aripiprazole [Abilify] 2 mg tablet 2 mg PO DAILY alendronate 70 mg tablet 70 mg PO QWEEK polyethylene glycol 3350 [ClearLax] 17 gram/dose powder 17 g PO DAILY PRN (Reason: constipation) sucralfate 1 gram tablet 1 g PO BID carvedilol 3.125 mg tablet 3.125 mg PO BID cephalexin 500 mg capsule 500 mg PO Q6 Qty: 21 0RF albuterol sulfate [ProAir HFA] 90 mcg/actuation HFA aerosol inhaler 2 puff INHALATION Q4H PRN PRN (Reason: Sob &/Or Wheezing) Qty: 8.5 6RF pantoprazole 40 mg tablet,delayed release (DR/EC) 40 mg PO DAILY Qty: 30 3RF buspirone 15 mg tablet 15 mg PO BID Qty: 60 1RF paroxetine HCl 40 mg tablet 40 mg PO BID Qty: 60 1RF quetiapine 50 mg tablet See Rx Instructions .ROUTE .COMPLEX Qty: 225 1RF Dose Instruction: Take 1 tablet by mouth every morning, and 1 & 1/2 tablets every night. Rx Instructions: Take 1 tablet by mouth every morning, and 1 & 1/2 tablets every night. clopidogrel 75 mg tablet See Rx Instructions .ROUTE .COMPLEX Qty: 90 2RF Dose Instruction: TAKE 1 TABLET BY MOUTH DAILY Rx Instructions: TAKE 1 TABLET BY MOUTH DAILY ergocalciferol (vitamin D2) 1,250 mcg (50,000 unit) capsule See Rx Instructions .ROUTE .COMPLEX Qty: 8 2RF Dose Instruction: TAKE 1 CAPSULE BY MOUTH EVERY WEEK Rx Instructions: TAKE 1 CAPSULE BY MOUTH EVERY WEEK rosuvastatin 5 mg tablet See Rx Instructions .ROUTE .COMPLEX Qty: 60 0RF Dose Instruction: TAKE 1 TABLET BY MOUTH DAILY FOR CHOLESTEROL Rx Instructions: TAKE 1 TABLET BY MOUTH DAILY FOR CHOLESTEROL lisinopril 5 mg tablet 5 mg PO DAILY Qty: 90 3RF Primary Care Provider: Nabor Biggs Referrals: Nabor Biggs, DESIGN VERIFICATION ENGINEER-C [Primary Care Provider] - Activity Restrictions/Additional Instructions: Thank you for trusting us with your care today! You may diagnose COVID-19. Please take Tylenol (2 pills, 650 mg), ibuprofen (2 pills, 400 mg) every 6 hours as needed for pain and fever control. Please return to the emergency department if your symptoms change or worsen. Please follow with your primary care physician for further outpatient evaluation and management. Print Language: Uzbek Disposition Disposition: Home, Self Care
--- NOTE | 2024-03-27 10:12 | ED.RN ---
When volunteer Schuyler was taking patient to the room, she was upset he didn't offer her a wheelchair. Schuyler offered to take her arm to help her ambulate when she snapped at him telling him not to touch her. family upset that she was not put in a wheelchair also due to not having home oxygen. patient was not wearing oxygen, SpO2 96% on RA. Patient informed she will have to be evaluated by ER Doc to see if she qualifies for admission. patient understanding. family states she will be admitted
--- NOTE | 2024-03-27 10:39 | CT_ITS ---
STUDY: CTA CHEST REASON FOR EXAM: Female, 79 years old. Atypical chest pain RADIATION DOSAGE (If Supplied By Facility): CTDIvol = ( 8.49 ) mGy, DLP = ( 228.67 ) mGycm TECHNIQUE: The examination was performed with the intravenous administration of IV 75mL [id number]-[id number]. Post-processing of the angiographic images was performed, with multiplanar reformation and 3D reconstruction. Individualized dose optimization techniques were used for this CT. COMPARISON: None. FINDINGS: Normal enhancement of the main pulmonary artery and right and left pulmonary arteries. Normal enhancement of the bilateral peripheral pulmonary arteries. There is no demonstrated pulmonary embolism. There is atherosclerotic calcification of the aortic arch with tortuosity. There is no demonstrated aortic dissection. Normal heart and pericardium. There are calcifications of the coronary arteries. Normal mediastinum. Normal hilar regions. There is peribronchial thickening. The lungs are well expanded. Chronic interstitial changes in both lung pires with underlying emphysema. No organized infiltrate or effusion. No suspicious noncalcified mass or nodule. Normal pleura. Normal chest wall structures. There are degenerative changes of thoracic spine. Limited cuts through the upper abdomen do not show a suspicious abnormality. CT/CTA Chest W/WO Contrast IMPRESSION: No demonstrated PE, or thoracic aortic aneurysm or dissection. Underlying emphysema with chronic interstitial changes, no superimposed acute infiltrate or effusion. Emphysema is an independent risk factor for lung CA. Patient should be considered for LDCT lung cancer screening No suspicious adenopathy Degenerative bony changes Electronically Signed: Jamel Calle MD at 12:39 EDT ,
[2024-03-27] MEDS: Ipratropium/Albuterol Sulfate 3 ML AMPUL.NEB INHALATION (10:48)
[2024-03-27] MEDS: 0.9% Normal Saline (500mL Bag) 500 ML 1000 ML IV (10:59)
[2024-03-27 11:12] LABS: Hemoglobin 13.9 g/dL (12.0-15.0); Mean Corp Hgb Conc 32.3 g/dL (32-36); Mean Corpuscular Hgb 29.2 pg (27.0-32.0); Mean Corpuscular Volume 90.3 fL (81-99); Mean Platelet Vol. 12.3 fl (6.2-12.0); POSITIVE COUNT YES; Platelet Count 88 K/mm3 (150-450); RBC Distribution Width CV 13.2 % (11.6-14.6); RBC Distribution Width SD 43.8 fl (35.1-43.9); Red Blood Count 4.76 M/mm3 (4.2-5.4)
[2024-03-27 11:14] LABS: Scan Indicated on CBC? Y/N YES- FLAGS NOTED
[2024-03-27 11:29] LABS: Anion Gap 7 (5-15); BUN 16 mg/dL (7-18); BUN/Creat Ratio 16.4 RATIO (10-20); Calcium,Total 8.6 mg/dL (8.5-10.1); Chloride 103 mmol/L (98-107); Creatinine, Serum 0.98 mg/dL (0.55-1.02); EST Glomerular Filtration Rate 58 mL/min (>60); Est Glom Filt Rate - Afr Amer 70 mL/min (>60); Estimated Creatinine Clearance 37.03 ml/min; Glucose 109 mg/dL (74-106); Potassium 3.7 mmol/L (3.5-5.1); Sodium Level 138 mmol/L (136-145); Troponin-I HS (w/2H Reflex) 34 pg/mL (3.0-54.0)
[2024-03-27 11:41] LABS: Lactic Acid 3.2 mmol/L (0.4-1.9)
[2024-03-27 13:04] LABS: Reflex Troponin-HS? (from REC) Y
[2024-03-27 13:34] LABS: Troponin-I HS 34 pg/mL (3.0-54.0)
[2024-03-27 15:03] LABS: Reflex Lactate? Y
== END 2024-03-27 14:08 | disposition home or self-care (01) ==
PROVIDERS: Emergency Provider Emergency Medicine; PCP Nurse Practitioner Family; Visit Provider Emergency Medicine
DX: U07.1 COVID-19 (principal); J44.9 Chronic obstructive pulmonary disease, unspecified; I25.10 Atherosclerotic heart disease of native coronary artery without angina pectoris; G47.30 Sleep apnea, unspecified; Z86.73 Personal history of transient ischemic attack (TIA), and cerebral infarction without residual deficits; Z95.5 Presence of coronary angioplasty implant and graft; Z87.891 Personal history of nicotine dependence
CPT/HCPCS: 71275; 80048; 83605; 83880; 84484; 85027; 87631; 93005; 94640; 99284; J7040; Q9967; A4216

== ENCOUNTER 2024-05-05 17:26 | Emergency (ER) | payer MEDICARE, SELFPAY ==
[2024-05-05] VITALS (8 sets, daily range): BP systolic 100–138; BP diastolic 61–102; PULSE 82–117; RESP 17–30; TEMP 36–37.3; O2SAT 95–99; BMI 22.2; BMI 27.6
--- NOTE | 2024-05-05 18:43 | EDS_ITS ---
HPI History of Present Illness Chief Complaint: Wound Detail of Chief Complaint: Need to get my lungs checked out and I have a wound in my bellybutton Informant: patient Onset/Context/Timing Onset: Days (With regards to the cough that is productive and shortness of breath and greater than a week with regard to umbilical wound) Context: Gradual Onset Timing: Continuous Quality: Productive cough and shortness of breath and concern for umbilical hernia Current Severity: Mild Maximum Severity: Moderate Worsened by: Increased trouble breathing without oxygen and exertion Relieved by: Oxygen and aerosol treatments Associated Symptoms Associated Symptoms: Productive clear sputum Narrative Narrative: Patient is a 79-year-old woman with history of COPD. She is oxygen dependent. She denies fever, chills night sweats. She denies rhinorrhea, congestion postnasal drainage. Denies sore throat. She has a cough that is productive of clear sputum. She has slight increased production compared to normal. She arrived without oxygen. She was a little agitated when she arrived. Nurses felt that her speech was pressured. She denies chest discomfort of any type. She denies pain with breathing. She denies history of PE or DVT. Denies leg pain, swelling discoloration. She denies abdominal pain. She denies nausea, vomiting or diarrhea. She denies constipation. She is concerned she has an umbilical hernia. She denies dysuria, frequency, urgency or hematuria. Prior similar symptoms: Yes Recent Illness/Hospitalization: No PFSH PFSH Medical History Preoperative evaluation to rule out surgical contraindication Sleep apnea On home oxygen therapy Leg cramps History of edema History of echocardiogram Hypersomnia History of CAD (coronary artery disease) PAD (peripheral artery disease) Loss of hearing Wears glasses Wears dentures Cancer Depression Anxiety Thyroid disease Low iron High cholesterol Restless legs Back pain TIA (transient ischemic attack) Syncope History of IBS Hx of gastritis Gastric reflux Former smoker Shortness of breath on exertion Chronic cough History of irregular heartbeat History of stress test Cardiology follow-up encounter Chest pain Skin lesion of face Secondary pulmonary hypertension Nonrheumatic tricuspid (valve) insufficiency Nonrheumatic mitral (valve) insufficiency Atherosclerotic heart disease of [place] coronary artery without angina pectoris Left bundle branch block First degree AV block History of abdominal aortic aneurysm Mitral valve disease Myalgia Hypothyroidism GERD (gastroesophageal reflux disease) History of basal cell carcinoma COPD (chronic obstructive pulmonary disease) Arthritis History of seizure disorder PVD (peripheral vascular disease) HLD (hyperlipidemia) Home Medications ?Medication ?Instructions ?Recorded ?Last Taken ?Type albuterol sulfate 90 mcg/actuation 2 puff inhalation Q4H PRN PRN Sob 04/08/22 Unknown Rx aerosol inhaler (ProAir HFA) &/Or Wheezing #8.5 grams fluticasone propionate 50 2 spray intranasal BID COPD 08/21/22 Unknown History mcg/actuation nasal spray,suspension budesonide 160 mcg-glycopyr 9 2 inh inhalation BID COPD 10/31/22 Unknown History mcg-formot 4.8 mcg/actuation HFA inhaler (Breztri Aerosphere) levothyroxine 88 mcg tablet 88 mcg PO QDAY thyroid 10/31/22 10/30/22 History pantoprazole 40 mg tablet,delayed 40 mg PO DAILY GERD #30 tabs 11/07/22 Unknown Rx release buspirone 15 mg tablet 15 mg PO BID Check with primary 11/22/22 Unknown Rx doctor #60 tabs paroxetine HCl 40 mg tablet 40 mg PO BID Check with primary 11/22/22 Unknown Rx doctor #60 tabs clopidogrel 75 mg tablet See Rx Instructions .Route 02/15/23 Unknown Rx .COMPLEX #90 TABLETS ergocalciferol (vitamin D2) 1,250 See Rx Instructions .Route 02/15/23 Unknown Rx mcg (50,000 unit) capsule .COMPLEX #8 CAPSULES quetiapine 50 mg tablet See Rx Instructions .Route 02/15/23 Unknown Rx .COMPLEX #225 TABLETS rosuvastatin 5 mg tablet See Rx Instructions .Route 09/25/23 Unknown Rx .COMPLEX #60 tabs lisinopril 5 mg tablet 5 mg PO DAILY for blood pressure 01/02/24 Unknown Rx #90 TABLETS alendronate 70 mg tablet 70 mg PO QWEEK 03/06/24 Unknown History aripiprazole 2 mg tablet (Abilify) 2 mg PO DAILY 03/06/24 Unknown History carvedilol 3.125 mg tablet 3.125 mg PO BID 03/06/24 Unknown History cephalexin 500 mg capsule 500 mg PO Q6 #21 CAPSULES 03/06/24 Unknown Rx nitroglycerin 0.4 mg sublingual 0.4 mg sublingual Q5M chest pain 03/06/24 Unknown History tablet polyethylene glycol 3350 17 17 g PO DAILY PRN constipation 03/06/24 Unknown History gram/dose oral powder (ClearLax) sucralfate 1 gram tablet 1 g PO BID 03/06/24 Unknown History prednisone 20 mg tablet 60 mg (3 x 20 mg) PO DAILY #15 05/05/24 Unknown Rx TABLETS Allergy/AdvReac Type Severity Reaction Status Date / Time Penicillins Allergy Rash Verified 03/27/24 10:02 Family History Mother Heart disease Cancer Uterine cancer Myocardial infarction Father CAD (coronary artery disease) Alcoholism Brother CAD (coronary artery disease) Alcoholism Cancer Cancer of stomach Surgical History History of cardiac catheterization History of colonoscopy (~2010) History of esophagogastroduodenoscopy (EGD) (~2016) S/P abdominal aortic aneurysm repair (08/10/07) Stented coronary artery (04/04/07) History of cholecystectomy History of 3 sections Social History Smoking Status: Former smoker quit date: 01/31/07 pack-years: 40 how long ago did patient quit smokin second hand exposure: No alcohol intake: never substance use type: does not use what type of physical activity do you participate in: none ROS ROS ED Constitutional Constitutional ED: Denies chills, fever(s), subjective, sweats or weight loss Eyes Eyes: Denies blurry vision or change in vision ENT ENT ED: Denies ear pain, rhinorrhea or sore throat Cardiovascular Cardiovascular: Denies chest pain, orthopnea, palpitations, paroxysmal nocturnal dyspnea or racing heartbeat Respiratory/Chest Respiratory/Chest: Reports cough, dyspnea, dyspnea on exertion and sputum; Denies orthopnea or paroxysmal nocturnal dyspnea Gastrointestinal Gastrointestinal: Denies abdominal pain, constipation, diarrhea, melena, nausea or vomiting Genitourinary Genitourinary ED: Denies dysuria, hematuria or urinary frequency Musculoskeletal Musculoskeletal: Denies arthralgias, back pain, myalgias or neck pain Integumentary Denies rash Neurologic Neurologic: Denies headache(s) or weakness Psychiatric Psychiatric: Denies anxiety Hematologic/Lymphatic Hematologic/Lymphatic: Reports systems reviewed and no addt'l complaints, except as documented EXAM Physical Exam Const Vital Signs: 05/05/24 17:28 05/05/24 17:32 05/05/24 18:30 Temperature 96.8 F L 99.1 F Temperature Source Temporal Oral Pulse Rate 117 H 82 Respiratory Rate 30 H 24 H Respiratory Effort Labored Respiratory Depth Shallow Respiratory Pattern Tachypnea Blood Pressure 138/100 H 121/100 H Blood Pressure Mean 112 107 Pulse Ox 98 96 Oxygen Delivery Method Room Air Nasal Cannula Nasal Cannula Oxygen Flow Rate (L/min) 2 2 05/05/24 18:32 05/05/24 19:00 05/05/24 20:00 Temperature 99.1 F 99.1 F 99.1 F Temperature Source Oral Oral Oral Pulse Rate 82 83 84 Respiratory Rate 24 H 22 H 22 H Respiratory Effort Respiratory Depth Respiratory Pattern Blood Pressure 115/74 127/97 H 100/61 Blood Pressure Mean 87 107 74 Pulse Ox 96 96 99 Oxygen Delivery Method Nasal Cannula Nasal Cannula Nasal Cannula Oxygen Flow Rate (L/min) 2 2 2 05/05/24 21:00 Temperature 99.0 F Temperature Source Oral Pulse Rate 88 Respiratory Rate 20 H Respiratory Effort Respiratory Depth Respiratory Pattern Blood Pressure 114/92 H Blood Pressure Mean 99 Pulse Ox 95 Oxygen Delivery Method Nasal Cannula Oxygen Flow Rate (L/min) 2 Positive well nourished and well developed Constitutional Narrative: Vitals are marked for patient being tachypneic. She was not hypoxic on room air. She was tachycardic. She is no longer tachycardic. General Appearance ED: well developed and NAD HEENT Reports moist mucous membranes HEENT Narrative: Head is atraumatic normocephalic. Ears normal. Nares patent. Posterior pharynx is normal. Uvula midline. No deviation or protrusion. Eyes PERRL and EOMs intact bilaterally General Eye ED: Negative for pale conjunctiva or scleral icterus Neck no lymphadenopathy, supple and no JVD Neck Narrative: Trachea is midline. There is no stridor. There is no dysphonia. Chest Wall inspection of chest normal and palpation of chest normal Resp normal respiratory effort and clear to auscultation bilaterally Resp Narrative: There is increased x-ray phase and decreased air movement. Cardio regular rate, regular rhythm, S1 normal heart sound, S2 normal heart sound and no murmurs GI normal to inspection, nondistended, normoactive bowel sounds, non-tender, non- distended and no masses; Negative for hepatosplenomegaly GI Narrative: Patient has a yeast infection in her umbilicus. There is a small blister noted. There is no induration, lymphangitis and there is no tenderness. There is no mass appreciated. Back/Spine no CVA tenderness Extremity normal to inspection Extremity Narrative: There is no asymmetry, swelling, discoloration, leg vein distention, palpable cords or tenderness along the distribution of the deep venous system. Neuro oriented x3 and CN's II-XII intact bilaterally Sensorium / Orientation: alert Psych Psych Narrative: Patient is slightly hyperactive. Skin Skin Narrative: Radha infection of the umbilicus MDM MDM MDM Narrative Medical decision making narrative: Dyspnea may be due to the fact that she arrived without her oxygen. COPD exacerbation versus pneumonia. Clinically patient's history and physical is not consistent with PE or DVT. Lab Data Attestation: I reviewed the patient's lab results. Lab results narrative: White count is normal. Electrolyte panel was elevated creatinine of 1.13 with an estimated GFR 49. Glucose is elevated 131 with a normal CO2 anion gap. Labs: Laboratory Results - last 24 hr 05/05/24 18:06 WBC 7.5 RBC 4.61 Hgb 13.9 Hct 42.6 MCV 92.4 MCH 30.2 MCHC 32.6 RDW Std Deviation 47.8 H RDW Coeff of Ada 14.3 Plt Count 207 MPV 10.9 Immature Gran % (Auto) 0.400 Neut % (Auto) 68.5 Lymph % (Auto) 21.1 [place] % (Auto) 7.7 Eos % (Auto) 1.6 Baso % (Auto) 0.7 Absolute Neuts (auto) 5.1 Absolute Lymphs (auto) 1.58 Nucleated RBC % 0 Sodium 138 Potassium 3.1 L Chloride 99 Carbon Dioxide 26.0 Anion Gap 13 BUN 9 Creatinine 1.13 H Estim Creat Clear Calc 32.63 Est GFR (MDRD) Af Amer 60 Est GFR (MDRD) Non-Af 49 L BUN/Creatinine Ratio 8.0 L Glucose 131 H Calcium 9.6 Radiography Chest X-Ray - ED: 2 View and Read by ED Physician (2 view chest x-ray reveals chronic emphysematous changes without infiltrate, atelectasis, pneumothorax or effusion. Cardiac silhouette and size normal. Hilum is normal.) Diagnostic Testing: Clinical Impression(s) from Imaging Studies Chest X-Ray 05/05/24 20:20 IMPRESSION: Emphysema without pneumonia or atelectasis. Electronically Signed: Kelton Umanzor MD at 20:49 EDT , Treatment and Re-Evaluation :: Patient was informed of results. She is discharged to home with prescription for prednisone. Discharge Plan Triage Chief Complaint: Wound Other Complaint: Shortness of Breath ED Provider: Dre Manning Dx/Rx/DC Orders Clinical Impression: Dyspnea, Lung nodule, solitary, COPD (chronic obstructive pulmonary disease), Hypothyroidism, Benign essential hypertension, Mitral valve disease Instructions: ED Dyspnea Prescriptions: New prednisone 20 mg tablet 60 mg PO DAILY Qty: 15 0RF No Action fluticasone propionate 50 mcg/actuation spray,suspension 2 spray intranasal BID Rx Instructions: INHALE 2 PUFFS into each nostril once daily levothyroxine 88 mcg tablet 88 mcg PO QDAY Breztri Aerosphere 160-9-4.8 mcg/actuation HFA aerosol inhaler 2 inh inhalation BID nitroglycerin 0.4 mg tablet, sublingual 0.4 mg sublingual Q5M Rx Instructions: do not exceed 3 doses per episode aripiprazole [Abilify] 2 mg tablet 2 mg PO DAILY alendronate 70 mg tablet 70 mg PO QWEEK polyethylene glycol 3350 [ClearLax] 17 gram/dose powder 17 g PO DAILY PRN (Reason: constipation) sucralfate 1 gram tablet 1 g PO BID carvedilol 3.125 mg tablet 3.125 mg PO BID cephalexin 500 mg capsule 500 mg PO Q6 Qty: 21 0RF albuterol sulfate [ProAir HFA] 90 mcg/actuation HFA aerosol inhaler 2 puff INHALATION Q4H PRN PRN (Reason: Sob &/Or Wheezing) Qty: 8.5 6RF pantoprazole 40 mg tablet,delayed release (DR/EC) 40 mg PO DAILY Qty: 30 3RF buspirone 15 mg tablet 15 mg PO BID Qty: 60 1RF paroxetine HCl 40 mg tablet 40 mg PO BID Qty: 60 1RF quetiapine 50 mg tablet See Rx Instructions .ROUTE .COMPLEX Qty: 225 1RF Dose Instruction: Take 1 tablet by mouth every morning, and 1 & 1/2 tablets every night. Rx Instructions: Take 1 tablet by mouth every morning, and 1 & 1/2 tablets every night. clopidogrel 75 mg tablet See Rx Instructions .ROUTE .COMPLEX Qty: 90 2RF Dose Instruction: TAKE 1 TABLET BY MOUTH DAILY Rx Instructions: TAKE 1 TABLET BY MOUTH DAILY ergocalciferol (vitamin D2) 1,250 mcg (50,000 unit) capsule See Rx Instructions .ROUTE .COMPLEX Qty: 8 2RF Dose Instruction: TAKE 1 CAPSULE BY MOUTH EVERY WEEK Rx Instructions: TAKE 1 CAPSULE BY MOUTH EVERY WEEK rosuvastatin 5 mg tablet See Rx Instructions .ROUTE .COMPLEX Qty: 60 0RF Dose Instruction: TAKE 1 TABLET BY MOUTH DAILY FOR CHOLESTEROL Rx Instructions: TAKE 1 TABLET BY MOUTH DAILY FOR CHOLESTEROL lisinopril 5 mg tablet 5 mg PO DAILY Qty: 90 3RF Primary Care Provider: Nabor Biggs Referrals: Nabor Biggs, [facility] [Primary Care Provider] - 3-5 Days if not improving Print Language: Tajik Disposition Disposition: Home, Self Care
[2024-05-05 19:49] LABS: Absolute Lymphocyte Count 1.58 X10^3/uL (0.83-4.51); Absolute Neutrophil Count 5.1 X10^3/uL (2.0-7.7); Basophil# 0.05 X10^3/uL; Basophil% 0.7 % (0-1); Eosinophil# 0.12 X10^3/uL; Eosinophils% 1.6 % (0-5); Hematocrit 42.6 % (37-47); Hemoglobin 13.9 g/dL (12.0-15.0); Lymphocyte # 1.58 X10^3/ul (0.83-4.51); Lymphocyte % 21.1 % (19-41); Mean Corp Hgb Conc 32.6 g/dL (32-36); Mean Corpuscular Hgb 30.2 pg (27.0-32.0); Mean Corpuscular Volume 92.4 fL (81-99); Mean Platelet Vol. 10.9 fl (6.2-12.0); Monocyte# 0.58 X10^3/uL; Monocyte% 7.7 % (0-10); NRBC Flagged by Analyzer 0 % (0-5); Neutrophil # 5.14 X10^3/uL (2.7-7.7); Neutrophil % 68.5 % (47-70); Platelet Count 207 K/mm3 (150-450); RBC Distribution Width CV 14.3 % (11.6-14.6); RBC Distribution Width SD 47.8 fl (35.1-43.9); Red Blood Count 4.61 M/mm3 (4.2-5.4); White Blood Count 7.5 K/mm3 (4.4-11.0)
[2024-05-05 20:03] LABS: Anion Gap 13 (5-15); BUN 9 mg/dL (7-18); Calcium,Total 9.6 mg/dL (8.5-10.1); Chloride 99 mmol/L (98-107); Creatinine, Serum 1.13 mg/dL (0.55-1.02); EST Glomerular Filtration Rate 49 mL/min (>60); Est Glom Filt Rate - Afr Amer 60 mL/min (>60); Estimated Creatinine Clearance 32.63 ml/min; Glucose 131 mg/dL (74-106); Potassium 3.1 mmol/L (3.5-5.1); Sodium Level 138 mmol/L (136-145)
--- NOTE | 2024-05-05 20:20 | RAD_ITS ---
STUDY: X-RAY CHEST REASON FOR EXAM: Female, 79 years old. Cough, shortness of breath history COPD TECHNIQUE: PA and lateral views of the chest. COMPARISON: None. FINDINGS: There is hyperinflation of the lungs consistent with chronic obstructive lung disease (COPD). There is no demonstrated pleural abnormality. Normal size heart. Normal mediastinum and doron. Normal visualized pulmonary arteries. Normal visualized aortic arch and descending thoracic aorta. Normal visualized thoracic spine. Normal visualized ribs, clavicles, and shoulders. There is no demonstrated abnormality of the visualized soft tissue structures of the upper abdomen. RAD/Chest PA and Lateral IMPRESSION: Emphysema without pneumonia or atelectasis. Electronically Signed: Kelton Umanzor MD at 20:49 EDT ,
--- NOTE | 2024-05-05 21:33 | EKG12_ITS ---
Test Reason : SOB Blood Pressure : / mmHG Vent. Rate : 101 BPM Atrial Rate : 101 BPM P-R Int : 126 ms QRS Dur : 122 ms QT Int : 418 ms P-R-T Axes : 063 -47 113 degrees QTc Int : 542 ms Sinus tachycardia Left axis deviation Left bundle branch block Abnormal ECG Confirmed by Lopez Scott ([id number]), editorial writer ELI GUALLPA ([id number]) on 05/07/2024 10:04:54 AM Referred By: Confirmed By:Lopez Scott
== END 2024-05-05 21:44 | disposition home or self-care (01) ==
PROVIDERS: Emergency Provider Emergency Medicine; PCP Nurse Practitioner Family; Visit Provider Emergency Medicine
DX: R06.02 Shortness of breath (principal); J43.9 Emphysema, unspecified; I25.10 Atherosclerotic heart disease of native coronary artery without angina pectoris; E78.00 Pure hypercholesterolemia, unspecified; Z99.81 Dependence on supplemental oxygen; Z87.891 Personal history of nicotine dependence; I10 Essential (primary) hypertension; I05.9 Rheumatic mitral valve disease, unspecified; E03.9 Hypothyroidism, unspecified; I44.7 Left bundle-branch block, unspecified; R45.1 Restlessness and agitation; K21.9 Gastro-esophageal reflux disease without esophagitis; R91.1 Solitary pulmonary nodule; B37.2 Candidiasis of skin and nail
CPT/HCPCS: 71046; 80048; 85025; 93005; 99284; A4216

== ENCOUNTER 2024-08-15 22:41 | Emergency (ER) | payer MEDICARE, SELFPAY ==
[2024-08-15 22:42] VITALS: BP 101/88; PULSE 116; RESP 18; TEMP 36.1; O2SAT 98
--- NOTE | 2024-08-15 23:02 | EX.ED.UPPERE ---
HPI History of Present Illness Chief Complaint: Upper Extremity Injury [facility] Medical History Preoperative evaluation to rule out surgical contraindication Sleep apnea On home oxygen therapy Leg cramps History of edema History of echocardiogram Hypersomnia History of CAD (coronary artery disease) PAD (peripheral artery disease) Loss of hearing Wears glasses Wears dentures Cancer Depression Anxiety Thyroid disease Low iron High cholesterol Restless legs Back pain TIA (transient ischemic attack) Syncope History of IBS Hx of gastritis Gastric reflux Former smoker Shortness of breath on exertion Chronic cough History of irregular heartbeat History of stress test Cardiology follow-up encounter Chest pain Skin lesion of face Secondary pulmonary hypertension Nonrheumatic tricuspid (valve) insufficiency Nonrheumatic mitral (valve) insufficiency Atherosclerotic heart disease of [place] coronary artery without angina pectoris Left bundle branch block First degree AV block History of abdominal aortic aneurysm Mitral valve disease Myalgia Hypothyroidism GERD (gastroesophageal reflux disease) History of basal cell carcinoma COPD (chronic obstructive pulmonary disease) Arthritis History of seizure disorder PVD (peripheral vascular disease) HLD (hyperlipidemia) Home Medications ?Medication ?Instructions ?Recorded ?Last Taken ?Type albuterol sulfate 90 mcg/actuation 2 puff inhalation Q4H PRN PRN Sob 04/08/22 Unknown Rx aerosol inhaler (ProAir HFA) &/Or Wheezing #8.5 grams fluticasone propionate 50 2 spray intranasal BID COPD 08/21/22 Unknown History mcg/actuation nasal spray,suspension budesonide 160 mcg-glycopyr 9 2 inh inhalation BID COPD 10/31/22 Unknown History mcg-formot 4.8 mcg/actuation HFA inhaler (Breztri Aerosphere) levothyroxine 88 mcg tablet 88 mcg PO QDAY thyroid 10/31/22 10/30/22 History pantoprazole 40 mg tablet,delayed 40 mg PO DAILY GERD #30 tabs 11/07/22 Unknown Rx release buspirone 15 mg tablet 15 mg PO BID Check with primary 11/22/22 Unknown Rx doctor #60 tabs paroxetine HCl 40 mg tablet 40 mg PO BID Check with primary 11/22/22 Unknown Rx doctor #60 tabs clopidogrel 75 mg tablet See Rx Instructions .Route 02/15/23 Unknown Rx .COMPLEX #90 TABLETS ergocalciferol (vitamin D2) 1,250 See Rx Instructions .Route 02/15/23 Unknown Rx mcg (50,000 unit) capsule .COMPLEX #8 CAPSULES quetiapine 50 mg tablet See Rx Instructions .Route 02/15/23 Unknown Rx .COMPLEX #225 TABLETS rosuvastatin 5 mg tablet See Rx Instructions .Route 09/25/23 Unknown Rx .COMPLEX #60 tabs lisinopril 5 mg tablet 5 mg PO DAILY for blood pressure 01/02/24 Unknown Rx #90 TABLETS alendronate 70 mg tablet 70 mg PO QWEEK 03/06/24 Unknown History aripiprazole 2 mg tablet (Abilify) 2 mg PO DAILY 03/06/24 Unknown History carvedilol 3.125 mg tablet 3.125 mg PO BID 03/06/24 Unknown History cephalexin 500 mg capsule 500 mg PO Q6 #21 CAPSULES 03/06/24 Unknown Rx nitroglycerin 0.4 mg sublingual 0.4 mg sublingual Q5M chest pain 03/06/24 Unknown History tablet polyethylene glycol 3350 17 17 g PO DAILY PRN constipation 03/06/24 Unknown History gram/dose oral powder (ClearLax) sucralfate 1 gram tablet 1 g PO BID 03/06/24 Unknown History prednisone 20 mg tablet 60 mg (3 x 20 mg) PO DAILY #15 05/05/24 Unknown Rx TABLETS Allergy/AdvReac Type Severity Reaction Status Date / Time Penicillins Allergy Rash Verified 08/15/24 22:42 Family History Mother Heart disease Cancer Uterine cancer Myocardial infarction Father CAD (coronary artery disease) Alcoholism Brother CAD (coronary artery disease) Alcoholism Cancer Cancer of stomach Surgical History History of cardiac catheterization History of colonoscopy (~2010) History of esophagogastroduodenoscopy (EGD) (~2016) S/P abdominal aortic aneurysm repair (08/10/07) Stented coronary artery (04/04/07) History of cholecystectomy History of 3 sections Social History Smoking Status: Former smoker quit date: 01/31/07 pack-years: 40 how long ago did patient quit smokin second hand exposure: No alcohol intake: never substance use type: does not use what type of physical activity do you participate in: none EXAM Physical Exam Const Vital Signs: 08/15/24 22:42 Temperature 97 F L Temperature Source Temporal Pulse Rate 116 H Respiratory Rate 18 Blood Pressure 101/88 H Blood Pressure Mean 92 Pulse Ox 98 Oxygen Delivery Method Nasal Cannula Oxygen Flow Rate (L/min) 2 [facility] Narrative Medical decision making narrative: HISTORY OF PRESENT ILLNESS: 79-year-old female presents with left wrist pain. No she was carrying a pot of soup she injured her left wrist. REVIEW OF SYSTEMS: Pertinent positives: Left wrist pain Pertinent negatives: Elbow pain PHYSICAL EXAM: Nursing triage notes reviewed, Vital signs reviewed Constitutional: please see mdm HENT: MMM Eyes: Pupils equal round and reactive to light, Extraocular muscles intact Neck: No stridor, no JVD, full neck ROM Lungs: Clear to auscultation, No wheezing or rales. No increased work of breathing, no conversational dyspnea, no accessory muscle use, no nasal flaring. No respiratory distress noted Heart: Regular rate and rhythm, No murmurs, No rubs and No gallops, 2+ distal pulses (radial, femoral, posterior tibial) in all extremities Abdomen: Soft, there is no tenderness, rigidity, rebound or guarding, no obvious peritoneal signs, no palpable pulsatile abdominal masses, no auscultated abdominal bruit : No CVAT Extremities: No edema, compartments are soft, TTP over anatomic snuffbox. Diminished pronation supination secondary to pain. Diminished flexion extension of left wrist secondary to pain Neuro: Intact 5/5 strength with ok sign (median), intact finger abduction (ulnar) intact wrist extension (radial n). Intact sensation in the radial, ulnar, and median nerve distributions. Skin: Slight erythema noted over distal wrist, no bruising MEDICAL DECISION MAKING: Chief Complaint: Left wrist pain History obtained from others: Family Consults: none [facility] Narrative: Patient initially hemodynamically stable, afebrile, [id number]. Exam with distal left wrist TTP and snuffbox tenderness. I considered the following differential diagnosis: Left wrist fracture, dislocation, contusion ALL IMAGES (IF OBTAINED) HAVE BEEN PERSONALLY REVIEWED AND INTERPRETED BY MYSELF. X-ray left wrist was read reviewed person myself showed no evidence of obvious bony fracture. Radiologist agreed my interpretation Given snuffbox tenderness concern for occult scaphoid fracture. Will place the patient in a thumb spica splint and have her follow-up with her PCP in 1 week for repeat imaging The patient and/or family, caregivers express understanding. The patient and/or family, caregivers agrees with the plan. Shared decision making: I will have a discussion with the patient and or visitors regarding risk/benefits of further testing or admission. They will be made aware of of the risk/benefits inherent in this decision they will be given the opportunity to voice understanding. Total critical care time today provided was at least 0 minutes. This excludes separately billable procedures. Critical care time (if documented) is secondary to the patient having high probability of clinically significant/life threatening deterioration in the patient's condition which required my urgent intervention. Impression: 1. Left wrist pain 2. Acute wrist sprain Dispo: Discharge This note was generated with [employer] dictation software. It may contain incorrect words, spelling, and punctuation that were not noted in review of the chart prior to signing. Discharge Plan Triage Chief Complaint: Upper Extremity Injury ED Provider: Mp Jordan Dx/Rx/DC Orders Clinical Impression: Left wrist sprain Instructions: ED Wrist Sprain Prescriptions: No Action fluticasone propionate 50 mcg/actuation spray,suspension 2 spray intranasal BID Rx Instructions: INHALE 2 PUFFS into each nostril once daily levothyroxine 88 mcg tablet 88 mcg PO QDAY Breztri Aerosphere 160-9-4.8 mcg/actuation HFA aerosol inhaler 2 inh inhalation BID nitroglycerin 0.4 mg tablet, sublingual 0.4 mg sublingual Q5M Rx Instructions: do not exceed 3 doses per episode aripiprazole [Abilify] 2 mg tablet 2 mg PO DAILY alendronate 70 mg tablet 70 mg PO QWEEK polyethylene glycol 3350 [ClearLax] 17 gram/dose powder 17 g PO DAILY PRN (Reason: constipation) sucralfate 1 gram tablet 1 g PO BID carvedilol 3.125 mg tablet 3.125 mg PO BID cephalexin 500 mg capsule 500 mg PO Q6 Qty: 21 0RF prednisone 20 mg tablet 60 mg PO DAILY Qty: 15 0RF albuterol sulfate [ProAir HFA] 90 mcg/actuation HFA aerosol inhaler 2 puff INHALATION Q4H PRN PRN (Reason: Sob &/Or Wheezing) Qty: 8.5 6RF pantoprazole 40 mg tablet,delayed release (DR/EC) 40 mg PO DAILY Qty: 30 3RF buspirone 15 mg tablet 15 mg PO BID Qty: 60 1RF paroxetine HCl 40 mg tablet 40 mg PO BID Qty: 60 1RF quetiapine 50 mg tablet See Rx Instructions .ROUTE .COMPLEX Qty: 225 1RF Dose Instruction: Take 1 tablet by mouth every morning, and 1 & 1/2 tablets every night. Rx Instructions: Take 1 tablet by mouth every morning, and 1 & 1/2 tablets every night. clopidogrel 75 mg tablet See Rx Instructions .ROUTE .COMPLEX Qty: 90 2RF Dose Instruction: TAKE 1 TABLET BY MOUTH DAILY Rx Instructions: TAKE 1 TABLET BY MOUTH DAILY ergocalciferol (vitamin D2) 1,250 mcg (50,000 unit) capsule See Rx Instructions .ROUTE .COMPLEX Qty: 8 2RF Dose Instruction: TAKE 1 CAPSULE BY MOUTH EVERY WEEK Rx Instructions: TAKE 1 CAPSULE BY MOUTH EVERY WEEK rosuvastatin 5 mg tablet See Rx Instructions .ROUTE .COMPLEX Qty: 60 0RF Dose Instruction: TAKE 1 TABLET BY MOUTH DAILY FOR CHOLESTEROL Rx Instructions: TAKE 1 TABLET BY MOUTH DAILY FOR CHOLESTEROL lisinopril 5 mg tablet 5 mg PO DAILY Qty: 90 3RF Primary Care Provider: Nabor Biggs Referrals: Nabor Biggs, [facility] [Primary Care Provider] - Activity Restrictions/Additional Instructions: Thank you for trusting us with your care today! Your imaging was negative for fracture or dislocated joint. You are likely suffering from a wrist sprain. Please wear the splint is much as possible for comfort. Please take Tylenol (2 pills, 650 mg), ibuprofen (2 pills, 400 mg) every 6 hours as needed for pain and fever control. Please return to the emergency department if your symptoms change or worsen. Please follow with your primary care physician for further outpatient evaluation and management. Specifically for repeat imaging to ensure there is no occult wrist fracture Print Language: Mongolian Disposition Disposition: Home, Self Care
--- NOTE | 2024-08-15 23:48 | RAD_ITS ---
INDICATION: pain EXAMINATION/TECHNIQUE: X-RAY - LEFT XR Wrist Min 3 Views 3 VIEWS COMPARISON: No relevant prior comparison study available FINDINGS: SOFT TISSUES: No soft tissue swelling or gas. No radiopaque foreign body. BONES/JOINTS: Mild degenerative arthrosis. No sclerotic or destructive changes observed. RAD/Wrist min 3 Views IMPRESSION: Mild degenerative arthrosis. Electronically Signed: Alice Trujillo MD at 23:58 EST ,
[2024-08-15] MEDS: oxyCODONE 5 MG Tablet PO (23:57)
[2024-08-16 00:43] VITALS: BP 122/76; PULSE 76; RESP 18; TEMP 36.7; O2SAT 94
== END 2024-08-16 00:44 | disposition home or self-care (01) ==
PROVIDERS: Emergency Provider Emergency Medicine; PCP Nurse Practitioner Family; Visit Provider Emergency Medicine
DX: S63.92XA Sprain of unspecified part of left wrist and hand, initial encounter (principal); J44.9 Chronic obstructive pulmonary disease, unspecified; I25.10 Atherosclerotic heart disease of native coronary artery without angina pectoris; Z87.891 Personal history of nicotine dependence; E78.00 Pure hypercholesterolemia, unspecified; K21.9 Gastro-esophageal reflux disease without esophagitis; X50.0XXA Overexertion from strenuous movement or load, initial encounter
CPT/HCPCS: 73110; 99283

== ENCOUNTER → 2025-02-12 | Outpatient (CLI) | payer MEDICARE, SELFPAY ==
[2025-02-12 12:43] LABS: AST(SGOT) 29 U/L (<=31); Alanine Aminotransfer ALT/SGPT 16 U/L (<=34); Albumin, Serum 4.2 g/dL (3.4-4.8); Alkaline Phosphatase 79 U/L (35-104); Anion Gap 14 (5-15); BUN 14 mg/dL (4-19); BUN/Creat Ratio 16.0 RATIO (10-20); Calcium,Total 9.8 mg/dL (7.6-11.0); Carbon Dioxide 26.3 mmol/L (21.0-32.0); Chloride 98 mmol/L (98-108); Globulin 3.0 g/dL (2.2-4.2); Glucose 122 mg/dL (70-99); Potassium 3.7 mmol/L (3.3-5.1)
[2025-02-12 12:48] LABS: Vitamin B12 250 pg/mL (180-914); Vitamin D,25 Hydroxy 51.5 ng/mL (30-100)
== END | disposition home or self-care (01) ==
LOC: VSLAB 08:52
PROVIDERS: PCP Nurse Practitioner Family
DX: R41.3 Other amnesia (principal); R54 Age-related physical debility; E55.9 Vitamin D deficiency, unspecified
CPT/HCPCS: 36415; 80053; 82306; 82607; 84443

== ENCOUNTER → 2025-07-29 | Outpatient (CLI) | payer MEDICARE, SELFPAY ==
[2025-07-29 17:45] LABS: Hematocrit 41.1 % (37-47); Hemoglobin 13.3 g/dL (12.0-15.0); Immature Granulocytes Count 0.020 X10^3/uL (0.0-0.0); Mean Corp Hgb Conc 32.4 g/dL (32-36); Mean Corpuscular Volume 94.7 fL (81-99); Mean Platelet Vol. 10.6 fl (6.2-12.0); NRBC Flagged by Analyzer 0 % (0-5); Platelet Count 176 K/mm3 (150-450); RBC Distribution Width CV 13.9 % (11.6-14.6); RBC Distribution Width SD 45.2 fl (35.1-43.9); Red Blood Count 4.34 M/mm3 (4.2-5.4); White Blood Count 6.2 K/mm3 (4.4-11.0)
[2025-07-29 18:25] LABS: AST(SGOT) 30 U/L (<=31); Alanine Aminotransfer ALT/SGPT 15 U/L (<=34); Albumin, Serum 4.2 g/dL (3.4-4.8); Alkaline Phosphatase 75 U/L (35-104); Anion Gap 10 (5-15); BUN 19 mg/dL (4-19); BUN/Creat Ratio 21.1 RATIO (10-20); Calcium,Total 9.4 mg/dL (7.6-11.0); Carbon Dioxide 27.0 mmol/L (21.0-32.0); Chloride 101 mmol/L (98-108); Globulin 2.9 g/dL (2.2-4.2); Glucose 96 mg/dL (70-99); Magnesium 2.0 mg/dL (1.5-2.2); Potassium 4.2 mmol/L (3.3-5.1); Vitamin B12 260 pg/mL (180-914)
== END | disposition home or self-care (01) ==
LOC: MTLAB 15:28
PROVIDERS: PCP Nurse Practitioner Family
DX: G31.84 Mild cognitive impairment of uncertain or unknown etiology (principal); E03.9 Hypothyroidism, unspecified
CPT/HCPCS: 36415; 80053; 82607; 83735; 84443; 85025